=== PATIENT | male | born 1960 | race African-American/Black ===

== ENCOUNTER 2023-06-14 15:56 | Outpatient (CLI) | payer OTHER, SELFPAY ==
--- NOTE | ~2023-06-14 | MR_ITS ---
EXAMINATION: MR foot LT wo con DATE: 06/14/2023 17:11 INDICATION: Left foot pain and swelling TECHNIQUE: Magnetic resonance imaging (MRI) of the left mid and hindfoot was performed without intrav enous contrast. Sequences included sagittal T1-weighted FSE, sagittal fluid sensitive FSE STIR, coron al PD-weighted FS FSE, coronal T1-weighted FSE, axial PD-weighted FS FSE, and axial PD-weighted FSE. COMPARISON: None FINDINGS: Medial ankle ligaments: There is thickening of the superficial deltoid ligament and loss of the normally more clearly defined striated appearance to the deep deltoid ligament without surrounding soft tissue edema consistent wi th scarring related to chronic sprain. The spring ligament complex is normal. Lateral ankle ligaments: The anterior and posterior inferior tibiofibular ligaments are normal. The posterior talofibular liga ment is normal. There is heterotopic ossification at the calcaneal insertion of the mildly thickened calcaneofibular ligament likely sequela of chronic sprain. The anterior talofibular ligament appears attenuated with mild increased intrasubstance signal at its fibular insertion without significant baylee rounding edema also consistent with sequela of chronic sprain. Tendons: Minimal distal Achilles tendinosis with small enthesophytes at its calcaneal insertion. The peroneus longus and brevis tendons are normal aside from increased signal within the os perineum and the immed iately adjacent lateral margin of the cuboid. The tibialis anterior and extensor hallucis longus and extensor digitorum longus tendons are normal. The tibialis posterior, flexor digitorum longus and fle xor hallucis longus tendons are normal. Plantar fascia: Small enthesophyte at the calcaneal origin of the otherwise normal plantar aponeurosis. No marrow or surrounding soft tissue edema to suggest acute plantar fasciitis. Fluid: There is heterogeneous increased fluid signal in the anterior and posterior recess of the ankle joint consistent with prominent synovitis and likely associated small effusion. Physiologic amount fluid i n the remaining joint spaces. No other abnormal fluid collections. Bones/other: There is scattered marrow edema in the distal tibia, calcaneus and involving the navicular cuboid, al l of the cuneiforms and at the base of the second-fifth metatarsals. The edema appears to be centered along the margins of the articular surfaces at the sites of ligamentous and tendinous attachment. Th ere appears to be a developing erosion at the lateral margin of the anterior talar dome juxtaposed to the medial malleolus. Additional tiny juxta articular erosion at the proximal plantar/lateral margin of the cuboid best appreciated on the sagittal imaging. There is additional marrow edema at the head of the first metatarsal and at the first metatarsal sesamoids which is seen only on the axial imagin g. There is irregular cortical contour to the medial head of the first metatarsal which could be due to either osteophytes, chronic erosions or combination thereof. No fracture. No geographic loss of T1 marrow fat signal to suggest osteomyelitis. IMPRESSION: 1. Likely small joint effusion and prominent synovitis at the tibiotalar joint consistent with an inf lammatory arthritis. Also suggestive of inflammatory arthritis is prominent marrow edema with juxta a rticular predominance involving multiple bones in the mid and hindfoot. 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 A diagnostic arthrocentesis of the ankle joint is pl anned. 2. Scarring consistent with chronic medial and lateral ankle sprains. Reviewed, dictated and finalized at location A. Electronically signed by Christophe Fernandes M.D. on
== END 2023-06-14 15:57 | disposition home or self-care (01) ==
LOC: ANHIMG 15:59
PROVIDERS: PCP Nurse Practitioner Family; Visit Provider Orthopaedic Surgery
DX: M79.672 Pain in left foot (principal); M12.572 Traumatic arthropathy, left ankle and foot; M25.472 Effusion, left ankle
CPT/HCPCS: 73718

== ENCOUNTER 2023-06-15 15:17 | Outpatient (CLI) | payer OTHER, SELFPAY ==
--- NOTE | ~2023-06-15 | US_ITS ---
EXAMINATION: US_ABSCYSTIMG_US DATE: 06/15/2023 16:30 INDICATION: Swelling and pain at the left foot TECHNIQUE: The procedure including the risks and benefits was discussed with the patient. Risks discu ssed included bleeding and infection. The patient understood the risks and agreed to proceed. The sk in overlying the ankle joint was prepped and draped in usual sterile fashion. Anesthetic was adminis tered with 1% lidocaine subcutaneously. A 21 gauge needle was advanced under continuous ultrasound ob servation into the anterior recess of the tibiotalar joint. 1 mL of fluid was aspirated and sent to l ab for studies as ordered by the referring physician.. The needle was removed and the entry site was cleaned and dressed. Post procedure ultrasound demonstrated no hemorrhage. FINDINGS: Ultrasound images demonstrate and moderate amount of hypoechoic likely synovitis within the anterior recess of the tibiotalar joint space. Subsequent images demonstrate the needle advanced int o the lateral side of the anterior recess which yielded 1 mL of relatively clear serosanguineous flui d. IMPRESSION: 1. Successful Ultrasound-guided left ankle arthrocentesis. Reviewed, dictated and finalized at location A. [employer]
[2023-06-15 18:08] LABS: Appearance Synovial Fluid Bloody (Clear); Color Synovial Fluid Red (Colorless); Source Synovial Fluid Synovial fluid
[2023-06-15 18:09] LABS: Lymphocytes Synovial Fluid 5 %; Monocytes Synovial Fluid 9 %; Neutrophils Synovial Fluid 86 % (0-25)
== END 2023-06-15 15:18 | disposition home or self-care (01) ==
PROVIDERS: PCP Nurse Practitioner Family; Visit Provider Orthopaedic Surgery
DX: M12.572 Traumatic arthropathy, left ankle and foot (principal); M79.672 Pain in left foot
CPT/HCPCS: 10160; 76942; 87070; 87075; 87205; 89051; 89060

== ENCOUNTER 2023-07-13 13:32 | Outpatient (CLI) | payer OTHER, SELFPAY ==
--- NOTE | ~2023-07-13 | MR_ITS ---
EXAMINATION: MR knee LT wo con DATE: 07/13/2023 14:21 INDICATION: Left knee trauma with instability and inability to straighten the knee post injury 2 jose hs prior TECHNIQUE: Magnetic resonance imaging (MRI) of the left knee was performed without intravenous contra st. Sequences included coronal PD-weighted FSE, coronal PD-weighted FS FSE, sagittal T2-weighted FSE , sagittal PD-weighted FS FSE and axial PD weighted fat saturated FSE. COMPARISON: None. FINDINGS: Evaluation is mildly limited by some motion artifact or blurring on multiple sequences. Medial compartment: There is a tear at the posterior horn and posterior body of the medial meniscus, likely complex with horizontal configuration extending to the inferior articular surface at the meniscal body and with mo re vertical orientation along both the superior and intra-articular surfaces at the posterior horn. M ild partial-thickness cartilage loss along the anteromedial aspect medial tibial plateau and anterior weightbearing medial femoral condyle, the latter with superimposed deep chondral fissuring. There is a deeper chondral ulceration with chondral surface regularity at the central weightbearing medial fe moral condyle. No degenerative subchondral changes. Lateral compartment: There is an avulsion of the posterior root of the lateral meniscus. There is an additional longitudin al tear plane extending to the inferior articular surface of the inner third of the posterior body of the lateral meniscus. Deep chondral fissuring with underlying small central subchondral osteophyte a t the posterior margin of the lateral tibial plateau. Mild partial-thickness cartilage loss with smoo th chondral surface along the posterior weightbearing lateral femoral condyle. Patellofemoral compartment: Partial-thickness chondral ulceration involving up to 50% the cartilage thickness at the and mid infe rior aspect lateral talar facet. There is a superimposed small region of deeper chondral fissuring wi th mild underlying subarticular edema-like signal change. Shallow chondral ulceration at the inferome dial aspect of the medial patellar facet. Trochlear cartilage appears relatively preserved. Ligaments and tendons: Anterior and posterior cruciate ligaments are normal. There is mild thickening of the proximal medial collateral ligament without surrounding edema consistent with mild scarring related to chronic sprai n. The fibular collateral ligament complex is normal. There is mild tendinopathy without discrete tea r at the femoral insertion of the popliteus tendon. Mild distal quadriceps tendinopathy. There is als o mild patellar tendinopathy. 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 The visualized medial and lateral hamstring tendons as well as the iliotibial band are normal. Fluid: Large left knee joint effusion with diffuse mild to moderate synovitis. No loose osteochondral bodies identified. Osseous/other: Bone alignment is normal. No fracture. There is marrow edema along the posterolateral nonarticular munoz rface of the lateral femoral condyle near the insertion of the popliteal tendon. There appears to be a developing erosion along the posterior margin of the insertion. No fracture or pathologic marrow re placing process. IMPRESSION: 1. Medial and lateral meniscal tears, both likely complex including avulsion of the posterior root of the lateral meniscus. 2. 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 3. Nonspecific erosion at the posterolateral aspect lateral femoral condyle with prominent surroundin g marrow edema located posterior to the insertion of th
== END 2023-07-13 13:33 | disposition home or self-care (01) ==
PROVIDERS: PCP Nurse Practitioner Family; Visit Provider Orthopaedic Surgery
DX: S83.242A Other tear of medial meniscus, current injury, left knee, initial encounter (principal); S83.282A Other tear of lateral meniscus, current injury, left knee, initial encounter; X58.XXXA Exposure to other specified factors, initial encounter; M17.12 Unilateral primary osteoarthritis, left knee; M25.462 Effusion, left knee
CPT/HCPCS: 73721

== ENCOUNTER 2024-01-09 14:43 | Outpatient (CLI) | payer OTHER, SELFPAY ==
[2024-01-09 15:06] LABS: Basophils Absolute Auto 0.1 K/mm3 (0.0-0.1); Basophils Percent Auto 0.6 % (0.2-1.2); Eosinophils Absolute Auto 0.2 K/mm3 (0-0.3); Eosinophils Percent Auto 2.2 % (0-4.4); Hematocrit 42.3 % (42.0-52.0); Hemoglobin 13.4 g/dL (14.0-18.0); Immature Granulocyte Absolute 0.02 K/mm3 (0.00-0.031); Immature Granulocyte Percent A 0.2 % (0-0.5); Lymphocytes Absolute Auto 1.78 K/mm3 (0.9-3.2); Lymphocytes Percent Auto 21.8 % (18.3-44.2); Mean Corpuscular HGB Conc 31.7 g/dl (32-36); Mean Corpuscular Hemoglobin 26.4 pg (26-34); Mean Corpuscular Volume 83.3 fl (80-100); Mean Platelet Volume 10.8 fl (7.4-10.4); Monocytes Absolute Auto 0.9 K/mm3 (0.1-0.6); Monocytes Percent Auto 10.9 % (2.6-8.5); Neutrophils Absolute Auto 5.3 K/mm3 (1.3-6.7); Neutrophils Percent Auto 64.3 % (45.5-73.1); Platelet Count Result 244 k/mm3 (150-375); Red Blood Count 5.08 M/mm3 (4.6-6.20); Red Cell Distribution Width 18.8 % (11.5-14.5); White Blood Count 8.2 K/mm3 (4.5-10.0)
[2024-01-09 16:50] LABS: Iron 68 ug/dL (49-181)
[2024-01-09 16:55] LABS: Alanine Aminotransferase 44 U/L (6-50); Albumin Level 4.8 g/dL (3.5-5.1); Alkaline Phosphatase 97 U/L (38-126); Anion Gap 11 mmol/L (4-12); Aspartate Amino Transferase 49 U/L (17-59); Bilirubin,Total 0.5 mg/dL (0.2-1.3); Blood Urea Nitrogen 17 mg/dL (9-20); Calcium 10.5 mg/dL (8.4-10.2); Carbon Dioxide 28 mmol/L (22-30); Chloride 101 mmol/L (98-107); Estimated Glomerular Filt Rate > 60; Glucose 98 mg/dL (65-110); Lactate Dehydrogenase 172 U/L (120-246); Potassium 4.3 mmol/L (3.4-5.0); Sodium 140 mmol/L (137-145)
[2024-01-09 16:59] LABS: Percent Iron Saturation 16 % (20-50)
[2024-01-09 18:01] LABS: Folic Acid 10.1 ng/mL (2.76->20)
[2024-01-11 17:23] LABS: Hematocrit 43.9 % (38.5-50.0); Hemoglobin 13.5 g/dL (13.2-17.1); MCH 26.3 pg (27.0-33.0); MCV 85.6 fL (80.0-100.0); RDW 17.8 % (11.0-15.0); Red Blood Cell Count 5.13 Million/uL (4.20-5.80)
[2024-01-13 09:24] LABS: Methylmalonic Acid 171 nmol/L (69-390)
[2024-01-15 10:39] LABS: Soluble Transferrin Receptor 2.21 mg/L (0.76-1.76)
== END 2024-01-09 14:44 | disposition home or self-care (01) ==
PROVIDERS: Nurse Practitioner Family; PCP Nurse Practitioner Family; Visit Provider Internal Medicine Hematology & Oncology
DX: D50.9 Iron deficiency anemia, unspecified (principal)
CPT/HCPCS: 36415; 80053; 82607; 82728; 82746; 83021; 83540; 83550; 83615; 83921; 84238; 85025

== ENCOUNTER 2024-04-25 13:08 | Outpatient (CLI) | payer OTHER, SELFPAY ==
[2024-04-25 13:20] LABS: Basophils Absolute Auto 0.1 K/mm3 (0.0-0.1); Basophils Percent Auto 0.6 % (0.2-1.2); Eosinophils Absolute Auto 0.3 K/mm3 (0-0.3); Eosinophils Percent Auto 3.3 % (0-4.4); Hematocrit 43.8 % (42.0-52.0); Hemoglobin 14.7 g/dL (14.0-18.0); Immature Granulocyte Absolute 0.01 K/mm3 (0.00-0.031); Immature Granulocyte Percent A 0.1 % (0-0.5); Lymphocytes Absolute Auto 2.12 K/mm3 (0.9-3.2); Lymphocytes Percent Auto 26.7 % (18.3-44.2); Mean Corpuscular HGB Conc 33.6 g/dl (32-36); Mean Corpuscular Volume 92.4 fl (80-100); Mean Platelet Volume 9.9 fl (7.4-10.4); Monocytes Absolute Auto 1.3 K/mm3 (0.1-0.6); Monocytes Percent Auto 16.2 % (2.6-8.5); Neutrophils Absolute Auto 4.2 K/mm3 (1.3-6.7); Neutrophils Percent Auto 53.1 % (45.5-73.1); Platelet Count Result 199 k/mm3 (150-375); Red Blood Count 4.74 M/mm3 (4.6-6.20); Red Cell Distribution Width 14.1 % (11.5-14.5)
[2024-04-25 13:52] LABS: Iron 70 ug/dL (49-181)
[2024-04-25 13:56] LABS: Anion Gap 11 mmol/L (4-12); Blood Urea Nitrogen 14 mg/dL (9-20); Calcium 10.1 mg/dL (8.4-10.2); Carbon Dioxide 28 mmol/L (22-30); Chloride 101 mmol/L (98-107); Estimated Glomerular Filt Rate > 60; Glucose 102 mg/dL (65-110); Potassium 4.3 mmol/L (3.4-5.0); Sodium 140 mmol/L (137-145)
[2024-04-25 14:38] LABS: Percent Iron Saturation 18 % (20-50)
[2024-04-25 16:33] LABS: Folic Acid 7.6 ng/mL (2.76->20)
== END 2024-04-25 13:09 | disposition home or self-care (01) ==
LOC: ANHLAB 13:11
PROVIDERS: PCP Nurse Practitioner Family; Visit Provider Internal Medicine Hematology & Oncology
DX: D51.9 Vitamin B12 deficiency anemia, unspecified (principal); D50.9 Iron deficiency anemia, unspecified
CPT/HCPCS: 36415; 80048; 82607; 82728; 82746; 83540; 83550; 85025

== ENCOUNTER 2024-06-09 12:59 | Outpatient (CLI) | payer OTHER, SELFPAY ==
[2024-06-09 13:24] LABS: Hematocrit 42.2 % (42.0-52.0); Mean Corpuscular HGB Conc 33.2 g/dl (32-36); Mean Corpuscular Hemoglobin 31.1 pg (26-34); Mean Corpuscular Volume 93.8 fl (80-100); Platelet Count Result 266 k/mm3 (150-375); Red Cell Distribution Width 12.9 % (11.5-14.5); White Blood Count 8.5 K/mm3 (4.5-10.0)
[2024-06-09 14:34] LABS: Albumin Level 4.4 g/dL (3.5-5.1); Anion Gap 5 mmol/L (4-12); Blood Urea Nitrogen 13 mg/dL (9-20); Calcium 9.6 mg/dL (8.4-10.2); Carbon Dioxide 30 mmol/L (22-30); Chloride 103 mmol/L (98-107); Estimated Glomerular Filt Rate 57; Glucose 125 mg/dL (65-110); Magnesium 1.6 mg/dL (1.6-2.3); Sodium 138 mmol/L (137-145)
[2024-06-09 14:47] LABS: Creatinine Urine 226.9 mg/dL
[2024-06-09 14:51] LABS: MALB Creatinine Ratio 7.3 mg/g (0-30); Microalbumin Urine Random 16.5 mg/L (0-16.7)
[2024-06-09 15:33] LABS: Vitamin D 25 Hydroxy 48.8 ng/mL
== END 2024-06-09 13:00 | disposition home or self-care (01) ==
LOC: ANHLAB 13:00
PROVIDERS: PCP Nurse Practitioner Family
DX: I12.9 Hypertensive chronic kidney disease with stage 1 through stage 4 chronic kidney disease, or unspecified chronic kidney disease (principal); N18.4 Chronic kidney disease, stage 4 (severe); D50.8 Other iron deficiency anemias; E21.1 Secondary hyperparathyroidism, not elsewhere classified; M10.0 Idiopathic gout; R80.1 Persistent proteinuria, unspecified; G47.33 Obstructive sleep apnea (adult) (pediatric)
CPT/HCPCS: 36415; 80069; 82043; 82306; 83735; 84550; 85027

== ENCOUNTER 2024-07-08 15:37 | Outpatient (CLI) | payer OTHER, SELFPAY ==
--- OUTSIDE RECORDS SUMMARY | 2024-07-08 15:54 | XMS_ITS | Data Portability ---
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 10/24/2023 16:03:09 10/24/19 24 10/24/2023 CBC/C OMPLE TE BLD COUNT W/DIF F monocytes, absolute count 0.76 x10'3 /uL 0.29-0 .99 Not Available [facility] (Lab) [address] [place], [address], 10/24/2023 16:03:09 10/24/19 24 10/24/2023 CBC/C OMPLE TE BLD COUNT W/DIF F eosinophils, absolute count 0.27 x10'3 /uL 0.02-0 .53 Not Available [facility] (Lab) [address] [place], [address], 10/24/2023 16:03:09 10/24/19 24 10/24/2023 CBC/C OMPLE TE BLD COUNT W/DIF F basophils, absolute count 0.05 x10'3 /uL 0.01-0 .08 Not Available [facility] (Lab) [address] [place], [address], 10/24/2023 16:03:09 10/24/19 24 10/24/2023 CBC/C OMPLE TE BLD COUNT W/DIF F immature granulocytes ,absolute 0.04 x10'3 /uL 0.00-0 .05 Not Available [facility] (Lab) [address] [place], [address], 10/24/2023 16:03:09 10/24/19 24 10/24/2023 CBC/C OMPLE TE BLD COUNT W/DIF F nucleated red blood cells 0.0 % -0 Not Available [facility] (Lab) [address] [place], [address], 10/24/2023 16:03:09 10/24/19 24 10/24/2023 CBC/C OMPLE TE BLD COUNT W/DIF F NRBC# 0.00 x10'3 /uL Not Available [facility] (Lab) [address] [place], [address], 10/24/2023 16:03:09 10/24/19 24 10/24/2023 COMPR EHENS LILLIAM METAB OLIC PANEL sodium 134 mmol/ L 137-14 5 low Not Available [facility] (Lab) [address] [place], [address], 10/24/2023 16:33:46 10/24/19 24 10/24/2023 COMPR EHENS LILLIAM METAB OLIC PANEL potassium 3.8 mmol/ L 3.5-5. 1 Not Available [facility] (Lab) [address] [place], [address], 10/24/2023 16:33:46 10/24/19 24 10/24/2023 COMPR EHENS LILLIAM METAB OLIC PANEL chloride 101 mmol/ L 98-107 Not Available [facility] (Lab) [address] [place], [address], 10/24/2023 16:33:46 10/24/19 24 10/24/2023 COMPR EHENS LILLIAM METAB OLIC PANEL carbon dioxide 25 mmol/ L 22-30 Not Available [facility] (Lab) [address] [place], [address], 10/24/2023 16:33:46 10/24/19 24 10/24/2023 COMPR EHENS LILLIAM METAB OLIC PANEL anion gap 11.8 mmol/ L 14-22 low Not Available [facility] (Lab) [address] [place], [address], 10/24/2023 16:33:46 10/24/19 24 10/24/2023 COMPR EHENS LILLIAM METAB OLIC PANEL glucose 127 mg/dL 70-99 high Not Available [facility] (Lab) [address] [place], [address], 10/24/2023 16:33:46 10/24/19 24 10/24/2023 COMPR EHENS LILLIAM METAB OLIC PANEL BUN 14 mg/dL 8-19 Not Available [facility] (Lab) [address] [place], [address], 10/24/2023 16:33:46 10/24/19 24 10/24/2023 COMPR EHENS LILLIAM METAB OLIC PANEL creatinine 1.22 mg/dL 0.66-1 .25 Not Available [facility] (Lab) [address] [place], [address], 10/24/2023 16:33:46 10/24/19 24 10/24/2023 COMPR EHENS LILLIAM METAB OLIC PANEL GFR >60 Refer ence Range : Commodore ge GFR Healt hy Adult : >60 mL/mi n/1.7 3 m2 Chron ic Kidne y Disea se: 15-60 mL/mi n/1.7 3 m2 Kidne y Failu re: <15/m L/min /1.73 m2 www.n iddk. nih.g ov The MDRD study equat ion has not been valid ated in child marquise <18 years of age; pregn ant women ; the elder ly >85 years of age; or in some racia l or ethni c subgr oups, such as Hispa nics. Outsi de the valid ated jess eters , estim ated GFR is less accur ate, requi ring clini yoli judgm ent on a case- by-ca se basis . Clini yoli inter preta tion for other races and ages must be made by the clini onur. The MDRD study equat ion has not been valid ated for the evalu ation of serum creat inine relat ed to nutri danny l statu s or medic ation usage . For perso ns <18 years of age, a pedia tric GFR calcu lathilda is avail able on the [facility] websi te: https ://colby dan.o fco/jade peters s/kdo qi/gf r_cal culat or Not Available [facility] (Lab) [address] [place], [address], 10/24/2023 16:33:46 10/24/19 24 10/24/2023 COMPR EHENS LILLIAM METAB OLIC PANEL alkaline phosphatase 143 U/L 38-126 high Not Available [facility] (Lab) [address] [place], [address], 10/24/2023 16:33:46 10/24/19 24 10/24/2023 COMPR EHENS LILLIAM METAB OLIC PANEL alanine aminotransfe rase 34 U/L 0-50 Not Available [facility] (Lab) [address] [place], [address], 10/24/2023 16:33:46 10/24/19 24 10/24/2023 COMPR EHENS LILLIAM METAB OLIC PANEL aspartate aminotransfe rase 42 U/L 15-46 Not Available [facility] (Lab) [address] [place], [address], 10/24/2023 16:33:46 10/24/19 24 10/24/2023 COMPR EHENS LILLIAM METAB OLIC PANEL bilirubin, total 0.50 mg/dL 0.20-1 .30 Not Available [facility] (Lab) [address] [place], [address], 10/24/2023 16:33:46 10/24/19 24 10/24/2023 COMPR EHENS LILLIAM METAB OLIC PANEL calcium 9.9 mg/dL 8.4-10 .2 Not Available [facility] (Lab) [address] [place], [address], 10/24/2023 16:33:46 10/24/19 24 10/24/2023 COMPR EHENS LILLIAM METAB OLIC PANEL total protein 7.1 g/dL 6.3-8. 2 Not Available [facility] (Lab) [address] [place], [address], 10/24/2023 16:33:46 10/24/19 24 10/24/2023 COMPR EHENS LILLIAM METAB OLIC PANEL albumin 4.1 g/dL 3.4-5. 0 Not Available [facility] (Lab) [address] [place], [address], 10/24/2023 16:33:46 10/24/19 24 10/24/2023 COMPR EHENS LILLIAM METAB OLIC PANEL globulin 3.0 g/dL 2.6-4. 2 Not Available [facility] (Lab) [address] [place], [address], 10/24/2023 16:33:46 10/24/19 24 10/24/2023 COMPR EHENS LILLIAM METAB OLIC PANEL A/G ratio 1.4 ratio 1.0-2. 0 Not Available [facility] (Lab) [address] [place], [address], 10/24/2023 16:33:46 10/24/19 24 10/24/2023 URIC ACID SERUM uric acid 6.6 mg/dL 3.5-8. 5 Not Available [facility] (Lab) [address] [place], [address], 10/24/2023 16:33:51 10/24/19 24 10/24/2023 LIPID PANEL cholesterol 125 mg/dL 140-19 9 low NIH NEVIN NSUS RECOM MENDA TION FOR ERNA STERO L: ADULT CHILD LOW RISK: <200 <170 BORDE RLINE : <200- 239 ----- HIGH RISK: >240 >200 Not Available [facility] (Lab) [address] [place], [address], 10/24/2023 16:33:57 10/24/19 24 10/24/2023 LIPID PANEL triglyceride s 179 mg/dL 0-150 high NIH NEVIN NSUS REPOR T RECOM MENDA TION FOR TRIGL YCERI MAHSA: ADULT CHILD LOW RISK: <150 ----- BODER LINE: 150-1 99 ----- HIGH RISK: >200 ----- Not Available [facility] (Lab) [address] [place], [address], 10/24/2023 16:33:57 10/24/19 24 10/24/2023 LIPID PANEL HDL cholesterol 51 mg/dL 40- Not Available [facility] (Lab) [address] [place], [address], 10/24/2023 16:33:57 10/24/19 24 10/24/2023 LIPID PANEL LDL cholesterol, calculated 38 mg/dL 0-130 NIH NEVIN NSUS REPOR T RECOM MENDA TIONS FOR LDL: ADULT CHILD LOW RISK <130 <110 (OPTI MAL LDL) <100 ----- BORDE RLINE : 130-1 59 ----- HIGH RISK: >160 >130 A TRIGL YCERI DE RESUL T >400 INVAL IDATE S THE CALCU LATIO N FOR LDL FRACT IONAT ION - THE LDL RESUL T WILL NOT BE REPOR BRODY. Not Available [facility] (Lab) [address] [place], [address], 10/24/2023 16:33:57 10/24/19 24 10/24/2023 HEMOG LOBIN A1C HA1C 6.3 % 4.0-6. 0 high Diabe sal Scree maricruz Crite darren: <5.7% Consi stent with absen ce of diabe sal 5.7-6 .4% Consi stent with incre ased risk for diabe sal (pred iabet es) >OR=6 .5% Consi stent with diabe sal REFER ENCE: Diabe sal Care 2016, 39(Sharma ppl.1 ):s13 -s22 Not Available [facility] (Lab) [address] [place], [address], 10/24/2023 20:46:33 11/27/19 24 11/27/2023 CBC/C OMPLE TE BLD COUNT W/DIF F white blood cells 7.4 x10'3 /uL 4.2-10 .8 Not Available [facility] (Lab) [address] [place], [address], 11/27/2023 18:22:17 11/27/19 24 11/27/2023 CBC/C OMPLE TE BLD COUNT W/DIF F red blood cells 4.51 x10'6 /uL 4.10-5 .80 Not Available [facility] (Lab) [address] [place], [address], 11/27/2023 18:22:17 11/27/19 24 11/27/2023 CBC/C OMPLE TE BLD COUNT W/DIF F hemoglobin 11.4 g/dL 13.2-1 7.0 low Not Available [facility] (Lab) [address] [place], [address], 11/27/2023 18:22:17 11/27/19 24 11/27/2023 CBC/C OMPLE TE BLD COUNT W/DIF F hematocrit 35.6 % 39.3-5 0.0 low Not Available [facility] (Lab) [address] [place], [address], 11/27/2023 18:22:17 11/27/19 24 11/27/2023 CBC/C OMPLE TE BLD COUNT W/DIF F mean red cell volume 78.9 fL 80.0-9 7.0 low Not Available [facility] (Lab) [address] [place], [address], 11/27/2023 18:22:17 11/27/19 24 11/27/2023 CBC/C OMPLE TE BLD COUNT W/DIF F mean red cell hemoglobin 25.3 pg 27.0-3 3.0 low Not Available [facility] (Lab) [address] [place], [address], 11/27/2023 18:22:17 11/27/19 24 11/27/2023 CBC/C OMPLE TE BLD COUNT W/DIF F mean RBC HGB concentratio n 32.0 g/dL 31.0-3 6.0 Not Available [facility] (Lab) [address] [place], [address], 11/27/2023 18:22:17 11/27/19 24 11/27/2023 CBC/C OMPLE TE BLD COUNT W/DIF F red cell distribution width 18.9 % 11.8-1 5.5 high Not Available [facility] (Lab) [address] [place], [address], 11/27/2023 18:22:17 11/27/19 24 11/27/2023 CBC/C OMPLE TE BLD COUNT W/DIF F platelets 302 x10'3 /uL 150-40 0 Not Available [facility] (Lab) [address] [place], [address], 11/27/2023 18:22:17 11/27/19 24 11/27/2023 CBC/C OMPLE TE BLD COUNT W/DIF F mean platelet volume 11.1 fL 9.0-12 .4 Not Available [facility] (Lab) [address] [place], [address], 11/27/2023 18:22:17 11/27/19 24 11/27/2023 CBC/C OMPLE TE BLD COUNT W/DIF F neutrophils 59.5 % 39.0-7 2.0 Not Available [facility] (Lab) [address] [place], [address], 11/27/2023 18:22:17 11/27/19 24 11/27/2023 CBC/C OMPLE TE BLD COUNT W/DIF F lymphocytes 22.6 % 16.0-4 7.0 Not Available [facility] (Lab) [address] [place], [address], 11/27/2023 18:22:17 11/27/19 24 11/27/2023 CBC/C OMPLE TE BLD COUNT W/DIF F monocytes 13.6 % 5.0-12 .0 high Not Available [facility] (Lab) [address] [place], [address], 11/27/2023 18:22:17 11/27/19 24 11/27/2023 CBC/C OMPLE TE BLD COUNT W/DIF F eosinophils 3.2 % 1.0-7. 0 Not Available [facility] (Lab) [address] [place], [address], 11/27/2023 18:22:17 11/27/19 24 11/27/2023 CBC/C OMPLE TE BLD COUNT W/DIF F basophils 0.7 % 0.0-2. 0 Not Available [facility] (Lab) [address] [place], [address], 11/27/2023 18:22:17 11/27/19 24 11/27/2023 CBC/C OMPLE TE BLD COUNT W/DIF F immature granulocytes 0.4 % 0.00-0 .50 Not Available [facility] (Lab) [address] [place], [address], 11/27/2023 18:22:17 11/27/19 24 11/27/2023 CBC/C OMPLE TE BLD COUNT W/DIF F neutrophils, absolute count 4.40 x10'3 /uL 1.5-8. 0 Not Available [facility] (Lab) [address] [place], [address], 11/27/2023 18:22:17 11/27/19 24 11/27/2023 CBC/C OMPLE TE BLD COUNT W/DIF F lymphocytes, absolute count 1.67 x10'3 /uL 1.07-3 .43 Not Available [facility] (Lab) [address] [place], [address], 11/27/2023 18:22:17 11/27/19 24 11/27/2023 CBC/C OMPLE TE BLD COUNT W/DIF F monocytes, absolute count 1.01 x10'3 /uL 0.29-0 .99 high Not Available [facility] (Lab) [address] [place], [address], 11/27/2023 18:22:17 11/27/19 24 11/27/2023 CBC/C OMPLE TE BLD COUNT W/DIF F eosinophils, absolute count 0.24 x10'3 /uL 0.02-0 .53 Not Available [facility] (Lab) [address] [place], [address], 11/27/2023 18:22:17 11/27/19 24 11/27/2023 CBC/C OMPLE TE BLD COUNT W/DIF F basophils, absolute count 0.05 x10'3 /uL 0.01-0 .08 Not Available [facility] (Lab) [address] [place], [address], 11/27/2023 18:22:17 11/27/19 24 11/27/2023 CBC/C OMPLE TE BLD COUNT W/DIF F immature granulocytes ,absolute 0.03 x10'3 /uL 0.00-0 .05 Not Available [facility] (Lab) [address] [place], [address], 11/27/2023 18:22:17 11/27/19 24 11/27/2023 CBC/C OMPLE TE BLD COUNT W/DIF F nucleated red blood cells 0.0 % -0 Not Available [facility] (Lab) [address] [place], [address], 11/27/2023 18:22:17 11/27/19 24 11/27/2023 CBC/C OMPLE TE BLD COUNT W/DIF F NRBC# 0.00 x10'3 /uL Not Available [facility] (Lab) [address] [place], [address], 11/27/2023 18:22:17 11/27/19 24 11/27/2023 COMPR EHENS LILLIAM METAB OLIC PANEL sodium 139 mmol/ L 137-14 5 Not Available [facility] (Lab) [address] [place], [address], 11/27/2023 18:23:00 11/27/19 24 11/27/2023 COMPR EHENS LILLIAM METAB OLIC PANEL potassium 4.0 mmol/ L 3.5-5. 1 Not Available [facility] (Lab) [address] [place], [address], 11/27/2023 18:23:00 11/27/19 24 11/27/2023 COMPR EHENS LILLIAM METAB OLIC PANEL chloride 108 mmol/ L 98-107 high Not Available [facility] (Lab) [address] [place], [address], 11/27/2023 18:23:00 11/27/19 24 11/27/2023 COMPR EHENS LILLIAM METAB OLIC PANEL carbon dioxide 28 mmol/ L 22-30 Not Available [facility] (Lab) [address] [place], [address], 11/27/2023 18:23:00 11/27/19 24 11/27/2023 COMPR EHENS LILLIAM METAB OLIC PANEL anion gap 7.0 mmol/ L 14-22 low Not Available [facility] (Lab) [address] [place], [address], 11/27/2023 18:23:00 11/27/19 24 11/27/2023 COMPR EHENS LILLIAM METAB OLIC PANEL glucose 101 mg/dL 70-99 high Not Available [facility] (Lab) [address] [place], [address], 11/27/2023 18:23:00 11/27/19 24 11/27/2023 COMPR EHENS LILLIAM METAB OLIC PANEL BUN 15 mg/dL 8-19 Not Available [facility] (Lab) [address] [place], [address], 11/27/2023 18:23:00 11/27/19 24 11/27/2023 COMPR EHENS LILLIAM METAB OLIC PANEL creatinine 1.22 mg/dL 0.66-1 .25 Not Available [facility] (Lab) [address] [place], [address], 11/27/2023 18:23:00 11/27/19 24 11/27/2023 COMPR EHENS LILLIAM METAB OLIC PANEL GFR >60 Refer ence Range : Commodore ge GFR Healt hy Adult : >60 mL/mi n/1.7 3 m2 Chron ic Kidne y Disea se: 15-60 mL/mi n/1.7 3 m2 Kidne y Failu re: <15/m L/min /1.73 m2 www.n iddk. nih.g ov The MDRD study equat ion has not been valid ated in child marquise <18 years of age; pregn ant women ; the elder ly >85 years of age; or in some racia l or ethni c subgr oups, such as Hispa nics. Outsi de the valid ated jess eters , estim ated GFR is less accur ate, requi ring clini yoli judgm ent on a case- by-ca se basis . Clini yoli inter preta tion for other races and ages must be made by the clini onur. The MDRD study equat ion has not been valid ated for the evalu ation of serum creat inine relat ed to nutri danny l statu s or medic ation usage . For perso ns <18 years of age, a pedia tric GFR calcu lator is avail able on the [facility] websi te: https ://colby burns.rikki dextery.o rg/pr ofess ional s/kdo qi/gf r_cal culat or Not Available [facility] (Lab) [address] [place], [address], 11/27/2023 18:23:00 11/27/19 24 11/27/2023 COMPR EHENS LILLIAM METAB OLIC PANEL alkaline phosphatase 124 U/L 38-126 Not Available [facility] (Lab) [address] [place], [address], 11/27/2023 18:23:00 11/27/19 24 11/27/2023 COMPR EHENS LILLIAM METAB OLIC PANEL alanine aminotransfe rase 36 U/L 0-50 Not Available [facility] (Lab) [address] [place], [address], 11/27/2023 18:23:00 11/27/19 24 11/27/2023 COMPR EHENS LILLIAM METAB OLIC PANEL aspartate aminotransfe rase 50 U/L 15-46 high Not Available [facility] (Lab) [address] [place], [address], 11/27/2023 18:23:00 11/27/19 24 11/27/2023 COMPR EHENS LILLIAM METAB OLIC PANEL bilirubin, total 0.70 mg/dL 0.20-1 .30 Not Available [facility] (Lab) [address] [place], [address], 11/27/2023 18:23:00 11/27/19 24 11/27/2023 COMPR EHENS LILLIAM METAB OLIC PANEL calcium 10.1 mg/dL 8.4-10 .2 Not Available [facility] (Lab) [address] [place], [address], 11/27/2023 18:23:00 11/27/19 24 11/27/2023 COMPR EHENS LILLIAM METAB OLIC PANEL total protein 7.1 g/dL 6.3-8. 2 Not Available [facility] (Lab) [address] [place], [address], 11/27/2023 18:23:00 11/27/19 24 11/27/2023 COMPR EHENS LILLIAM METAB OLIC PANEL albumin 4.2 g/dL 3.4-5. 0 Not Available [facility] (Lab) [address] [place], [address], 11/27/2023 18:23:00 11/27/19 24 11/27/2023 COMPR EHENS LILLIAM METAB OLIC PANEL globulin 2.9 g/dL 2.6-4. 2 Not Available [facility] (Lab) [address] [place], [address], 11/27/2023 18:23:00 11/27/19 24 11/27/2023 COMPR EHENS LILLIAM METAB OLIC PANEL A/G ratio 1.4 ratio 1.0-2. 0 Not Available [facility] (Lab) [address] [place], [address], 11/27/2023 18:23:00 11/27/19 24 11/27/2023 PHOSP HORUS phosphorus 3.7 mg/dL 2.5-4. 5 Not Available [facility] (Lab) [address] [place], [address], 11/27/2023 18:23:03 11/27/19 24 11/27/2023 LIPID PANEL cholesterol 114 mg/dL 140-19 9 low NIH NEVIN NSUS RECOM MENDA TION FOR ERNA STERO L: ADULT CHILD LOW RISK: <200 <170 BORDE RLINE : <200- 239 ----- HIGH RISK: >240 >200 Not Available [facility] (Lab) [address] [place], [address], 11/27/2023 18:23:05 11/27/19 24 11/27/2023 LIPID PANEL triglyceride s 123 mg/dL 0-150 NIH NEVIN NSUS REPOR T RECOM MENDA TION FOR TRIGL YCERI MAHSA: ADULT CHILD LOW RISK: <150 ----- BODER LINE: 150-1 99 ----- HIGH RISK: >200 ----- Not Available [facility] (Lab) [address] [place], [address], 11/27/2023 18:23:05 11/27/19 24 11/27/2023 LIPID PANEL HDL cholesterol 45 mg/dL 40- Not Available [facility] (Lab) [address] [place], [address], 11/27/2023 18:23:05 11/27/19 24 11/27/2023 LIPID PANEL LDL cholesterol, calculated 44 mg/dL 0-130 NIH NEVIN NSUS REPOR T RECOM MENDA TIONS FOR LDL: ADULT CHILD LOW RISK <130 <110 (OPTI MAL LDL) <100 ----- BORDE RLINE : 130-1 59 ----- HIGH RISK: >160 >130 A TRIGL YCERI DE RESUL T >400 INVAL IDATE S THE CALCU LATIO N FOR LDL FRACT IONAT ION - THE LDL RESUL T WILL NOT BE REPOR BRODY. Not Available [facility] (Lab) [address] [place], [address], 11/27/2023 18:23:05 11/27/19 24 11/27/2023 GGT/G -GLUT AMYL TRANS FERAS E gamma-glutam yl transferase 61 U/L 12-58 high Not Available [facility] (Lab) [address] [place], [address], 11/27/2023 18:23:09 11/27/19 24 11/27/2023 HEPAT ITIS ACUTE PANEL hepatitis A IgM antibody NON-RE ACTIVE non-re active For sampl es repor brody as Borde rline React lilliam for HAV IgM, it is recom jm d a new speci men be obtai bolivar in 2 weeks and retes brody. Not Available [facility] (Lab) [address] [place], [address], 11/27/2023 19:17:48 11/27/19 24 11/27/2023 HEPAT ITIS ACUTE PANEL hepatitis A virus signal/cutof 0.02 0.00-0 .79 Not Available [facility] (Lab) [address] [place], [address], 11/27/2023 19:17:48 11/27/19 24 11/27/2023 HEPAT ITIS ACUTE PANEL hepatitis B core IgM antibody NON-RE ACTIVE non-re active Not Available [facility] (Lab) [address] [place], [address], 11/27/2023 19:17:48 11/27/19 24 11/27/2023 HEPAT ITIS ACUTE PANEL HBV core IgM signal/cutof f 0.06 0.00-1 .10 Not Available [facility] (Lab) [address] [place], [address], 11/27/2023 19:17:48 11/27/19 24 11/27/2023 HEPAT ITIS ACUTE PANEL hepatitis B surface antigen NON-RE ACTIVE non-re active All speci mens react lilliam for Hepat itis B Surfa ce Antig en will refle x to refer [facility] lab confi rmato ry testi ng. Not Available [facility] (Lab) [address] [place], [address], 11/27/2023 19:17:48 11/27/19 24 11/27/2023 HEPAT ITIS ACUTE PANEL HBV surf.antigen signal/cutof f 0.12 0.00-0 .99 Not Available [facility] (Lab) [address] [place], [address], 11/27/2023 19:17:48 11/27/19 24 11/27/2023 HEPAT ITIS ACUTE PANEL hepatitis C antibody NON-RE ACTIVE non-re active All speci mens react lilliam for Hepat itis C Virus antib naima will refle x to PCR confi rmato ry testi ng. Pleas e allow 48-72 hours for resul ts. Not Available [facility] (Lab) [address] [place], [address], 11/27/2023 19:17:48 11/27/19 24 11/27/2023 HEPAT ITIS ACUTE PANEL hepatitis C virus signal/cutof 0.01 0.00-0 .99 Not Available [facility] (Lab) [address] [place], [address], 11/27/2023 19:17:48 11/27/19 24 11/27/2023 TSH W/REF ROMAN FT4 TSH with reflex free T4 2.520 uIU/m L 0.465- 4.680 Not Available [facility] (Lab) [address] [place], [address], 11/27/2023 18:50:59 11/27/19 24 11/27/2023 PSA SCREE N PSA medicare screen 0.82 NG/mL 0.00-4 .00 Not Available [facility] (Lab) [address] [place], [address], 11/27/2023 18:51:02 11/27/19 24 11/27/2023 HEMOG LOBIN A1C HA1C 5.9 % 4.0-6. 0 Diabe sal Scree maricruz Crite darren: <5.7% Consi stent with absen ce of diabe sal 5.7-6 .4% Consi stent with incre ased risk for diabe sal (pred iabet es) >OR=6 .5% Consi stent with diabe sal REFER ENCE: Diabe sal Care 2016, 39(Sharma ppl.1 ):s13 -s22 Not Available [facility] (Lab) [address] [place], [address], 11/27/2023 21:02:04 05/21/20 23 05/19/2023 XR, knee, 3 view No observ ation record ed. [email or web address] Not Available 05/11 16:27:57 05/21/20 23 05/19/2023 XR, ankle , 3 or more view No observ ation record ed. [email or web address] Not Available 05/11 16:27:57 05/22/20 23 XR, knee No observ ation record ed. [email or web address] [facility] [address], [place], [address], 05/22/2023 10:51:39 06/14/19 24 XR, foot No observ ation record ed. [facility] [address], [place], [address], 06/14/2023 13:55:20 06/14/19 24 06/14/2023 MRI, foot, w/o contr ast No observ ation record ed. [address], [place], [address], 06/15/2023 14:13:35 06/15/19 24 06/15/2023 injec tion/ aspir ation joint /burs a (PROC ) No observ ation record ed. [address], [place], [address], 06/18/2023 10:06:14 06/20/19 24 XR, knee No observ ation record ed. [facility] [place] [address] [facility] [address], [place], [address], 06/20/2023 12:56:33 07/13/19 24 07/13/2023 MRI, knee, w/o contr ast No observ ation record ed. [email or web address] [address], [place], [address], 09/12/2023 15:51:05 07/13/19 24 07/13/2023 MRI, knee, w/o contr ast No observ ation record ed. [email or web address] [facility] [address], [place], [address], 07/23/2023 12:17:22 Result Notes None recorded. Problems Name Problem SNOMED Code Status Onset Date Resolution Date Notes Provider Name and Address Organization Details Recorded Time Serum iron below reference range 201975655 Active 2021 Not Available [facility] 4 06:42:32 Essential hypertensi on 29716122 Active 2022 Not Available [facility] 4 06:42:33 Obesity 657142356 Active 2022 Not Available [facility] 4 06:42:33 Proteinuri a 33512251 Active 2022 Not Available [facility] 4 06:42:33 Acute kidney injury 59678529 Active 2022 Not Available [facility] 4 06:42:32 Sleep apnea 01926567 Active 2022 Not Available [facility] 4 06:42:33 Iron deficiency anemia 23922022 Active 2022 Not Available [facility] 4 06:42:33 Prediabete s 503881038 Active 2022 Not Available [facility] 4 06:42:33 Liver enzymes level above reference range 715639821 Active 2022 Not Available [facility] 4 06:42:33 Gout 59222735 Active 2022 Not Available [facility] 4 06:42:33 Arthralgia of the ankle and/or foot 309348975 Active 2022 Not Available [facility] 4 06:42:32 Steatosis of liver 895853088 Active 2022 Not Available [facility] 4 06:42:32 Pain of left knee joint 7549344827954 07 Active 2022 Not Available [facility] 4 06:42:33 Pain of right knee joint 7108423594506 00 Active 2022 Not Available [facility] 4 06:42:33 Bilateral Francesco-Noni latter disease 3842863779052 9100 Active 2022 Not Available [facility] 4 06:42:32 Contusion of right knee 9030802810430 9104 Active 2022 Not Available [facility] 4 06:42:32 Contusion of left knee 4075227398525 9109 Active 2022 Not Available [facility] 4 06:42:32 Vitamin D deficiency 49967490 Active 2022 Not Available [facility] 4 06:42:33 Mechanical complicati on of implant 840625391 Active 2022 Not Available [facility] 4 06:42:33 Anterior knee pain 890555219 Active 2022 Not Available [facility] 4 06:42:32 Joint pain 61638104 Active 2022 Not Available [facility] 4 06:42:33 Pain in left foot 0262647215726 07 Active 2023 Not Available [facility] 4 06:42:33 Obstructiv e sleep apnea syndrome 74710610 Active 2023 Oscar johnson MD [address], [facility] [address], [place], [address] , [facility] [employer] [facility] 4 18:52:01 Hyperlipid emia 28154767 Active 2023 Oscar johnson MD [address], [address], [place], [address] , [facility] [employer] [facility] 4 18:54:45 Anemia 388089457 Active 2023 Oscar johnson MD [address], [address], [place], [address] , [facility] [employer] [facility] 4 18:55:20 Hyperglyce ector 92537068 Active 2023 Oscar johnson MD [address], [address], [place], [address] , [place] [employer] 4 18:56:34 Chronic kidney disease 756467093 Active 2023 Oscar johnson MD [address], [address], [place], [address] , [place] [employer] 4 18:58:01 [employer] is 216683563 Active 2023 Shirley Hansen MA null, [employer] 4 11:53:59 Notes:Medical History: Obesi ty with very severe OSAHS, AHI = 103, 01/19/21, on CPAP c/o IVRC Hypertension with LVH, EF 77% Mild MR Mixed hyperlipidemia Prediabetes with proteinuria Transaminitis Iron deficiency anemia PLMD Procedure History: Colonoscopy with polypectomy Problem Notes None recorded. Procedures Surgical History Date Name Laterality Status Provider Name and Address Organization Details Recorded Time colonoscopy completed Norma Lakhani MA [facility] 10/30/2023 15:15:32 Imaging Results Imaging Date Name Status LastModified by Organiz ation Details LastModified Time 05/19/2023 XR, knee, 3 view completed Information not available 05/21/2023 16:27:57 05/19/2023 XR, ankle, 3 or more view completed Information not available 05/21/2023 16:27:57 05/22/2023 XR, knee completed [email or web address] [facility] [address], [place], [address], 05/22/2023 10:51:39 06/14/2023 XR, foot completed [facility] [address], [place], [address], 06/14/2023 13:55:20 06/14/2023 MRI, foot, w/o contrast completed [place] [address], [place], [address], 06/15/2023 14:13:35 06/15/2023 injection/asp iration joint/bursa (PROC) completed [address], [place], [address], 06/18/2023 10:06:14 06/20/2023 XR, knee completed [facility] [place] [address] [facility] [address], [place], [address], 06/20/2023 12:56:33 07/13/2023 MRI, knee, w/o contrast completed [email or web address] [address], [place], [address], 09/12/2023 15:51:05 07/13/2023 MRI, knee, w/o contrast completed [address], [place], [address], 07/23/2023 12:17:22 Procedure Notes None recorded. Medical Equipment None Reported. Allergies No known drug allergies Medications Name Sig Start Date Stop Date Status Note LastModified by Organization Details LastModified Time losartan 50 mg tablet TAKE 1 TABLET BY MOUTH EVERY DAY active Not Available Not Available No t Available cyclobenzap rine 10 mg tablet TAKE 1/2 TO 1 TABLET BY MOUTH TWICE DAILY 05/22 completed Not Available Not Available Not Available prednisone 10 mg tablet TAKE 1 TABLET BY MOUTH EVERY DAY 07/18 completed Not Available Not Available Not Available atorvastati n 20 mg tablet Take 1 tablet every day by oral route for 30 days. active Not Available Not Available No t Available torsemide 20 mg tablet TAKE 1 TABLET BY MOUTH DAILY NEEDED active Not Available Not Available No t Available ibuprofen 800 mg tablet TAKE 1 TABLET BY MOUTH EVERY 6 TO 8 HOURS NEEDED 06/14 completed Not Available Not Available Not Available benzonatate 200 mg capsule Take 1 capsule 3 times a day by oral route as needed. active Not Available Not Available No t Available hydrocodone 5 mg-acetamin ophen 325 mg tablet TAKE 1 TABLET BY MOUTH EVERY 6 HOURS NEEDED 07/18 completed Not Available Not Available Not Available spironolact one 100 mg tablet Take 1 tablet every day by oral route. 2023 active Not Available Not Available Not Avai labnicole cyanocobala min (vit B-12) 1,000 mcg tablet TAKE 1 TABLET BY MOUTH DAILY active Not Available Not Available No t Available chlorthalid one 25 mg tablet Take 1 tablet every day by oral route for 90 days. active Not Available Not Available No t Available tramadol 50 mg tablet TAKE 1 TABLET BY MOUTH EVERY 6 TO 8 HOURS NEEDED 06/07 completed Not Available Not Available Not Available spironolact one 25 mg tablet 05/22 completed Not Available Not Available Not Available prednisone 10 mg tablets in a dose pack Take 1 tab by mouth, 3 times a day for 3 daysTake 1 tab by mouth 2 times a day for 2 daysTake 1 tab by mouth once a day for 1 day 06/07 completed Not Available Not Available Not Available nifedipine ER 60 mg tablet,exte nded release 24 hr 05/22 completed Not Available Not Available Not Available Kenalog 10 mg/mL suspension for injection in office 06/14 completed [facility]: 0003- 0494- 20 Not Available Not Available Not Available amlodipine 10 mg tablet TAKE 1 TABLET BY MOUTH EVERY DAY 06/28 completed Not Available Not Available Not Available benzonatate 100 mg capsule Take 1 capsule 3 times a day by oral route as needed for 6 days. 02/15 completed Not Available Not Available Not Available hydrochloro thiazide 12.5 mg capsule TAKE 1 CAPSULE BY MOUTH EVERY DAY 06/28 completed Not Available Not Available Not Available allopurinol 300 mg tablet Take 1 tablet every day by oral route for 30 days. active Not Available Not Available No t Available hydrochloro thiazide 25 mg tablet 06/28 completed Not Available Not Available Not Available ergocalcife rol (vitamin D2) 1,250 mcg (50,000 unit) capsule TAKE 1 CAPSULE BY MOUTH 1 TIME EVERY WEEK active Not Available Not Available No t Available methylpredn isolone 4 mg tablets in a dose pack FOLLOW PACKAGE DIRECTION S 06/14 completed Not Available Not Available Not Available colchicine 0.6 mg tablet Take 1 tablet twice a day by oral route for 90 days. active Not Available Not Available No t Available losartan 100 mg tablet Take 1 tablet every day by oral route for 90 days. active Not Available Not Available No t Available metformin ER 500 mg tablet,exte nded release 24 hr Take 1 tablet twice a day by oral route for 90 days. active Not Available Not Available No t Available spironolact one 50 mg tablet 10/29 completed Not Available Not Available Not Available FeroSul 325 mg (65 mg iron) tablet TAKE 1 TABLET BY MOUTH DAILY WITH A MUTLIVITA MIN active Not Available Not Available No t Available ropivacaine (PF) 5 mg/mL (0.5 %) injection solution in office 07/18 completed Not Available Not Available Not Available Vitals Date Recorded Body height Provider Name an d Address Organization Details Last Updated DateTime 06/14/2023 180.34 cm Lorene Ramos Rocael [facility] 06/14/2023 10:10:04 Date Recorded Body height Provider Name an d Address Organization Details Last Updated DateTime 06/20/2023 180.34 cm Lorene Ramos Rocael [facility] 06/20/2023 10:23:23 Date Recorded Body height Provider Name an d Address Organization Details Last Updated DateTime 07/18/2023 180.34 cm Joy Morton CNA [facility] 07/18/2023 08:53:51 Date Recorded Body height Body mass index (BMI) Body weight Body temperature Heart rate Oxygen saturation Oxygen saturation in Arterial blood by Pulse oximetry Systolic blood pressure Diastolic blood pressure Provider Name and Address Organization Details Last Updated DateTime 4 180.34 cm 40.9 kg/m2 303737. 56 g 98.3 [degF] 88 /min 98 % 98 % 134 mm[Hg] 84 mm[Hg] Norma Lakhani MA [facility] 4 15:13:46 Date Recorded Body height Body mass index (BMI) Body weight Body temperature Heart rate Respiratory rate Oxygen saturation Oxygen saturation in Arterial blood by Pulse oximetry Systolic blood pressure Diastolic blood pressure Provider Name and Address Organization Details Last Updated DateTime 4 180.34 cm 42.5 kg/m2 448400. 67 g 98 [degF] 86 /min 18 /min 99 % 99 % 136 mm[Hg] 72 mm[Hg] Sebastián Mendenhall LPN [place] [facility] [place] [employer] [facility] 4 15:52:28 Social History Question Answer Notes LastModified by Organization Details LastModified Time Tobacco Smoking Status Never Smoker Not Available [facility] 08/09/2022 23:29:04 Do You Have An Advance Directive? No MIGRATION.593 [id number] Information not available 08/09/2022 What Is Your Level Of Alcohol Consumption? Occasional MIGRATION.727 [id number] Information not available 08/09/2022 What Is Your Level Of Caffeine Consumption? Moderate MIGRATION.658 [id number] Information not available 08/09/2022 In The 14 Days Before Symptom Onset, Have You Had Close Contact With A Laboratory-conf irmed COVID-19 While That Case Was Ill? No MIGRATION.215 [id number] Information not available 08/09/2022 In The 14 Days Before Symptom Onset, Have You Had Close Contact With A Person Who Is Under Investigation For COVID-19 While That Person Was Ill? No MIGRATION.836 [id number] Information not available 08/09/2022 What Type Of Diet Are You Following? REGULAR MIGRATION.740 [id number] Information not available 08/09/2022 What Is The Highest Grade Or Level Of School You Have Completed Or The Highest Degree You Have Received? [id number] MIGRATION.025 [id number] Information not available 08/09/2022 What Is Your Occupation? Street [employer] MIGRATION.289 [id number] Information not available 08/09/2022 Have There Been Any Changes To Your Family Or Social Situation? No MIGRATION.819 [id number] Information not available 08/09/2022 What Is The Fluoride Status Of Your Home? Fluoridated MIGRATION.144 [id number] Information not available 08/09/2022 Are There Any Guns Present In Your Home? No MIGRATION.187 [id number] Information not available 08/09/2022 Do You Use Insect Repellent Routinely? No MIGRATION.458 [id number] Information not available 08/09/2022 Where Do You Live? [place]House MIGRATION.678 [id number] Information not available 08/09/2022 Do You Have A Medical Power Of Band Sawing Machine Operator? No MIGRATION.499 [id number] Information not available 08/09/2022 What Was The Date Of Your Most Recent Tobacco Screening? 10/30/2023 [email or web address] Information not available 10/30/2023 Have You Ever Been Counseled For Unhealthy Alcohol Use? No MIGRATION.516 [id number] Information not available 08/09/2022 Do You Have Any Pets? No MIGRATION.814 [id number] Information not available 08/09/2022 What Is Your Relationship Status? Single MIGRATION.590 [id number] Information not available 08/09/2022 Do You Use Your Seat Belt Or Car Seat Routinely? Yes MIGRATION.560 [id number] Information not available 08/09/2022 Do You Have Smoke And Carbon Monoxide Detectors In Your Home? Yes MIGRATION.878 [id number] Information not available 08/09/2022 Are You Passively Exposed To Smoke? No MIGRATION.316 [id number] Information not available 08/09/2022 Are There Any Smokers In Your House? No MIGRATION.674 [id number] Information not available 08/09/2022 What Types Of Sporting Activities Do You Participate In? None MIGRATION.125 [id number] Information not available 08/09/2022 Do You Feel Stressed (tense, Restless, Nervous, Or Anxious, Or Unable To Sleep At Night)? [id number] MIGRATION.343 [id number] Information not available 08/09/2022 Do You Use Any Illicit Or Recreational Drugs? No MIGRATION.973 [id number] Information not available 08/09/2022 Do You Use Sunscreen Routinely? No MIGRATION.375 [id number] Information not available 08/09/2022 Has Tobacco Cessation Counseling Been Provided? No Not Needednever Smoked MIGRATION.488 [id number] Information not available 08/09/2022 Have You Recently Traveled Abroad? No MIGRATION.371 [id number] Information not available 08/09/2022 Do You Have Any Dietary Restrictions? No MIGRATION.019 [id number] Information not available 08/09/2022 Do You Or Have You Ever Used Any Other Forms Of Tobacco Or Nicotine? No MIGRATION.803 0956809 Information not available 08/09/2022 Sex: Male Functional Status Question Answer Note LastModified by Organizat ion Details LastModified Time What is your exercise level? Moderate cuts grass [id number] Information not available 08/09/2022 Mental Status None recorded. Family History Relationship Description Onset Age of this Age Resolved Age Notes LastModified by Organization Details LastModified Time Mother Malignant neoplastic disease MIGRATION.190 [id number] Not available 08/09/2022 23:29:15 Sister COVID-19 MIGRATION.089 [id number] Not available 08/09/2022 23:29:15 Medical History Condition Response BLINDNESS N NERVE DISEASE N RHEUMATIC FEVER N BLADDER PROBLEMS N KIDNEY STONES N MRSA N OTHER # 1 N POLIO N LUNG DISEASE/DISORDER N HISTORY OF DRUG ABUSE N RADIATION / CHEMOTHERAPY N COPD N Other # 2 N BLOOD DISEASES N EAR OR HEARING PROBLEMS N MUMPS N SHINGLES N BOWEL PROBLEMS N DEPRESSION (INCLUDING POST ) N STROKE/TIA N ULCERS N BENIGN PROSTATIC HYPERPLASIA N MEASLES N HYPOTENSION N MYOCARDIAL INFARCTION N OBESITY N GERD/NAUSEA N ANEURYSM N URINARY/BLADDER/KIDNEY PROBLEMS N CORONARY ARTERY DISEASE (CAD) N ADDICTION CONCERNS N ENDOMETRIOSIS N Impotence N USE OF BLOOD THINNERS N SKIN PROBLEMS N GASTROINTESTINAL DISORDER N PERIPHERAL VASCULAR DISEASE N MUSCLE,JOINT OR BONE PROBLEMS N GASTROINTESTINAL BLEEDING N BLOOD CLOTS N ASTHMA N CATARACTS N ERECTILE DYSFUNCTION N VARICOSITIES N GI PROBLEMS N Low Testosterone N INFERTILITY N AIDS/HIV N CHEMOTHERAPY / RADIATION N LIVER DISEASE N MALE HYPOGONADISM N HYPERTENSION Y Deficiency N TOURETTE'S N ANXIETY DISORDER N BLOOD TRANSFUSION N ANEMIA/BLOOD DISORDER N CHRONIC EAR INFECTIONS N BRONCHITIS N TUBERCULOSIS N GLAUCOMA N FOOT PROBLEM N DIVERTICULITIS N CHICKENPOX N SLEEP APNEA N INFECTIOUS DISEASE N HEART ARRHYTHMIA N PROSTATE N INSOMNIA N HIGH CHOLESTEROL / HYPERLIPIDEMIA Y HYPERTHYROIDISM N EYE PROBLEMS N EDEMA N CHRONIC PAIN SYNDROME N HYPOTHYROIDISM N CAROTID BLOCKAGE N CONSTIPATION N BACK / NECK PROBLEMS N ATHEROSCLEROSIS N BREAST PROBLEMS N DIALYSIS N ECZEMA N OSTEOPOROSIS N ARTHRITIS N APPENDICITIS N DIABETES, TYPE N BAD TEETH N ENT N HEARTBURN / REFLUX Y AUTISM SPECTRUM DISORDER (ASD) N HEPATITIS / LIVER DISEASE N GOUT Y SLEEP DISORDER N ALZHEIMER'S DISEASE N Brain Problems N HERPES N DEMENTIA N HEADACHES/MIGRAINES N SEIZURES/EPILEPSY N VASCULAR DISEASE N PACEMAKER N Blood Disorder N DIZZINESS N HEART DISEASE/HEART PROBLEMS N KIDNEY DISEASE Y MULTIPLE SCLEROSIS N CARDIAC ARRHYTHMIA N CANCER: SPECIFY N ATRIAL FIBRILLATION N Gall Stones N PULMONARY EMBOLISM N AUTOIMMUNE DISEASE N Immunizations Vaccine Type Date Status Note Provider Nam e and Address Organization Details Recorded Time SARS-COV-2 (COVID-19) vaccine, UNSPECIFIED 1 completed [facility] 06[facility]28[facility]23 06:42:33 SARS-COV-2 (COVID-19) vaccine, UNSPECIFIED 1 completed [facility] Available [facility] 06/28/2023 06:42:33 Influenza, split virus, quadrivalent, PF 2 completed Not Available [facility] 06/28/2023 06:42:33 Influenza, split virus, quadrivalent, PF 3 completed BRICE Sandoval [address], [address], [place], [address], [place] [facility] 04/30/2023 16:34:20 Past Encounters Encounter ID Performer Location Encounter Start Date Encounter Closed Date Diagnosis/Indication Diagnosis SNOMED-CT Code Diagnosis ICD10 Code Diagnosis Note [id number] [facility] [address] [place] [address] [address]e., [facility] [address] [place] [address] 01/11/2021 00:00:00 01/11/2021 17:13:23 [id number] [facility] [address] [place] [address] [address]e., [facility] [address] [place] [address] 02/15/2021 00:00:00 02/15/2021 20:18:11 [id number] [facility] [address] [place] [address] [address]e., [facility] [address] [place] [address] 03/15/2021 00:00:00 03/15/2021 19:59:43 [id number] [facility] [address] [place] [address] Har[place]e., [facility] [address] [place] [address] 06/28/2021 00:00:00 06/28/2021 17:28:10 [id number] [facility] [address] [place] [address] [place]e., [facility] [address] [place] [address] 10/14/2021 00:00:00 10/14/2021 17:03:15 [id number] [facility] [address] [place] [address] [place]e., [facility] [address] [place] [address] 04/21/2022 00:00:00 04/21/2022 17:11:39 [id number] BRICE Sandoval [facility] [address] [place] [address] [place]e., [facility] [address] [place] [address] 10/24/2022 15:55:35 10/24/2022 16:31:49 Essential hypertension 41912715 I10 on amlodipine , HCTZ, losartan Obesity 038094048 E66.9 recommend healthy, well balanced mealsfocus on lean meats, fresh vegetables , fresh fruits, whole grainsredu ce fast/proce ssed foods or eating out to no more than 1-2 times per weekaim to get 30 min of exercise most days of the week- walking is a great choicealso recommend resistance training 2-3 times per week Proteinuria 01214294 R80 .9 now following nephrology - Dr Coe History of acute kidney injury 7422941871 95499 Z87.448 07/13 to [facility] Sleep apnea 07333259 G47 .30 now on CPAP- he is not wearing it, he tells me he doesn't like itWe had previously referred him [facility], he tells me he still has referral but does not want to go just yet Offered him a pulmonolog y referral to troublesho ot CPAP-he declines today We discussed risks of untreated sleep apnea including heart problems, lung problems, and , strongly encouraged him to wear the CPAP Iron defic iency anemia 46596394 D50.9 Dr. Coe took him off the ironis s/p cscope but GI is recommendi ng EGD- he declines this History of polyp of colon 495222500 Z86.010 repeat colon 03/2026 Prediabetes 761310792 R7 3.03 diet/exerc ise encouraged Cholesterol screening 27 1102646 Z13.220 Screening for malignant neoplasm of prostate 755593697 Z12.5 [id number] DARRYL Sandoval-[facility] [place] [address] [place] [address] 04/30/2023 15:34:01 04/30/2023 16:04:22 Essential hypertension 15715983 I10 on amlodipine , HCTZ, losartan Obesity 290165249 E66.9 recommend healthy, well balanced mealsfocus on lean meats, fresh vegetables , fresh fruits, whole grainsredu ce fast/proce ssed foods or eating out to no more than 1-2 times per weekaim to get 30 min of exercise most days of the week- walking is a great choicealso recommend resistance training 2-3 times per week Proteinuria 64768629 R80 .9 now following nephrology - Dr Coe History of acute kidney injury 8365194149 49217 Z87.448 2/ to [facility] while [facility] appt as above Sleep apnea 58359694 G47 .30 now on CPAP- he is not wearing it, he tells me he doesn't like itWe had previously referred him [facility] device, he tells me he still has referral but does not want to go just yet Offered him a pulmonolog y referral to troublesho ot CPAP-he declines today We discussed risks of untreated sleep apnea including heart problems, lung problems, and , strongly encouraged him to wear the CPAP Iron defic iency anemia 79508733 D50.9 Dr. Coe took him off the ironis s/p cscope but GI is recommendi ng EGD- he declines this History of polyp of colon 002773899 Z86.010 repeat colon 03/2026 Prediabetes 572743114 R7 3.03 diet/exerc ise encouraged nephrology started him on metformin Adult heal th examination 683822727 Z00.01 Steatosis of liver 41084 1007 K76.0 working on diet/exerc ise/weight loss Gout 98135506 M10.9 Colchicine is contraindi cated with his current meds Will try to avoid NSAIDs due to his kidneys Will try a Medrol Dosepak and see if that helps Gout diet discussed Cholesterol screening 27 5701888 Z13.220 Administra tion of influenza vaccine 93906730 Z23 Depression screening 171 008863 Z13.31 [id number] KEYSHA Funez [facility] [address] [place] [address] 05/22/2023 09:41:15 05/22/2023 10:51:21 Pain of left knee joint [id number] 06650 M25.562 Pain of ri ght knee joint [id number] 27229 M25.561 Bilateral Francesco-Schlatter disease [id number] M92.523 Contusion of left knee [id number] S80.02XA [id number] Christophe Blankenship MD [facility] [address] 06/07/2023 09:56:30 06/13/2023 09:33:45 Contusion of left knee [id number] S80.02XD Pain of le ft knee joint [id number] 74288 M25.562 Joint pain [id number] M25. 560 [id number] Christophe Blankenship MD [facility] [address] 06/14/2023 09:57:07 06/14/2023 14:05:35 Contusion of left knee [id number] S80.02XD Impression : 1. Patient has gout in the left knee and may have had gout in left ankle and left mid foot. The ankle is nontender today. His left knee is still painful at 120? ? ? of flexion still has moderate effusion but his knee is 80-90% better than it was a week ago with the cortisone shot and the Medrol Dosepak. Cultures are negative. monosodium urate crystals were noted on examinatio n of the left knee synovial aspirate. White cell count 3 500 70% neutrophil s consistent with inflammato ry effusion consistent with gout. Cultures were negative. 2. patient still has moderate tenderness and focal swelling approximat annelise over the dorsal lateral cuboid the left foot. X-rays left foot are unremarkab le. Symptoms in the left foot started the same time is left knee and he feels he chelle his foot and ankle when the garbage truck went into a pothole. Differenti al diagnosis for his current picture would be occult fracture, localized gout in the left foot, or septic arthritis/ osteomyeli tis. His C reactive protein is 20 times normal and his sedimentat ion rate is 100 which is suspicious for infection. He has mild elevation in his white count as well. I feel we need to rule out infection in the foot and I would recommend obtaining an MRI scan of the left foot 1st and if this shows occult fracture then we know the diagnosis. If it does not and it shows effusion in the particular midfoot joint and I would like to have that effusion in the midfoot joint aspirated under image guidance and fluid sent for crystals and culture. There is enough fluid, cell count with differenti al would be requested as well. For today I have placed him into a Darco shoe he will continue using a cane try to keep his weight on the heel. The Darco she was more comfortabl e form that is 10 issue. Will see him back in 1 week to assess his progress. I am going to keep him on prednisone 10 mg daily for anti-infla mmatory treatment of his gout. He is not a good candidate for nonsteroid al anti-infla mmatory medication s because of his chronic kidney disease. I would also recommend he be evaluated by Rheumatolo payam because was unusually high inflammato ry markers. Autoimmune disease is not entirely ruled out. I am going to recommend repeating a sedimentat ion rate and a C-reactive protein and obtain a BMP to assess his creatinine currently. 40 minutes were spent total care this patient more than half the time spent in face-to-fa ce care. Pain in left foot [id number] 09410 M79.723 [id number] Christophe Blankenship MD [facility] [place] [address] [facility] [facility] [address] [place] [address] 06/20/2023 09:50:56 06/20/2023 13:04:00 Contusion of left knee [id number] S80.02XD Pain in left foot [id number] 2494 84573 M79.935 [id number] Christophe Blankenship MD [facility] [place] [address] [facility] [place] [address] 07/18/2023 08:48:27 07/23/2023 10:45:15 Pain of left knee joint [id number] 54292 M25.903 [id number] Oscar johnson MD [facility] [place] [address] [facility] [place] [address] 10/30/2023 14:53:41 10/30/2023 16:02:38 Screening - NAD [id number] Z13.9 C-scope: Dr Willis 04/06/2021 , next in 5 years Get yearly flu shot, get Tdap if not doneCan do RSV vaccineGet shingrix vaccineCan do COVID 19 boosters RTC in 3 months, do labs, ER if worse Essential hypertension 15480846 I10 On chlorthali done 25mg dailyOn losartan 100mg dailyOn aldactone 100mg dailyOn torsemide 20mg dailyGet labs Obstructiv e sleep apnea syndrome 41701164 G47.33 Steatosis of liver 1007 K76.0 Get US liverHepat itis pane, and GGT Gout 57048024 M10.9 On allopurino l 300mg daily Hyperlipidemia 42636500 E78.5 On atorvastat in 20mg daily, increase to 40mg dailyGet labs Screening for malignant neoplasm of prostate 415648453 Z12.5 Anemia 054665588 D64.9 Microcytic Can get on ironGet a referral to Dr Riley Hyperglycemia 95167554 R 73.9 Get labsNeeds to see eye MD and podiatry Chronic ki dney disease 135246926 N18.9 Dr Coe 08/28/2023 Screening for cardiovascular system disease 427911533 Z13.6 [id number] Oscar johnson MD [facility] [address] [facility], [facility] [address] [place] [address] 01/29/2024 15:18:00 01/29/2024 16:26:53 Screening - NAD [id number] Z13.9 C-scope: Dr Willis 04/06/2021 , next in 5 years Get yearly flu shot, get Tdap if not doneCan do RSV vaccineGet shingrix vaccineCan do COVID 19 boosters RTC in 3 months, do labs, ER if worse Essential hypertension 43672861 I10 On chlorthali done 25mg daily, given by Dr Mejia losartan 100mg dailyOn aldactone 100mg dailyOn torsemide 20mg dailyGet labs Obstructiv e sleep apnea syndrome 67115527 G47.[address] Naranjo Steatosis of liver 1007 K76.0 Get US liverHepat itis Panel: NegativeGG T 61 Gout 78759468 M10.9 On allopurino l 300mg daily Hyperlipidemia 18375347 E78.5 On atorvastat in 20mg dailyGet labs Anemia 017839940 D64.9 Microcytic Can get on ironGet a referral to Dr Osvaldo Hyperglycemia 37330050 R 73.9 On metformin ER 500mg bid Get labsNeeds to see eye MD and podiatry Chronic ki dney disease 701556100 N18.9 Dr Coe 08/28/2023 Screening for cardiovascular system disease 969957445 Z13.6 Does need to see cardiology , referred 01/29/2024 Health Concerns Section Related Observation LastModified by Organization Detai ls LastModified Time None Recorded Concern Status LastModified by Organization Details LastModified Time None Recorded Advance Directives Directive N: Payers Encounter Date Sequence Insurance Name Policy Number Policy Brown Covered Member ID Brown Member ID Guarantor Name 06/14/2023 [facility] Armani A Anish 06/20/2023 [facility] Arm[employer] Rocael Anish 07/18/2023 [facility] Armani Oconnell 10/30/2023 1 [facility] [employer] [facility] (EPO) Armani Oconnell [id number] Armani Oconnell 01/29/2024 1 [facility] [employer] [facility] (EPO) Armani Oconnell [id number] Armani Oconnell Notes Date Note Type Note Provider Name and Address Organization Details Recorded Time 06/14/2023 text/html patient returns follow-up of his left ankle left knee. Please see higher no discussed in history there his symptoms started than evening following riding on the edge of a garbage truck standing when the truck went over a pothole he struck his knee on the edge of a car truck and also felt pain in his left ankle. The last visit we with few fluid from the left knee and it looked inflammatory. It was mildly cloudy. Patient did have a history of gout in the big toe previously. Monosodium urate crystals were seen in the left knee aspirate consistent gout. The cell count showed 3486 white blood cells of which 70% were polys. This represents an inflammatory effusion but the white count would be lower than 1 would expect with septic arthritis. Cultures were no growth today aerobic and anaerobic in the Gram stain just showed a few white cells. His uric acid was on the high side of normal at 7.8. CBC showed elevated white count of 12.3 and elevated platelets at 150099. C-reactive protein was 20 x normal at 10.41 normal being 0.5 or less. Sedimentation rate was markedly elevated at 100. Rheumatoid factor was less than 8.6. NEEL and anti strep 2 lysine were within normal limits. The I had requested an anti CCP but that does not seem to have been drawn. I had called this patient day after last visit after reviewing some of his lab work and after noting that he did have an elevated creatinine previously. 1.37. His creatinine was 1.37. He had been given 800 mg of ibuprofen t.i.d. from the ER and had been taking that and I left a message on his phone that he should be taking that and he realized that he should be taking any nonsteroidal anti-inflammatory medication because of his kidneys. He knows that he does have chronic kidney disease and in fact sees Dr. 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 He will not take any more ibuprofen. We did not obtain a BMP to see where that is at and we will obtain 1 at this time. That last creatinine was from 10/24/2022. I have also discussed with him that with his dropping hemoglobin which was 12.5 in October and is now 11.0. He had a workup in October for iron levels which showed iron deficiency. I have explained him that this is worrisome for unexplained ongoing chronic blood loss such as chronic bleeding ulcer or colon cancer and possibly there is an overlying element of anemia of chronic disease his mild renal insufficiency. I have recommended that he see Dr. Ramsey his primary care physician about this further drop in hemoglobin to discuss further workup such as being evaluated by a it infrastructure engineer this was explained to him. I also recommended that he discussed with Dr. Ramsey treatment of his gout. He may need to take allopurinol to get his uric acid down below 6 did decrease instances of gout attacks in the future. Dr. Coe his historic clothing and costume maker may also be someone that might have expertise in this area. At last visit we gave a cortisone shot in his left knee and placed him on a Medrol Dosepak. He states that his pain is between 80 and 90% better. However he still has pain infrapatellar left knee and over the dorsal lateral midfoot with weight-bearing. His foot and ankle feel little bit stiff as does his knee. He made it clear that his employer advised him that there is no light duty available that he will need to return to work at full duty are be off work. Christophe Blankenship MD [address] [place] [address], [place] [address], [place], [address], [place] [facility] 06/14/2023 14:02:55 06/20/2023 text/html Patient returns. 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 We saw him 6 days ago. MRI scan of his left hindfoot was performed and I spoke to the radiologist about this after it was completed on 06/14/2023. It demonstrated heterogeneous fluid signal in the anterior posterior recess of the joint consistent with prominent synovitis with associated small effusion. Physiologic amount of fluid in the remaining joint spaces and no other abnormal fluid collections. There were areas of scattered marrow edema distal tibia calcaneus navicular cuboid all the Jamie a forms in the base of the 2nd through 5th meta tarsals. There appeared to be erosion developing lateral margin of the anterior talar dome an additional tiny juxta-articular erosions the plaques a mole plantar/lateral margin of the cuboid after. Marrow edema seen at the 1st metatarsal head 1st metatarsal sesamoids is as and irregular cortical contour the medial and the 1st metatarsal thought to be possibly related to chronic erosions or osteophytes. No fracture noted. No suggestion of osteomyelitis. Due to the fact that his C-reactive protein was 20 times normal at greater than 10 and his sedimentation rate was 100, I directed the radiologist to aspirate the ankle and this was done successfully and fluid for cell count with differential and crystals and culture was sent. [facility] lab could not perform the cell count but the differential showed 86% neutrophils. There were monos sodium urate crystal seen in the fluid rare. Cultures are no growth as of today on a aerobic and anaerobic cultures. patient has been taking prednisone 10 mg daily and feels he is making significant progress. He feels that he is doing much better. His lateral mid foot and ankle are doing much better. His been wearing the postop shoe we gave him and his been much more comfortable with this. His knee is doing better as well but he still feels a pain at the proximal patellar tendon and inferior pole the patella. When he bends his knee with weight-bearing feels stiffness sensation the inferior pole the patella and then this very tender to the touch. The Anti CCP antibody was normal at 9 from 06/08 1023. At last visit we ordered sedimentation rate and C-reactive protein the and both were markedly improved. His the site sedimentation rate was down to 21 normal 0 20 and his C-reactive protein was 3.14 normal 0-0.5. we did obtain a BMP on 06/18/2023 which showed creatinine 1.7 BUN 27 GFR 50. This represents an increasing creatinine and BUN compared with 10/24/2022 of which time the results were 1.37 and 60. He is going to follow-up with his historic clothing and costume maker about this hopefully since stopping the ibuprofen this will return to its previous baseline. Christophe Blankenship MD [address] [place] [address], [facility] [address], [place], [address], [facility] [employer] 06/20/2023 13:03:20 07/18/2023 text/html Patient returns. His MRI scan was completed on 07/13/2023. 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 I reviewed the MRI findings with the patient and agree with the report. There is degenerative likely complex tearing of the posterior horn posterior body of the medial meniscus. There was some moderate severity chondromalacia the medial compartment. Patient has no joint space narrowing radiographically the medial compartment. The lateral compartment shows posterior root tear of lateral meniscus as well as undersurface longitudinal tearing posterior horn posterior body of the lateral meniscus and significant chondromalacia in the lateral compartment. In the patellofemoral compartment there is 50% cartilage loss in areas and sub chondral edema is present lateral facet of the patella trochlear cartilage is relatively preserved. Francesco Lopez is sequela noted large ossicle adjacent to the tibial tubercle. There is marrow edema along the posterolateral cheek of the lateral femoral condyle near the insertion of the popliteal tendon with associated erosion developing which is suspicious for erosive changes associated with gout. There is no evidence of bony edema or microtrabecular fracture of the inferior pole of patella where he has exquisite tenderness. In summary, there is no on equivocal evidence of trauma from striking the front of the left knee on the garbage truck on the MRI scan. This does not rule out the possibility that meniscus tear may have been exacerbated by his injury and does not rule out that the degenerative subchondral bone edema of the patella associated with cartilage loss which is degenerative might be exacerbated by striking his knee cap on the garbage truck but there is nothing that suggests unequivocally that there is been a trauma. His degenerative tearing of both menisci he has osteoarthritis tricompartmental left knee and he has evidence of chronic gout with erosive change from the gout presumably posterolateral cheek of the lateral femoral condyle. I reviewed the images and the report with the patient. Patient's last cortisone shot was June 07, 2023. We gave him a prescription for prednisone 10 mg daily for 21 days starting on June 14, 2022 so this finished about 13 days ago. Patient notes that his left knee has become more stiff and painful since about 4 5 days ago and feels like his gout has returned. He feels it is more swollen. It is hard for him to get up from a chair now. Christophe Blankenship MD [address], [address], [place], [address], [facility] 07/22/2023 20:13:22 10/30/2023 text/html OV 10/30/2023:He re to establish care Present Hx:HTNOSAPrediabetesAne miaSteatosis of liverGout Here to discuss above and get labs Oscar Joseph MD [address], [address], [place], [address], [facility] [employer] [facility] 10/31/2023 17:58:59 01/29/2024 text/html OV 10/30/2023:He re to establish care Present Hx:HTNOSAPrediabetesAne miaSteatosis of liverGout Here to discuss above and get labs OV 01/29/2024: Here for his routine apt, he feels well now, he has seen Dr Coe and also Dr Riley, he did do the labs Oscar Joseph MD [address], [address], [place], [address], [facility] 01/29/2024 16:29:28
--- OUTSIDE RECORDS SUMMARY | 2024-07-08 15:54 | XMS_ITS | CONTINUITY OF CARE DOCUMENT ---
Author Name nichelle steward Address Unknown Organization [facility] Address [address] [place] [address] [address] [place] [address] Phone [phone] Care Team Providers Care Cooling System Operator Name Role Phone Duarte FAGAN, Brandon Unavailable [phone] GAYLA MERRILL Unavailable [phone] INSURANCE PROVIDERS Payer name Policy type / Coverage type [place] red libertarian ID [facility] [employer] insurance [id number]
--- OUTSIDE RECORDS SUMMARY | 2024-07-08 15:54 | XMS_ITS | Clinical Summary ---
Author Organization [facility] Address [address] [place] [address]. 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 Gender Identity Not on file Sexual Orientation Not on file Plan of Treatment Health Maintenance Due Date Last Done Comments Colorectal Cancer Screening Colonoscopy (10 Years) 1962 Annual Physical 1965 Hepatitis C 1980 DTaP, Tdap and Td Vaccines ( 1 - Tdap) 1981 Zoster Vaccines (1 of 2) 2012 COVID-19 Vaccine ( - 2023-2 5 season) 2024 Influenza Adult (#1) 2024 RSV Immunization or 60+ Years (1 - 1-dose 75+ series) 2037 Meningococcal B Vaccine Aged Out No l onger eligible based on patient's age to complete this topic Meningococcal Vaccine Aged Out No january tru eligible based on patient's age to complete this topic Pneumococcal Vaccine: Pediat rics (0 to 5 Years) and At-Risk Patients (6 to 64 Years) Aged Out No longer eligible b ased on patient's age to complete this topic RSV Immunizations Under 20 Months Aged Out No longer eligible based on patient's age to complete this topic Insurance [employer] Care Teams Driver Manager Relationship Specialty Start Date End Date Oscar Joseph MD [address] [address] PCP - General INTERNAL MEDICINE 11/26/23
--- OUTSIDE RECORDS SUMMARY | 2024-07-08 15:54 | XMS_ITS | Clinical Summary ---
Author Organization [facility] Facility Address [address] [place] [id number] Care Team Providers Care Feed Crusher Name Role Phone Masterselwyn Nitza DARRYL-Ruth Primary Care Provider [phone] Allergies No known active allergies Medications * This document contains information received from the source organization and may not represent a complete record from that organization. ferrous sulfate 325 (65 Fe) MG tablet Take 1 tablet (325 mg total) by mouth every afternoon 90 tablet 1 2 Active losartan (COZAAR) 100 MG tablet TAKE 1 TABLET(100 MG) BY MOUTH 1 TIME EACH DAY 90 tablet 1 3 Active NIFEdipine XL (PROCARDIA XL) 60 MG 24 hr tablet TAKE 1 TABLET(60 MG) BY MOUTH EVERY NIGHT. DO NOT CRUSH, CHEW, OR SPLIT 90 tablet 1 3 Active ergocalciferol 1.25 MG (07923 UT) capsule Take 1 capsule (50,000 Units total) by mouth 1 (one) time per week 12 capsule 1 4 Active chlorthalidone 25 MG tablet Take 1 tablet (25 mg total) by mouth 1 (one) time each day in the morning 90 tablet 1 4 Active metFORMIN XR (GLUCOPHAGE-XR) 500 MG 24 hr tablet Take 1 tablet (500 mg total) by mouth in the morning and 1 tablet (500 mg total) in the evening. 180 tablet 1 4 Active spironolactone (ALDACTONE) 100 MG tablet Take 1 tablet (100 mg total) by mouth 1 (one) time each day in the morning 90 tablet 1 4 Active atorvastatin (LIPITOR) 20 MG tablet Take 1 tablet (20 mg total) by mouth every night 90 tablet 1 4 Active colchicine 0.6 MG tablet Take 1 tablet (0.6 mg total) by mouth 1 (one) time each day in the morning 90 tablet 1 5 Active allopurinol (ZYLOPRIM) 300 MG tablet Take 1 tablet (300 mg total) by mouth 1 (one) time each day 90 tablet 1 5 Active allopurinol (ZYLOPRIM) 300 MG tablet Take 0.5 tablets (150 mg total) by mouth 1 (one) time each day 45 tablet 1 4 06/25/19 25 Discontinu ed(Reorder (does not appear on AVS)) colchicine 0.6 MG tablet Take 1 tablet (0.6 mg total) by mouth 1 (one) time each day in the morning 90 tablet 1 4 06/17/19 25 Discontinu ed(Reorder (does not appear on AVS)) Encounters Date Type Department Care Team Description 06/25/[address] [phone] Lynn Rodriguez CMA 06/25/2024 Office Communication [address] [phone] Zeeshan Coe DO 06/17/2024 3:15 PM MAP MOUNTER Office Visit [facility] [address] [phone] Zeeshan Coe DO Stage 1 chronic kidney disease (Primary Dx); Persistent proteinuria; Idiopathic gout, unspecified shoulder; Obstructive sleep apnea syndrome; Hypertensive chronic kidney disease; Secondary hyperparathyroidism (HCC); Other iron deficiency anemia 06/17/[address] [facility] [address] [phone] Lynn Rodriguez CMA 06/12/2024 Documentation Only [address] [phone] Zeeshan Coe DO 06/12/2024 Documentation Only [facility], [address] [phone] Zeeshan Coe, 06/12/2024 Documentation Only [facility], [address] [phone] Zeeshan Coe DO 05/27/2024 Refill [facility], [facility] [address] [facility] [address] [place] [phone] Lynn Rodriguez CMA from Last 3 Months Social History Tobacco Use Types Packs/Day Years Used Date Smoking Tobacco: Never Smokeless Tobacco: Never Alcohol Use Standard Drinks/Week Comments Yes 0 (1 standard drink = 0.6 oz pur e alcohol) Sex and Gender Information Value Date Recorded Sex Assigned at Not on file Legal Sex Male 10:32 AM EDT Gender Identity Not on file Sexual Orientation Not on file Last Filed Vital Signs Vital Sign Reading Time Taken Comments Blood Pressure 160/90 06/17/2024 3:13 PM MAP M[employer]TER Pulse 68 06/17/2024 3:13 PM [employer]TER Temperature 36.7 ??C (98 ??F) 06/17/2024 3:13 PM MAP M[employer]TER Respiratory Rate 18 06/17/2024 3:13 PM MAP M[employer]TER Oxygen Saturation 97% 06/17/2024 3:13 PM MAP M[employer]TER Inhaled Oxygen Concentration - - Weight 145 kg (320 lb) 06/17/2024 3:13 PM MAP M[employer]TER Height 180.3 cm (5' 11 ) 09/06/2021 1:40 PM CDT Body Mass Index 44.63 09/06/2021 1:40 PM CDT Plan of Treatment Upcoming Encounters Date Type Department Care Team (Late st Contact Info) Description 12/16/2024 3:15 PM CDT Office Visit [facility], [facility] [address] [facility] [address] [place] [phone] Zeeshan Coe, DO 5 [facility] [address] [place] [address] Health Maintenance Due Date Last Done Comments Pneumococcal Vaccine: Pediat rics (0 to 5 Years) and At-Risk Patients (6 to 64 Years) (1 of 2 - PCV) 1968 Colorectal Cancer Screening: Annual FOBT 2011 Colorectal Cancer Screening: Colonoscopy 2011 Colorectal Cancer Screening: Sigmoidoscopy 2011 Hepatitis B Vaccine (1 of 3 - Risk 3-dose series) 2022 Influenza Vaccine (#1) 2024 3, 04/21/2022, 04/24/2018, Additional history exists Insurance [place] [address] Care Teams Feed Crusher Relationship Specialty Start Date End Date Nitza Rinaldi FNP-C [address] [place] [address] PCP - General Nurse Practitioner 04/05/21
--- OUTSIDE RECORDS SUMMARY | 2024-07-08 15:54 | XMS_ITS | Data Portability ---
Author Organization Debora FAUST Address [address] [place] [address] Assessment No assessment recorded. Plan of Treatment Reminders Order Date Submit Date Provider Last Modified By Organization Details Last Modified Time Details Appointments None recorded. Lab CBC w/ auto diff 2016 017 [facility], [address] [facility], [address], [place], [address], 7 08:26:20 C reactive protein, QN, serum or plasma 2016 017 [facility], [address] [facility] [facility], [address], [place], [address], 7 08:26:21 lipid panel, serum 2016 017 [facility], [address] [facility] [facility], [address], [place], [address], 7 08:26:20 HIV (1+2) Ab, rapid, unspecifie d specimen 2016 017 [email or web address] In-Office Order, Internal Use Only DO Not Attach Compendium DO Not Attach Compendium, Do Not Delete/merge, [id number] 7 16:12:03 BMP, serum or plasma 2016 017 [facility], [address] [email or web address], [address], [place], [address], 7 06:06:09 HbA1c (hemoglobi n A1c), blood 2017 018 WILFREDO RODRIGUEZ, [address], [address], [place], [address], 8 10:36:21 hemoglobin , qualitativ e, stool by immunologi c method 2017 018 [facility], [address], [address], [place], [address], 8 09:52:00 BMP, serum or plasma 2017 018 WILFREDO SEQUEIRA, [address], [address], [place], [address], 8 10:36:19 lipid panel, serum 2017 018 [facility], [facility], [address], [place], [address], 8 10:36:19 microalbum in/creatin ine, mass ratio, urine 2017 018 WILFREDO SEQUEIRA, [address], [address], [place], [address], 8 10:36:20 Referral colonoscop y referral 2016 017 [email or web address] Not available 9 15:01:50 Procedures None recorded. Surgeries None recorded. Imaging None recorded. Medication Orders meloxicam 7.5 mg tablet 2016 017 [email or web address] [facility]174, [address], [place], [id number], 7 13:47:33 amlodipine 10 mg tablet 2016 017 [email or web address]388, [address], [place], [id number], 7 15:48:36 hydrochlor othiazide 12.5 mg capsule [address] [facility]22116, [address], [place], [id number], 7 12:46:44 sertraline 50 mg tablet [address] [facility] #51864, [address], [place], [id number], 7 13:47:29 meloxicam 7.5 mg tablet [address] [facility] #35199, [address], [place], [id number], 7 13:47:33 amlodipine 10 mg tablet [address] [facility] #73231, [address], [place], [id number], 7 12:46:39 hydrochlor othiazide 25 mg tablet [address] [facility] #57818, [address], [place], [id number], 7 12:40:08 sertraline 50 mg tablet [address] [facility] #54029, [address], [place], [id number], 7 13:47:29 amlodipine 10 mg tablet 2016 017 [facility] #21228, [address], [place], [id number], 7 01:28:24 hydrochlor othiazide 25 mg tablet 2016 017 [email or web address] [facility] #81305, [address], [place], [id number], 7 12:40:08 hydrochlor othiazide 50 mg tablet 2016 017 [email or web address] [facility] #47905, [address], [place], [id number], 8 09:58:11 amlodipine 10 mg tablet 2016 017 INTERFACE [facility]01539, [address], [place], [id number], 7 12:47:13 amlodipine 10 mg tablet 2017 018 INTERFACE [facility] #55400, [address], [place], [id number], 8 09:56:35 Patient TargetsNo targets recorded. Patient Instructions Encounter Date Encounter Id Patient Instructions Last Modified By Organization Details Last Modified Time 08/22/2016 [id number] C-reactive protein (CRP) test: about this test Not available 08/22/2016 15:48:38 learning about high blood pressure Not available 08/22/2016 16:11:58 09/22/2016 [id number] I was present an d available in the Family Medicine clinic to discuss this patient's care during the appointment. I agree with the resident's assessment and plan as documented. EDWARD Not available 10/02/2016 21:47:37 10/26/2016 [id number] I was present in the clinic to discuss this patient at the time of the visit. I agree with the documented assessment and plan. Rosi Monk MD [email or web address] Not available 11/13/2016 14:50:45 01/30/2017 [id number] I certify that I was present and available in the family medicine clinic for discussion of this patient. I have reviewed the residents note and agree with the stated assessment and treatment plan. SIVAN [email or web address] Not available 01/30/2017 16:11:16 04/24/2018 [id number] I was present an d available in the Family Medicine clinic to discuss this patient's care during the appointment. I agree with the resident's assessment and plan as documented. EDWARD Not available 04/26/2018 18:04:22 Reason for Referral Colonoscopy Referral for Scr eening for malignant neoplasm of colon Referring Physician: David Fernandes [employer] Maintenance Technician, Encounter Date: 08/22/2016 Results Created Date Observation Date Name Description Value Unit Range Abnormal Flag Note LastModifiedBy Organization Detail LastModifiedTime 08/23/19 17 08/22/2016 HIV (1+2) Ab, rapid , unspe cifie d speci men Rapid HIV negati ve Not Available In-Office Order Internal Use Only DO Not Attach Compendium DO Not Attach Compendium, Do Not Delete/merge, [id number] 08/22/2016 15:47:47 08/23/19 17 08/23/2016 CBC w/ auto diff WBC 9.7 x10e3 /uL 3.4-10 .8 Not Available [facility] ([facility]) [address] [place], [address], 08/23/2016 08:26:20 08/23/19 17 08/23/2016 CBC w/ auto diff RBC 4.97 x10e6 /uL 4.14-5 .80 Not Available [facility] ([facility]) [address] [place], [address], 08/23/2016 08:26:20 08/23/19 17 08/23/2016 CBC w/ auto diff hemoglobin 11.3 g/dL 12.6-1 7.7 below low normal Not Available [facility] ([facility]) [address] [place], [address], 08/23/2016 08:26:20 08/23/19 17 08/23/2016 CBC w/ auto diff hematocrit 35.2 % 37.5-5 1.0 below low normal Not Available [facility] ([facility]) [address] [facility], [place], [address], 08/23/2016 08:26:20 08/23/19 17 08/23/2016 CBC w/ auto diff MCV 71 fL 79-97 below low normal Not Available [facility] ([facility]) [address] [facility], [place], [address], 08/23/2016 08:26:20 08/23/19 17 08/23/2016 CBC w/ auto diff MCH 22.7 pg 26.6-3 3.0 below low normal Not Available [facility] ([facility]) [address] [facility], [place], [address], 08/23/2016 08:26:20 08/23/19 17 08/23/2016 CBC w/ auto diff MCHC 32.1 g/dL 31.5-3 5.7 Not Available [facility] ([facility]) [address] [facility], [place], [address], 08/23/2016 08:26:20 08/23/19 17 08/23/2016 CBC w/ auto diff RDW 16.8 % 12.3-1 5.4 above high normal Not Available [facility] ([facility]) [address] [facility], [place], [address], 08/23/2016 08:26:20 08/23/19 17 08/23/2016 CBC w/ auto diff platelets 409 x10e3 /uL 150-37 9 above high normal Not Available [facility] ([facility]) [address] [facility], [place], [address], 08/23/2016 08:26:20 08/23/19 17 08/23/2016 CBC w/ auto diff neutrophils 73 % Not Available [facility] ([facility]) [address] [facility], [place], [address], 08/23/2016 08:26:20 08/23/19 17 08/23/2016 CBC w/ auto diff lymphs 17 % Not Available [facility] ([facility]) [address] [place], [address], 08/23/2016 08:26:20 08/23/19 17 08/23/2016 CBC w/ auto diff monocytes 9 % Not Available [facility] ([facility]) [address] [place], [address], 08/23/2016 08:26:20 08/23/19 17 08/23/2016 CBC w/ auto diff eos 1 % Not Available [facility] ([facility]) [address] [place], [address], 08/23/2016 08:26:20 08/23/19 17 08/23/2016 CBC w/ auto diff basos 0 % Not Available [facility] ([facility]) [address] [place], [address], 08/23/2016 08:26:20 08/23/19 17 08/23/2016 CBC w/ auto diff immature cells DOCUMENT REVIEWER Not Available [facility] ([facility]) [address] [place], [address], 08/23/2016 08:26:20 08/23/19 17 08/23/2016 CBC w/ auto diff neutrophils (absolute) 7.0 x10e3 /uL 1.4-7. 0 Not Available [facility] ([facility]) [address] [place], [address], 08/23/2016 08:26:20 08/23/19 17 08/23/2016 CBC w/ auto diff lymphs (absolute) 1.7 x10e3 /uL 0.7-3. 1 Not Available [facility] ([facility]) [address] [place], [address], 08/23/2016 08:26:20 08/23/19 17 08/23/2016 CBC w/ auto diff monocytes(ab solute) 0.9 x10e3 /uL 0.1-0. 9 Not Available [facility] ([facility]) [address] [facility], [place], [address], 08/23/2016 08:26:20 08/23/19 17 08/23/2016 CBC w/ auto diff eos (absolute) 0.1 x10e3 /uL 0.0-0. 4 Not Available [facility] ([facility]) [address] [facility], [place], [address], 08/23/2016 08:26:20 08/23/19 17 08/23/2016 CBC w/ auto diff baso (absolute) 0.0 x10e3 /uL 0.0-0. 2 Not Available [facility] ([facility]) [address] [facility], [place], [address], 08/23/2016 08:26:20 08/23/19 17 08/23/2016 CBC w/ auto diff immature granulocytes 0 % Not Available [facility] ([facility]) [address] [facility], [place], [address], 08/23/2016 08:26:20 08/23/19 17 08/23/2016 CBC w/ auto diff immature grans (abs) 0.0 x10e3 /uL 0.0-0. 1 Not Available [facility] ([facility]) [address] [facility], [place], [address], 08/23/2016 08:26:20 08/23/19 17 08/23/2016 CBC w/ auto diff NRBC DOCUMENT REVIEWER Not Available [facility] ([facility]) [address] [facility], [place], [address], 08/23/2016 08:26:20 08/23/1908/23/2016 CBC w/ auto diff hematology comments: DOCUMENT REVIEWER Not Available [facility] ([facility]) [address] [facility], [place], [address], 08/23/2016 08:26:20 08/23/19 17 08/23/2016 lipid panel , serum cholesterol, total 181 mg/dL 100-19 9 Not Available [facility] ([facility]) [address] [place], [address], 08/23/2016 08:26:20 08/23/19 17 08/23/2016 lipid panel , serum triglyceride s 90 mg/dL 0-149 Not Available [facility] ([facility]) [address] [place], [address], 08/23/2016 08:26:20 08/23/19 17 08/23/2016 lipid panel , serum HDL cholesterol 34 mg/dL >39 below low normal Not Available [facility] ([facility]) [address] [place], [address], 08/23/2016 08:26:20 08/23/19 17 08/23/2016 lipid panel , serum VLDL cholesterol yoli 18 mg/dL 5-40 Not Available [facility] ([facility]) [address] [place], [address], 08/23/2016 08:26:20 08/23/19 17 08/23/2016 lipid panel , serum LDL cholesterol calc 129 mg/dL 0-99 above high normal Not Available [facility] ([facility]) [address] [place], [address], 08/23/2016 08:26:20 08/23/19 17 08/23/2016 lipid panel , serum comment: DOCUMENT REVIEWER Not Available [facility] ([facility]) [address] [place], [address], 08/23/2016 08:26:20 08/23/19 17 08/23/2016 C react juju prote in, QN, serum or plasm a C-reactive protein, quant 59.9 mg/L 0.0-4. 9 above high normal Not Available [facility] ([facility]) [address] [place], [address], 08/23/2016 08:26:21 08/23/19 17 08/23/2016 cardi ovasc ular asses sment panel , serum interpretati on NOTE SUPPL EMENT REPOR T IS AVAIL ABLE. Not Available [facility] ([facility]) [address] [facility] [place], [address], 08/23/2016 08:26:22 08/23/19 17 08/23/2016 cardi ovasc ular asses sment panel , serum pdf image . Not Available [facility] ([facility]) [address] [facility] [place], [address], 08/23/2016 08:26:22 09/23/19 17 09/23/2016 BMP, serum or plasm a glucose, serum 95 mg/dL 65-99 Not Available [facility] ([facility]) [address] [facility] [place], [address], 09/23/2016 06:06:09 09/23/19 17 09/23/2016 BMP, serum or plasm a BUN 6 mg/dL 6-24 Not Available [facility] ([facility]) [address] [facility] [place], [address], 09/23/2016 06:06:09 09/23/19 17 09/23/2016 BMP, serum or plasm a creatinine, serum 1.02 mg/dL 0.76-1 .27 Not Available [facility] ([facility]) [address] [facility] [place], [address], 09/23/2016 06:06:09 09/23/1909/23/2016 BMP, serum or plasm a eGFR if nonafricn AM 83 mL/mi n/1.7 3 >59 Not Available [facility] ([facility]) [address] [facility] [place], [address], 09/23/2016 06:06:09 09/23/19 17 09/23/2016 BMP, serum or plasm a eGFR if africn AM 96 mL/mi n/1.7 3 >59 Not Available [facility] ([facility]) [address] [place], [address], 09/23/2016 06:06:09 09/23/19 17 09/23/2016 BMP, serum or plasm a BUN/creatini ne ratio 6 9-20 below low normal Not Available [facility] ([facility]) [address] [facility] [place], [address], 09/23/2016 06:06:09 09/23/19 17 09/23/2016 BMP, serum or plasm a sodium, serum 143 mmol/ L 134-14 4 Not Available [facility] ([facility]) [address] [place], [address], 09/23/2016 06:06:09 09/23/19 17 09/23/2016 BMP, serum or plasm a potassium, serum 4.1 mmol/ L 3.5-5. 2 Not Available [facility] ([facility]) [address] [place], [address], 09/23/2016 06:06:09 09/23/19 17 09/23/2016 BMP, serum or plasm a chloride, serum 101 mmol/ L 96-106 Not Available [facility] ([facility]) [address] [place], [address], 09/23/2016 06:06:09 09/23/19 17 09/23/2016 BMP, serum or plasm a carbon dioxide, total 22 mmol/ L 18-29 Not Available [facility] ([facility]) [address] [place], [address], 09/23/2016 06:06:09 09/23/1909/23/2016 BMP, serum or plasm a calcium, serum 9.6 mg/dL 8.7-10 .2 Not Available [facility] ([facility]) [address] [place], [address], 09/23/2016 06:06:09 04/24/20 18 04/25/2018 BMP, serum or plasm a glucose 125 mg/dL 65-99 above high normal Not Available [facility] ([facility]) [address] [facility] [place], [address], 04/25/2018 10:36:19 04/24/20 18 04/25/2018 BMP, serum or plasm a BUN 9 mg/dL 6-24 Not Available [facility] ([facility]) [address] [facility] [place], [address], 04/25/2018 10:36:19 04/24/20 18 04/25/2018 BMP, serum or plasm a creatinine 1.28 mg/dL 0.76-1 .27 above high normal Not Available [facility] ([facility]) [address] [facility] [place], [address], 04/25/2018 10:36:19 04/24/20 18 04/25/2018 BMP, serum or plasm a eGFR if nonafricn AM 62 mL/mi n/1.7 3 >59 Not Available [facility] ([facility]) [address] [facility] [place], [address], 04/25/2018 10:36:19 04/24/20 18 04/25/2018 BMP, serum or plasm a eGFR if africn AM 72 mL/mi n/1.7 3 >59 Not Available [facility] ([facility]) [address] [facility] [place], [address], 04/25/2018 10:36:19 04/24/20 18 04/25/2018 BMP, serum or plasm a BUN/creatini ne ratio 7 9-20 below low normal Not Available [facility] ([facility]) [address] [facility] [place], [address], 04/25/2018 10:36:19 04/24/20 18 04/25/2018 BMP, serum or plasm a sodium 142 mmol/ L 134-14 4 Not Available [facility] ([facility]) [address] [facility] [place], [address], 04/25/2018 10:36:19 04/24/20 18 04/25/2018 BMP, serum or plasm a potassium 4.2 mmol/ L 3.5-5. 2 Not Available [facility] ([facility]) [address] [place], [address], 04/25/2018 10:36:19 04/24/20 18 04/25/2018 BMP, serum or plasm a chloride 101 mmol/ L 96-106 Not Available [facility] ([facility]) [address] [place], [address], 04/25/2018 10:36:19 04/24/20 18 04/25/2018 BMP, serum or plasm a carbon dioxide, total 25 mmol/ L 20-29 Not Available [facility] ([facility]) [address] [place], [address], 04/25/2018 10:36:19 04/24/20 18 04/25/2018 BMP, serum or plasm a calcium 9.8 mg/dL 8.7-10 .2 Not Available [facility] ([facility]) [address] [place], [address], 04/25/2018 10:36:19 04/24/20 18 04/25/2018 lipid panel , serum cholesterol, total 158 mg/dL 100-19 9 Not Available [facility] ([facility]) [address] [facility] [place], [address], 04/25/2018 10:36:19 04/24/20 18 04/25/2018 lipid panel , serum triglyceride s 76 mg/dL 0-149 Not Available [facility] ([facility]) [address] [facility] [place], [address], 04/25/2018 10:36:19 04/24/20 18 04/25/2018 lipid panel , serum HDL cholesterol 38 mg/dL >39 below low normal Not Available [facility] ([facility]) [address] [facility] [place], [address], 04/25/2018 10:36:19 04/24/20 18 04/25/2018 lipid panel , serum VLDL cholesterol oyli 15 mg/dL 5-40 Not Available [facility] ([facility]) [address] [facility] [place], [address], 04/25/2018 10:36:19 04/24/20 18 04/25/2018 lipid panel , serum LDL cholesterol calc 105 mg/dL 0-99 above high normal Not Available [facility] ([facility]) [address] [facility], [place], [address], 04/25/2018 10:36:19 04/24/20 18 04/25/2018 lipid panel , serum comment: DOCUMENT REVIEWER Not Available [facility] ([facility]) [address] [facility], [place], [address], 04/25/2018 10:36:19 04/24/20 18 04/25/2018 micro album in/cr eatin ine, mass ratio , urine creatinine, urine 145.0 mg/dL not estab. Not Available [facility] ([facility]) [address] [facility], [place], [address], 04/25/2018 10:36:20 04/24/20 18 04/25/2018 micro album in/cr eatin ine, mass ratio , urine albumin, urine 29.6 ug/mL not estab. Not Available [facility] ([facility]) [address] [facility], [place], [address], 04/25/2018 10:36:20 04/24/20 18 04/25/2018 micro album in/cr eatin ine, mass ratio , urine alb/creat ratio 20.4 mg/g_ creat 0.0-30 .0 Marlen l: 0.0 - 30.0 Album inuri a: 31.0 - 300.0 Clini yoli album inuri a: >300. 0 Not Available [facility] ([facility]) [address] [facility], [place], [address], 04/25/2018 10:36:20 04/24/20 18 04/24/2018 HbA1c (hemo globi n A1c), blood hemoglobin A1C 5.9 % 4.8-5. 6 above high normal Predi abete s: 5.7 - 6.4 Diabe sal: >6.4 Glyce leah contr ol for adult s with diabe sal: <7.0 Not Available [facility] ([facility]) [address] [facility], [place], [address], 04/25/2018 10:36:21 04/24/20 18 04/25/2018 cardi ovasc ular asses sment panel , serum interpretati on Note Suppl cruz umanzor is avail able. Not Available [facility] ([facility]) [address] [facility], [place], [address], 04/25/2018 10:36:21 04/24/20 18 04/25/2018 cardi ovasc ular asses sment panel , serum pdf image . Not Available [facility] ([facility]) [address] [facility], [place], [address], 04/25/2018 10:36:21 12/22/19 21 12/21/2020 CT, head + brain , w/o contr ast No observ ation record ed. [facility] [address] [place], [address], 12/28/2020 09:38:42 12/22/19 21 12/21/2020 CT, chest , w/o contr ast No observ ation record ed. [facility] [address] [place], [address], 12/23/2020 21:19:51 Result Notes None recorded. Problems Name Problem SNOMED Code Status Onset Date Resolution Date Notes Provider Name and Address Organization Details Recorded Time Depressive disorder 53610007 Completed 201604/24/2018 Manjula Giles MD Attn: Vaughn g,[address] [facility], [place], [address], [facility] 8 09:56:35 Essential hypertension 62914596 Active 2016 David DomDO Attn: Vaughn ayon,[address] [facility], [place], [address], [facility] 7 12:31:41 Problem Notes None recorded. Procedures Surgical History None recorded. Imaging Results Imaging Date Name Status LastModified by Organiz ation Details LastModified Time 12/21/2020 CT, head + brain, w/o contrast completed [facility] [address] [place], [address], 12/28/2020 09:38:42 12/21/2020 CT, chest, w/o contrast completed [facility] [address] [place], [address], 12/23/2020 21:19:51 Procedure Notes None recorded. Medical Equipment None Reported. Allergies No known drug allergies Medications Name Sig Start Date Stop Date Status Note LastModified by Organization Details LastModified Time azithromycin 250 mg tablet 09/22 completed Not Available Not Available Not Available benzonatate 200 mg capsule TAKE 1 CAPSULE BY MOUTH THREE TIMES DAILY NEEDED active Not Available Not Available No t Available hydrochlorot hiazide 50 mg tablet Take 1 tablet every day by oral route. 04/24 completed Not Available Not Available Not Available meloxicam 7.5 mg tablet Take 1 tablet every day by oral route. 01/30 completed Not Available Not Available Not Available Lipitor 40 mg tablet Take 1 tablet every day by oral route. 2017 active Not Available Not Available Not Avai lable amlodipine 10 mg tablet TAKE 1 TABLET BY MOUTH EVERY DAY active Not Available Not Available No t Available benzonatate 100 mg capsule active Not Available Not Available Not Available hydrochlorot hiazide 12.5 mg capsule TAKE 1 CAPSULE BY MOUTH EVERY DAY active Not Available Not Available No t Available hydrochlorot hiazide 25 mg tablet TAKE 1 TABLET BY MOUTH EVERY DAY 01/30 completed Not Available Not Available Not Available sertraline 50 mg tablet Take 1 tablet every day by oral route. 01/30 completed Not Available Not Available Not Available Adult Low Dose Aspirin 81 mg tablet,delay ed release Take 1 tablet every day by oral route. 2017 active Not Available Not Available Not Avai lable FeroSul 325 mg (65 mg iron) tablet TAKE 1 TABLET BY MOUTH ONCE DAILY active Not Available Not Available No t Available Vitals Date Recorded Body weight Provider Name an d Address Organization Details Last Updated DateTime 04/24/2018 825137.07 g Phylicia Sweeney MA [facility] 04/11 09:16:34 Date Recorded Body mass index (BMI) Body height Provider Name and Address Organization Details Last Updated DateTime 04/24/2018 62.5 kg/m2 154.94 cm Phylicia wSeeney MA [facility] 04/24/2018 09:16:48 Date Recorded Heart rate Provider Name an d Address Organization Details Last Updated DateTime 04/24/2018 72 /min Phylicia Sweeney MA [facility] 04/24 09:18:26 Date Recorded Oxygen saturation Oxygen saturation in Arterial blood by Pulse oximetry Provider Name and Address Organization Details Last Updated DateTime 04/24/2018 98 % 98 % Phylicia Sweeney MA [facility] 04/24/2018 09:18:28 Date Recorded Body temperature Provider Name a nd Address Organization Details Last Updated DateTime 04/24/2018 98.4 [degF] Phylicia Sweeney MA [facility] 04/24/2018 09:18:32 Date Recorded Body height Provider Name an d Address Organization Details Last Updated DateTime 08/22/2016 180.34 cm Mally Ricks CMA [facility] 7 14:39:57 Date Recorded Body weight Body mass index (BMI) Provider Name and Address Organization Details Last Updated DateTime 08/22/2016 615648.25 g 43 kg/m2 Mally Ricks CMA [facility] 0 08/22/2016 14:40:00 Date Recorded Heart rate Provider Name an d Address Organization Details Last Updated DateTime 08/22/2016 95 /min Mally Ricks [facility] [facility] 14:40:31 Date Recorded Body temperature Provider Name a nd Address Organization Details Last Updated DateTime 08/22/2016 98.7 [degF] [facility] 08/23/19 14:40:34 Date Recorded Oxygen saturation Oxygen saturation in Arterial blood by Pulse oximetry Provider Name and Address Organization Details Last Updated DateTime 08/22/2016 98 % 98 % Mally Ricks [facility] 08/22/2016 14:40:36 Date Recorded Body height Provider Name an d Address Organization Details Last Updated DateTime 09/22/2016 180.34 cm Caitlyn Ryan [facility] 017 12:10:08 Date Recorded Body weight Body mass index (BMI) Provider Name and Address Organization Details Last Updated DateTime 09/22/2016 774036.52 g 41.7 kg/m2 Caitlyn Ryan [facility] 09/22/2016 12:11:22 Date Recorded Body temperature Provider Name a nd Address Organization Details Last Updated DateTime 09/22/2016 98.5 [degF] Caitlyn Connor [facility] 2016 12:11:46 Date Recorded Heart rate Provider Name an d Address Organization Details Last Updated DateTime 09/22/2016 92 /min Caitlyn Connor [facility] 017 12:11:52 Date Recorded Oxygen saturation Oxygen saturation in Arterial blood by Pulse oximetry Provider Name and Address Organization Details Last Updated DateTime 09/22/2016 98 % 98 % Caitlyn Connor [facility] - [facility] 09/22/2016 12:11:54 Date Recorded Body height Provider Name an d Address Organization Details Last Updated DateTime 10/26/2016 180.34 cm KENNY Tucker - [facility] 017 12:22:06 Date Recorded Body weight Body mass index (BMI) Provider Name and Address Organization Details Last Updated DateTime 10/26/2016 447565.12 g 41.7 kg/m2 KENNY Tucker - [facility] 10/26/2016 12:22:53 Date Recorded Body temperature Provider Name a nd Address Organization Details Last Updated DateTime 10/26/2016 98.1 [degF] KENNY Tucker - [facility] 2016 12:23:30 Date Recorded Heart rate Provider Name an d Address Organization Details Last Updated DateTime 10/26/2016 79 /min KENNY Tucker - [facility] 017 12:23:31 Date Recorded Oxygen saturation Oxygen saturation in Arterial blood by Pulse oximetry Provider Name and Address Organization Details Last Updated DateTime 10/26/2016 98 % 98 % Quyen Ryan MA [facility] 10/26/2016 12:23:33 Date Recorded Body height Provider Name an d Address Organization Details Last Updated DateTime 01/30/2017 180.34 cm Robe Rivers [facility] 01/31/20 17 12:10:34 Date Recorded Body mass index (BMI) Body weight Provider Name and Address Organization Details Last Updated DateTime 01/30/2017 43.4 kg/m2 585866.03 g Robe Rivers [facility] 01/30/2017 12:12:30 Date Recorded Body temperature Provider Name a nd Address Organization Details Last Updated DateTime 01/30/2017 98.1 [degF] Robe Rivers [facility] 017 12:13:44 Date Recorded Heart rate Provider Name an d Address Organization Details Last Updated DateTime 01/30/2017 94 /min Robe Rivers [facility] 01/31/20 17 12:13:51 Date Recorded Oxygen saturation Oxygen saturation in Arterial blood by Pulse oximetry Provider Name and Address Organization Details Last Updated DateTime 01/30/2017 98 % 98 % Robe Rivers [facility] 01/30/2017 12:13:59 Date Recorded Systolic blood pressure Diastolic blood pressure Provider Name and Address Organization Details Last Updated DateTime 04/24/2018 150 mm[Hg] 100 mm[Hg] Phylicia Sweeney MA [facility] 04/24/2018 09:20:04 Date Recorded Systolic blood pressure Diastolic blood pressure Provider Name and Address Organization Details Last Updated DateTime 08/22/2016 188 mm[Hg] 120 mm[Hg] Mally Ricks [facility] 08/22/2016 14:41:45 Date Recorded Systolic blood pressure Diastolic blood pressure Provider Name and Address Organization Details Last Updated DateTime 08/22/2016 182 mm[Hg] 108 mm[Hg] [facility], DO Attn: Accounting[address] [place], [address], [facility] 08/22/2016 17:30:39 Date Recorded Systolic blood pressure Diastolic blood pressure Provider Name and Address Organization Details Last Updated DateTime 09/22/2016 170 mm[Hg] 108 mm[Hg] Caitlyn Ryan CMA [facility] 09/22/2016 12:13:30 Date Recorded Systolic blood pressure Diastolic blood pressure Provider Name and Address Organization Details Last Updated DateTime 09/22/2016 162 mm[Hg] 102 mm[Hg] [facility] Attn: Accounting[address] [place], [address], [facility] 09/22/2016 12:27:18 Date Recorded Systolic blood pressure Diastolic blood pressure Provider Name and Address Organization Details Last Updated DateTime 10/26/2016 134 mm[Hg] 96 mm[Hg] Quyen Ryan MA [facility] 10/26/2016 12:24:52 Date Recorded Systolic blood pressure Diastolic blood pressure Provider Name and Address Organization Details Last Updated DateTime 10/26/2016 134 mm[Hg] 86 mm[Hg] [facility] Attn: Accounting[address] [place], [address], [facility] 10/26/2016 12:49:48 Date Recorded Systolic blood pressure Diastolic blood pressure Provider Name and Address Organization Details Last Updated DateTime 01/30/2017 152 mm[Hg] 98 mm[Hg] Robe Rivers [facility] 01/30/2017 12:15:59 Social History Question Answer Notes LastModified by Organizat ion Details LastModified Time Tobacco Smoking Status Never Smoker Mally Ricks CMA null, [facility] 08/22/2016 14:39:52 What Was The Date Of Your Most Recent Tobacco Screening? 01/30/2017 Information n ot available 01/02/2019 Sex: Unknown Functional Status None recorded. Mental Status None recorded. Family History Relationship Description Onset Age of this Age Resolved Age Notes LastModified by Organization Details LastModified Time Mother Neoplasm of ovary [email or web address] Not available 2016 15:14:12 Brother Malignant tumor of thyroid gland [email or web address] Not available 2016 15:14:25 Sister Malignant tumor of breast [email or web address] Not available 2016 15:14:33 Medical History Condition Response Coronary Artery Disease N Other N High Blood Pressure N Atrial Fibrillation N Kidney or Bladder Problems N Thyroid Problems N GI Problems N Depression N COPD N Blood Clots N Skin Problems N Anemia N Heart Attack (CT) N Anxiety Disorder N Diabetes N Muscle, Joint, or Bone Problems N Seizures/Epilepsy N Acid Reflux (GERD) N Cancer N Stroke N Asthma N Allergies N High Cholesterol N Hepatitis N Liver Disease N Headaches N Heart Failure N Osteoporosis N Immunizations Vaccine Type Date Status Note Provider Nam e and Address Organization Details Recorded Time Tdap 09/25/2016 completed Not Available [facility] 06/28/2019 02:33:29 Influenza, split virus, quadrivalent, PF 01/30/2017 completed Not Available [facility] 0 02:35:18 Influenza, split virus, quadrivalent, PF 04/24/2018 completed Not Available [facility] 0 02:40:23 Past Encounters Encounter ID Performer Location Encounter Start Date Encounter Closed Date Diagnosis/Indication Diagnosis SNOMED-CT Code Diagnosis ICD10 Code Diagnosis Note [id number] Vinh Acevedo DO [facility] e [facility] ([address] [place] [address] 08/22/2016 14:01:55 08/23/2016 09:46:22 Essential hypertension 29282384 I10 HTN diagnosed in the ER but not started on any medication .182/108 in office today.Will start on Amlodipine 10 and HCTZ 12.5 today. Will plan to FU in 30 days. Pain in left knee 449939 2264 01033 M25.562 Pain and erythema in L Knee, x 2 weeks, will get CBC CRP and start on Meloxicam, Will get Xray if not improving. Depressive disorder 5718 9007 F32.9 PHQ-9 score of 13/27Will start on Sertaline, pt notes that he has trouble falling asleep. HIV screening 365685875 Z11.4 Will check for HIV Screening for malignant neoplasm of colon 545799041 Z12.11 Needs colonoscop y. [id number] MD Palmira Martinez e [facility] ([address]) [address] [place] [address] 09/22/2016 12:08:18 09/27/2016 10:41:07 Depressive disorder 28380386 F32.9 PHQ-2 score of 0Continue sertraline for now if symptoms remain so well controlled consider future D/C Essential hypertension 45416553 I10 BP slightly improved today but still elevated, 162/102 WIll increase HCTZ and ensured that pt has refills on Amlodipine plan to see back in 1 mo Pain in left knee 836205 9755 89041 M25.562 Improved discussed continued meloxicam as needed but to d/c scheduled for now. Active or passive immunization 001357489 Z23 [id number] Rosi Monk MD [place] [facility] ([address]) [address] [place] [address] 10/26/2016 11:59:21 10/27/2016 16:40:59 Essential hypertension 74237631 I10 BP greatly improved today but still elevated, 134/86 continue HCTZ and Amlodipine plan to see back in 3 mo [id number] Patrick Leon DO [place] [facility] ([address]) [address] [place] [address] 01/30/2017 12:07:27 01/30/2017 14:44:11 Essential hypertension 38159538 I10 BP elevated will increase HCTZ here and at home.Pt prefers not to add an additional med, Will increase HCTZ to 50, continue amlodipine 10 Adult heal th examination 771515009 Z00.00 Needs Flu shot today [id number] Inge Dugan MD [facility] [address] [facility] [address] [place] [address] 04/24/2018 09:02:48 04/25/2018 09:53:42 Obesity 146363318 E66.9 - Extensivel y counselled on a healthy diet and moderate intensity excercise 3-5x weekly for about ~45 minutes Essential hypertension 56397917 I10 - BP 150/100. Repeat 150/100. No red flag sx- Previously on Amlodipine 10mg and HCTZ 50mg daily- Will restart Amlodipine 10mg daily, will not start HCTZ at this time due to concern for dropping BP too low- Pt advised to check his BP at [facility] 2-3x weekly, write them down and call them in 2-3 weeks Screening for malignant neoplasm of colon 200620409 Z12.11 - No h/o colon cancer, FH of colon cancer or blood in stool noted- As pt is self pay, will order FOBT test. Will send for colonoscop y if abnormal Paresthesi a of upper limb 08995700 R20.2 - Tingling of back of L hand can be due to overuse and pt is lift boxes all day- Negative Tinel and Phalen test, less likely carpal tunnel- Will also check A1c to r/o diabetic neuropathy as cause of tingling Poor oral hygiene 701930 009 R46.89 - PE remarkable for 2 pits noted on posterior of roof of mouth (1 one each side).- No h/o smoking, poor dentition- Denies any tenderness or pain in mouth- Resources provided today for dentistry for further evaluation . Active or passive immunization [id number] Z23 Health Concerns Section Related Observation LastModified by Organization Detai ls LastModified Time None Recorded Concern Status LastModified by Organization Details LastModified Time None Recorded Advance Directives Directive None Recorded Payers Encounter Date Sequence Insurance Name Policy Number Policy Brown Covered Member ID Brown Member ID Guarantor Name 08/22/2016 1 [facility] PRIOR TO 12/09/2020 (MEDICAID REPLACEMENT - HMO) Armani Oconnell [id number] Armani Oconnell 09/22/2016 1 [facility] PRIOR TO 12/09/2020 (MEDICAID REPLACEMENT - HMO) Armani Oconnell [id number] Armani Oconnell 10/26/2016 1 [facility] PRIOR TO 12/09/2020 (MEDICAID REPLACEMENT - HMO) Armani Oconnell [id number] Armani Oconnell 01/30/2017 1 [facility] PRIOR TO 12/09/2020 (MEDICAID REPLACEMENT - HMO) Armani Oconnell [id number] Armani Oconnell Notes Date Note Type Note Provider Name and Address Organization Details Recorded Time 7 text/html 56 yo M here to establish after ER visit for BronchititsBronchititis has resolved with Z-pac L knee pain x 2 weeks, no trauma, goes to foot, Ibuprofen helped HTN- Found to have pressures of 151/99 in ERDenies JOEL, Vision changes, CP, SOB, Dizziness, or loss of function Has not seen a provider in 25 yrs. Vinh Acevedo DO Attn: Accounting,[address] [facility], [place], [address], [facility] 08/23/2016 09:17:26 7 text/html 56 yo M here for BP Fu ran out of amlodipine 3 days ago.Pt denies any SE of medications, CP, SOB, vision changes, JOEL, Pain in knee is significantly improved with meloxicam Pt now reports no depression symptoms on sertraline 50. Inge Dugan MD Attn: Accounting[address] [facility], [place], [address], [facility] 10/02/2016 21:47:41 7 text/html 56 yo M here for BP FU134/86 today Mr. Oconnell is a 56yo M presenting today for a BP FU. His blood pressure today is 134/86. He states that he feels great. He denies headache, vision changes, N/V, CP, SOB, paresthesias, lower extremity edema, lightheadedness, or any other symptoms of concern. Rosi Monk MD Attn: Accounting[address] [facility], [place], [address], [facility] 11/13/2016 14:50:49 7 text/html 56 yo M here for FU on HTNReports home numbers running in upper 140s over 80s. Complaint with meds.Denies any CP, SOB, Vision changes, numbness, weakness or headaches. Due for a flu shot Patrick Leon DO Attn: Accounting[address] [facility], [place], [address], [facility] 01/30/2017 16:14:17 8 text/html 58 y/o M presents for BP f/u. Pt reports he has been out of his Amlodipine 10mg and HCTZ 50mg for about 1 week.Pt is self-pay and prefers medication to be cost-effective. 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 C/o L hand dorsal tingling after lifting boxes for a long time. Also c/o occasional bilateral feet numbness after standing for a long period of time.No h/o CT or stroke.No FH of CT, stroke or colon cancer.Denies any blood in stool or uninteded weight loss. No c/o headache, CP, SOB, NVCD, numbness or tingling. Inge Dugan MD Attn: Accounting,[address] [place], [address], [place] [facility] 04/26/2018 18:04:27
--- OUTSIDE RECORDS SUMMARY | 2024-07-08 15:54 | XMS_ITS | Clinical Summary ---
Author Organization [facility] Pablo Cowan Address [address] [place] [address] Care Team Providers Care Executive Pastry Chef Name Role Phone Oscar Joseph MD Primary Care Provider Allergies No known active allergies Medications allopurinoL (ZYLOPRIM) 300 mg tablet Take 150 mg by mouth daily. 08/28/2023 Active atorvastatin (LIPITOR) 20 mg tablet Take 20 mg by mouth daily at bedtime. 08/28/2023 Active chlorthalidone (HYGROTON) 25 mg tablet Take 25 mg by mouth. 04/24/2023 Active ergocalciferol (VITAMIN D2) 50,000 unit capsule Take 50,000 Units by mouth. 08/28/2023 Active ferrous sulfate 325 mg (65 mg iron) tablet Take 325 mg by mouth. 01/17/2022 Active losartan (COZAAR) 100 mg tablet Take 100 mg by mouth daily. 09/15/2022 Active metFORMIN (GLUCOPHAGE XR) 500 mg Extended Release 24 hour tablet Take 500 mg by mouth. 04/09/2023 Active NIFEdipine (PROCARDIA XL) 60 mg Extended Release 24 hour tablet TAKE 1 TABLET(60 MG) BY MOUTH EVERY NIGHT. DO NOT CRUSH, CHEW, OR SPLIT 10/16/2022 Active spironolactone (ALDACTONE) 100 mg tablet Take 100 mg by mouth. 08/28/2023 Active colchicine (COLCRYS) 0.6 mg tablet Take 0.6 mg by mouth. 12/04/2023 Active cyanocobalamin 1,000 mcg TabletIndication s:Anemia due to vitamin B12 deficiency, unspecified B12 deficiency type Take 1 Tablet (1,000 mcg) by mouth daily. 30 Tablet 3 01/17/2024 Active Active Problems No known active problems Encounters Date Type Department Care Team Description 04/30/2024 3:45 PM SENIOR CYTOGENETICS LABORATORY DIRECTOR Office Visit [facility] Oncology and Hematology - [place] [address] [place] [address] Juan Riley MD Anemia, chronic disease (Primary Dx) 04/29/2024 Orders Only [facility] Oncology and Hematology - [place] [address] [place] [address] Juan Riley MD 04/28/2024 Orders Only [facility] Oncology and Hematology - [place] [address] [place] [address] Juan Riley MD 04/09/2024 External Device Data STL ABSTRACTION Provider, Abstract from Last 3 Months Family History Medical History Relation Name Comments No Known Problems Brother 1 No Known Problems Brother 2 Ovarian Cancer Mother Diabetes Sister 1 Breast Cancer Sister 2 Relation Name Status Comments Brother 1 Brother 2 Mother Sister 1 Alive Sister 2 Social History Tobacco Use Types Packs/Day Years Used Date Smoking Tobacco: Never Smokeless Tobacco: Never Tobacco Cessation:Counseling Given: Not Answered Alcohol Use Standard Drinks/Week Comments Yes 0 (1 standard drink = 0.6 oz pur e alcohol) Socially Sex and Gender Information Value Date Recorded Sex Assigned at Not on file Legal Sex Male 4:17 PM CDT Gender Identity Not on file Sexual Orientation Not on file Last Filed Vital Signs Vital Sign Reading Time Taken Comments Blood Pressure 154/93 04/30/2024 4:10 PM SENIOR CYTOGENETICS LABORATORY DIRECTOR Pulse 65 04/30/2024 4:09 PM SENIOR CYTOGENETICS LABORATORY DIRECTOR Temperature 36.7 ??C (98 ??F) 04/30/2024 4:09 PM SENIOR CYTOGENETICS LABORATORY DIRECTOR Respiratory Rate 16 04/30/2024 4:09 PM SENIOR CYTOGENETICS LABORATORY DIRECTOR Oxygen Saturation 98% 04/30/2024 4:09 PM SENIOR CYTOGENETICS LABORATORY DIRECTOR Inhaled Oxygen Concentration - - Weight 141.1 kg (311 lb 1.6 oz) 04/30/2024 4:09 PM SENIOR CYTOGENETICS LABORATORY DIRECTOR Height 180.3 cm (5' 11 ) 01/09/2024 2:05 PM CDT Body Mass Index 43.39 01/09/2024 2:05 PM CDT Plan of Treatment Upcoming Encounters Date Type Department Care Team (Late st Contact Info) Description 10/28/2024 3:45 PM CDT Office Visit [facility] Oncology and Hematology - [place] [address] [facility] [address] [place] [address] Juan Riley MD [address] [facility] [address] [place] [address] Health Maintenance Due Date Last Done Comments Pre-Diabetes and Diabetes Screening 1962 DTAP/TDAP/TD VACCINES (1 - Tdap) 1981 COLORECTAL SCREENING 2007 Colorectal Cancer Screening 2007 FIT-DNA Q 3 years 2007 FIT/FOBT Q 1 year 2007 Flex Sig/CT Colonography Q 5 years 2007 ZOSTER VACCINE (1 of 2) 2012 RSV VACCINE (60+ or ) (1 - Risk 60-74 years 1-dose series) 2022 INFLUENZA VACCINE (#1) 2024 04/30/2023, 2021 Preventative Visit- Commercial 06/11/2024 04/30/2023 Procedures Procedure Name Priority Date/Time Associated Diagnosis Comments BASIC METABOLIC PANEL Routine 04/25/2024 11:17 AM SENIOR CYTOGENETICS LABORATORY DIRECTOR CBC WITH DIFFERENTIAL Routine 04/25/2024 10:33 AM SENIOR CYTOGENETICS LABORATORY DIRECTOR from Last 3 Months Results * BASIC METABOLIC PANEL (04/25/2024 11:17 AM SENIOR CYTOGENETICS LABORATORY DIRECTOR) Blood us Juan Riley MD CHEMISTRY ORDERABLES Final Resu lt * CBC WITH DIFFERENTIAL (04/25/2024 10:33 AM SENIOR CYTOGENETICS LABORATORY DIRECTOR) Blood Juan Riley MD HEMATOLOGY ORDERABLES Final Res ult from Last [address] [facility] [id number] Care Teams Executive Pastry Chef Relationship Specialty Start Date End Date Oscar Joseph MD PCP - General Internal Medicine 01/09/24
[2024-07-08 16:15] LABS: Basophils Absolute Auto 0.1 K/mm3 (0.0-0.1); Basophils Percent Auto 0.8 % (0.2-1.2); Eosinophils Absolute Auto 0.3 K/mm3 (0-0.3); Eosinophils Percent Auto 3.2 % (0-4.4); Hematocrit 45.3 % (42.0-52.0); Hemoglobin 15.2 g/dL (14.0-18.0); Immature Granulocyte Absolute 0.03 K/mm3 (0.00-0.031); Immature Granulocyte Percent A 0.3 % (0-0.5); Lymphocytes Absolute Auto 1.75 K/mm3 (0.9-3.2); Lymphocytes Percent Auto 19.2 % (18.3-44.2); Mean Corpuscular HGB Conc 33.6 g/dl (32-36); Mean Corpuscular Hemoglobin 30.8 pg (26-34); Mean Corpuscular Volume 91.9 fl (80-100); Mean Platelet Volume 10.5 fl (7.4-10.4); Monocytes Absolute Auto 1.1 K/mm3 (0.1-0.6); Monocytes Percent Auto 11.8 % (2.6-8.5); Neutrophils Absolute Auto 5.9 K/mm3 (1.3-6.7); Neutrophils Percent Auto 64.7 % (45.5-73.1); Platelet Count Result 223 k/mm3 (150-375); Red Blood Count 4.93 M/mm3 (4.6-6.20); Red Cell Distribution Width 12.9 % (11.5-14.5); White Blood Count 9.1 K/mm3 (4.5-10.0)
[2024-07-08 17:10] LABS: Alanine Aminotransferase 55 U/L (6-50); Albumin Level 4.3 g/dL (3.5-5.1); Alkaline Phosphatase 106 U/L (38-126); Anion Gap 9 mmol/L (4-12); Aspartate Amino Transferase 52 U/L (17-59); Bilirubin,Total 0.6 mg/dL (0.2-1.3); Blood Urea Nitrogen 15 mg/dL (9-20); Carbon Dioxide 29 mmol/L (22-30); Chloride 99 mmol/L (98-107); Cholesterol 131 mg/dL (0-200); Estimated Glomerular Filt Rate > 60; Glucose 98 mg/dL (65-110); HDL Direct 46 mg/dL; Sodium 137 mmol/L (137-145); Triglycerides 112 mg/dL (<150)
[2024-07-08 17:21] LABS: LDL Cholesterol Direct 67 mg/dL
[2024-07-08 17:57] LABS: Microalbumin Urine Random 21.3 mg/L (0-16.7)
[2024-07-08 19:15] LABS: Free T4 Free Thyroxine Reflex 1.14 ng/dL (0.78-2.19)
[2024-07-08 19:20] LABS: Creatinine Urine > 346.5 mg/dL
[2024-07-08 20:03] LABS: Hemoglobin A1C 5.8 % (<5.7)
[2024-07-08 21:29] LABS: Total Triiodothyronine (T3) 1.73 NG/ML (0.97-1.69)
== END 2024-07-08 15:38 | disposition home or self-care (01) ==
LOC: ANHLAB 15:39
PROVIDERS: PCP Internal Medicine; Visit Provider Internal Medicine
DX: I10 Essential (primary) hypertension (principal); R73.9 Hyperglycemia, unspecified
CPT/HCPCS: 36415; 80053; 80061; 82043; 83036; 84439; 84443; 84480; 85025

== ENCOUNTER 2024-10-22 15:50 | Outpatient (CLI) | payer OTHER, SELFPAY ==
--- OUTSIDE RECORDS SUMMARY | 2024-10-22 15:53 | XMS_ITS | Data Portability ---
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 10/24/2023 16:33:46 10/24/19 24 10/24/2023 COMPR EHENS LILLIAM METAB OLIC PANEL creatinine 1.22 mg/dL 0.66-1 .25 Not Available [facility] (Lab) [address] [place], [address], 10/24/2023 16:33:46 10/24/19 24 10/24/2023 COMPR EHENS LILLIAM METAB OLIC PANEL GFR >60 Refer ence Range : [place] ge GFR Healt hy Adult : >60 [...] or ethni c subgr oups, such as Hisnc nics. Outsi de the valid ated jess [...] calcu lator is avail able on the [facility] websi te: https :[email or web address] w.kid sy.o rg/pr ofess ional s/kdo qi/gf r_cal culat or Not Available [facility] (Lab) [address] [place], [address], 10/24/2023 16:33:46 10/24/19 24 10/24/2023 COMPR EHENS LILLIAM METAB OLIC PANEL alkaline phosphatase 143 U/L 38-126 high Not Available [facility] (Lab) [address] [place], [address], 10/24/2023 16:33:46 10/24/19 24 10/24/2023 COMPR EHENS LILLIAM METAB OLIC PANEL alanine aminotransfe rase 34 U/L 0-50 Not Available [facility] (Lab) [address] [place], [address], 10/24/2023 16:33:46 10/24/19 24 10/24/2023 COMPR EHENS LILLIAM METAB OLIC PANEL aspartate aminotransfe rase 42 U/L 15-46 Not Available [facility] (Lab) [address] [place], [address], 10/24/2023 16:33:46 10/24/19 24 10/24/2023 COMPR EHENS LILLIAM METAB OLIC PANEL bilirubin, total 0.50 mg/dL 0.20-1 .30 Not Available [facility] (Lab) [address] [place], [address], 10/24/2023 16:33:46 10/24/19 24 10/24/2023 COMPR EHENS LILLIAM METAB OLIC PANEL calcium 9.9 mg/dL 8.4-10 .2 Not Available [facility] (Lab) [address] [place], [address], 10/24/2023 16:33:46 10/24/19 24 10/24/2023 COMPR EHENS LILLIAM METAB OLIC PANEL total protein 7.1 g/dL 6.3-8. 2 Not Available [facility] (Lab) [address] [place], [address], 10/24/2023 16:33:46 10/24/19 24 10/24/2023 COMPR EHENS LILLIAM METAB OLIC PANEL albumin 4.1 g/dL 3.4-5. 0 Not Available [facility] (Lab) [address] [place], [address], 10/24/2023 16:33:46 10/24/19 24 10/24/2023 COMPR EHENS LILLIAM METAB OLIC PANEL globulin 3.0 g/dL 2.6-4. 2 Not Available [facility] (Lab) [address] [place], [address], 10/24/2023 16:33:46 10/24/19 24 10/24/2023 COMPR EHENS LILLIAM METAB OLIC PANEL A/G ratio 1.4 ratio 1.0-2. 0 Not Available [facility] (Lab) [address] [place], [address], 10/24/2023 16:33:46 10/24/19 24 10/24/2023 URIC ACID SERUM uric acid 6.6 mg/dL 3.5-8. 5 Not Available [facility] (Lab) [address] [place], [address], 10/24/2023 16:33:51 10/24/19 24 10/24/2023 LIPID PANEL cholesterol 125 mg/dL 140-19 9 low NIH NEVIN NSUS RECOM MENDA TION FOR ERNA STERO L: ADULT CHILD LOW RISK: <200 <170 BORDE RLINE : <200- 239 ----- HIGH RISK: >240 >200 Not Available [facility] (Lab) [address] [place], [address], 10/24/2023 16:33:57 10/24/19 24 10/24/2023 LIPID PANEL triglyceride s 179 mg/dL 0-150 high NIH NEVIN NSUS REPOR T RECOM MENDA TION FOR TRIGL YCERI MHASA: ADULT CHILD LOW RISK: <150 ----- BODER LINE: 150-1 99 ----- HIGH RISK: >200 ----- Not Available [facility] (Lab) [address] [place], [address], 10/24/2023 16:33:57 10/24/19 24 10/24/2023 LIPID PANEL HDL cholesterol 51 mg/dL 40- Not Available [facility] (Lab) [address] [place], [address], 10/24/2023 16:33:57 10/24/19 24 10/24/2023 LIPID PANEL [...] LDL RESUL T WILL NOT BE REPOR JEFF. Not Available [facility] (Lab) [address] [place], [address], 10/24/2023 16:33:57 10/24/19 24 10/24/2023 HEMOG LOBIN A1C HA1C 6.3 % 4.0-6. 0 high Diabe sal Scree maricruz Crite darren: <5.7% Consi stent with absen ce of diabe sal 5.7-6 .4% Consi stent with incre ased risk for diabe sal (pred iabet es) >OR=6 .5% Consi stent with diabe sal REFER ENCE: Diabe sal Care 2016, 39(Sharma ppl.1 ):s13 -s22 Not Available [facility] (Lab) [address] [place], [address], 10/24/2023 20:46:33 11/27/19 24 11/27/2023 CBC/C OMPLE TE BLD COUNT W/DIF F white blood cells 7.4 x10'3 /uL 4.2-10 .8 Not Available [facility] (Lab) [address] [place], [address], 11/27/2023 18:22:17 11/27/19 24 11/27/2023 CBC/C OMPLE TE BLD COUNT W/DIF F red blood cells 4.51 x10'6 /uL 4.10-5 .80 Not Available [facility] (Lab) [address] [place], [address], 11/27/2023 18:22:17 11/27/19 24 11/27/2023 CBC/C OMPLE TE BLD COUNT W/DIF F hemoglobin 11.4 g/dL 13.2-1 7.0 low Not Available [facility] (Lab) [address] [place], [address], 11/27/2023 18:22:17 11/27/19 24 11/27/2023 CBC/C OMPLE TE BLD COUNT W/DIF F hematocrit 35.6 % 39.3-5 0.0 low Not Available [facility] (Lab) [address] [place], [address], 11/27/2023 18:22:17 11/27/19 24 11/27/2023 CBC/C OMPLE TE BLD COUNT W/DIF F mean red cell volume 78.9 fL 80.0-9 7.0 low Not Available [facility] (Lab) [address] [place], [address], 11/27/2023 18:22:17 11/27/19 24 11/27/2023 CBC/C OMPLE TE BLD COUNT W/DIF F mean red cell hemoglobin 25.3 pg 27.0-3 3.0 low Not Available [facility] (Lab) [address] [place], [address], 11/27/2023 18:22:17 11/27/19 24 11/27/2023 CBC/C OMPLE TE BLD COUNT W/DIF F mean RBC HGB concentratio n 32.0 g/dL 31.0-3 6.0 Not Available [facility] (Lab) [address] [place], [address], 11/27/2023 18:22:17 11/27/19 24 11/27/2023 CBC/C OMPLE TE BLD COUNT W/DIF F red cell distribution width 18.9 % 11.8-1 5.5 high Not Available [facility] (Lab) [address] [place], [address], 11/27/2023 18:22:17 11/27/19 24 11/27/2023 CBC/C OMPLE TE BLD COUNT W/DIF F platelets 302 x10'3 /uL 150-40 0 Not Available [facility] (Lab) [address] [place], [address], 11/27/2023 18:22:17 11/27/19 24 11/27/2023 CBC/C OMPLE TE BLD COUNT W/DIF F mean platelet volume 11.1 fL 9.0-12 .4 Not Available [facility] (Lab) [address] [place], [address], 11/27/2023 18:22:17 11/27/19 24 11/27/2023 CBC/C OMPLE TE BLD COUNT W/DIF F neutrophils 59.5 % 39.0-7 2.0 Not Available [facility] (Lab) [address] [place], [address], 11/27/2023 18:22:17 11/27/19 24 11/27/2023 CBC/C OMPLE TE BLD COUNT W/DIF F lymphocytes 22.6 % 16.0-4 7.0 Not Available [facility] (Lab) [address] [place], [address], 11/27/2023 18:22:17 11/27/19 24 11/27/2023 CBC/C OMPLE TE BLD COUNT W/DIF F monocytes 13.6 % 5.0-12 .0 high Not Available [facility] (Lab) [address] [place], [address], 11/27/2023 18:22:17 11/27/19 24 11/27/2023 CBC/C OMPLE TE BLD COUNT W/DIF F eosinophils 3.2 % 1.0-7. 0 Not Available [facility] (Lab) [address] [place], [address], 11/27/2023 18:22:17 11/27/19 24 11/27/2023 CBC/C OMPLE TE BLD COUNT W/DIF F basophils 0.7 % 0.0-2. 0 Not Available [facility] (Lab) [address] [place], [address], 11/27/2023 18:22:17 11/27/19 24 11/27/2023 CBC/C OMPLE TE BLD COUNT W/DIF F immature granulocytes 0.4 % 0.00-0 .50 Not Available [facility] (Lab) [address] [place], [address], 11/27/2023 18:22:17 11/27/19 24 11/27/2023 CBC/C OMPLE TE BLD COUNT W/DIF F neutrophils, absolute count 4.40 x10'3 /uL 1.5-8. 0 Not Available [facility] (Lab) [address] [place], [address], 11/27/2023 18:22:17 11/27/19 24 11/27/2023 CBC/C OMPLE TE BLD COUNT W/DIF F lymphocytes, absolute count 1.67 x10'3 /uL 1.07-3 .43 Not Available [facility] (Lab) [address] [place], [address], 11/27/2023 18:22:17 11/27/19 24 11/27/2023 CBC/C OMPLE TE BLD COUNT W/DIF F monocytes, absolute count 1.01 x10'3 /uL 0.29-0 .99 high Not Available [facility] (Lab) [address] [place], [address], 11/27/2023 18:22:17 11/27/19 24 11/27/2023 CBC/C OMPLE TE BLD COUNT W/DIF F eosinophils, absolute count 0.24 x10'3 /uL 0.02-0 .53 Not Available [facility] (Lab) [address] [place], [address], 11/27/2023 18:22:17 11/27/19 24 11/27/2023 CBC/C OMPLE TE BLD COUNT W/DIF F basophils, absolute count 0.05 x10'3 /uL 0.01-0 .08 Not Available [facility] (Lab) [address] [place], [address], 11/27/2023 18:22:17 11/27/19 24 11/27/2023 CBC/C OMPLE TE BLD COUNT W/DIF F immature granulocytes ,absolute 0.03 x10'3 /uL 0.00-0 .05 Not Available [facility] (Lab) [address] [place], [address], 11/27/2023 18:22:17 11/27/19 24 11/27/2023 CBC/C OMPLE TE BLD COUNT W/DIF F nucleated red blood cells 0.0 % -0 Not Available [facility] (Lab) [address] [place], [address], 11/27/2023 18:22:17 11/27/19 24 11/27/2023 CBC/C OMPLE TE BLD COUNT W/DIF F NRBC# 0.00 x10'3 /uL Not Available [facility] (Lab) [address] [place], [address], 11/27/2023 18:22:17 11/27/19 24 11/27/2023 COMPR EHENS LILLIAM METAB OLIC PANEL sodium 139 mmol/ L 137-14 5 Not Available [facility] (Lab) [address] [place], [address], 11/27/2023 18:23:00 11/27/19 24 11/27/2023 COMPR EHENS LILLIAM METAB OLIC PANEL potassium 4.0 mmol/ L 3.5-5. 1 Not Available [facility] (Lab) [address] [place], [address], 11/27/2023 18:23:00 11/27/19 24 11/27/2023 COMPR EHENS LILLIAM METAB OLIC PANEL chloride 108 mmol/ L 98-107 high Not Available [facility] (Lab) [address] [place], [address], 11/27/2023 18:23:00 11/27/19 24 11/27/2023 COMPR EHENS LILLIAM METAB OLIC PANEL carbon dioxide 28 mmol/ L 22-30 Not Available [facility] (Lab) [address] [place], [address], 11/27/2023 18:23:00 11/27/19 24 11/27/2023 COMPR EHENS LILLIAM METAB OLIC PANEL anion gap 7.0 mmol/ L 14-22 low Not Available [facility] (Lab) [address] [place], [address], 11/27/2023 18:23:00 11/27/19 24 11/27/2023 COMPR EHENS LILLIAM METAB OLIC PANEL glucose 101 mg/dL 70-99 high Not Available [facility] (Lab) [address] [place], [address], 11/27/2023 18:23:00 11/27/19 24 11/27/2023 COMPR EHENS LILLIAM METAB OLIC PANEL BUN 15 mg/dL 8-19 Not Available [facility] (Lab) [address] [place], [address], 11/27/2023 18:23:00 06/18/11/27/2023 COMPR EHENS LILLIAM METAB OLIC PANEL creatinine 1.22 mg/dL 0.66-1 .25 Not Available [facility] (Lab) [address] [place], [address], 11/27/2023 18:23:00 11/27/19 24 11/27/2023 COMPR EHENS LILLIAM METAB OLIC PANEL GFR >60 Refer ence Range : [place] ge GFR Healt hy Adult : >60 [...] or ethni c subgr oups, such as Hisnc nics. Outsi de the valid ated jess [...] calcu lator is avail able on the [facility] websi te: https ://colby w.kid sy.o rg/pr ofess ional s/kdo qi/gf r_cal culat or Not Available [facility] (Lab) [address] [place], [address], 11/27/2023 18:23:00 11/27/19 24 11/27/2023 COMPR EHENS LILLIAM METAB OLIC PANEL alkaline phosphatase 124 U/L 38-126 Not Available [facility] (Lab) [address] [place], [address], 11/27/2023 18:23:00 11/27/19 24 11/27/2023 COMPR EHENS LILLIAM METAB OLIC PANEL alanine aminotransfe rase 36 U/L 0-50 Not Available [facility] (Lab) [address] [place], [address], 11/27/2023 18:23:00 11/27/19 24 11/27/2023 COMPR EHENS LILLIAM METAB OLIC PANEL aspartate aminotransfe rase 50 U/L 15-46 high Not Available [facility] (Lab) [address] [place], [address], 11/27/2023 18:23:00 11/27/19 24 11/27/2023 COMPR EHENS LILLIAM METAB OLIC PANEL bilirubin, total 0.70 mg/dL 0.20-1 .30 Not Available [facility] (Lab) [address] [place], [address], 11/27/2023 18:23:00 11/27/19 24 11/27/2023 COMPR EHENS LILLIAM METAB OLIC PANEL calcium 10.1 mg/dL 8.4-10 .2 Not Available [facility] (Lab) [address] [place], [address], 11/27/2023 18:23:00 11/27/19 24 11/27/2023 COMPR EHENS LILLIAM METAB OLIC PANEL total protein 7.1 g/dL 6.3-8. 2 Not Available [facility] (Lab) [address] [place], [address], 11/27/2023 18:23:00 11/27/19 24 11/27/2023 COMPR EHENS LILLIAM METAB OLIC PANEL albumin 4.2 g/dL 3.4-5. 0 Not Available [facility] (Lab) [address] [place], [address], 11/27/2023 18:23:00 11/27/19 24 11/27/2023 COMPR EHENS LILLIAM METAB OLIC PANEL globulin 2.9 g/dL 2.6-4. 2 Not Available [facility] (Lab) [address] [place], [address], 11/27/2023 18:23:00 11/27/19 24 11/27/2023 COMPR EHENS LILLIAM METAB OLIC PANEL A/G ratio 1.4 ratio 1.0-2. 0 Not Available [facility] (Lab) [address] [place], [address], 11/27/2023 18:23:00 11/27/19 24 11/27/2023 PHOSP HORUS phosphorus 3.7 mg/dL 2.5-4. 5 Not Available [facility] (Lab) [address] [place], [address], 11/27/2023 18:23:03 11/27/19 24 11/27/2023 LIPID PANEL cholesterol 114 mg/dL 140-19 9 low NIH NEVIN NSUS RECOM MENDA TION FOR ERNA STERO L: ADULT CHILD LOW RISK: <200 <170 BORDE RLINE : <200- 239 ----- HIGH RISK: >240 >200 Not Available [facility] (Lab) [address] [place], [address], 11/27/2023 18:23:05 11/27/19 24 11/27/2023 LIPID PANEL triglyceride s 123 mg/dL 0-150 NIH NEVIN NSUS REPOR T RECOM MENDA TION FOR TRIGL YCERI MAHSA: ADULT CHILD LOW RISK: <150 ----- BODER LINE: 150-1 99 ----- HIGH RISK: >200 ----- Not Available [facility] (Lab) [address] [place], [address], 11/27/2023 18:23:05 11/27/19 24 11/27/2023 LIPID PANEL HDL cholesterol 45 mg/dL 40- Not Available [facility] (Lab) [address] [place], [address], 11/27/2023 18:23:05 11/27/19 24 11/27/2023 LIPID PANEL LDL cholesterol, calculated 44 mg/dL 0-130 NIH NEVIN NSUS REPOR T RECOM MENDA TIONS FOR LDL: ADULT CHILD LOW RISK <130 <110 (OPTI MAL LDL) <100 ----- MARK RLINE : 130-1 59 ----- HIGH RISK: >160 >130 A TRIGL YCERI DE RESUL T >400 INVAL IDATE S THE CALCU LATIO N FOR LDL FRACT IONAT ION - THE LDL RESUL T WILL NOT BE REPOR JEFF. Not Available [facility] (Lab) [address] [place], [address], 11/27/2023 18:23:05 11/27/19 24 11/27/2023 GGT/G -GLUT AMYL TRANS FERAS E gamma-glutam yl transferase 61 U/L 12-58 high Not Available [facility] (Lab) [address] [place], [address], 11/27/2023 18:23:09 11/27/19 24 11/27/2023 HEPAT ITIS ACUTE PANEL hepatitis A IgM antibody NON-RE ACTIVE non-re active For sampl es repor jeff as Carmenjoey tiffanyprice React lilliam for HAV IgM, it is recom jm d a new speci men be obtai bolivar in 2 weeks and retes jeff. Not Available [facility] (Lab) [address] [place], [address], 11/27/2023 19:17:48 11/27/19 24 11/27/2023 HEPAT ITIS ACUTE PANEL hepatitis A virus signal/cutof 0.02 0.00-0 .79 Not Available [facility] (Lab) [address] [place], [address], 11/27/2023 19:17:48 11/27/19 24 11/27/2023 HEPAT ITIS ACUTE PANEL hepatitis B core IgM antibody NON-RE ACTIVE non-re active Not Available [facility] (Lab) [address] [place], [address], 11/27/2023 19:17:48 11/27/19 24 11/27/2023 HEPAT ITIS ACUTE PANEL HBV core IgM signal/cutof f 0.06 0.00-1 .10 Not Available [facility] (Lab) [address] [place], [address], 11/27/2023 19:17:48 11/27/19 24 11/27/2023 HEPAT ITIS ACUTE PANEL hepatitis B surface antigen NON-RE ACTIVE non-re active All speci mens react lilliam for Hepat itis B Surfa ce Antig en will refle x to refer ral lab confi rmato ry testi ng. Not Available [facility] (Lab) [address] [place], [address], 11/27/2023 19:17:48 11/27/19 24 11/27/2023 HEPAT ITIS ACUTE PANEL HBV surf.antigen signal/cutof f 0.12 0.00-0 .99 Not Available [facility] (Lab) [address] [place], [address], 11/27/2023 19:17:48 11/27/19 24 11/27/2023 HEPAT ITIS ACUTE PANEL hepatitis C antibody NON-RE ACTIVE non-re active All speci mens react lilliam for Hepat itis C Virus antib naima will refle x to PCR confi rmato ry testi ng. Pleas e allow 48-72 hours for resul ts. Not Available [facility] (Lab) [address] [place], [address], 11/27/2023 19:17:48 11/27/19 24 11/27/2023 HEPAT ITIS ACUTE PANEL hepatitis C virus signal/cutof 0.01 0.00-0 .99 Not Available [facility] (Lab) [address] [place], [address], 11/27/2023 19:17:48 11/27/19 24 11/27/2023 TSH W/REF ROMAN FT4 TSH with reflex free T4 2.520 uIU/m L 0.465- 4.680 Not Available [facility] (Lab) [address] [place], [address], 11/27/2023 18:50:59 11/27/19 24 11/27/2023 PSA SCREE N PSA medicare screen 0.82 NG/mL 0.00-4 .00 Not Available [facility] (Lab) [address] [place], [address], 11/27/2023 18:51:02 11/27/19 24 11/27/2023 HEMOG LOBIN A1C HA1C 5.9 % 4.0-6. 0 Diabe sal Scree maricruz Crite darren: <5.7% Consi stent with absen ce of diabe sal 5.7-6 .4% Consi stent with incre ased risk for diabe sal (pred iabet es) >OR=6 .5% Consi stent with diabe sal REFER ENCE: Diabe sal Care 2016, 39(Sharma ppl.1 ):s13 -s22 Not Available [facility] (Lab) [address] [place], [address], 11/27/2023 21:02:04 05/21/20 23 05/19/2023 XR, knee, 3 view No observ ation record ed. [email or web address] Not Available 05/11 16:27:57 05/21/20 23 05/19/2023 XR, ankle , 3 or more view No observ ation record ed. [email or web address] Not Available 05/11 16:27:57 05/22/20 XR, knee No observ ation record ed. [email or web address] [facility] [address], [place], [address], 05/22/2023 10:51:39 06/14/19 24 XR, foot No observ ation record ed. [facility] [address], [place], [address], 06/14/2023 13:55:20 06/14/19 24 06/14/2023 MRI, foot, w/o contr ast No observ ation record ed. [address], [place], [address], 06/15/2023 14:13:35 06/15/19 24 06/15/2023 injec tion/ aspir ation joint /burs a (PROC ) No observ ation record ed. [address], [place], [address], 06/18/2023 10:06:14 06/20/19 24 XR, knee No observ ation record ed. [email or web address] [address] [facility] [facility] [address], [place], [address], 06/20/2023 12:56:33 07/13/19 24 07/13/2023 MRI, knee, w/o contr ast No observ ation record ed. [email or web address] [address], [place], [address], 09/12/2023 15:51:05 07/13/19 24 07/13/2023 MRI, knee, w/o contr ast No observ ation record ed. [address], [place], [address], 07/23/2023 12:17:22 09/19/19 25 09/16/2024 imagi ng/di agnos tic resul t No observ ation record ed. [facility] [address], [place], [address], 09/18/2024 16:57:41 09/19/19 25 09/16/2024 imagi ng/di agnos tic resul t No observ ation record ed. [facility] [address], [place], [address], 09/18/2024 16:57:52 Result Notes None recorded. Problems Name Problem SNOMED Code Status Onset Date Resolution Date Notes Provider Name and Address Organization Details Recorded Time Serum iron below reference range 102451847 Active 2021 Not Available [facility] 4 06:42:32 Essential hypertensi on 54827094 Active 2022 Not Available [facility] 4 06:42:33 Obesity 807198472 Active 2022 Not Available [facility] 4 06:42:33 Proteinuri a 74785723 Active 2022 Not Available [facility] 4 06:42:33 Acute kidney injury 96435954 Active 2022 Not Available [facility] 4 06:42:32 Sleep apnea 71230847 Active 2022 Not Available [facility] 4 06:42:33 Iron deficiency anemia 76652878 Active 2022 Not Available [facility] 4 06:42:33 Prediabete s 128420508 Active 2022 Not Available [facility] 4 06:42:33 Liver enzymes level above reference range 543351640 Active 2022 Not Available [facility] 4 06:42:33 Gout 75635504 Active 2022 Not Available [facility] 4 06:42:33 Pain of joint of ankle and/or foot 425465827 Active 2022 Not Available [facility] 4 06:42:32 Steatotic liver disease 091829189 Active 2022 Not Available [facility] 4 06:42:32 Pain of left knee joint 9060561034636 07 Active 2022 Not Available [facility] 4 06:42:33 Pain of right knee joint 6635938940713 00 Active 2022 Not Available [facility] 4 06:42:33 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 2011543587449 9100 Active 2022 Not Available [facility] 4 06:42:32 Contusion of right knee 4737335731719 9104 Active 2022 Not Available [facility] 4 06:42:32 Contusion of left knee [id number] 9109 Active 2022 Not Available [facility] 4 06:42:32 Vitamin D deficiency 26622903 Active 2022 Not Available [facility] 4 06:42:33 Mechanical complicati on of implant 468392095 Active 2022 Not Available [facility] 4 06:42:33 Anterior knee pain 374240372 Active 2022 Not Available [facility] 4 06:42:32 Pain of joint 81366127 Active 2022 Not Available [facility] 4 06:42:33 Pain in left foot 5341872912067 07 Active 2023 Not Available [facility] 4 06:42:33 Obstructiv e sleep apnea syndrome 37826627 Active 2023 Oscar johnson MD [address], [facility] [address], [place], [address] , [facility] [employer] [facility] 4 18:52:01 Hyperlipid emia 41726703 Active 2023 Oscar johnson MD [address], [address], [place], [address] , [facility] [employer] [facility] 4 18:54:45 Anemia 221850646 Active 2023 Oscar johnson MD [address], [address], [place], [address] , [facility] 4 18:55:20 Hyperglyce ector 10292264 Active 2023 Oscar johnson MD [address], [address], [place], [address] , [place] [employer] [facility] [employer] 4 18:56:34 Chronic kidney disease 293780256 Active 2023 Oscar johnson MD [address], [address], [place], [address] , [place] [employer] [facility] [employer] 4 18:58:01 [employer] is 279070021 Active 2023 Shirley Hansen MA null, [employer] [facility] [employer] 4 11:53:59 Notes:Medical History: Obesi ty with [...] Recorded Time colonoscopy completed Norma Lakhani MA MS [employer] [facility] [employer] 10/30/2023 15:15:32 Imaging Results Imaging Date Name Status LastModified by Organiz ation Details LastModified Time 05/19/2023 XR, knee, 3 view completed Information not available 05/21/2023 16:27:57 05/19/2023 XR, ankle, 3 or more view completed Information not available 05/21/2023 16:27:57 05/22/2023 XR, knee completed [email or web address] [facility] [address], [place], [address], 05/22/2023 10:51:39 06/14/2023 XR, foot completed [facility] [address], [place], [address], 06/14/2023 13:55:20 06/14/2023 MRI, foot, w/o contrast completed [place] [address], [place], [address], 06/15/2023 14:13:35 06/15/2023 injection/asp iration joint/bursa (PROC) completed [address], [place], [address], 06/18/2023 10:06:14 06/20/2023 XR, knee completed [facility] Dunlap [address] [facility] [address], [place], [address], 06/20/2023 12:56:33 07/13/2023 MRI, knee, w/o contrast completed [email or web address] [address], [place], [address], 09/12/2023 15:51:05 07/13/2023 MRI, knee, w/o contrast completed [address] [facility], [place], [address], 07/23/2023 12:17:22 09/16/2024 imaging/diagn ostic result active [facility] [address], [place], [address], 09/18/2024 16:57:41 09/16/2024 imaging/diagn ostic result active [facility] [address], [place], [address], 09/18/2024 16:57:52 Procedure Notes None recorded. Medical Equipment None [...] 1 tablet every day by oral route. active Not Available Not Available No t Available cyanocobala min (vit B-12) 1,000 mcg tablet TAKE 1 TABLET BY MOUTH DAILY active Not Available Not Available No t Available chlorthalid one 25 mg tablet TAKE 1 TABLET BY MOUTH EVERY MORNING active Not Available Not Available No t [...] suspension for injection in office 06/14 completed [facility]: 0003- [id number]- 20 Not Available Not Available [...] Details Last Updated DateTime 06/20/2023 180.34 cm RACHAEL Arana [facility] [employer] 06/20/2023 10:23:23 Date Recorded Body height Provider Name an d Address Organization Details Last Updated DateTime 07/18/2023 180.34 cm Joy Morton CNA MS [employer] [facility] [employer] 07/18/2023 08:53:51 Date Recorded Body height Body mass index (BMI) Body weight Body temperature Heart rate Oxygen saturation Oxygen saturation in Arterial blood by Pulse oximetry Systolic blood pressure Diastolic blood pressure Provider Name and Address Organization Details Last Updated DateTime 180.34 cm 40.9 kg/m2 206307. 56 g 98.3 [degF] 88 /min 98 % 98 % 134 mm[Hg] 84 mm[Hg] Norma Lakhani MA [facility] [employer] 15:13:46 Date Recorded Body height Body mass index (BMI) Body weight Body temperature Heart rate Respiratory rate Oxygen saturation Oxygen saturation in Arterial blood by Pulse oximetry Pain severity - 0-10 verbal numeric rating [Score] - Reported Systolic blood pressure Diastolic blood pressure Provider Name and Address Organization Details Last Updated DateTime 4 180.34 cm 42.5 kg/m2 718929. 67 g 98 [degF] 86 /min 18 /min 99 % 99 % 0 136 mm[Hg] 72 mm[Hg] Sebastián Mendenhall LPN MS [employer] [facility] [employer] [facility] 4 15:52:28 Date Recorded Body height Body mass index (BMI) Body weight Body temperature Heart rate Systolic blood pressure Diastolic blood pressure Provider Name and Address Organization Details Last Updated DateTime 5 180.34 cm 44.4 kg/m2 426589. 37 g 97.7 [degF] 90 /min 138 mm[Hg] 82 mm[Hg] RACHAEL García [employer] [facility] [employer] 5 16:54:44 Social History Question Answer Notes LastModified by Organization Details LastModified Time Tobacco Smoking Status Never Smoker Not Available [facility] 08/09/2022 23:29:04 Do You Have An Advance Directive? No MIGRATION.030 [id number] Information not available 08/09/2022 What Is Your Level Of Caffeine Consumption? Moderate MIGRATION.300026 Information not available 08/09/2022 In The 14 Days Before Symptom Onset, Have You Had Close Contact With A Laboratory-conf irmed COVID-19 While That Case Was Ill? No MIGRATION.030 [id number] Information not available 08/09/2022 In The 14 Days Before Symptom Onset, Have You Had Close Contact With A Person Who Is Under Investigation For COVID-19 While That Person Was Ill? No MIGRATION.030 [id number] Information not available 08/09/2022 What Type Of Diet Are You Following? REGULAR MIGRATION.300 [id number] Information not available 08/09/2022 What Is The Highest Grade Or Level Of School You Have Completed Or The Highest Degree You Have Received? [id number] [id number].[id number] Information not available 08/09/2022 Have There Been Any Changes To Your Family Or Social Situation? No MIGRATION.030 [id number] Information not available 08/09/2022 What Is The Fluoride Status Of Your Home? Fluoridated MIGRATION.300 [id number] Information not available 08/09/2022 Are There Any Guns Present In Your Home? No MIGRATION.0301 [id number] Information not available 08/09/2022 Do You Use Insect Repellent Routinely? No MIGRATION.0301 [id number] Information not available 08/09/2022 Where Do You Live? SingleLevelHouse MIGRATION.0301 [id number] Information not available 08/09/2022 Do You Have A Medical Power Of Watermelon Inspector? No MIGRATION.0301 [id number] Information not available 08/09/2022 What Was The Date Of Your Most Recent Tobacco Screening? 07/15/2024 [email or web address] Information not available 07/15/2024 Have You Ever Been Counseled For Unhealthy Alcohol Use? No MIGRATION.0301 [id number] Information not available 08/09/2022 Do You Have Any Pets? No MIGRATION.0301 555646 Information not available 08/09/2022 What Is Your Relationship Status? Single MIGRATION.0301 534683 Information not available 08/09/2022 Do You Use Your Seat Belt Or Car Seat Routinely? Yes MIGRATION.0301 335006 Information not available 08/09/2022 Do You Have Smoke And Carbon Monoxide Detectors In Your Home? Yes MIGRATION.0301 415777 Information not available 08/09/2022 Are You Passively Exposed To Smoke? No MIGRATION.0301 [id number] Information not available 08/09/2022 Are There Any Smokers In Your House? No MIGRATION.0301 888494 Information not available 08/09/2022 What Types Of Sporting Activities Do You Participate In? None MIGRATION.0301 [id number] Information not available 08/09/2022 Do You Use Sunscreen Routinely? No MIGRATION.0301 416053 Information not available 08/09/2022 Has Tobacco Cessation Counseling Been Provided? No Not Needednever Smoked MIGRATION.0301 722694 Information not available 08/09/2022 Have You Recently Traveled Abroad? No MIGRATION.0301 507759 Information not available 08/09/2022 Do You Have Any Dietary Restrictions? No MIGRATION.0301 990883 Information not available 08/09/2022 Sex: Male Functional Status Question Answer Note LastModified by Organizat ion Details LastModified Time Do you use any illicit or recreational drugs? No MIGRATION.577639 7899 Information not available 08/09/2022 Do you or have you ever used any other forms of tobacco or nicotine? No MIGRATION.616364 2601 Information not available 08/09/2022 What is your level of alcohol consumption? 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 Moderate cuts grass MIGRATION.291151 9434 Information not available 08/09/2022 Mental Status Question Answer Note LastModified by Organizat ion Details LastModified Time Do you feel stressed (tense, restless, nervous, or anxious, or unable to sleep at night)? [id number] MIGRATION.[id number] Information not available 08/09/2022 Family History Relationship Description Onset Age of this Age Resolved Age Notes LastModified by Organization Details LastModified Time Mother Malignant neoplastic disease MIGRATION.738 [id number] Not available 08/09/2022 23:29:15 Sister COVID-19 MIGRATION.105 [id number] Not available 08/09/2022 23:29:15 Medical History Condition Response NERVE DISEASE N BLINDNESS N RHEUMATIC FEVER N KIDNEY STONES N BLADDER PROBLEMS N MRSA N OTHER # 1 N [...] (COVID-19) vaccine, UNSPECIFIED 1 completed Not Available [facility] 06/28/2023 06:42:33 SARS-COV-2 (COVID-19) vaccine, UNSPECIFIED 1 completed Not Available [facility] 06/28/2023 06:42:33 Influenza, split virus, quadrivalent, PF 2 completed Not Available [facility] 06/28/2023 06:42:33 Influenza, split virus, quadrivalent, PF 3 completed Nitza Rinaldi [employer]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, [facility] [address], [place], [address], [facility] 04/30/2023 16:34:20 Past Encounters Encounter ID Performer Location Encounter Start Date Encounter Closed Date Diagnosis/Indication Diagnosis SNOMED-CT Code Diagnosis ICD10 Code Diagnosis Note [id number] Oscar johnson MD [facility] Internal Med [facility] [address] [facility] [address] [place] [address] 01/11/2021 00:00:00 01/11/2021 17:13:23 [id number] Oscar johnson MD [facility] Internal Med [facility] [address] [facility] [address] [place] [address] 02/15/2021 00:00:00 02/15/2021 20:18:11 [id number] MD GENA Veloz_[facility] Internal Med [facility] [address] [facility] [address] [place] [address] 03/15/2021 00:00:00 03/15/2021 19:59:43 [id number] Oscar johnson MD [facility] Internal Med [facility] [address] [place] [address] Ave[address] [address] 06/28/2021 00:00:00 06/28/2021 17:28:10 [id number] Oscar johnson MD [facility] Internal Med [facility] [address] [place] [address] Ave[address] [address] 10/14/2021 00:00:00 10/14/2021 17:03:15 [id number] Oscar johnson MD [facility] Internal Med [facility] [address] [place], [place] [address]e., [address] [address] 04/21/2022 00:00:00 04/21/2022 17:11:39 [id number] Oscar johnson MD [facility] Internal Med [facility] [address] [place], [place] [address]e., [address] [address] 10/24/2022 15:55:35 10/24/2022 16:31:49 Essential hypertension 02762285 I10 on amlodipine , HCTZ, losartan Obesity 717528805 E66.9 recommend healthy, well balanced mealsfocus on lean meats, fresh vegetables , fresh fruits, whole grainsredu ce fast/proce ssed foods or eating out to no more than 1-2 times per weekaim to get 30 min of exercise most days of the week- walking is a great choicealso recommend resistance training 2-3 times per week Proteinuria 00250449 R80 .9 now following nephrology - Dr Coe History of acute kidney injury 1159130422 17406 Z87.448 2/ to [facility] while [facility] appt as above Sleep apnea 09886940 G47 .30 now on CPAP- he is not wearing it, he tells me he doesn't like itWe had previously referred him [facility] for [facility] device, he tells me he still has referral but does not want to go just yet Offered him a pulmonolog y referral to [facility] ot CPAP-he declines today We discussed risks of untreated sleep apnea including heart problems, lung problems, and , strongly encouraged him to wear the CPAP Iron defic iency anemia 91286737 D50.9 Dr. Coe took him off the ironis s/p cscope but GI is recommendi ng EGD- he declines this History of polyp of colon 126679714 Z86.010 repeat colon 03/2026 Prediabetes 921913930 R7 3.03 diet/exerc ise encouraged Cholesterol screening 27 0572640 Z13.220 Screening for malignant neoplasm of prostate 575799677 Z12.5 [id number] Oscar johnson MD [facility] [place] [address] [facility], [address] [place] [address] 04/30/2023 15:34:01 04/30/2023 16:04:22 Essential hypertension 81161619 I10 on amlodipine , HCTZ, losartan Obesity 925018536 E66.9 recommend healthy, well balanced mealsfocus on lean meats, fresh vegetables , fresh fruits, whole grainsredu ce fast/proce ssed foods or eating out to no more than 1-2 times per weekaim to get 30 min of exercise most days of the week- walking is a great choicealso recommend resistance training 2-3 times per week Proteinuria 34049012 R80 .9 now following nephrology - Dr Coe History of acute kidney injury 4906367017 59927 Z87.448 2/ [facility] Sleep apnea 11954448 G47 .30 now on CPAP- he is [...] wear the CPAP Iron defic iency anemia 02992276 D50.9 Dr. Coe took him off the ironis s/p cscope but GI is recommendi ng EGD- he declines this History of polyp of colon 689525763 Z86.010 repeat colon 03/2026 Prediabetes 691042924 R7 3.03 diet/exerc ise encouraged nephrology started him on metformin Adult heal th examination 223571141 Z00.01 Steatotic liver disease 523983500 K76.0 working on diet/exerc ise/weight loss Gout 27065644 M10.9 Colchicine is contraindi cated with his current meds Will try to avoid NSAIDs due to his kidneys Will try a Medrol Dosepak and see if that helps Gout diet discussed Cholesterol screening 27 3874984 Z13.220 Administra tion of influenza vaccine 03832980 Z23 Depression screening 171 092763 Z13.31 [id number] KEYSHA Funez [facility]_[address] [address] 05/22/2023 09:41:15 05/22/2023 10:51:21 Pain of left knee joint 9010683405 23113 M25.562 Pain of ri ght knee joint 4452392051 70249 M25.561 Bilateral [place] disease 7763495744 8359121 M92.523 Contusion of left knee 5347207783 6206230 S80.02XA [id number] Christophe Blankenship MD [address] [address] 06/07/2023 09:56:30 06/13/2023 09:33:45 Contusion of left knee 0774410829 8401714 S80.02XD Pain of le ft knee joint 7157778222 95453 M25.562 Pain of joint 94842954 M 25.158 [id number] Christophe Blankenship MD [facility]_[address] [address] 06/14/2023 09:57:07 06/14/2023 14:05:35 Contusion of left knee 1126677503 5602754 S80.02XD Impression : 1. Patient has gout in the left knee and may have had gout in left ankle and left mid foot. The ankle is nontender today. His left knee is still painful at 120 of flexion still has moderate effusion but [...] face-to-fa ce care. Pain in left foot 686316 4331 65099 M79.863 [id number] Christophe Blankenship MD [facility] [place] [address] [place] [address] 06/20/2023 09:50:56 06/20/2023 13:04:00 Contusion of left knee 7301767591 1794509 S80.02XD Pain in left foot 632788 3054 21878 M79.276 [id number] Christophe Blankenship MD [facility] [place] [address] [place] [address] 07/18/2023 08:48:27 07/23/2023 10:45:15 Pain of left knee joint 8828778507 84628 M25.868 [id number] Oscar johnson MD [facility] Internal Med [facility] [address] [facility], [facility] [address] [place] [address] 10/30/2023 14:53:41 10/30/2023 16:02:38 Screening - NAD 877985721 Z13.9 C-scope: Dr Willis 04/06/2021 , next in 5 years Get yearly flu shot, get Tdap if not doneCan do RSV vaccineGet shingrix vaccineCan do COVID 19 boosters RTC in 3 months, do labs, ER if worse Essential hypertension 87071134 I10 On chlorthali done 25mg dailyOn losartan 100mg dailyOn aldactone 100mg dailyOn torsemide 20mg dailyGet labs Obstructiv e sleep apnea syndrome 80158457 G47.33 Steatotic liver disease 095829489 K76.0 Get US liverHepat itis pane, and GGT Gout 22730129 M10.9 On allopurino l 300mg daily Hyperlipidemia 16073733 E78.5 On atorvastat in 20mg daily, increase to 40mg dailyGet labs Screening for malignant neoplasm of prostate 026238315 Z12.5 Anemia 226890977 D64.9 Microcytic Can get on ironGet a referral to Dr Riley Hyperglycemia 18466446 R 73.9 Get labsNeeds to see eye MD and podiatry Chronic ki dney disease 522608586 N18.9 Dr Coe 08/28/2023 Screening for cardiovascular system disease 985391206 Z13.6 [id number] Oscar johnson MD [facility] Internal Med [facility] [address] [facility] [address] [place] [address] 01/29/2024 15:18:00 01/29/2024 16:26:53 Screening - NAD 890127004 Z13.9 C-scope: Dr Willis 04/06/2021 , next in 5 years Get yearly flu shot, get Tdap if not doneCan do RSV vaccineGet shingrix vaccineCan do COVID 19 boosters RTC in 3 months, do labs, ER if worse Essential hypertension 25298140 I10 On chlorthali done 25mg daily, given by Dr Mejia losartan 100mg dailyOn aldactone 100mg dailyOn torsemide 20mg dailyGet labs Obstructiv e sleep apnea syndrome 82823060 G47.[address] Naranjo Steatotic liver disease 495789881 K76.0 Get US liverHepat itis Panel: NegativeGG T 61 Gout 84091234 M10.9 On allopurino l 300mg daily Hyperlipidemia 06601092 E78.5 On atorvastat in 20mg dailyGet labs Anemia 314541888 D64.9 Microcytic Can get on ironGet a referral to Dr Riley Hyperglycemia 23591390 R 73.9 On metformin ER 500mg bid Get labsNeeds to see eye MD and podiatry Chronic ki dney disease 330051004 N18.9 Dr Coe 08/28/2023 Screening for cardiovascular system disease 048140759 Z13.6 Does need to see cardiology , referred 01/29/2024 [id number] Oscar johnson MD [facility] Internal Med [facility] [address] [facility], [address] [address] 07/15/2024 16:04:46 07/15/2024 17:32:05 Screening - NAD 236134937 Z13.9 C-scope: Dr Willis 04/06/2021 , next in 5 years Get yearly flu shot, get Tdap if not doneCan do RSV vaccineUTD on shingrix vaccineCan do COVID 19 boosters RTC in 3 months, do labs, ER if worse Essential hypertension 08533112 I10 On chlorthali done 25mg daily, given by Dr Coe 06/17/2024 , f/u in 6 monthsOn nifedipine 60mg dailyOn losartan 100mg dailyOn aldactone 100mg dailyOn torsemide 20mg dailyGet labs Obstructiv e sleep apnea syndrome 34650414 G47.[address] Naranjo Steatotic liver disease 072496502 K76.0 Get US liverHepat itis Panel: NegativeGG T 61He does consume alcohol, advised to wean off Gout 31159610 M10.9 On allopurino l 300mg daily Hyperlipidemia 76962511 E78.5 On atorvastat in 20mg dailyGet labs Anemia 265311771 D64.9 Microcytic Can get on ironSees Dr Riley in 10/2024 Hyperglycemia 98673362 R 73.9 On metformin ER 500mg bid Get labsNeeds to see eye MD and podiatry Chronic ki dney disease 655890732 N18.9 Dr Coe 08/28/2023 Screening for cardiovascular system disease 047866684 Z13.6 Does need to see cardiology , referred 01/29/2024 Pain of le ft knee joint 3928037717 95871 M25.562 S/p MRI 07/13/[address] Blankenship ortho Health Concerns Section Related Observation LastModified by Organization Detai ls LastModified Time None Recorded Concern Status LastModified by Organization Details LastModified Time None Recorded Advance Directives Directive N: Payers Encounter Date Sequence Insurance Name Policy Number Policy Brown Covered Member ID Brown Member ID Guarantor Name 06/20/2023 [facility] Armani Oconnell 07/18/2023 [facility] Armani Oconnell 10/30/2023 1 [employer] [facility] (EPO) Armani Oconnell [id number] Armani Oconnell 01/29/2024 1 [employer] [facility] (EPO) Armani Oconnell [id number] Armani Oconnell 07/15/2024 [facility] [id number] Armani Oconnell [id number] Armani Oconnell Notes Date Note Type Note Provider Name and Address Organization Details Recorded Time 06/20/2023 text/html Patient returns. his injury was on May 14 while he was at work riding on a [employer] truck his knee struck the edge of [...] differential and crystals and culture was sent. [facility] lab could not perform the cell [...] He is going to follow-up with his case resolution specialist about this hopefully since stopping the ibuprofen this will return to its previous baseline. Christophe Blankenship MD [address] [place] [address] [address], [place], [address], [place] [facility] [employer] [facility] 06/20/2023 13:03:20 07/18/2023 text/html Patient returns. His MRI scan was completed on 07/13/2023. 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 I reviewed the MRI findings [...] the patella trochlear cartilage is relatively preserved. [place] is sequela noted large ossicle adjacent [...] a chair now. Christophe Blankenship MD [address] [facility], [facility] [address], [place], [address], [employer] [facility] [employer] [facility] 07/22/2023 20:13:22 10/30/2023 text/html OV 10/30/2023:He re to establish care Present Hx:HTNOSAPrediabetesAn emiaSteatosis of liverGout Here to discuss above and get labs Oscar Joseph MD [address] [facility] [address], [place], [address], [employer] [facility] 10/31/2023 17:58:59 01/29/2024 text/html OV 10/30/2023:He re to establish care Present Hx:HTNOSAPrediabetesAn emiaSteatosis of liverGout Here to discuss above and get labs OV 01/29/2024: Here for his routine apt, he feels well now, he has seen Dr Coe and also Dr Riley, he did do the labs Oscar Joseph MD [address] [facility], [facility] [address], [place], [address], [employer] [facility] 01/29/2024 16:29:28 07/15/2024 text/html OV 10/30/2023:He re to establish care Present Hx:HTNOSAPrediabetesAn emiaSteatosis of liverGout Here to discuss above and get labs OV 01/29/2024: Here for his routine apt, he feels well now, he has seen Dr Coe and also Dr Riley, he did do the labs OV 07/15/2024: Here for his f/u apt, he did the labs OV 10/30/2023:Here to establish care Present Hx:HTNOSAPrediabetesAn emiaSteatosis of liverGout Here to discuss above and get labs OV 01/29/2024: Here for his routine apt, he feels well now, he has seen Dr Coe and also Dr Riley, he did do the labs OV 07/15/2024: Here for his f/u apt, he is doing very well today, he did do the labs Oscar Joseph MD [address] [place] [address], [facility] [address], [place], [address], [place] [facility] 07/15/2024 17:58:29
--- OUTSIDE RECORDS SUMMARY | 2024-10-22 15:54 | XMS_ITS | Clinical Summary ---
Author Organization [facility] Address [address] [place] [id number] Care Team Providers Care Nib Assembler Name Role Phone Oscar Joseph MD Primary Care Provider Social History Tobacco Use Types Packs/Day Years Used Date Smoking Tobacco: Never Assessed Sex and Gender Information Value Date Recorded Sex Assigned at Not on file Legal Sex Male 11:53 AM [employer]IE[employer] Gender Identity Not on file Sexual Orientation Not on file Plan of Treatment Health Maintenance Due Date Last Done Comments Colorectal Cancer Screening Colonoscopy (10 Years) 1962 Annual Physical 1965 Hepatitis C 1980 DTaP, Tdap and Td Vaccines ( 1 - Tdap) 1981 Pneumococcal Vaccine: 50+ Ye ars (1 of 1 - PCV) 2012 Zoster Vaccines (1 of 2) 2012 COVID-19 Vaccine ( - 2023-2 5 season) 2024 RSV Immunization or 60+ Years (1 [...] age to complete this topic Insurance [facility] [employer] Care Teams Nib Assembler Relationship Specialty Start Date End Date Oscar Joseph MD [address] [place] [id number] PCP - General INTERNAL MEDICINE 11/26/23
--- OUTSIDE RECORDS SUMMARY | 2024-10-22 15:54 | XMS_ITS | Data Portability ---
Author Organization HIEU Kumar SIDebora Laird Address [address] [place] [address] Assessment No assessment recorded. Plan of Treatment Reminders Order Date Submit Date Provider Last Modified By Organization Details Last Modified Time Details Appointments None recorded. Lab HbA1c (hemoglobi n A1c), blood 2017 018 [facility], [facility], [address], [place], [address], 8 10:36:21 hemoglobin , qualitativ e, stool by immunologi c method 2017 018 [facility], [facility], [address], [place], [address], 8 09:52:00 BMP, serum or plasma 2017 018 [facility], [facility], [address], [place], [address], 8 10:36:19 lipid panel, serum 2017 018 [facility], [facility], [address], [place], [address], 8 10:36:19 microalbum in/creatin ine, mass ratio, urine 2017 018 [facility], [address] [place], [place] [address] [address], [address], [place], [address], 8 10:36:20 BMP, serum or plasma 2016 017 [facility], [address] [place] [address], [address], [place], [address], 7 06:06:09 CBC w/ auto diff 2016 017 [facility], [address] [place] [address], [address], [place], [address], 7 08:26:20 C reactive protein, QN, serum or plasma 2016 017 [facility], [address] [place] [address], [address], [place], [address], 7 08:26:21 lipid panel, serum 2016 017 [facility], [address] [place] [address], [address], [place], [address], 7 08:26:20 HIV (1+2) Ab, rapid, unspecifie d specimen 2016 017 [email or web address] In-Office Order, Internal Use Only DO Not Attach Compendium DO Not Attach Compendium, Do Not Delete/merge, [id number] 7 16:12:03 Referral colonoscop y referral 2016 017 [email or web address] Not available 9 15:01:50 Procedures None recorded. Surgeries None recorded. Imaging None recorded. Medication Orders amlodipine 10 mg tablet 2017 018 [facility] #[id number], [address], [place], [id number], 8 09:56:35 hydrochlor othiazide 50 mg tablet 2016 017 [facility] #60546, [address], [place], [id number], 8 09:58:11 amlodipine 10 mg tablet 2016 017 [facility] #54144, [address], [place], [id number], 7 12:47:13 amlodipine 10 mg tablet 2016 017 [facility] #71814, [address], [place], [id number], 7 01:28:24 hydrochlor othiazide 25 mg tablet [address] [facility] #41177, [address], [place], [id number], 7 12:40:08 meloxicam 7.5 mg tablet [address] [facility] #13785, [address], [place], [id number], 7 13:47:33 amlodipine 10 mg tablet [address] [facility] #54379, [address], [place], [id number], 7 12:46:39 hydrochlor othiazide 25 mg tablet [address] [facility] #95113, [address], [place], [id number], 7 12:40:08 sertraline 50 mg tablet [address] [facility] #88481, [address], [place], [id number], 7 13:47:29 meloxicam 7.5 mg tablet 2016 017 [email or web address] #49361, [address], [place], [id number], 7 13:47:33 amlodipine 10 mg tablet 2016 017 INTERFACE [facility] #47110, [address], [place], [id number], 7 15:48:36 hydrochlor othiazide 12.5 mg capsule 2016 017 [email or web address] #77122, [address], [place], [id number], 7 12:46:44 sertraline 50 mg tablet 2016 017 [facility] #72305, [address], [place], [id number], 7 13:47:29 Patient TargetsNo targets recorded. Patient Instructions Encounter Date Encounter Id Patient Instructions Last Modified By Organization Details Last Modified Time 08/22/2016 [id number] C-reactive protein (CRP) test: about this test Not available 08/22/2016 15:48:38 learning about high blood pressure Not available 08/22/2016 16:11:58 09/22/2016 [id number] I was present an d available in the Family Medicine clinic to discuss this patient's care during the appointment. I agree with the resident's assessment and plan as documented. EDWARD Not available 10/02/2016 21:47:37 10/26/2016 [id number] I was present in the clinic to discuss this patient at the time of the visit. I agree with the documented assessment and plan. Rosi Monk MD [email or web address] Not available 11/13/2016 14:50:45 01/30/2017 [id number] I certify that I was present and available in the family medicine clinic for discussion of this patient. I have reviewed the residents note and agree with the stated assessment and treatment plan. SIVAN [email or web address] Not available 01/30/2017 16:11:16 04/24/2018 [id number] I was present an d available in the Family Medicine clinic to discuss this patient's care during the appointment. I agree with the resident's assessment and plan as documented. EDWARD Not available 04/26/2018 18:04:22 Reason for Referral Colonoscopy Referral for Scr eening for malignant neoplasm of colon Referring Physician: David Fernandes [facility] Physic[facility], Encounter Date: 08/22/2016 Results Created Date Observation Date Name Description Value Unit Range Abnormal Flag Note LastModifiedBy Organization Detail LastModifiedTime 08/23/19 17 08/22/2016 HIV (1+2) Ab, rapid , unspe cifie d speci men Rapid HIV negati ve Not Available In-Office Order Internal Use Only DO Not Attach Compendium DO Not Attach Compendium, Do Not Delete/merge, [id number] 08/22/2016 15:47:47 08/23/19 17 08/23/2016 CBC w/ auto diff WBC 9.7 x10e3 /uL 3.4-10 .8 Not Available [facility] ([facility]) [address] [place], [address], 08/23/2016 08:26:20 08/23/19 17 08/23/2016 CBC w/ auto diff RBC 4.97 x10e6 /uL 4.14-5 .80 Not Available [facility] ([facility]) [address] [place], [address], 08/23/2016 08:26:20 08/23/19 17 08/23/2016 CBC w/ auto diff hemoglobin 11.3 g/dL 12.6-1 7.7 below low normal Not Available [facility] ([facility]) [address] [place], [address], 08/23/2016 08:26:20 08/23/19 17 08/23/2016 CBC w/ auto diff hematocrit 35.2 % 37.5-5 1.0 below low normal Not Available [facility] ([facility]) [address] [facility], [place], [address], 08/23/2016 08:26:20 08/23/19 17 08/23/2016 CBC w/ auto diff MCV 71 fL 79-97 below low normal Not Available [facility] ([facility]) [address] [facility], [place], [address], 08/23/2016 08:26:20 08/23/19 17 08/23/2016 CBC w/ auto diff MCH 22.7 pg 26.6-3 3.0 below low normal Not Available [facility] ([facility]) [address] [facility], [place], [address], 08/23/2016 08:26:20 08/23/19 17 08/23/2016 CBC w/ auto diff MCHC 32.1 g/dL 31.5-3 5.7 Not Available [facility] ([facility]) [address] [facility], [place], [address], 08/23/2016 08:26:20 08/23/19 17 08/23/2016 CBC w/ auto diff RDW 16.8 % 12.3-1 5.4 above high normal Not Available [facility] ([facility]) [address] [facility], [place], [address], 08/23/2016 08:26:20 08/23/19 17 08/23/2016 CBC w/ auto diff platelets 409 x10e3 /uL 150-37 9 above high normal Not Available [facility] ([facility]) [address] [facility], [place], [address], 08/23/2016 08:26:20 08/23/19 17 08/23/2016 CBC w/ auto diff neutrophils 73 % Not Available [facility] ([facility]) [address] [facility], [place], [address], 08/23/2016 08:26:20 08/23/19 17 08/23/2016 CBC w/ auto diff lymphs 17 % Not Available [facility] ([facility]) [address] [place], [address], 08/23/2016 08:26:20 08/23/19 17 08/23/2016 CBC w/ auto diff monocytes 9 % Not Available [facility] ([facility]) [address] [place], [address], 08/23/2016 08:26:20 08/23/19 17 08/23/2016 CBC w/ auto diff eos 1 % Not Available [facility] ([facility]) [address] [place], [address], 08/23/2016 08:26:20 08/23/19 17 08/23/2016 CBC w/ auto diff basos 0 % Not Available [facility] ([facility]) [address] [place], [address], 08/23/2016 08:26:20 08/23/19 17 08/23/2016 CBC w/ auto diff immature cells TRANSITION MGR Not Available [facility] ([facility]) [address] [place], [address], 08/23/2016 08:26:20 08/23/19 17 08/23/2016 CBC w/ auto diff neutrophils (absolute) 7.0 x10e3 /uL 1.4-7. 0 Not Available [facility] ([facility]) [address] [place], [address], 08/23/2016 08:26:20 08/23/19 17 08/23/2016 CBC w/ auto diff lymphs (absolute) 1.7 x10e3 /uL 0.7-3. 1 Not Available [facility] ([facility]) [address] [place], [address], 08/23/2016 08:26:20 08/23/19 17 08/23/2016 CBC w/ auto diff monocytes(ab solute) 0.9 x10e3 /uL 0.1-0. 9 Not Available [facility] ([facility]) [address] [facility], [place], [address], 08/23/2016 08:26:20 08/23/19 17 08/23/2016 CBC w/ auto diff eos (absolute) 0.1 x10e3 /uL 0.0-0. 4 Not Available [facility] ([facility]) [address] [facility], [place], [address], 08/23/2016 08:26:20 08/23/19 17 08/23/2016 CBC w/ auto diff baso (absolute) 0.0 x10e3 /uL 0.0-0. 2 Not Available [facility] ([facility]) [address] [facility], [place], [address], 08/23/2016 08:26:20 08/23/19 17 08/23/2016 CBC w/ auto diff immature granulocytes 0 % Not Available [facility] ([facility]) [address] [facility], [place], [address], 08/23/2016 08:26:20 08/23/19 17 08/23/2016 CBC w/ auto diff immature grans (abs) 0.0 x10e3 /uL 0.0-0. 1 Not Available [facility] ([facility]) [address] [facility], [place], [address], 08/23/2016 08:26:20 08/23/19 17 08/23/2016 CBC w/ auto diff NRBC TRANSITION MGR Not Available [facility] ([facility]) [address] [facility], [place], [address], 08/23/2016 08:26:20 08/23/1908/23/2016 CBC w/ auto diff hematology comments: TRANSITION MGR Not Available [facility] ([facility]) [address] [facility], [place], [address], 08/23/2016 08:26:20 08/23/19 17 08/23/2016 lipid panel , serum cholesterol, total 181 mg/dL 100-19 9 Not Available [facility] ([facility]) [address] [place], [address], 08/23/2016 08:26:20 08/23/19 17 08/23/2016 lipid panel , serum triglyceride s 90 mg/dL 0-149 Not Available [facility] ([facility]) [address] [place], [address], 08/23/2016 08:26:20 08/23/19 17 08/23/2016 lipid panel , serum HDL cholesterol 34 mg/dL >39 below low normal Not Available [facility] ([facility]) [address] [place], [address], 08/23/2016 08:26:20 08/23/19 17 08/23/2016 lipid panel , serum VLDL cholesterol yoli 18 mg/dL 5-40 Not Available [facility] ([facility]) [address] [place], [address], 08/23/2016 08:26:20 08/23/19 17 08/23/2016 lipid panel , serum LDL cholesterol calc 129 mg/dL 0-99 above high normal Not Available [facility] ([facility]) [address] [place], [address], 08/23/2016 08:26:20 08/23/19 17 08/23/2016 lipid panel , serum comment: TRANSITION MGR Not Available [facility] ([facility]) [address] [place], [address], 08/23/2016 08:26:20 08/23/19 17 08/23/2016 C react juju prote in, QN, serum or plasm a C-reactive protein, quant 59.9 mg/L 0.0-4. 9 above high normal Not Available [facility] ([facility]) [address] [place], [address], 08/23/2016 08:26:21 08/23/19 17 08/23/2016 cardi ovasc ular asses sment panel , serum interpretati on NOTE SUPPL EMENT REPOR T IS AVAIL ABLE. Not Available [facility] ([facility]) [address] [facility] [place], [address], 08/23/2016 08:26:22 08/23/19 17 08/23/2016 cardi ovasc ular asses sment panel , serum pdf image . Not Available [facility] ([facility]) [address] [facility] [place], [address], 08/23/2016 08:26:22 09/23/19 17 09/23/2016 BMP, serum or plasm a glucose, serum 95 mg/dL 65-99 Not Available [facility] ([facility]) [address] [facility] [place], [address], 09/23/2016 06:06:09 09/23/19 17 09/23/2016 BMP, serum or plasm a BUN 6 mg/dL 6-24 Not Available [facility] ([facility]) [address] [facility] [place], [address], 09/23/2016 06:06:09 09/23/19 17 09/23/2016 BMP, serum or plasm a creatinine, serum 1.02 mg/dL 0.76-1 .27 Not Available [facility] ([facility]) [address] [facility] [place], [address], 09/23/2016 06:06:09 09/23/1909/23/2016 BMP, serum or plasm a eGFR if nonafricn AM 83 mL/mi n/1.7 3 >59 Not Available [facility] ([facility]) [address] [facility] [place], [address], 09/23/2016 06:06:09 09/23/19 17 09/23/2016 BMP, serum or plasm a eGFR if africn AM 96 mL/mi n/1.7 3 >59 Not Available [facility] ([facility]) [address] [place], [address], 09/23/2016 06:06:09 09/23/19 17 09/23/2016 BMP, serum or plasm a BUN/creatini ne ratio 6 9-20 below low normal Not Available [facility] ([facility]) [address] [facility] [place], [address], 09/23/2016 06:06:09 09/23/19 17 09/23/2016 BMP, serum or plasm a sodium, serum 143 mmol/ L 134-14 4 Not Available [facility] ([facility]) [address] [place], [address], 09/23/2016 06:06:09 09/23/19 17 09/23/2016 BMP, serum or plasm a potassium, serum 4.1 mmol/ L 3.5-5. 2 Not Available [facility] ([facility]) [address] [place], [address], 09/23/2016 06:06:09 09/23/19 17 09/23/2016 BMP, serum or plasm a chloride, serum 101 mmol/ L 96-106 Not Available [facility] ([facility]) [address] [place], [address], 09/23/2016 06:06:09 09/23/19 17 09/23/2016 BMP, serum or plasm a carbon dioxide, total 22 mmol/ L 18-29 Not Available [facility] ([facility]) [address] [place], [address], 09/23/2016 06:06:09 09/23/1909/23/2016 BMP, serum or plasm a calcium, serum 9.6 mg/dL 8.7-10 .2 Not Available [facility] ([facility]) [address] [place], [address], 09/23/2016 06:06:09 04/24/20 18 04/25/2018 BMP, serum or plasm a glucose 125 mg/dL 65-99 above high normal Not Available [facility] ([facility]) [address] [facility] [place], [address], 04/25/2018 10:36:19 04/24/20 18 04/25/2018 BMP, serum or plasm a BUN 9 mg/dL 6-24 Not Available [facility] ([facility]) [address] [facility] [place], [address], 04/25/2018 10:36:19 04/24/20 18 04/25/2018 BMP, serum or plasm a creatinine 1.28 mg/dL 0.76-1 .27 above high normal Not Available [facility] ([facility]) [address] [facility] [place], [address], 04/25/2018 10:36:19 04/24/20 18 04/25/2018 BMP, serum or plasm a eGFR if nonafricn AM 62 mL/mi n/1.7 3 >59 Not Available [facility] ([facility]) [address] [facility] [place], [address], 04/25/2018 10:36:19 04/24/20 18 04/25/2018 BMP, serum or plasm a eGFR if africn AM 72 mL/mi n/1.7 3 >59 Not Available [facility] ([facility]) [address] [facility] [place], [address], 04/25/2018 10:36:19 04/24/20 18 04/25/2018 BMP, serum or plasm a BUN/creatini ne ratio 7 9-20 below low normal Not Available [facility] ([facility]) [address] [facility] [place], [address], 04/25/2018 10:36:19 04/24/20 18 04/25/2018 BMP, serum or plasm a sodium 142 mmol/ L 134-14 4 Not Available [facility] ([facility]) [address] [facility] [place], [address], 04/25/2018 10:36:19 04/24/20 18 04/25/2018 BMP, serum or plasm a potassium 4.2 mmol/ L 3.5-5. 2 Not Available [facility] ([facility]) [address] [place], [address], 04/25/2018 10:36:19 04/24/20 18 04/25/2018 BMP, serum or plasm a chloride 101 mmol/ L 96-106 Not Available [facility] ([facility]) [address] [place], [address], 04/25/2018 10:36:19 04/24/20 18 04/25/2018 BMP, serum or plasm a carbon dioxide, total 25 mmol/ L 20-29 Not Available [facility] ([facility]) [address] [place], [address], 04/25/2018 10:36:19 04/24/20 18 04/25/2018 BMP, serum or plasm a calcium 9.8 mg/dL 8.7-10 .2 Not Available [facility] ([facility]) [address] [place], [address], 04/25/2018 10:36:19 04/24/20 18 04/25/2018 lipid panel , serum cholesterol, total 158 mg/dL 100-19 9 Not Available [facility] ([facility]) [address] [facility] [place], [address], 04/25/2018 10:36:19 04/24/20 18 04/25/2018 lipid panel , serum triglyceride s 76 mg/dL 0-149 Not Available [facility] ([facility]) [address] [facility] [place], [address], 04/25/2018 10:36:19 04/24/20 18 04/25/2018 lipid panel , serum HDL cholesterol 38 mg/dL >39 below low normal Not Available [facility] ([facility]) [address] [facility] [place], [address], 04/25/2018 10:36:19 04/24/20 18 04/25/2018 lipid panel , serum VLDL cholesterol yoli 15 mg/dL 5-40 Not Available [facility] ([facility]) [address] [facility] [place], [address], 04/25/2018 10:36:19 04/24/20 18 04/25/2018 lipid panel , serum LDL cholesterol calc 105 mg/dL 0-99 above high normal Not Available [facility] ([facility]) [address] [facility], [place], [address], 04/25/2018 10:36:19 04/24/20 18 04/25/2018 lipid panel , serum comment: TRANSITION MGR Not Available [facility] ([facility]) [address] [facility], [place], [address], 04/25/2018 10:36:19 04/24/20 18 04/25/2018 micro album in/cr eatin ine, mass ratio , urine creatinine, urine 145.0 mg/dL not estab. Not Available [facility] ([facility]) [address] [facility], [place], [address], 04/25/2018 10:36:20 04/24/20 18 04/25/2018 micro album in/cr eatin ine, mass ratio , urine albumin, urine 29.6 ug/mL not estab. Not Available [facility] ([facility]) [address] [facility], [place], [address], 04/25/2018 10:36:20 04/24/20 18 04/25/2018 micro album in/cr eatin ine, mass ratio , urine alb/creat ratio 20.4 mg/g_ creat 0.0-30 .0 Marlen l: 0.0 - 30.0 Album inuri a: 31.0 - 300.0 Clini yoli album inuri a: >300. 0 Not Available [facility] ([facility]) [address] [facility], [place], [address], 04/25/2018 10:36:20 04/24/20 18 04/24/2018 HbA1c (hemo globi n A1c), blood hemoglobin A1C 5.9 % 4.8-5. 6 above high normal Predi abete s: 5.7 - 6.4 Diabe sal: >6.4 Glyce leah contr ol for adult s with diabe sal: <7.0 Not Available [facility] ([facility]) [address] [facility], [place], [address], 04/25/2018 10:36:21 04/24/20 18 04/25/2018 cardi ovasc ular asses sment panel , serum interpretati on Note Suppl cruz umanzor is avail able. Not Available [facility] ([facility]) [address] [facility], [place], [address], 04/25/2018 10:36:21 04/24/20 18 04/25/2018 cardi ovasc ular asses sment panel , serum pdf image . Not Available [facility] ([facility]) [address] [facility], [place], [address], 04/25/2018 10:36:21 12/22/19 21 12/21/2020 CT, head + brain , w/o contr ast No observ ation record ed. [facility] [address] [place], [address], 12/28/2020 09:38:42 12/22/19 21 12/21/2020 CT, chest , w/o contr ast No observ ation record ed. [facility] [address] [place], [address], 12/23/2020 21:19:51 Result Notes None recorded. Problems Name Problem SNOMED Code Status Onset Date Resolution Date Notes Provider Name and Address Organization Details Recorded Time Depressive disorder 38723497 Completed 201604/24/2018 Manjula Giles MD Attn: Vaughn g,[address] [facility], [place], [address], [facility] 8 09:56:35 Essential hypertension 55123812 Active 2016 David DomDO Attn: Vaughn ayon,[address] [facility], [place], [address], [facility] 7 12:31:41 Problem Notes None recorded. Procedures Surgical History None recorded. Imaging Results Imaging Date Name Status LastModified by Organiz ation Details LastModified Time 12/21/2020 CT, head + brain, w/o contrast completed [facility] [address] [place], [address], 12/28/2020 09:38:42 12/21/2020 CT, chest, w/o contrast completed [facility] [address] [place], [address], 12/23/2020 21:19:51 Procedure Notes None recorded. Medical [...] t Available Vitals Date Recorded Body weight Body mass index (BMI) Body height Heart rate Oxygen saturation Oxygen saturation in Arterial blood by Pulse oximetry Body temperature Systolic blood pressure Diastolic blood pressure Provider Name and Address Organization Details Last Updated DateTime 8 224716. 07 g 62.5 kg/m2 154.94 cm 72 /min 98 % 98 % 98.4 [degF] 150 mm[Hg] 100 mm[Hg] Phylicia Sweeney MA [facility] 8 09:20:04 Date Recorded Body height Body weight Body mass index (BMI) Heart rate Body temperature Oxygen saturation Oxygen saturation in Arterial blood by Pulse oximetry Systolic blood pressure Diastolic blood pressure Provider Name and Address Organization Details Last Updated DateTime 7 180.34 cm 832528. 25 g 43 kg/m2 95 /min 98.7 [degF] 98 % 98 % 188 mm[Hg] 120 mm[Hg] Mally Ricks CMA [facility] 7 14:41:45 Date Recorded Systolic blood pressure Diastolic blood pressure Provider Name and Address Organization Details Last Updated DateTime 08/22/2016 182 mm[Hg] 108 mm[Hg] [facility], Attn: Accounting,[address] [place], [address], [facility] 08/22/2016 17:30:39 Date Recorded Body height Body weight Body mass index (BMI) Body temperature Heart rate Oxygen saturation Oxygen saturation in Arterial blood by Pulse oximetry Systolic blood pressure Diastolic blood pressure Provider Name and Address Organization Details Last Updated DateTime 7 180.34 cm 867205. 52 g 41.7 kg/m2 98.5 [degF] 92 /min 98 % 98 % 170 mm[Hg] 108 mm[Hg] Caitlyn Ryan CMA [facility] 7 12:13:30 Date Recorded Systolic blood pressure Diastolic blood pressure Provider Name and Address Organization Details Last Updated DateTime 09/22/2016 162 mm[Hg] 102 mm[Hg] [facility] Attn: Accounting,[address] [place], [address], [facility] 09/22/2016 12:27:18 Date Recorded Body height Body weight Body mass index (BMI) Body temperature Heart rate Oxygen saturation Oxygen saturation in Arterial blood by Pulse oximetry Systolic blood pressure Diastolic blood pressure Provider Name and Address Organization Details Last Updated DateTime 7 180.34 cm 636785. 12 g 41.7 kg/m2 98.1 [degF] 79 /min 98 % 98 % 134 mm[Hg] 96 mm[Hg] Quyen Ryan MA [facility] 7 12:24:52 Date Recorded Systolic blood pressure Diastolic blood pressure Provider Name and Address Organization Details Last Updated DateTime 10/26/2016 134 mm[Hg] 86 mm[Hg] [facility] Attn: Accounting,[address] [place], [address], [facility] 10/26/2016 12:49:48 Date Recorded Body height Body mass index (BMI) Body weight Body temperature Heart rate Oxygen saturation Oxygen saturation in Arterial blood by Pulse oximetry Systolic blood pressure Diastolic blood pressure Provider Name and Address Organization Details Last Updated DateTime 7 180.34 cm 43.4 kg/m2 719095. 03 g 98.1 [degF] 94 /min 98 % 98 % 152 mm[Hg] 98 mm[Hg] Robe Rivers CMA [facility] 7 12:15:59 Social History Question Answer Notes LastModified by Organizat ion Details LastModified Time Tobacco Smoking Status Never Smoker Mally Ricks CMA null, [place] - [place] 08/22/2016 14:39:52 What Was The Date Of [...] Response Coronary Artery Disease N Other N Atrial Fibrillation N High Blood Pressure N Kidney or Bladder Problems N Thyroid Problems N GI Problems N Depression N COPD N Blood Clots N Skin Problems N Anemia N Heart Attack ([place]) N Anxiety Disorder N Diabetes N Muscle, Joint, or Bone Problems N Seizures/Epilepsy N Acid Reflux (GERD) N Cancer N Stroke N Asthma N Allergies N High Cholesterol N Hepatitis N Liver Disease N Headaches N Heart Failure N Osteoporosis N Immunizations Vaccine Type Date Status Note Provider Nam e and Address Organization Details Recorded Time Tdap 09/25/2016 completed Not Available [facility] 06/28/2019 02:33:29 Influenza, split virus, quadrivalent, PF 01/30/2017 completed Not Available [facility] 0 02:35:18 Influenza, split virus, quadrivalent, PF 04/24/2018 completed Not Available [facility] 0 02:40:23 Past Encounters Encounter ID Performer Location Encounter Start Date Encounter Closed Date Diagnosis/Indication Diagnosis SNOMED-CT Code Diagnosis ICD10 Code Diagnosis Note [id number] MD Palmira Martinez e [facility] ([address]) [address] [place] [address] 08/22/2016 14:01:55 08/23/2016 09:46:22 Essential hypertension 05103422 I10 HTN diagnosed in the ER but not started on any medication .182/108 in office today.Will start on Amlodipine 10 and HCTZ 12.5 today. Will plan to FU in 30 days. Pain in left knee 051170 0577 80886 M25.562 Pain and erythema in L Knee, x 2 weeks, will get CBC CRP and start on Meloxicam, Will get Xray if not improving. Depressive disorder 3548 9007 F32.9 PHQ-9 score of 13/27Will start on Sertaline, pt notes that he has trouble falling asleep. HIV screening 177322871 Z11.4 Will check for HIV Screening for malignant neoplasm of colon 874513331 Z12.11 Needs colonoscop y. [id number] MD Palmira Martinez e [facility] ([address]) [address] [place] [address] 09/22/2016 12:08:18 09/27/2016 10:41:07 Depressive disorder 43614333 F32.9 PHQ-2 score of 0Continue sertraline for now if symptoms remain so well controlled consider future D/C Essential hypertension 94217003 I10 BP slightly improved today but still elevated, 162/102 WIll increase HCTZ and ensured that pt has refills on Amlodipine plan to see back in 1 mo Pain in left knee 904247 8715 22894 M25.562 Improved discussed continued meloxicam as needed but to d/c scheduled for now. Active or passive immunization 938087327 Z23 [id number] Inge Dugan MD [facility] FP ([address]) [address] [place] [address] 10/26/2016 11:59:21 10/27/2016 16:40:59 Essential hypertension 61100493 I10 BP greatly improved today but still elevated, 134/86 continue HCTZ and Amlodipine plan to see back in 3 mo [id number] MD Angelita Martineziris [facility] ([address]) [address] [place] [address] 01/30/2017 12:07:27 01/30/2017 14:44:11 Essential hypertension 23882746 I10 BP elevated will increase HCTZ here and at home.Pt prefers not to add an additional med, Will increase HCTZ to 50, continue amlodipine 10 Adult heal th examination 950892187 Z00.00 Needs Flu shot today [id number] Inge Dugan MD [facility] [address] [facility] [address] [place] [address] 04/24/2018 09:02:48 04/25/2018 09:53:42 Obesity 708813674 E66.9 - Extensivel y counselled on a healthy diet and moderate intensity excercise 3-5x weekly for about ~45 minutes Essential hypertension 97132171 I10 - BP 150/100. Repeat 150/100. No red flag sx- Previously on Amlodipine 10mg and HCTZ 50mg daily- Will restart Amlodipine 10mg daily, will not start HCTZ at this time due to concern for dropping BP too low- Pt advised to check his BP at [facility] 2-3x weekly, write them down and call them in 2-3 weeks Screening for malignant neoplasm of colon 538282318 Z12.11 - No h/o colon cancer, FH of colon cancer or blood in stool noted- As pt is self pay, will order FOBT test. Will send for colonoscop y if abnormal Paresthesi a of upper limb 67531511 R20.2 - Tingling of back of L hand can be due to overuse and pt is lift boxes all day- Negative Tinel and Phalen test, less likely carpal tunnel- Will also check A1c to r/o diabetic neuropathy as cause of tingling Poor oral hygiene 934474 009 R46.89 - PE remarkable for 2 pits noted on posterior of roof of mouth (1 one each side).- No h/o smoking, poor dentition- Denies any tenderness or pain in mouth- Resources provided today for dentistry for further evaluation . Active or passive immunization 378810446 Z23 Health Concerns Section Related Observation LastModified by Organization Detai ls LastModified Time None Recorded Concern Status LastModified by Organization Details LastModified Time None Recorded Advance Directives Directive None Recorded Payers Encounter Date Sequence Insurance Name Policy Number Policy Brown Covered Member ID Brown Member ID Guarantor Name 08/22/2016 1 [facility] PRIOR TO 12/09/2020 (MEDICAID REPLACEMENT - HMO) Armani Oconnell [id number] Armani Oconnell 09/22/2016 1 [facility] PRIOR TO 12/09/2020 (MEDICAID REPLACEMENT - HMO) Armani Oconnell [id number] Armani Oconnell 10/26/2016 1 [facility] PRIOR TO 12/09/2020 (MEDICAID REPLACEMENT - HMO) Armani Oconnell [id number] Armani Oconnell 01/30/2017 1 [facility] PRIOR TO 12/09/2020 (MEDICAID REPLACEMENT - HMO) Armani Oconnell [id number] Armani Oconnell Notes Date Note Type Note [...] yrs. Vinh Acevedo DO Attn: Accounting,[address] [facility], [place], [address], [facility] 08/23/2016 09:17:26 7 text/html 56 yo M here for BP Fu ran out of amlodipine 3 days ago.Pt denies any SE of medications, CP, SOB, vision changes, JOEL, Pain in knee is significantly improved with meloxicam Pt now reports no depression symptoms on sertraline 50. Inge Dugan MD Attn: Accounting,[address] [facility], [place], [address], [facility] 10/02/2016 21:47:41 7 text/html 56 yo M here for BP FU134/86 today Mr. Oconnell is a 56yo M presenting today for a BP FU. His blood pressure today is 134/86. He states that he feels great. He denies headache, vision changes, N/V, CP, SOB, paresthesias, lower extremity edema, lightheadedness, or any other symptoms of concern. Rosi Monk MD Attn: Accounting,[address] [facility], [place], [address], [facility] 11/13/2016 14:50:49 7 text/html 56 yo M here for FU on HTNReports home numbers running in upper 140s over 80s. Complaint with meds.Denies any CP, SOB, Vision changes, numbness, weakness or headaches. Due for a flu shot Patrick Leon DO Attn: Accounting,[address] [facility], [place], [address], [facility] 01/30/2017 16:14:17 8 text/html 58 y/o M presents for BP f/u. Pt reports he has been out of his Amlodipine 10mg and HCTZ 50mg for about 1 week.Pt is self-pay and prefers medication to be cost-effective. 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 C/o L hand dorsal tingling after lifting boxes for a long time. Also c/o occasional bilateral feet numbness after standing for a long period of time.No h/o MO or stroke.No FH of MO, stroke or colon cancer.Denies any blood in stool or uninteded weight loss. No c/o headache, CP, SOB, NVCD, numbness or tingling. Inge Dugan MD Attn: Accounting,[address] [facility], [place], [address], [place] [facility] 04/26/2018 18:04:27
--- OUTSIDE RECORDS SUMMARY | 2024-10-22 15:54 | XMS_ITS | Clinical Summary ---
Author Organization [facility] Pablo Cowan Address [address] [place] [address] Care Team Providers Care Sack Lifter Name Role Phone Oscar Joseph MD Primary [...] Active Active Problems No known active problems Family History Medical History Relation Name Comments [...] Comments Blood Pressure 154/93 04/30/2024 4:10 PM BORING MACHINE SET UP OPERATOR Pulse 65 04/30/2024 4:09 PM BORING MACHINE SET UP OPERATOR Temperature 36.7 C (98 F) 04/30/2024 4:09 PM BORING MACHINE SET UP OPERATOR Respiratory Rate 16 04/30/2024 4:09 PM BORING MACHINE SET UP OPERATOR Oxygen Saturation 98% 04/30/2024 4:09 PM BORING MACHINE SET UP OPERATOR Inhaled Oxygen Concentration - - Weight 141.1 kg (311 lb 1.6 oz) 04/30/2024 4:09 PM BORING MACHINE SET UP OPERATOR Height 180.3 cm (5' 11) 01/09/2024 2:05 PM CDT Body Mass Index 43.39 01/09/2024 2:05 PM CDT Plan of Treatment Upcoming Encounters Date Type Department Care Team (Late st Contact Info) Description 10/28/2024 3:45 PM CDT Office Visit [facility] Oncology and Hematology - [place] [address] [facility] [address] [place] [address] Juan Riley MD [address] [facility] [address] [place] [address] Health Maintenance Due Date Last [...] 04/30/2023, 2021 Preventative Visit- Commercial 06/11/2024 04/30/2023 Insurance [employer] [facility] [employer] [id number] Care Teams Sack Lifter Relationship Specialty Start Date End Date Oscar Joseph MD PCP - General Internal Medicine 01/09/24
--- OUTSIDE RECORDS SUMMARY | 2024-10-22 15:54 | XMS_ITS | Clinical Summary ---
Author Organization [facility] Facility Address [address] [place] [address] Care Team Providers Care Furniture Stainer Name Role Phone Masterselwyn Nitza NARVAEZ Primary Care Provider [phone] Allergies No known active allergies Medications * [...] OR SPLIT 90 tablet 1 3 Active chlorthalidone 25 MG tablet Take 1 [...] each day 90 tablet 1 5 Active ergocalciferol 1.25 MG (50275 UT) capsule TAKE 1 CAPSULE BY MOUTH 1 TIME EVERY WEEK 12 capsule 1 5 Active Encounters Date Type Department Care Team Description 08/26/2024 Documentation Only [place] [phone] Zeeshan Coe DO 08/08/2024 Office Communication [place] [phone] Zeeshan Coe DO from Last 3 Months Social History Tobacco [...] Comments Blood Pressure 160/90 06/17/2024 3:13 PM RECOVERY ASSISTANT Pulse 68 06/17/2024 3:13 PM RECOVERY ASSISTANT Temperature 36.7 C (98 F) 06/17/2024 3:13 PM RECOVERY ASSISTANT Respiratory Rate 18 06/17/2024 3:13 PM RECOVERY ASSISTANT Oxygen Saturation 97% 06/17/2024 3:13 PM RECOVERY ASSISTANT Inhaled Oxygen Concentration - - Weight 145 kg (320 lb) 06/17/2024 3:13 PM RECOVERY ASSISTANT Height 180.3 cm (5' 11) 09/06/2021 1:40 PM CDT Body Mass Index 44.63 09/06/2021 1:40 PM CDT Plan of Treatment Upcoming Encounters Date Type Department Care Team (Late st Contact Info) Description 12/16/2024 3:15 PM CDT Office Visit [facility] [address] [facility] [address] [place] [address] Zeeshan Coe DO [address] [place] [address] [place] BROWN [address] Health Maintenance Due Date Last Done Comments Pneumococcal Vaccine: 50+ Ye ars (1 of 2 - PCV) 1981 Colorectal Cancer Screening: Annual FOBT 2011 Colorectal Cancer Screening: Colonoscopy 2011 Colorectal Cancer Screening: Sigmoidoscopy 2011 Hepatitis B Vaccine (1 of 3 - Risk 3-dose series) 2022 Diabetes: Hemoglobin A1C 08/08/2024 Diabetes: Ophthalmology Exam 08/08/2024 Diabetes: Pedal Pulse Checked 08/08/2024 Diabetes: Sensory Foot Exam 08/08/2024 Diabetes: Visual Foot Exam 08/08/2024 Influenza Vaccine (Season Ended) 2025 04/30/2023, 04/21/2022, 04/24/2018, Additional history exists Insurance [facility] Care Teams Furniture Stainer Relationship Specialty Start Date End Date Nitza Rinaldi FNP-C [address] [place] [address] PCP - General Nurse Practitioner 04/05/21
--- OUTSIDE RECORDS SUMMARY | 2024-10-22 15:54 | XMS_ITS | CONTINUITY OF CARE DOCUMENT ---
Author Name nichelle diptikinza Address Unknown Organization [facility] Address [address] [address] [place] [address] Phone [phone] Care Team Providers Care Ore Dryer Name Role Phone Chan Enamorado MD Unavailable FATEMEH DIEHL MD Unavailable FATEMEH DIEHL MD Unavailable PROBLEMS Condition Status Date Provider Notes Hyperlipidemia active Chan Enamorado MD Hypertension active Chan Enamorado MD Diabetes, Type 2 active Chan Enamorado MD CKD active Chan Enamorado MD AMANDA - on CPAP active Chan Enamorado MD Steatosis of liver active Chan Enamorado MD Gout active Chan Enamorado MD ENCOUNTERS Date Type Provider Location Encounter Diag nosis - In-person encounter Office Visit Chan Enamorado MD [place] [facility] HyperlipidemiaHyperte nsionDiabetes, Type 2CKDOSA - on CPAPSteatosis of liverGout VITAL SIGNS Date Observation Value Provider Body Mass Index (Ratio) 44.77 kg/m2 Maged Enamorado MD blood pressure, diastolic 111 mm[Hg] Maribell Wood blood pressure, systolic 192 mm[Hg] Irma Wood oxygen saturation, oximetry 97 % Lindsay Wood pulse rate 71 /min Lindsay Wood respiratory rate E&M 12 /min Lindsay Wood weight E&M 321 [lb_av] Lindsay Wood height E&M 71 [in_i] Lindsay Wood blood pressure, cuff size regular An chester Wood ALLERGIES No Known Drug Allergies HISTORY OF MEDICATION USE Medication Status Instructions Dates Provider Indications Com ments FeroSul 325 mg (65 mg iron) tablet active TAKE 1 TABLET BY MOUTH DAILY WITH A MUTLIVITAMIN Lindsay Wood cyanocobalamin (vitamin B-12) 1,000 mcg tablet active TAKE 1 TABLET BY MOUTH DAILY Lindsay Wood allopurinol 300 mg tablet active 1 tab daily Lindsay Wood atorvastatin 20 mg tablet active TAKE 1 TABLET BY MOUTH EVERY DAY Lindsay Wood chlorthalidone 25 mg tablet active TAKE 1 TABLET BY MOUTH EVERY DAY Lindsay Wood colchicine 0.6 mg tablet active 1 tablet by mouth twice a day Lindsay Wood ergocalciferol (vitamin D2) 1,250 mcg (50,000 unit) capsule active Take 1 capsule by mouth once a week Lindsay Wood metformin (Glucophage XR) 500 mg tablet extended release 24 hr active Take 1 tablet by mouth once daily Lindsay Wood spironolactone 100 mg tablet active TAKE 1 TABLET BY MOUTH EVERY DAY Lindsay Wood SOCIAL HISTORY Date Observation Value Provider smoking status Never smoker Chan Enamorado MD INSURANCE PROVIDERS Payer name Policy type / Coverage type [place] red green party [facility] Other [id number] ADVANCE DIRECTIVES Name Date DISCUSSED - NO DECISION MADE TREATMENT PLAN Date Name Performer Cardiology:The patie nt is using CPAP on a regular basis. The patient has been benefiting from therapy and should continue use. Chan Enamorado MD Cardiology:per primary Chan manley MD Cardiology: H is updated medication list for this problem includes: Atorvastatin 20 Mg Tablet (Atorvastatin) ..... Take 1 tablet by mouth every day Chan Enamorado MD Cardiology:Need to r equest most recent labs to see creatinine, renal fxn n eed echo to assess LV wall dimensions and LV sytolic function H is updated medication list for this problem includes: Chlorthalidone 25 Mg Tablet (Chlorthalidone) ..... Take 1 tablet by mouth every day Spironolactone 100 Mg Tablet (Spironolactone) ..... Take 1 tablet by mouth every day BP today: 192/111 B P retake today: 160/ - Chan Enamorado MD Date Name EKG Complete Echo
[2024-10-22 16:01] LABS: Hematocrit 44.1 % (42.0-52.0); Hemoglobin 14.9 g/dL (14.0-18.0); Mean Corpuscular HGB Conc 33.8 g/dl (32-36); Mean Corpuscular Volume 94.6 fl (80-100); Mean Platelet Volume 9.9 fl (7.4-10.4); Platelet Count Result 211 k/mm3 (150-375); Red Blood Count 4.66 M/mm3 (4.6-6.20); Red Cell Distribution Width 13.7 % (11.5-14.5); White Blood Count 9.4 K/mm3 (4.5-10.0)
[2024-10-22 16:54] LABS: Anion Gap 10 mmol/L (4-12); Blood Urea Nitrogen 21 mg/dL (9-20); Calcium 10.1 mg/dL (8.4-10.2); Carbon Dioxide 28 mmol/L (22-30); Chloride 102 mmol/L (98-107); Estimated Glomerular Filt Rate 50; Glucose 97 mg/dL (65-110); Potassium 4.1 mmol/L (3.4-5.0); Sodium 140 mmol/L (137-145)
[2024-10-22 17:04] LABS: Iron 168 ug/dL (49-181)
[2024-10-22 17:19] LABS: Percent Iron Saturation 43 % (20-50)
[2024-10-22 17:48] LABS: Vitamin B12 > 1000.0 pg/mL (239-931)
[2024-10-22 19:28] LABS: Folic Acid 9.5 ng/mL (2.76->20)
== END 2024-10-22 15:51 | disposition home or self-care (01) ==
LOC: ANHLAB 15:51
PROVIDERS: PCP Internal Medicine; Visit Provider Internal Medicine Hematology & Oncology
DX: D64.9 Anemia, unspecified (principal)
CPT/HCPCS: 36415; 80048; 82607; 82728; 82746; 83540; 83550; 85027

== ENCOUNTER 2024-11-13 15:38 | Outpatient (CLI) | payer OTHER, SELFPAY ==
[2024-11-13 15:55] LABS: Basophils Percent Auto 0.4 % (0.2-1.2); Eosinophils Absolute Auto 0.3 K/mm3 (0-0.3); Eosinophils Percent Auto 3.4 % (0-4.4); Hematocrit 42.6 % (42.0-52.0); Hemoglobin 14.6 g/dL (14.0-18.0); Immature Granulocyte Absolute 0.04 K/mm3 (0.00-0.031); Immature Granulocyte Percent A 0.4 % (0-0.5); Lymphocytes Absolute Auto 1.79 K/mm3 (0.9-3.2); Lymphocytes Percent Auto 18.5 % (18.3-44.2); Mean Corpuscular HGB Conc 34.3 g/dl (32-36); Mean Corpuscular Hemoglobin 32.1 pg (26-34); Mean Corpuscular Volume 93.6 fl (80-100); Mean Platelet Volume 9.9 fl (7.4-10.4); Monocytes Absolute Auto 1.1 K/mm3 (0.1-0.6); Monocytes Percent Auto 11.3 % (2.6-8.5); Neutrophils Absolute Auto 6.4 K/mm3 (1.3-6.7); Platelet Count Result 207 k/mm3 (150-375); Red Blood Count 4.55 M/mm3 (4.6-6.20); Red Cell Distribution Width 13.1 % (11.5-14.5); White Blood Count 9.7 K/mm3 (4.5-10.0)
--- OUTSIDE RECORDS SUMMARY | 2024-11-13 15:59 | XMS_ITS | Clinical Summary ---
Author Organization [facility] Pablo Cowan Address [address] [place] [address] Care Team Providers Care Building Drafter Name Role Phone Oscar Joseph MD Primary [...] Encounters Date Type Department Care Team Description 10/28/2024 3:45 PM CDT Office Visit [facility] Oncology and Hematology - [place] [address] [place] [address] Juan Riley MD Anemia, chronic disease (Primary Dx) 10/24/2024 Orders Only [facility] Oncology and Hematology [facility] [address] [place] [address] Juan Riley MD from Last 3 Months Family History Medical [...] Sign Reading Time Taken Comments Blood Pressure 137/84 10/28/2024 3:44 PM CDT Pulse 92 10/28/2024 3:44 PM CDT Temperature 36.6 C (97.8 F) 10/28/2024 3:44 PM CDT Respiratory Rate 15 10/28/2024 3:44 PM CDT Oxygen Saturation 96% 10/28/2024 3:44 PM CDT Inhaled Oxygen Concentration - - Weight 141.7 kg (312 lb 6.4 oz) 10/28/2024 3:44 PM CDT Height 180.3 cm (5' 11) 01/09/2024 2:05 PM CDT Body Mass Index 43.57 01/09/2024 2:05 PM CDT Plan of Treatment Upcoming Encounters Date Type Department Care Team (Late st Contact Info) Description 10/29/2025 3:45 PM CDT Office Visit [facility] Oncology and Hematology - [place] [address] [place] [address] Juan Riley MD [address] [facility] [address] [place] [address] Health Maintenance Due Date Last Done Comments DIABETES ANNUAL FOOT EXAM 1980 DIABETES ANNUAL RETINAL EXAM 1980 DIABETES MICROALBUMIN ANNUAL SCREEN 1980 LDL CHOLESTEROL ANNUAL 1980 DTAP/TDAP/TD VACCINES (1 - Tdap) 1981 COLORECTAL SCREENING 2007 Colorectal Cancer Screening 2007 FIT-DNA Q 3 years 2007 FIT/FOBT Q 1 year 2007 Flex Sig/CT Colonography Q 5 years 2007 ZOSTER VACCINE (1 of 2) 2012 RSV VACCINE (60+ or ) (1 - Risk 60-74 years 1-dose series) 2022 INFLUENZA VACCINE (#1) 2024 04/30/2023, 2021 DIABETES HBA1C Q 6 MONTHS 05/28/2024 11/27/2023 Procedures Procedure Name Priority Date/Time Associated Diagnosis Comments BASIC METABOLIC PANEL Routine 10/22/2024 2:50 PM CDT CBC WITH DIFFERENTIAL Routine 10/22/2024 2:48 PM CDT from Last 3 Months Results * BASIC METABOLIC PANEL (10/22/2024 2:50 PM CDT) Blood Juan Riley MD CHEMISTRY ORDERABLES Final Resu lt * CBC WITH DIFFERENTIAL (10/22/2024 2:48 PM CDT) Blood Juan Riley MD HEMATOLOGY ORDERABLES Final Res ult from Last 3 Months Insurance [id number] [id number] Care Teams Building Drafter Relationship Specialty Start Date End Date Oscar Joseph MD PCP - General Internal Medicine 01/09/24
--- OUTSIDE RECORDS SUMMARY | 2024-11-13 15:59 | XMS_ITS | Clinical Summary ---
Author Organization [facility] Facility Address [address] [place] [address] Care Team Providers Care Spa Experience Coordinator Name Role Phone Masterselwyn Nitza NARVAEZ Primary Care Provider Allergies No known active allergies Medications * [...] tablet 1 5 Active ergocalciferol 1.25 MG (88383 UT) capsule TAKE 1 CAPSULE BY MOUTH 1 TIME EVERY WEEK 12 capsule 1 5 Active Encounters Date Type Department Care Team Description 08/26/2024 Documentation Only [facility], [address] [address] Zeeshan Coe DO from Last 3 Months [...] Comments Blood Pressure 160/90 06/17/2024 3:13 PM HUMAN SERVICES CASE MANAGER Pulse 68 06/17/2024 3:13 PM HUMAN SERVICES CASE MANAGER Temperature 36.7 C (98 F) 06/17/2024 3:13 PM HUMAN SERVICES CASE MANAGER Respiratory Rate 18 06/17/2024 3:13 PM HUMAN SERVICES CASE MANAGER Oxygen Saturation 97% 06/17/2024 3:13 PM HUMAN SERVICES CASE MANAGER Inhaled Oxygen Concentration - - Weight 145 kg (320 lb) 06/17/2024 3:13 PM HUMAN SERVICES CASE MANAGER Height 180.3 cm (5' 11) 09/06/2021 1:40 PM CDT Body Mass Index 44.63 09/06/2021 1:40 PM CDT Plan of Treatment Upcoming Encounters Date Type Department Care Team (Late st Contact Info) Description 12/16/2024 3:15 PM CDT Office Visit [facility] [address] [facility] [address] [place] [address] Zeeshan Coe DO [address] [place] [address] [address] [place] [address] Health Maintenance Due Date Last [...] 04/30/2023, 04/21/2022, 04/24/2018, Additional history exists Insurance [facility] Care Teams Spa Experience Coordinator Relationship Specialty Start Date End Date Nitza Rinaldi FNP-C [address] [place] [address] PCP - General Nurse Practitioner 04/05/21
--- OUTSIDE RECORDS SUMMARY | 2024-11-13 15:59 | XMS_ITS | CONTINUITY OF CARE DOCUMENT ---
Author Name nichelle diptikinza Address Unknown Organization [facility] Address [address] [address] [place] [address] Phone [phone] Care Team Providers Care Data Integrity Consultant Name Role Phone Chan Enamorado MD Unavailable [phone] FATEMEH DIEHL MD Unavailable FATEMEH DIEHL MD [...] In-person encounter Office Visit Chan Enamorado MD [place] [facility] HyperlipidemiaHyperte nsionDiabetes, Type 2CKDOSA - on [...] Payer name Policy type / Coverage type [place] red libertarian ID [facility] Other [id number] ADVANCE DIRECTIVES Name Date DISCUSSED - NO [...]
--- OUTSIDE RECORDS SUMMARY | 2024-11-13 15:59 | XMS_ITS | Data Portability ---
Author Organization HIEU Kumar SIDebora Laird Address [address] [place] [address] Assessment No assessment recorded. Plan of Treatment Reminders Order Date Submit Date Provider Last Modified By Organization Details Last Modified Time Details Appointments None recorded. Lab HbA1c (hemoglobi n A1c), blood 2017 018 [facility], [facility] [address] [facility], [address], [place], [address], 8 10:36:21 hemoglobin , qualitativ e, stool by immunologi c method 2017 018 [facility], [facility] [address] [facility], [address], [place], [address], 8 09:52:00 BMP, serum or plasma 2017 018 [facility], [address] [place] [address], [address], [place], [address], 8 10:36:19 lipid panel, serum 2017 018 [facility], [facility] [address] [facility], [address], [place], [address], 8 10:36:19 microalbum in/creatin ine, mass ratio, urine 2017 018 [facility], [address] [place], [place] [address], [address], [place], [address], 8 10:36:20 BMP, serum or plasma 2016 017 [facility], [address] [place] [address], [address], [place], [address], 7 06:06:09 CBC w/ auto diff 2016 017 [facility], [address] [place] [address], [address], [place], [address], 7 08:26:20 C reactive protein, QN, serum or plasma 2016 017 [facility], [address] [place] [address], [address], [place], [address], 7 08:26:21 lipid panel, serum 2016 017 [facility], [address] [place] [address], [address], [place], [address], 7 08:26:20 HIV (1+2) Ab, rapid, unspecifie d specimen 2016 017 [email or web address] In-Office Order, Internal Use Only DO Not Attach Compendium DO Not Attach Compendium, Do Not Delete/merge, [id number] 7 16:12:03 Referral colonoscop y referral 2016 017 [email or web address] Not available 9 15:01:50 Procedures None recorded. Surgeries None recorded. Imaging None recorded. Medication Orders amlodipine 10 mg tablet 2017 018 [facility] [address], [place], [id number], 8 09:56:35 hydrochlor othiazide 50 mg tablet 2016 017 [facility]408, [address], [place], [id number], 8 09:58:11 amlodipine 10 mg tablet 2016 017 [facility] #60408, [address], [place], [id number], 7 12:47:13 amlodipine 10 mg tablet 2016 017 [facility] #34537, [address], [place], [id number], 7 01:28:24 hydrochlor othiazide 25 mg tablet [address] [facility] #56732, [address], [place], [id number], 7 12:40:08 meloxicam 7.5 mg tablet [address] [facility] #55128, [address], [place], [id number], 7 13:47:33 amlodipine 10 mg tablet [address] [facility] #91349, [address], [place], [id number], 7 12:46:39 hydrochlor othiazide 25 mg tablet [address] [facility] #47103, [address], [place], [id number], 7 12:40:08 sertraline 50 mg tablet [address] [facility] #37413, [address], [place], [id number], 7 13:47:29 meloxicam 7.5 mg tablet 2016 017 [email or web address] #07294, [address], [place], [id number], 7 13:47:33 amlodipine 10 mg tablet 2016 017 [facility]FACE [facility] #34614, [address], [place], [id number], 7 15:48:36 hydrochlor othiazide 12.5 mg capsule 2016 017 [email or web address] #67879, [address], [place], [id number], 7 12:46:44 sertraline 50 mg tablet 2016 017 [email or web address] #00453, [address], [place], [id number], 7 13:47:29 Patient TargetsNo targets recorded. Patient Instructions Encounter Date Encounter Id Patient Instructions Last Modified By Organization Details Last Modified Time 08/22/2016 [id number] C-reactive protein (CRP) test: about this test Not available 08/22/2016 15:48:38 learning about high blood pressure Not available 08/22/2016 16:11:58 09/22/2016 [id number] I was present an d available in the Family Medicine clinic to discuss this patient's care during the appointment. I agree with the resident's assessment and plan as documented. EDWARD Not available 10/02/2016 21:47:37 10/26/2016 [id number] I was present in the clinic to discuss this patient at the time of the visit. I agree with the documented assessment and plan. Rosi Monk MD [email or web address] Not available 11/13/2016 14:50:45 01/30/2017 [id number] I certify that I was present and available in the family medicine clinic for discussion of this patient. I have reviewed the residents note and agree with the stated assessment and treatment plan. SIVAN [email or web address] Not available 01/30/2017 16:11:16 04/24/2018 [id number] I was present an d available in the Family Medicine clinic to discuss this patient's care during the appointment. I agree with the resident's assessment and plan as documented. EDWARD Not available 04/26/2018 18:04:22 Reason for Referral Colonoscopy Referral for Scr eening for malignant neoplasm of colon Referring Physician: David Fernandes Lunchroom Supervisor, Encounter Date: 08/22/2016 Results Created Date Observation Date Name Description Value Unit Range Abnormal Flag Note LastModifiedBy Organization Detail LastModifiedTime 08/23/19 17 08/22/2016 HIV (1+2) Ab, rapid , unspe cifie d speci men Rapid HIV negati ve Not Available In-Office Order Internal Use Only DO Not Attach Compendium DO Not Attach Compendium, Do Not Delete/merge, [id number] 08/22/2016 15:47:47 08/23/19 17 08/23/2016 CBC w/ auto diff WBC 9.7 x10e3 /uL 3.4-10 .8 Not Available [facility] ([facility]) [address] [place], [address], 08/23/2016 08:26:20 08/23/19 17 08/23/2016 CBC w/ auto diff RBC 4.97 x10e6 /uL 4.14-5 .80 Not Available [facility] ([facility]) [address] [place], [address], 08/23/2016 08:26:20 08/23/19 17 08/23/2016 CBC w/ auto diff hemoglobin 11.3 g/dL 12.6-1 7.7 below low normal Not Available [facility] ([facility]) [address] [place], [address], 08/23/2016 08:26:20 08/23/19 17 08/23/2016 CBC w/ auto diff hematocrit 35.2 % 37.5-5 1.0 below low normal Not Available [facility] ([facility]) [address] [facility], [place], [address], 08/23/2016 08:26:20 08/23/19 17 08/23/2016 CBC w/ auto diff MCV 71 fL 79-97 below low normal Not Available [facility] ([facility]) [address] [facility], [place], [address], 08/23/2016 08:26:20 08/23/19 17 08/23/2016 CBC w/ auto diff MCH 22.7 pg 26.6-3 3.0 below low normal Not Available [facility] ([facility]) [address] [facility], [place], [address], 08/23/2016 08:26:20 08/23/19 17 08/23/2016 CBC w/ auto diff MCHC 32.1 g/dL 31.5-3 5.7 Not Available [facility] ([facility]) [address] [facility], [place], [address], 08/23/2016 08:26:20 08/23/19 17 08/23/2016 CBC w/ auto diff RDW 16.8 % 12.3-1 5.4 above high normal Not Available [facility] ([facility]) [address] [facility], [place], [address], 08/23/2016 08:26:20 08/23/19 17 08/23/2016 CBC w/ auto diff platelets 409 x10e3 /uL 150-37 9 above high normal Not Available [facility] ([facility]) [address] [facility], [place], [address], 08/23/2016 08:26:20 08/23/19 17 08/23/2016 CBC w/ auto diff neutrophils 73 % Not Available [facility] ([facility]) [address] [facility], [place], [address], 08/23/2016 08:26:20 08/23/19 17 08/23/2016 CBC w/ auto diff lymphs 17 % Not Available [facility] ([facility]) [address] [place], [address], 08/23/2016 08:26:20 08/23/19 17 08/23/2016 CBC w/ auto diff monocytes 9 % Not Available [facility] ([facility]) [address] [place], [address], 08/23/2016 08:26:20 08/23/19 17 08/23/2016 CBC w/ auto diff eos 1 % Not Available [facility] ([facility]) [address] [place], [address], 08/23/2016 08:26:20 08/23/19 17 08/23/2016 CBC w/ auto diff basos 0 % Not Available [facility] ([facility]) [address] [place], [address], 08/23/2016 08:26:20 08/23/19 17 08/23/2016 CBC w/ auto diff immature cells DELIVERY DRIVER ASSISTANT Not Available [facility] ([facility]) [address] [place], [address], 08/23/2016 08:26:20 08/23/19 17 08/23/2016 CBC w/ auto diff neutrophils (absolute) 7.0 x10e3 /uL 1.4-7. 0 Not Available [facility] ([facility]) [address] [place], [address], 08/23/2016 08:26:20 08/23/19 17 08/23/2016 CBC w/ auto diff lymphs (absolute) 1.7 x10e3 /uL 0.7-3. 1 Not Available [facility] ([facility]) [address] [place], [address], 08/23/2016 08:26:20 08/23/19 17 08/23/2016 CBC w/ auto diff monocytes(ab solute) 0.9 x10e3 /uL 0.1-0. 9 Not Available [facility] ([facility]) [address] [facility], [place], [address], 08/23/2016 08:26:20 08/23/19 17 08/23/2016 CBC w/ auto diff eos (absolute) 0.1 x10e3 /uL 0.0-0. 4 Not Available [facility] ([facility]) [address] [facility], [place], [address], 08/23/2016 08:26:20 08/23/19 17 08/23/2016 CBC w/ auto diff baso (absolute) 0.0 x10e3 /uL 0.0-0. 2 Not Available [facility] ([facility]) [address] [facility], [place], [address], 08/23/2016 08:26:20 08/23/19 17 08/23/2016 CBC w/ auto diff immature granulocytes 0 % Not Available [facility] ([facility]) [address] [facility], [place], [address], 08/23/2016 08:26:20 08/23/19 17 08/23/2016 CBC w/ auto diff immature grans (abs) 0.0 x10e3 /uL 0.0-0. 1 Not Available [facility] ([facility]) [address] [facility], [place], [address], 08/23/2016 08:26:20 08/23/19 17 08/23/2016 CBC w/ auto diff NRBC DELIVERY DRIVER ASSISTANT Not Available [facility] ([facility]) [address] [facility], [place], [address], 08/23/2016 08:26:20 08/23/1908/23/2016 CBC w/ auto diff hematology comments: DELIVERY DRIVER ASSISTANT Not Available [facility] ([facility]) [address] [facility], [place], [address], 08/23/2016 08:26:20 08/23/19 17 08/23/2016 lipid panel , serum cholesterol, total 181 mg/dL 100-19 9 Not Available [facility] ([facility]) [address] [place], [address], 08/23/2016 08:26:20 08/23/19 17 08/23/2016 lipid panel , serum triglyceride s 90 mg/dL 0-149 Not Available [facility] ([facility]) [address] [place], [address], 08/23/2016 08:26:20 08/23/19 17 08/23/2016 lipid panel , serum HDL cholesterol 34 mg/dL >39 below low normal Not Available [facility] ([facility]) [address] [place], [address], 08/23/2016 08:26:20 08/23/19 17 08/23/2016 lipid panel , serum VLDL cholesterol yoli 18 mg/dL 5-40 Not Available [facility] ([facility]) [address] [place], [address], 08/23/2016 08:26:20 08/23/19 17 08/23/2016 lipid panel , serum LDL cholesterol calc 129 mg/dL 0-99 above high normal Not Available [facility] ([facility]) [address] [place], [address], 08/23/2016 08:26:20 08/23/19 17 08/23/2016 lipid panel , serum comment: DELIVERY DRIVER ASSISTANT Not Available [facility] ([facility]) [address] [place], [address], 08/23/2016 08:26:20 08/23/19 17 08/23/2016 C react juju prote in, QN, serum or plasm a C-reactive protein, quant 59.9 mg/L 0.0-4. 9 above high normal Not Available [facility] ([facility]) [address] [place], [address], 08/23/2016 08:26:21 08/23/19 17 08/23/2016 cardi ovasc ular asses sment panel , serum interpretati on NOTE SUPPL EMENT REPOR T IS AVAIL ABLE. Not Available [facility] ([facility]) [address] [facility] [place], [address], 08/23/2016 08:26:22 08/23/19 17 08/23/2016 cardi ovasc ular asses sment panel , serum pdf image . Not Available [facility] ([facility]) [address] [facility] [place], [address], 08/23/2016 08:26:22 09/23/19 17 09/23/2016 BMP, serum or plasm a glucose, serum 95 mg/dL 65-99 Not Available [facility] ([facility]) [address] [facility] [place], [address], 09/23/2016 06:06:09 09/23/19 17 09/23/2016 BMP, serum or plasm a BUN 6 mg/dL 6-24 Not Available [facility] ([facility]) [address] [facility] [place], [address], 09/23/2016 06:06:09 09/23/19 17 09/23/2016 BMP, serum or plasm a creatinine, serum 1.02 mg/dL 0.76-1 .27 Not Available [facility] ([facility]) [address] [facility] [place], [address], 09/23/2016 06:06:09 09/23/1909/23/2016 BMP, serum or plasm a eGFR if nonafricn AM 83 mL/mi n/1.7 3 >59 Not Available [facility] ([facility]) [address] [facility] [place], [address], 09/23/2016 06:06:09 09/23/19 17 09/23/2016 BMP, serum or plasm a eGFR if africn AM 96 mL/mi n/1.7 3 >59 Not Available [facility] ([facility]) [address] [place], [address], 09/23/2016 06:06:09 09/23/19 17 09/23/2016 BMP, serum or plasm a BUN/creatini ne ratio 6 9-20 below low normal Not Available [facility] ([facility]) [address] [facility] [place], [address], 09/23/2016 06:06:09 09/23/19 17 09/23/2016 BMP, serum or plasm a sodium, serum 143 mmol/ L 134-14 4 Not Available [facility] ([facility]) [address] [place], [address], 09/23/2016 06:06:09 09/23/19 17 09/23/2016 BMP, serum or plasm a potassium, serum 4.1 mmol/ L 3.5-5. 2 Not Available [facility] ([facility]) [address] [place], [address], 09/23/2016 06:06:09 09/23/19 17 09/23/2016 BMP, serum or plasm a chloride, serum 101 mmol/ L 96-106 Not Available [facility] ([facility]) [address] [place], [address], 09/23/2016 06:06:09 09/23/19 17 09/23/2016 BMP, serum or plasm a carbon dioxide, total 22 mmol/ L 18-29 Not Available [facility] ([facility]) [address] [place], [address], 09/23/2016 06:06:09 09/23/1909/23/2016 BMP, serum or plasm a calcium, serum 9.6 mg/dL 8.7-10 .2 Not Available [facility] ([facility]) [address] [place], [address], 09/23/2016 06:06:09 04/24/20 18 04/25/2018 BMP, serum or plasm a glucose 125 mg/dL 65-99 above high normal Not Available [facility] ([facility]) [address] [facility] [place], [address], 04/25/2018 10:36:19 04/24/20 18 04/25/2018 BMP, serum or plasm a BUN 9 mg/dL 6-24 Not Available [facility] ([facility]) [address] [facility] [place], [address], 04/25/2018 10:36:19 04/24/20 18 04/25/2018 BMP, serum or plasm a creatinine 1.28 mg/dL 0.76-1 .27 above high normal Not Available [facility] ([facility]) [address] [facility] [place], [address], 04/25/2018 10:36:19 04/24/20 18 04/25/2018 BMP, serum or plasm a eGFR if nonafricn AM 62 mL/mi n/1.7 3 >59 Not Available [facility] ([facility]) [address] [facility] [place], [address], 04/25/2018 10:36:19 04/24/20 18 04/25/2018 BMP, serum or plasm a eGFR if africn AM 72 mL/mi n/1.7 3 >59 Not Available [facility] ([facility]) [address] [facility] [place], [address], 04/25/2018 10:36:19 04/24/20 18 04/25/2018 BMP, serum or plasm a BUN/creatini ne ratio 7 9-20 below low normal Not Available [facility] ([facility]) [address] [facility] [place], [address], 04/25/2018 10:36:19 04/24/20 18 04/25/2018 BMP, serum or plasm a sodium 142 mmol/ L 134-14 4 Not Available [facility] ([facility]) [address] [facility] [place], [address], 04/25/2018 10:36:19 04/24/20 18 04/25/2018 BMP, serum or plasm a potassium 4.2 mmol/ L 3.5-5. 2 Not Available [facility] ([facility]) [address] [place], [address], 04/25/2018 10:36:19 04/24/20 18 04/25/2018 BMP, serum or plasm a chloride 101 mmol/ L 96-106 Not Available [facility] ([facility]) [address] [place], [address], 04/25/2018 10:36:19 04/24/20 18 04/25/2018 BMP, serum or plasm a carbon dioxide, total 25 mmol/ L 20-29 Not Available [facility] ([facility]) [address] [place], [address], 04/25/2018 10:36:19 04/24/20 18 04/25/2018 BMP, serum or plasm a calcium 9.8 mg/dL 8.7-10 .2 Not Available [facility] ([facility]) [address] [place], [address], 04/25/2018 10:36:19 04/24/20 18 04/25/2018 lipid panel , serum cholesterol, total 158 mg/dL 100-19 9 Not Available [facility] ([facility]) [address] [facility] [place], [address], 04/25/2018 10:36:19 04/24/20 18 04/25/2018 lipid panel , serum triglyceride s 76 mg/dL 0-149 Not Available [facility] ([facility]) [address] [facility] [place], [address], 04/25/2018 10:36:19 04/24/20 18 04/25/2018 lipid panel , serum HDL cholesterol 38 mg/dL >39 below low normal Not Available [facility] ([facility]) [address] [facility] [place], [address], 04/25/2018 10:36:19 04/24/20 18 04/25/2018 lipid panel , serum VLDL cholesterol yoli 15 mg/dL 5-40 Not Available [facility] ([facility]) [address] [facility] [place], [address], 04/25/2018 10:36:19 04/24/20 18 04/25/2018 lipid panel , serum LDL cholesterol calc 105 mg/dL 0-99 above high normal Not Available [facility] ([facility]) [address] [facility], [place], [address], 04/25/2018 10:36:19 04/24/20 18 04/25/2018 lipid panel , serum comment: DELIVERY DRIVER ASSISTANT Not Available [facility] ([facility]) [address] [facility], [place], [address], 04/25/2018 10:36:19 04/24/20 18 04/25/2018 micro album in/cr eatin ine, mass ratio , urine creatinine, urine 145.0 mg/dL not estab. Not Available [facility] ([facility]) [address] [facility], [place], [address], 04/25/2018 10:36:20 04/24/20 18 04/25/2018 micro album in/cr eatin ine, mass ratio , urine albumin, urine 29.6 ug/mL not estab. Not Available [facility] ([facility]) [address] [facility], [place], [address], 04/25/2018 10:36:20 04/24/20 18 04/25/2018 micro album in/cr eatin ine, mass ratio , urine alb/creat ratio 20.4 mg/g_ creat 0.0-30 .0 Marlen l: 0.0 - 30.0 Album inuri a: 31.0 - 300.0 Clini yoli album inuri a: >300. 0 Not Available [facility] ([facility]) [address] [facility], [place], [address], 04/25/2018 10:36:20 04/24/20 18 04/24/2018 HbA1c (hemo globi n A1c), blood hemoglobin A1C 5.9 % 4.8-5. 6 above high normal Predi abete s: 5.7 - 6.4 Diabe sal: >6.4 Glyce leah contr ol for adult s with diabe sal: <7.0 Not Available [facility] ([facility]) [address] [facility], [place], [address], 04/25/2018 10:36:21 04/24/20 18 04/25/2018 cardi ovasc ular asses sment panel , serum interpretati on Note Suppl cruz umanzor is avail able. Not Available [facility] ([facility]) [address] [facility], [place], [address], 04/25/2018 10:36:21 04/24/20 18 04/25/2018 cardi ovasc ular asses sment panel , serum pdf image . Not Available [facility] ([facility]) [address] [facility], [place], [address], 04/25/2018 10:36:21 12/22/19 21 12/21/2020 CT, head + brain , w/o contr ast No observ ation record ed. [facility] [address] [place], [address], 12/28/2020 09:38:42 12/22/19 21 12/21/2020 CT, chest , w/o contr ast No observ ation record ed. [facility] [address] [place], [address], 12/23/2020 21:19:51 Result Notes None recorded. Problems Name Problem SNOMED Code Status Onset Date Resolution Date Notes Provider Name and Address Organization Details Recorded Time Depressive disorder 81636495 Completed 201604/24/2018 Manjula Giles MD Attn: Vaughn g,[address] [facility], [place], [address], [facility] 8 09:56:35 Essential hypertension 11442308 Active 2016 David Fernandes DO Attn: Vaughn ayon,[address] [facility], [place], [address], [facility] 7 12:31:41 Problem Notes None recorded. Medical Equipment None Reported. [...] Available No t Available Vitals Date Recorded Systolic blood pressure Diastolic blood pressure Provider Name and Address Organization Details Last Updated DateTime 08/22/2016 182 mm[Hg] 108 mm[Hg] David Fernandes DO Attn: Accounting,[address] [facility], [place], [address], [place] [facility] [place] 08/22/2016 17:30:39 Date Recorded Body height Body weight Body mass index (BMI) Heart rate Body temperature Oxygen saturation Oxygen saturation in Arterial blood by Pulse oximetry Systolic blood pressure Diastolic blood pressure Provider Name and Address Organization Details Last Updated DateTime 7 180.34 cm 453366. 25 g 43 kg/m2 95 /min 98.7 [degF] 98 % 98 % 188 mm[Hg] 120 mm[Hg] [facility]av [facility] 7 14:41:45 Date Recorded Systolic blood pressure Diastolic blood pressure Provider Name and Address Organization Details Last Updated DateTime 09/22/2016 162 mm[Hg] 102 mm[Hg] [facility] [place] Attn: Accounting,[address] [place], [address], [facility] 09/22/2016 12:27:18 Date Recorded Body height Body weight Body mass index (BMI) Body temperature Heart rate Oxygen saturation Oxygen saturation in Arterial blood by Pulse oximetry Systolic blood pressure Diastolic blood pressure Provider Name and Address Organization Details Last Updated DateTime 7 180.34 cm 686731. 52 g 41.7 kg/m2 98.5 [degF] 92 /min 98 % 98 % 170 mm[Hg] 108 mm[Hg] Caitlyn Ryan [facility] 7 12:13:30 Date Recorded Systolic blood pressure Diastolic blood pressure Provider Name and Address Organization Details Last Updated DateTime 10/26/2016 134 mm[Hg] 86 mm[Hg] [facility] Attn: Accounting,[address] [place], [address], [facility] 10/26/2016 12:49:48 Date Recorded Body height Body weight Body mass index (BMI) Body temperature Heart rate Oxygen saturation Oxygen saturation in Arterial blood by Pulse oximetry Systolic blood pressure Diastolic blood pressure Provider Name and Address Organization Details Last Updated DateTime 7 180.34 cm 067593. 12 g 41.7 kg/m2 98.1 [degF] 79 /min 98 % 98 % 134 mm[Hg] 96 mm[Hg] Quyen Ryan [place] [facility] 7 12:24:52 Date Recorded Body height Body mass index (BMI) Body weight Body temperature Heart rate Oxygen saturation Oxygen saturation in Arterial blood by Pulse oximetry Systolic blood pressure Diastolic blood pressure Provider Name and Address Organization Details Last Updated DateTime 7 180.34 cm 43.4 kg/m2 078048. 03 g 98.1 [degF] 94 /min 98 % 98 % 152 mm[Hg] 98 mm[Hg] Robe Silvestre COLLECTION TELLER [facility] 7 12:15:59 Date Recorded Body weight Body mass index (BMI) Body height Heart rate Oxygen saturation Oxygen saturation in Arterial blood by Pulse oximetry Body temperature Systolic blood pressure Diastolic blood pressure Provider Name and Address Organization Details Last Updated DateTime 8 056238. 07 g 62.5 kg/m2 154.94 cm 72 /min 98 % 98 % 98.4 [degF] 150 mm[Hg] 100 mm[Hg] Phylicia Sweeney MA [facility] 8 09:20:04 Social History Question Answer Notes LastModified by Organizat ion Details LastModified Time Tobacco Smoking Status Never Smoker Mally LINDSAY Ricks null, [facility] 08/22/2016 14:39:52 What Was The Date Of [...] Skin Problems N Anemia N Heart Attack (AR) N Anxiety Disorder N Diabetes N Muscle, [...] virus, quadrivalent, PF 01/30/2017 completed Not Available [facility] 0 02:35:18 Influenza, split virus, quadrivalent, PF 04/24/2018 completed Not Available [facility] 0 02:40:23 Past Encounters Encounter ID Performer Location Encounter Start Date Encounter Closed Date Diagnosis/Indication Diagnosis SNOMED-CT Code Diagnosis ICD10 Code Diagnosis Note [id number] MD [facility] ([address] [place] [address] 08/22/2016 14:01:55 08/23/2016 09:46:22 Essential hypertension 81569997 I10 HTN diagnosed in the ER but not started on any medication .182/108 in office today.Will start on Amlodipine 10 and HCTZ 12.5 today. Will plan to FU in 30 days. Pain in left knee [id number] M25.562 Pain and erythema in L Knee, x 2 weeks, will get CBC CRP and start on Meloxicam, Will get Xray if not improving. Depressive disorder 3548 9007 F32.9 PHQ-9 score of 13/27Will start on Sertaline, pt notes that he has trouble falling asleep. HIV screening 113495893 Z11.4 Will check for HIV Screening for malignant neoplasm of colon [id number] Z12.11 Needs colonoscop y. [id number] MD [facility] ([address]) [address] [place] [address] 09/22/2016 12:08:18 09/27/2016 10:41:07 Depressive disorder 00034699 F32.9 PHQ-2 score of 0Continue sertraline for now if symptoms remain so well controlled consider future D/C Essential hypertension 20171571 I10 BP slightly improved today but still elevated, 162/102 WIll increase HCTZ and ensured that pt has refills on Amlodipine plan to see back in 1 mo Pain in left knee [id number] 02363 M25.562 Improved discussed continued meloxicam as needed but to d/c scheduled for now. Active or passive immunization [id number] Z23 [id number] MD [facility] ([address]) [address] [place] [address] 10/26/2016 11:59:21 10/27/2016 16:40:59 Essential hypertension 35798863 I10 BP greatly improved today but still elevated, 134/86 continue HCTZ and Amlodipine plan to see back in 3 mo [id number] Inge Dugan MD [facility] ([address]) [address] [place] [address] 01/30/2017 12:07:27 01/30/2017 14:44:11 Essential hypertension 99906164 I10 BP elevated will increase HCTZ here and at home.Pt prefers not to add an additional med, Will increase HCTZ to 50, continue amlodipine 10 Adult heal th examination 244315235 Z00.00 Needs Flu shot today [id number] Inge Dugan MD [facility] [address] [facility] [address] [place] [address] 04/24/2018 09:02:48 04/25/2018 09:53:42 Obesity 545143512 E66.9 - Extensivel y counselled on a healthy diet and moderate intensity excercise 3-5x weekly for about ~45 minutes Essential hypertension 30831969 I10 - BP 150/100. Repeat 150/100. No red flag sx- Previously on Amlodipine 10mg and HCTZ 50mg daily- Will restart Amlodipine 10mg daily, will not start HCTZ at this time due to concern for dropping BP too low- Pt advised to check his BP at [facility] 2-3x weekly, write them down and call them in 2-3 weeks Screening for malignant neoplasm of colon [id number] Z12.11 - No h/o colon cancer, FH of colon cancer or blood in stool noted- As pt is self pay, will order FOBT test. 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 Active or passive immunization [id number] Z23 Health Concerns Section Related Observation LastModified by Organization Detai ls LastModified Time None Recorded Concern Status LastModified by Organization Details LastModified Time None Recorded Advance Directives Directive None Recorded Payers Encounter Date Sequence Insurance Name Policy Number Policy Brown Covered Member ID Brown Member ID Guarantor Name 08/22/2016 1 [facility] PRIOR TO 12/09/2020 (MEDICAID REPLACEMENT - HMO) Armani Oconnell [id number] Armani Oconnell 09/22/2016 1 [facility] PRIOR TO 12/09/2020 (MEDICAID REPLACEMENT - HMO) Armani Oconenll [id number] Armani Oconnell 10/26/2016 1 [facility] PRIOR TO 12/09/2020 (MEDICAID REPLACEMENT - HMO) Armani Oconnell [id number] Armani Oconnell 01/30/2017 1 [facility] PRIOR TO 12/09/2020 (MEDICAID REPLACEMENT - HMO) Armani Oconnell [id number] Armani Oconnell Notes Date Note Type Note [...] yrs. Vinh Acevedo DO Attn: Accounting,[address] [facility], [place], [address], [facility] 08/23/2016 09:17:26 7 text/html 56 yo M here for BP Fu ran out of amlodipine 3 days ago.Pt denies any SE of medications, CP, SOB, vision changes, OJEL, Pain in knee is significantly improved with meloxicam Pt now reports no depression symptoms on sertraline 50. Inge Dugan MD Attn: Accounting,[address] [facility], [place], [address], [facility] 10/02/2016 21:47:41 7 text/html 56 yo M here for BP FU134/86 today Mr. Oconnell is a 56yo M presenting today for a BP FU. His blood pressure today is 134/86. He states that he feels great. He denies headache, vision changes, N/V, CP, SOB, paresthesias, lower extremity edema, lightheadedness, or any other symptoms of concern. Rosi Monk MD Attn: Accounting,[address] [facility], [place], [address], [facility] 11/13/2016 14:50:49 7 text/html 56 yo M here for FU on HTNReports home numbers running in upper 140s over 80s. Complaint with meds.Denies any CP, SOB, Vision changes, numbness, weakness or headaches. Due for a flu shot Patrick Leon DO Attn: Accounting,[address] [facility], [place], [address], [facility] 01/30/2017 16:14:17 8 text/html 58 y/o M presents for BP f/u. Pt reports he has been out of his Amlodipine 10mg and HCTZ 50mg for about 1 week.Pt is self-pay and prefers medication to be cost-effective. 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 C/o L hand dorsal tingling after lifting boxes for a long time. Also c/o occasional bilateral feet numbness after standing for a long period of time.No h/o AR or stroke.No FH of AR, stroke or colon cancer.Denies any blood in stool or uninteded weight loss. No c/o headache, CP, SOB, NVCD, numbness or tingling. Inge Dugan MD Attn: Mey,[address] [facility], [place], [address], [facility] 04/26/2018 18:04:27
--- OUTSIDE RECORDS SUMMARY | 2024-11-13 15:59 | XMS_ITS | Data Portability ---
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 aminotransfe rase 34 U/L 0-50 Not Available [facility] (Lab) [address] [place], [address], 10/24/2023 16:33:46 10/24/19 24 10/24/2023 COMPR EHENS LILLIAM METAB OLIC PANEL aspartate aminotransfe rase 42 U/L 15-46 Not Available [facility] (Lab) [address] [facility] [place], [address], 10/24/2023 16:33:46 10/24/19 24 10/24/2023 COMPR EHENS LILLIAM METAB OLIC PANEL bilirubin, total 0.50 mg/dL 0.20-1 .30 Not Available [facility] (Lab) [address] [place], [address], 10/24/2023 16:33:46 10/24/19 24 10/24/2023 COMPR EHENS LILLIAM METAB OLIC PANEL calcium 9.9 mg/dL 8.4-10 .2 Not Available [facility] (Lab) [address] [place], [address], 10/24/2023 16:33:46 10/24/19 24 10/24/2023 COMPR EHENS LILLIAM METAB OLIC PANEL total protein 7.1 g/dL 6.3-8. 2 Not Available [facility] (Lab) [address] [place], [address], 10/24/2023 16:33:46 10/24/19 24 10/24/2023 COMPR EHENS LILLIAM METAB OLIC PANEL albumin 4.1 g/dL 3.4-5. 0 Not Available [facility] (Lab) [address] [place], [address], 10/24/2023 16:33:46 10/24/19 24 10/24/2023 COMPR EHENS LILLIAM METAB OLIC PANEL globulin 3.0 g/dL 2.6-4. 2 Not Available [facility] (Lab) [address] [place], [address], 10/24/2023 16:33:46 10/24/19 24 10/24/2023 COMPR EHENS LILLIAM METAB OLIC PANEL A/G ratio 1.4 ratio 1.0-2. 0 Not Available [facility] (Lab) [address] [place], [address], 10/24/2023 16:33:46 10/24/19 24 10/24/2023 URIC ACID SERUM uric acid 6.6 mg/dL 3.5-8. 5 Not Available [facility] (Lab) [address] [place], [address], 10/24/2023 16:33:51 10/24/19 24 10/24/2023 LIPID PANEL cholesterol 125 mg/dL 140-19 9 low NIH NEVIN NSUS RECOM MENDA TION FOR ERNA STERO L: ADULT CHILD LOW RISK: <200 <170 BORDE RLINE : <200- 239 ----- HIGH RISK: >240 >200 Not Available [facility] (Lab) [address] [place], [address], 10/24/2023 16:33:57 10/24/19 24 10/24/2023 LIPID PANEL triglyceride s 179 mg/dL 0-150 high NIH NEVIN NSUS REPOR T RECOM MENDA TION FOR TRIGL YCERI MAHSA: ADULT CHILD LOW RISK: <150 ----- BODER LINE: 150-1 99 ----- HIGH RISK: >200 ----- Not Available [facility] (Lab) [address] [place], [address], 10/24/2023 16:33:57 10/24/19 24 10/24/2023 LIPID PANEL HDL cholesterol 51 mg/dL 40- Not Available [facility] (Lab) [address] [place], [address], 10/24/2023 16:33:57 10/24/19 24 10/24/2023 LIPID PANEL [...] WILL NOT BE REPOR BRODY. Not Available [facility] (Lab) [address] [place], [address], 10/24/2023 16:33:57 10/24/19 24 10/24/2023 HEMOG LOBIN A1C HA1C 6.3 % 4.0-6. 0 high Diabe sal Scree maricruz Crite darren: <5.7% Consi stent with absen ce of diabe sal 5.7-6 .4% Consi stent with incre ased risk for diabe sal (pred iabet es) >OR=6 .5% Consi stent with diabe sal REFER ENCE: Diabe sal Care 2016, 39(Sharma ppl.1 ):s13 -s22 Not Available [facility] (Lab) [address] [place], [address], 10/24/2023 20:46:33 11/27/19 24 11/27/2023 CBC/C OMPLE TE BLD COUNT W/DIF F white blood cells 7.4 x10'3 /uL 4.2-10 .8 Not Available [facility] (Lab) [address] [place], [address], 11/27/2023 18:22:17 11/27/19 24 11/27/2023 CBC/C OMPLE TE BLD COUNT W/DIF F red blood cells 4.51 x10'6 /uL 4.10-5 .80 Not Available [facility] (Lab) [address] [place], [address], 11/27/2023 18:22:17 11/27/19 24 11/27/2023 CBC/C OMPLE TE BLD COUNT W/DIF F hemoglobin 11.4 g/dL 13.2-1 7.0 low Not Available [facility] (Lab) [address] [place], [address], 11/27/2023 18:22:17 11/27/19 24 11/27/2023 CBC/C OMPLE TE BLD COUNT W/DIF F hematocrit 35.6 % 39.3-5 0.0 low Not Available [facility] (Lab) [address] [place], [address], 11/27/2023 18:22:17 11/27/19 24 11/27/2023 CBC/C OMPLE TE BLD COUNT W/DIF F mean red cell volume 78.9 fL 80.0-9 7.0 low Not Available [facility] (Lab) [address] [place], [address], 11/27/2023 18:22:17 11/27/19 24 11/27/2023 CBC/C OMPLE TE BLD COUNT W/DIF F mean red cell hemoglobin 25.3 pg 27.0-3 3.0 low Not Available [facility] (Lab) [address] [place], [address], 11/27/2023 18:22:17 11/27/19 24 11/27/2023 CBC/C OMPLE TE BLD COUNT W/DIF F mean RBC HGB concentratio n 32.0 g/dL 31.0-3 6.0 Not Available [facility] (Lab) [address] [place], [address], 11/27/2023 18:22:17 11/27/19 24 11/27/2023 CBC/C OMPLE TE BLD COUNT W/DIF F red cell distribution width 18.9 % 11.8-1 5.5 high Not Available [facility] (Lab) [address] [place], [address], 11/27/2023 18:22:17 11/27/19 24 11/27/2023 CBC/C OMPLE TE BLD COUNT W/DIF F platelets 302 x10'3 /uL 150-40 0 Not Available [facility] (Lab) [address] [place], [address], 11/27/2023 18:22:17 11/27/19 24 11/27/2023 CBC/C OMPLE TE BLD COUNT W/DIF F mean platelet volume 11.1 fL 9.0-12 .4 Not Available [facility] (Lab) [address] [place], [address], 11/27/2023 18:22:17 11/27/19 24 11/27/2023 CBC/C OMPLE TE BLD COUNT W/DIF F neutrophils 59.5 % 39.0-7 2.0 Not Available [facility] (Lab) [address] [place], [address], 11/27/2023 18:22:17 11/27/19 24 11/27/2023 CBC/C OMPLE TE BLD COUNT W/DIF F lymphocytes 22.6 % 16.0-4 7.0 Not Available [facility] (Lab) [address] [place], [address], 11/27/2023 18:22:17 11/27/19 24 11/27/2023 CBC/C OMPLE TE BLD COUNT W/DIF F monocytes 13.6 % 5.0-12 .0 high Not Available [facility] (Lab) [address] [place], [address], 11/27/2023 18:22:17 11/27/19 24 11/27/2023 CBC/C OMPLE TE BLD COUNT W/DIF F eosinophils 3.2 % 1.0-7. 0 Not Available [facility] (Lab) [address] [place], [address], 11/27/2023 18:22:17 11/27/19 24 11/27/2023 CBC/C OMPLE TE BLD COUNT W/DIF F basophils 0.7 % 0.0-2. 0 Not Available [facility] (Lab) [address] [place], [address], 11/27/2023 18:22:17 11/27/19 24 11/27/2023 CBC/C OMPLE TE BLD COUNT W/DIF F immature granulocytes 0.4 % 0.00-0 .50 Not Available [facility] (Lab) [address] [place], [address], 11/27/2023 18:22:17 11/27/19 24 11/27/2023 CBC/C OMPLE TE BLD COUNT W/DIF F neutrophils, absolute count 4.40 x10'3 /uL 1.5-8. 0 Not Available [facility] (Lab) [address] [place], [address], 11/27/2023 18:22:17 11/27/19 24 11/27/2023 CBC/C OMPLE TE BLD COUNT W/DIF F lymphocytes, absolute count 1.67 x10'3 /uL 1.07-3 .43 Not Available [facility] (Lab) [address] [place], [address], 11/27/2023 18:22:17 11/27/19 24 11/27/2023 CBC/C OMPLE TE BLD COUNT W/DIF F monocytes, absolute count 1.01 x10'3 /uL 0.29-0 .99 high Not Available [facility] (Lab) [address] [place], [address], 11/27/2023 18:22:17 11/27/19 24 11/27/2023 CBC/C OMPLE TE BLD COUNT W/DIF F eosinophils, absolute count 0.24 x10'3 /uL 0.02-0 .53 Not Available [facility] (Lab) [address] [place], [address], 11/27/2023 18:22:17 11/27/19 24 11/27/2023 CBC/C OMPLE TE BLD COUNT W/DIF F basophils, absolute count 0.05 x10'3 /uL 0.01-0 .08 Not Available [facility] (Lab) [address] [place], [address], 11/27/2023 18:22:17 11/27/19 24 11/27/2023 CBC/C OMPLE TE BLD COUNT W/DIF F immature granulocytes ,absolute 0.03 x10'3 /uL 0.00-0 .05 Not Available [facility] (Lab) [address] [place], [address], 11/27/2023 18:22:17 11/27/19 24 11/27/2023 CBC/C OMPLE TE BLD COUNT W/DIF F nucleated red blood cells 0.0 % -0 Not Available [facility] (Lab) [address] [place], [address], 11/27/2023 18:22:17 11/27/19 24 11/27/2023 CBC/C OMPLE TE BLD COUNT W/DIF F NRBC# 0.00 x10'3 /uL Not Available [facility] (Lab) [address] [place], [address], 11/27/2023 18:22:17 11/27/19 24 11/27/2023 COMPR EHENS LILLIAM METAB OLIC PANEL sodium 139 mmol/ L 137-14 5 Not Available [facility] (Lab) [address] [place], [address], 11/27/2023 18:23:00 11/27/19 24 11/27/2023 COMPR EHENS LILLIAM METAB OLIC PANEL potassium 4.0 mmol/ L 3.5-5. 1 Not Available [facility] (Lab) [address] [place], [address], 11/27/2023 18:23:00 11/27/19 24 11/27/2023 COMPR EHENS LILLIAM METAB OLIC PANEL chloride 108 mmol/ L 98-107 high Not Available [facility] (Lab) [address] [facility] [place], [address], 11/27/2023 18:23:00 11/27/19 24 11/27/2023 COMPR EHENS LILLIAM METAB OLIC PANEL carbon dioxide 28 mmol/ L 22-30 Not Available [facility] (Lab) [address] [place], [address], 11/27/2023 18:23:00 11/27/19 24 11/27/2023 COMPR EHENS LILLIAM METAB OLIC PANEL anion gap 7.0 mmol/ L 14-22 low Not Available [facility] (Lab) [address] [place], [address], 11/27/2023 18:23:00 11/27/19 24 11/27/2023 COMPR EHENS LILLIAM METAB OLIC PANEL glucose 101 mg/dL 70-99 high Not Available [facility] (Lab) [address] [facility] [place], [address], 11/27/2023 18:23:00 11/27/19 24 11/27/2023 COMPR EHENS LILLIAM METAB OLIC PANEL BUN 15 mg/dL 8-19 Not Available [facility] (Lab) [address] [place], [address], 11/27/2023 18:23:00 11/27/19 24 11/27/2023 COMPR EHENS LILLIAM METAB OLIC PANEL creatinine 1.22 mg/dL 0.66-1 .25 Not Available [facility] (Lab) [address] [place], [address], 11/27/2023 18:23:00 11/27/19 24 11/27/2023 COMPR EHENS LILLIAM METAB OLIC PANEL GFR >60 Refer ence Range : Hemet ge GFR Healt hy Adult : >60 [...] calcu lator is avail able on the [facility] websi te: https ://colby w.rikki dan.o rg/pr tieness ional s/kdo qi/gf r_cal culat or Not Available [facility] (Lab) [address] [place], [address], 11/27/2023 18:23:00 11/27/19 24 11/27/2023 COMPR EHENS LILLIAM METAB OLIC PANEL alkaline phosphatase 124 U/L 38-126 Not Available [facility] (Lab) [address] [place], [address], 11/27/2023 18:23:00 11/27/19 24 11/27/2023 COMPR EHENS LILLIAM METAB OLIC PANEL alanine aminotransfe rase 36 U/L 0-50 Not Available [facility] (Lab) [address] [place], [address], 11/27/2023 18:23:00 11/27/19 24 11/27/2023 COMPR EHENS LILLIAM METAB OLIC PANEL aspartate aminotransfe rase 50 U/L 15-46 high Not Available [facility] (Lab) [address] [place], [address], 11/27/2023 18:23:00 11/27/19 24 11/27/2023 COMPR EHENS LILLIAM METAB OLIC PANEL bilirubin, total 0.70 mg/dL 0.20-1 .30 Not Available [facility] (Lab) [address] [place], [address], 11/27/2023 18:23:00 11/27/19 24 11/27/2023 COMPR EHENS LILLIAM METAB OLIC PANEL calcium 10.1 mg/dL 8.4-10 .2 Not Available [facility] (Lab) [address] [place], [address], 11/27/2023 18:23:00 11/27/19 24 11/27/2023 COMPR EHENS LILLIAM METAB OLIC PANEL total protein 7.1 g/dL 6.3-8. 2 Not Available [facility] (Lab) [address] [place], [address], 11/27/2023 18:23:00 11/27/19 24 11/27/2023 COMPR EHENS LILLIAM METAB OLIC PANEL albumin 4.2 g/dL 3.4-5. 0 Not Available [facility] (Lab) [address] [place], [address], 11/27/2023 18:23:00 11/27/19 24 11/27/2023 COMPR EHENS LILLIAM METAB OLIC PANEL globulin 2.9 g/dL 2.6-4. 2 Not Available [facility] (Lab) [address] [place], [address], 11/27/2023 18:23:00 11/27/19 24 11/27/2023 COMPR EHENS LILLIAM METAB OLIC PANEL A/G ratio 1.4 ratio 1.0-2. 0 Not Available [facility] (Lab) [address] [place], [address], 11/27/2023 18:23:00 11/27/19 24 11/27/2023 PHOSP HORUS phosphorus 3.7 mg/dL 2.5-4. 5 Not Available [facility] (Lab) [address] [place], [address], 11/27/2023 18:23:03 11/27/19 24 11/27/2023 LIPID PANEL cholesterol 114 mg/dL 140-19 9 low NIH NEVIN NSUS RECOM MENDA TION FOR ERNA STERO L: ADULT CHILD LOW RISK: <200 <170 BORDE RLINE : <200- 239 ----- HIGH RISK: >240 >200 Not Available [facility] (Lab) [address] [place], [address], 11/27/2023 18:23:05 11/27/19 24 11/27/2023 LIPID PANEL triglyceride s 123 mg/dL 0-150 NIH NEVIN NSUS REPOR T RECOM MENDA TION FOR TRIGL YCERI MAHSA: ADULT CHILD LOW RISK: <150 ----- BODER LINE: 150-1 99 ----- HIGH RISK: >200 ----- Not Available [facility] (Lab) [address] [place], [address], 11/27/2023 18:23:05 11/27/19 24 11/27/2023 LIPID PANEL HDL cholesterol 45 mg/dL 40- Not Available [facility] (Lab) [address] [place], [address], 11/27/2023 18:23:05 11/27/19 24 11/27/2023 LIPID PANEL LDL cholesterol, calculated 44 mg/dL 0-130 NIH NEVIN NSUS REPOR T RECOM MENDA TIONS FOR LDL: ADULT CHILD LOW RISK <130 <110 (OPTI MAL LDL) <100 ----- RIKA RLINE : 130-1 59 ----- HIGH RISK: >160 >130 A TRIGL YCERI DE RESUL T >400 INVAL IDATE S THE CALCU LATIO N FOR LDL FRACT IONAT ION - THE LDL RESUL T WILL NOT BE REPOR BRODY. Not Available [facility] (Lab) [address] [place], [address], 11/27/2023 18:23:05 11/27/19 24 11/27/2023 GGT/G -GLUT AMYL TRANS FERAS E gamma-glutam yl transferase 61 U/L 12-58 high Not Available [facility] (Lab) [address] [place], [address], 11/27/2023 18:23:09 11/27/19 24 11/27/2023 HEPAT ITIS ACUTE PANEL hepatitis A IgM antibody NON-RE ACTIVE non-re active For sampl es repor brody as Rika tiffanyprice React lilliam for HAV IgM, it is recom jm d a new speci men be obtai bolivar in 2 weeks and retes brody. Not Available [facility] (Lab) [address] [place], [address], 11/27/2023 19:17:48 11/27/19 24 11/27/2023 HEPAT ITIS ACUTE PANEL hepatitis A virus signal/cutof 0.02 0.00-0 .79 Not Available [facility] (Lab) [address] [place], [address], 11/27/2023 19:17:48 11/27/19 24 11/27/2023 HEPAT ITIS ACUTE PANEL hepatitis B core IgM antibody NON-RE ACTIVE non-re active Not Available [facility] (Lab) [address] [place], [address], 11/27/2023 19:17:48 11/27/19 24 11/27/2023 HEPAT ITIS ACUTE PANEL HBV core IgM signal/cutof f 0.06 0.00-1 .10 Not Available [facility] (Lab) [address] [place], [address], 11/27/2023 19:17:48 11/27/19 24 11/27/2023 HEPAT ITIS ACUTE PANEL hepatitis B surface antigen NON-RE ACTIVE non-re active All speci mens react lilliam for Hepat itis B Surfa ce Antig en will refle x to refer ral lab confi rmato ry testi ng. Not Available [facility] (Lab) [address] [place], [address], 11/27/2023 19:17:48 11/27/19 24 11/27/2023 HEPAT ITIS ACUTE PANEL HBV surf.antigen signal/cutof f 0.12 0.00-0 .99 Not Available [facility] (Lab) [address] [place], [address], 11/27/2023 19:17:48 11/27/19 24 11/27/2023 HEPAT ITIS ACUTE PANEL hepatitis C antibody NON-RE ACTIVE non-re active All speci mens react lilliam for Hepat itis C Virus antib naima will refle x to PCR confi rmato ry testi ng. Pleas e allow 48-72 hours for resul ts. Not Available [facility] (Lab) [address] [place], [address], 11/27/2023 19:17:48 11/27/19 24 11/27/2023 HEPAT ITIS ACUTE PANEL hepatitis C virus signal/cutof 0.01 0.00-0 .99 Not Available [facility] (Lab) [address] [place], [address], 11/27/2023 19:17:48 11/27/19 24 11/27/2023 TSH W/REF ROMAN FT4 TSH with reflex free T4 2.520 uIU/m L 0.465- 4.680 Not Available [facility] (Lab) [address] [place], [address], 11/27/2023 18:50:59 11/27/19 24 11/27/2023 PSA SCREE N PSA medicare screen 0.82 NG/mL 0.00-4 .00 Not Available [facility] (Lab) [address] [place], [address], 11/27/2023 18:51:02 11/27/19 24 11/27/2023 HEMOG LOBIN A1C HA1C 5.9 % 4.0-6. 0 Diabe sal Scree maricruz Crite darren: <5.7% Consi stent with absen ce of diabe sal 5.7-6 .4% Consi stent with incre ased risk for diabe sal (pred iabet es) >OR=6 .5% Consi stent with diabe sal REFER ENCE: Diabe sal Care 2016, 39(Sharma ppl.1 ):s13 -s22 Not Available [facility] (Lab) [address] [place], [address], 11/27/2023 21:02:04 05/21/20 23 05/19/2023 XR, knee, 3 view No observ ation record ed. [email or web address] Not Available 05/11 16:27:57 05/21/20 23 05/19/2023 XR, ankle , 3 or more view No observ ation record ed. [email or web address] Not Available 05/11 16:27:57 05/22/20 23 XR, knee No observ ation record ed. [email or web address] [facility] [address] [facility], [place], [address], 05/22/2023 10:51:39 06/14/19 24 XR, foot No observ ation record ed. [facility] [address], [place], [address], 06/14/2023 13:55:20 06/14/19 24 06/14/2023 MRI, foot, w/o contr ast No observ ation record ed. [address], [place], [address], 06/15/2023 14:13:35 06/15/19 24 06/15/2023 injec tion/ aspir ation joint /burs a (PROC ) No observ ation record ed. [address], [place], [address], 06/18/2023 10:06:14 06/20/19 24 XR, knee No observ ation record ed. [email or web address] [address] [facility] [address], [place], [address], 06/20/2023 12:56:33 07/13/19 24 07/13/2023 MRI, knee, w/o contr ast No observ ation record ed. [email or web address] [address], [place], [address], 09/12/2023 15:51:05 07/13/19 24 07/13/2023 MRI, knee, w/o contr ast No observ ation record ed. [address], [place], [address], 07/23/2023 12:17:22 09/19/19 25 09/16/2024 imagi ng/di agnos tic resul t No observ ation record ed. [facility] [address], [place], [address], 09/18/2024 16:57:41 09/19/19 25 09/16/2024 imagi ng/di agnos tic resul t No observ ation record ed. [facility] [address], [place], [address], 09/18/2024 16:57:52 Result Notes None recorded. Problems Name Problem SNOMED Code Status Onset Date Resolution Date Notes Provider Name and Address Organization Details Recorded Time Serum iron below reference range 446789387 Active 2021 Not Available [facility] 4 06:42:32 Essential hypertensi on 04176470 Active 2022 Not Available [facility] 4 06:42:33 Obesity 906843917 Active 2022 Not Available [facility] 4 06:42:33 Proteinuri a 95723510 Active 2022 Not Available [facility] 4 06:42:33 Acute kidney injury 83369165 Active 2022 Not Available [facility] 4 06:42:32 Sleep apnea 31328985 Active 2022 Not Available [facility] 4 06:42:33 Iron deficiency anemia 22724069 Active 2022 Not Available [facility] 4 06:42:33 Prediabete s 367313336 Active 2022 Not Available [facility] 4 06:42:33 Liver enzymes level above reference range 401250765 Active 2022 Not Available [facility] 4 06:42:33 Gout 26221779 Active 2022 Not Available [facility] 4 06:42:33 Pain of joint of ankle and/or foot 982783532 Active 2022 Not Available [facility] 4 06:42:32 Steatotic liver disease 099344020 Active 2022 Not Available [facility] 4 06:42:32 Pain of left knee joint 7511091811995 07 Active 2022 Not Available [facility] 4 06:42:33 Pain of right knee joint 6591275222704 00 Active 2022 Not Available [facility] 4 06:42:33 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 Active 2022 Not Available [facility] 4 06:42:32 Contusion of right knee 5414838514752 9104 Active 2022 Not Available [facility] 4 06:42:32 Contusion of left knee 2178437235426 9109 Active 2022 Not Available [facility] 4 06:42:32 Vitamin D deficiency 57217252 Active 2022 Not Available [facility] 4 06:42:33 Mechanical complicati on of implant 690568129 Active 2022 Not Available [facility] 4 06:42:33 Anterior knee pain 949910354 Active 2022 Not Available [facility] 4 06:42:32 Pain of joint 65637988 Active 2022 Not Available [facility] 4 06:42:33 Pain in left foot 1907891509101 07 Active 2023 Not Available [facility] 4 06:42:33 Obstructiv e sleep apnea syndrome 66274309 Active 2023 Oscar johnson MD [address], [facility] [address], [place], [address] , [facility] [employer] [facility] 4 18:52:01 Hyperlipid emia 64824163 Active 2023 Oscar johnson MD [address], [address], [place], [address] , [facility] [employer] [facility] 4 18:54:45 Anemia 146132079 Active 2023 Oscar johnson MD [address], [address], [place], [address] , [facility] [employer] [facility] 4 18:55:20 Hyperglyce ector 72042766 Active 2023 Oscar johnson MD [address], [address], [place], [address] , [facility] [employer] [facility] [employer] [facility] 4 18:56:34 Chronic kidney disease 970407168 Active 2023 Oscar johnson MD [address], [address], [place], [address] , [facility] [employer] [facility] 4 18:58:01 [employer] is [id number] Active 2023 Shirley Hansen MA null, [facility] [employer] [facility] 4 11:53:59 Notes:Medical History: Obesi ty with [...] Recorded Time colonoscopy completed Norma Lakhani MA [facility] [employer] 10/30/2023 15:15:32 Imaging Results None recorded. Procedure Notes None recorded. Medical Equipment None [...] suspension for injection in office 06/[address] [facility]: 0003- [id number]- 20 Not Available Not Available [...] DateTime 06/20/2023 180.34 cm Lorene Ramos Rocael [facility] [email or web address] [facility] 06/20/2023 10:23:23 Date Recorded Body height Body mass index (BMI) Body weight Body temperature Heart rate Systolic blood pressure Diastolic blood pressure Provider Name and Address Organization Details Last Updated DateTime 5 180.34 cm 44.4 kg/m2 560354. 37 g 97.7 [degF] 90 /min 138 mm[Hg] 82 mm[Hg] Shelley Rojas [facility] [employer] [facility] [employer] 5 16:54:44 Date Recorded Body height Provider Name an d Address Organization Details Last Updated DateTime 07/18/2023 180.34 cm Joy Morton [employer] [facility] [employer] 07/18/2023 08:53:51 Date Recorded Body height Body mass index (BMI) Body weight Body temperature Heart rate Oxygen saturation Oxygen saturation in Arterial blood by Pulse oximetry Systolic blood pressure Diastolic blood pressure Provider Name and Address Organization Details Last Updated DateTime 4 180.34 cm 40.9 kg/m2 463012. 56 g 98.3 [degF] 88 /min 98 % 98 % 134 mm[Hg] 84 mm[Hg] Norma Lakhani MA [facility] [employer] [facility] 4 15:13:46 Date Recorded Body height Body mass index (BMI) Body weight Body temperature Heart rate Respiratory rate Oxygen saturation Oxygen saturation in Arterial blood by Pulse oximetry Systolic blood pressure Diastolic blood pressure Provider Name and Address Organization Details Last Updated DateTime 4 180.34 cm 42.5 kg/m2 565333. 67 g 98 [degF] 86 /min 18 /min 99 % 99 % 136 mm[Hg] 72 mm[Hg] Sebastián Mendenhall LPN [place] [facility] 4 15:52:28 Social History Question Answer Notes LastModified by Organization Details LastModified Time Tobacco Smoking Status Never Smoker Not Available [facility] 08/09/2022 23:29:04 Do You Have An Advance Directive? No MIGRATION.0301 [id number] Information not available 08/09/2022 What Is Your Level Of Caffeine Consumption? Moderate MIGRATION.030 [id number] Information not available 08/09/2022 In The 14 Days Before Symptom Onset, Have You Had Close Contact With A Laboratory-conf irmed COVID-19 While That Case Was Ill? No MIGRATION.030 [id number] Information not available 08/09/2022 In The 14 Days Before Symptom Onset, Have You Had Close Contact With A Person Who Is Under Investigation For COVID-19 While That Person Was Ill? No MIGRATION.0301 [id number] Information not available 08/09/2022 What Type Of Diet Are You Following? REGULAR MIGRATION.030 332801 Information not available 08/09/2022 What Is The Highest Grade Or Level Of School You Have Completed Or The Highest Degree You Have Received? [id number] MIGRATION.030 884795 Information not available 08/09/2022 Have There Been Any Changes To Your Family Or Social Situation? No MIGRATION.030 563353 Information not available 08/09/2022 What Is The Fluoride Status Of Your Home? Fluoridated MIGRATION.030 512801 Information not available 08/09/2022 Are There Any Guns Present In Your Home? No MIGRATION.0301 334333 Information not available 08/09/2022 Do You Use Insect Repellent Routinely? No MIGRATION.0301 975581 Information not available 08/09/2022 Where Do You Live? SingleLevelHouse MIGRATION.030 338990 Information not available 08/09/2022 Do You Have A Medical Power Of Utility Teller? No MIGRATION.0301 333584 Information not available 08/09/2022 What Was The Date Of Your Most Recent Tobacco Screening? 07/15/2024 [email or web address] Information not available 07/15/2024 Have You Ever Been Counseled For Unhealthy Alcohol Use? No MIGRATION.0301 090490 Information not available 08/09/2022 Do You Have Any Pets? No MIGRATION.0301 704403 Information not available 08/09/2022 What Is Your Relationship Status? Single MIGRATION.0301 712316 Information not available 08/09/2022 Do You Use Your Seat Belt Or Car Seat Routinely? Yes MIGRATION.0301 096871 Information not available 08/09/2022 Do You Have Smoke And Carbon Monoxide Detectors In Your Home? Yes MIGRATION.0301 260397 Information not available 08/09/2022 Are You Passively Exposed To Smoke? No MIGRATION.0301 496297 Information not available 08/09/2022 Are There Any Smokers In Your House? No MIGRATION.0301 930354 Information not available 08/09/2022 What Types Of Sporting Activities Do You Participate In? None MIGRATION.0301 869586 Information not available 08/09/2022 Do You Use Sunscreen Routinely? No MIGRATION.0301 622494 Information not available 08/09/2022 Has Tobacco Cessation Counseling Been Provided? No Not Needednever Smoked MIGRATION.0301 045800 Information not available 08/09/2022 Have You Recently Traveled Abroad? No MIGRATION.0301 816648 Information not available 08/09/2022 Do You Have Any Dietary Restrictions? No MIGRATION.0301 711661 Information not available 08/09/2022 Sex: Male Functional Status Question Answer Note LastModified by [employer] Details LastModified Time Do you use any illicit or recreational drugs? No MIGRATION.061653 1044 Information not available 08/09/2022 Do you or have you ever used any other forms of tobacco or nicotine? No MIGRATION.353519 3409 Information not available 08/09/2022 What is your level of alcohol consumption? 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 Moderate cuts grass MIGRATION.094483 3266 Information not available 08/09/2022 Mental Status Question Answer Note LastModified by Organizat ion Details LastModified Time Do you feel stressed (tense, restless, nervous, or anxious, or unable to sleep at night)? [id number] MIGRATION.[id number] 6 Information not available 08/09/2022 Family History Relationship Description Onset Age of this Age Resolved Age Notes LastModified by Organization Details LastModified Time Mother Malignant neoplastic disease MIGRATION.420 [id number] Not available 08/09/2022 23:29:15 Sister COVID-19 MIGRATION.166 [id number] Not available 08/09/2022 23:29:15 Medical History Condition [...] (COVID-19) vaccine, UNSPECIFIED 1 completed Not Available Pending sale to [facility] 06/28/2023 06:42:33 SARS-COV-2 (COVID-19) vaccine, UNSPECIFIED 1 completed Not Available [facility] 06/28/2023 06:42:33 Influenza, split virus, quadrivalent, PF 2 completed Not Available [facility] 06/28/2023 06:42:33 Influenza, split virus, quadrivalent, PF 3 completed Nitza Rinaldi [employer] [address] [facility], [place], [address], [facility] [employer] [facility] 04/30/2023 16:34:20 Past Encounters Encounter ID Performer Location Encounter Start Date Encounter Closed Date Diagnosis/Indication Diagnosis SNOMED-CT Code Diagnosis ICD10 Code Diagnosis Note [id number] MD GENA Veloz_[facility] Internal Med [facility] [address] [facility] 15 [place] [address] 01/11/2021 00:00:00 01/11/2021 17:13:23 [id number] Oscar johnson MD [facility] Internal Med [facility] [address] [facility] [address] [place] [address] 02/15/2021 00:00:00 02/15/2021 20:18:11 [id number] Oscar johnson MD [facility] Internal Med [facility] [address] [facility] 15 [place] [address] 03/15/2021 00:00:00 03/15/2021 19:59:43 [id number] MD GENA Veloz_G Internal Med [facility] [address] [facility] 15 [place] [address] 06/28/2021 00:00:00 06/28/2021 17:28:10 [id number] MD GENA Veloz_G Internal Med [facility] [address] [place] [address] 10/14/2021 00:00:00 10/14/2021 17:03:15 [id number] Oscar johnson MD [facility] Internal Med [facility] [address] [address] 04/21/2022 00:00:00 04/21/2022 17:11:39 [id number] Oscar johnson MD [facility] Internal Med [facility] [address] [facility] 15 [place] [address] 10/24/2022 15:55:35 10/24/2022 16:31:49 Essential hypertension 20578818 I10 on amlodipine , HCTZ, losartan Obesity 685810544 E66.9 recommend healthy, well balanced mealsfocus on lean meats, fresh vegetables , fresh fruits, whole grainsredu ce fast/proce ssed foods or eating out to no more than 1-2 times per weekaim to get 30 min of exercise most days of the week- walking is a great choicealso recommend resistance training 2-3 times per week Proteinuria 53322798 R80 .9 now following nephrology - Dr Coe History of acute kidney injury 6242009024 06961 Z87.448 07/13 to [facility] while [facility] gy appt as above Sleep apnea 08242714 G47 .30 now on CPAP- he is not wearing it, he tells me he doesn't like itWe had previously referred him over to [facility] for evaluation for inspire device, he tells me he still has referral but does not want to go just yet Offered him a pulmonolog y referral to troublesho ot CPAP-he declines today We discussed risks of untreated sleep apnea including heart problems, lung problems, and , strongly encouraged him to wear the CPAP Iron defic iency anemia 69610333 D50.9 Dr. Coe took him off the ironis s/p cscope but GI is recommendi ng EGD- he declines this History of polyp of colon 606480488 Z86.010 repeat colon 03/2026 Prediabetes 649612761 R7 3.03 diet/exerc ise encouraged Cholesterol screening 27 0327461 Z13.220 Screening for malignant neoplasm of prostate 834043889 Z12.5 [id number] Oscar johnson MD [facility] Internal Med [facility] [address] [facility], [facility] 15 [place] [address] 04/30/2023 15:34:01 04/30/2023 16:04:22 Essential hypertension 00347944 I10 on amlodipine , HCTZ, losartan Obesity 327730754 E66.9 recommend healthy, well balanced mealsfocus on lean meats, fresh vegetables , fresh fruits, whole grainsredu ce fast/proce ssed foods or eating out to no more than 1-2 times per weekaim to get 30 min of exercise most days of the week- walking is a great choicealso recommend resistance training 2-3 times per week Proteinuria 87217353 R80 .9 now following nephrology - Dr Coe History of acute kidney injury 4497025437 01404 Z87.448 2/ to [facility] gy appt as above Sleep apnea 78028346 G47 .30 now on CPAP- he is [...] wear the CPAP Iron defic iency anemia 35055476 D50.9 Dr. Coe took him off the ironis s/p cscope but GI is recommendi ng EGD- he declines this History of polyp of colon 282835235 Z86.010 repeat colon 03/2026 Prediabetes 888347867 R7 3.03 diet/exerc ise encouraged nephrology started him on metformin Adult heal th examination 691669226 Z00.01 Steatotic liver disease 475225363 K76.0 working on diet/exerc ise/weight loss Gout 97834726 M10.9 Colchicine is contraindi cated with his current meds Will try to avoid NSAIDs due to his kidneys Will try a Medrol Dosepak and see if that helps Gout diet discussed Cholesterol screening 27 6393285 Z13.220 Administra tion of influenza vaccine 88243376 Z23 Depression screening 171 507087 Z13.31 [id number] KEYSHA Funez [address] [address] 05/22/2023 09:41:15 05/22/2023 10:51:21 Pain of left knee joint 0116191361 66808 M25.562 Pain of ri ght knee joint 9487243083 08385 M25.561 Bilateral Francesco-Schlatter disease 9621084390 9340681 M92.523 Contusion of left knee 2047744163 4090667 S80.02XA [id number] Christophe Blankenship MD [address] [address] 06/07/2023 09:56:30 06/13/2023 09:33:45 Contusion of left knee 5077654431 5239324 S80.02XD Pain of le ft knee joint 4575919628 47457 M25.562 Pain of joint 84765579 M 25.263 [id number] Christophe Blankenship MD [address] [address] 06/14/2023 09:57:07 06/14/2023 14:05:35 Contusion of left knee 5666379398 3240980 S80.02XD Impression : 1. Patient has gout [...] face-to-fa ce care. Pain in left foot 220003 6290 19107 M79.207 [id number] Christophe Blankenship MD [facility] [place] [address] [place] [address] 06/20/2023 09:50:56 06/20/2023 13:04:00 Contusion of left knee 1895573989 8674492 S80.02XD Pain in left foot 981279 1082 80239 M79.031 [id number] Christophe Blankenship MD [facility] [place] [address] [place] [address] 07/18/2023 08:48:27 07/23/2023 10:45:15 Pain of left knee joint 6579816593 57829 M25.273 [id number] Oscar johnson MD [facility] Internal Med [facility] [address] [facility] [address] [address] 10/30/2023 14:53:41 10/30/2023 16:02:38 Screening - NAD 366638765 Z13.9 C-scope: Dr Willis 04/06/2021 , next in 5 years Get yearly flu shot, get Tdap if not doneCan do RSV vaccineGet shingrix vaccineCan do COVID 19 boosters RTC in 3 months, do labs, ER if worse Essential hypertension 98769691 I10 On chlorthali done 25mg dailyOn losartan 100mg dailyOn aldactone 100mg dailyOn torsemide 20mg dailyGet labs Obstructiv e sleep apnea syndrome 74181918 G47.33 Steatotic liver disease 513950772 K76.0 Get US liverHepat itis pane, and GGT Gout 82963690 M10.9 On allopurino l 300mg daily Hyperlipidemia 99337411 E78.5 On atorvastat in 20mg daily, increase to 40mg dailyGet labs Screening for malignant neoplasm of prostate 386058354 Z12.5 Anemia 978122475 D64.9 Microcytic Can get on ironGet a referral to Dr Riley Hyperglycemia 94064208 R 73.9 Get labsNeeds to see eye MD and podiatry Chronic ki dney disease 617795849 N18.9 Dr Coe 08/28/2023 Screening for cardiovascular system disease 718767934 Z13.6 [id number] Oscar johnson MD [facility] Internal Med [facility] [address] [facility] [address] 01/29/2024 15:18:00 01/29/2024 16:26:53 Screening - NAD 661025458 Z13.9 C-scope: Dr Willis 04/06/2021 , next in 5 years Get yearly flu shot, get Tdap if not doneCan do RSV vaccineGet shingrix vaccineCan do COVID 19 boosters RTC in 3 months, do labs, ER if worse Essential hypertension 20270602 I10 On chlorthali done 25mg daily, given by Dr Mejia losartan 100mg dailyOn aldactone 100mg dailyOn torsemide 20mg dailyGet labs Obstructiv e sleep apnea syndrome 04581277 G47.[address] Naranjo Steatotic liver disease 641079278 K76.0 Get US liverHepat itis Panel: NegativeGG T 61 Gout 79014296 M10.9 On allopurino l 300mg daily Hyperlipidemia 49546287 E78.5 On atorvastat in 20mg dailyGet labs Anemia 782695333 D64.9 Microcytic Can get on ironGet a referral to Dr Riley Hyperglycemia 83410647 R 73.9 On metformin ER 500mg bid Get labsNeeds to see eye MD and podiatry Chronic ki dney disease 167463759 N18.9 Dr Coe 08/28/2023 Screening for cardiovascular system disease 041367387 Z13.6 Does need to see cardiology , referred 01/29/2024 [id number] Oscar johnson MD [facility] [address] [facility] [place] [address] 07/15/2024 16:04:46 07/15/2024 17:32:05 Screening - NAD 367712922 Z13.9 C-scope: Dr Willis 04/06/2021 , next in 5 years Get yearly flu shot, get Tdap if not doneCan do RSV vaccineUTD on shingrix vaccineCan do COVID 19 boosters RTC in 3 months, do labs, ER if worse Essential hypertension 50272799 I10 On chlorthali done 25mg daily, given by Dr Coe 06/17/2024 , f/u in 6 monthsOn nifedipine 60mg dailyOn losartan 100mg dailyOn aldactone 100mg dailyOn torsemide 20mg dailyGet labs Obstructiv e sleep apnea syndrome 67450281 G47.[address] Naranjo Steatotic liver disease 400402526 K76.0 Get US liverHepat itis Panel: NegativeGG T 61He does consume alcohol, advised to wean off Gout 99187774 M10.9 On allopurino l 300mg daily Hyperlipidemia 27460852 E78.5 On atorvastat in 20mg dailyGet labs Anemia 300637235 D64.9 Microcytic Can get on ironSees Dr Riley in 10/2024 Hyperglycemia 12277676 R 73.9 On metformin ER 500mg bid Get labsNeeds to see eye MD and podiatry Chronic ki dney disease 133388093 N18.9 Dr Coe 08/28/2023 Screening for cardiovascular system disease 150199534 Z13.6 Does need to see cardiology , referred 01/29/2024 Pain of le ft knee joint 9516186931 66514 M25.562 S/p MRI 07/13/[address] Blankenship ortho Health Concerns Section Related Observation LastModified by Organization Detai ls LastModified Time None Recorded Concern Status LastModified by Organization Details LastModified Time None Recorded Advance Directives Directive N: Payers Encounter Date Sequence Insurance Name Policy Number Policy Brown Covered Member ID Brown Member ID Guarantor Name 06/20/2023 [facility] Armani Oconnell 07/18/2023 [facility] Armani Oconnell 10/30/2023 1 [facility] (EPO) Armani Oconnell [id number] Armani Oconnell 01/29/2024 1 [facility] (EPO) Armani Oconnell [id number] Armani Oconnell 07/15/2024 1 [facility] [id number] Armani Oconnell [id number] Armani Oconnell Notes Date Note Type Note [...] differential and crystals and culture was sent. 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 Christophe Blankenship MD [address] [place] [address] [place], [facility] [address], [place], [address], [place] - [facility] [employer] 06/20/2023 13:03:20 07/18/2023 text/html Patient returns. His MRI scan was completed on 07/13/2023. 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 I reviewed the MRI findings with the [...] from a chair now. Christophe Blankenship MD [address] [place] [address], [facility] [address], [place], [address], [facility] [employer] [facility] 07/22/2023 20:13:22 10/30/2023 text/html OV 10/30/2023:He re to establish care Present Hx:HTNOSAPrediabetesAn emiaSteatosis of liverGout Here to discuss above and get labs Oscar Joseph MD [address], [address], [place], [address], [facility] [employer] [facility] [employer] [facility] 10/31/2023 17:58:59 01/29/2024 text/html OV 10/30/2023:He re to establish care Present Hx:HTNOSAPrediabetesAn emiaSteatosis of liverGout Here to discuss above and get labs OV 01/29/2024: Here for his routine apt, he feels well now, he has seen Dr Coe and also Dr Riley, he did do the labs Oscar Joseph MD [address], [address], [place], [address], [facility] [employer] [facility] 01/29/2024 16:29:28 07/15/2024 text/html OV 10/30/2023:He re [...] the labs Oscar Joseph MD [address], [address], [place], [address], [facility] [employer] [facility] 07/15/2024 17:58:29
[2024-11-13 18:41] LABS: Creatinine Urine 197.2 mg/dL; MALB Creatinine Ratio 4.7 mg/g (0-30); Microalbumin Urine Random 9.2 mg/L (0-16.7)
[2024-11-13 18:42] LABS: Alanine Aminotransferase 75 U/L (6-50); Albumin Level 4.4 g/dL (3.5-5.1); Alkaline Phosphatase 94 U/L (38-126); Anion Gap 9 mmol/L (4-12); Aspartate Amino Transferase 107 U/L (17-59); Bilirubin,Total 0.4 mg/dL (0.2-1.3); Blood Urea Nitrogen 18 mg/dL (9-20); Calcium 10.2 mg/dL (8.4-10.2); Carbon Dioxide 27 mmol/L (22-30); Chloride 102 mmol/L (98-107); Cholesterol 129 mg/dL (0-200); Estimated Glomerular Filt Rate 51; Glucose 98 mg/dL (65-110); HDL Direct 49 mg/dL; LDL Cholesterol Direct 58 mg/dL; Potassium 3.9 mmol/L (3.4-5.0); Sodium 138 mmol/L (137-145); Total Protein 7.5 g/dL (6.3-8.2); Triglycerides 90 mg/dL (<150)
[2024-11-13 22:01] LABS: Hemoglobin A1C 5.5 % (<5.7)
== END 2024-11-13 15:39 | disposition home or self-care (01) ==
LOC: ANHLAB 15:39
PROVIDERS: PCP Internal Medicine; Visit Provider Internal Medicine
DX: R73.9 Hyperglycemia, unspecified (principal); I10 Essential (primary) hypertension
CPT/HCPCS: 36415; 80053; 80061; 82043; 83036; 84443; 85025

== ENCOUNTER 2024-12-09 13:43 | Outpatient (CLI) | payer OTHER, SELFPAY ==
--- OUTSIDE RECORDS SUMMARY | 2024-12-09 13:49 | XMS_ITS | Clinical Summary ---
Author Organization [facility] Pablo Cowan Address [address] [place] [place] [address] Care Team Providers Care Strip Tank Tender Name Role Phone Oscar Joseph MD Primary [...] Encounters Date Type Department Care Team Description 11/26/2024 External Device Data STL ABSTRACTION Provider, Abstract 10/28/2024 3:45 PM CDT Office Visit [facility] Oncology and Hematology [facility] [address] [place] [address] Juan Riley MD Anemia, chronic disease (Primary Dx) 10/24/2024 Orders Only [facility] Oncology and Hematology [facility] [address] [place] [address] Juan Riley MD from Last [...] Description 10/29/2025 3:45 PM CDT Office Visit [facility] Oncology and Hematology [facility] [address] [facility] [address] [place] [address] Juan Riley MD [address] [facility] [address] [place] [address] Health Maintenance Due Date Last [...] Res ult from Last 3 Months Insurance [email or web address] Care Teams Strip Tank Tender Relationship Specialty Start Date End Date Oscar Joseph MD PCP - General Internal Medicine 01/09/24
--- OUTSIDE RECORDS SUMMARY | 2024-12-09 13:49 | XMS_ITS | Data Portability ---
Author Organization Debora [facility]UST Address [address] [place] [address] Assessment No assessment recorded. Plan of Treatment Reminders Order Date Submit Date Provider Last Modified By Organization Details Last Modified Time Details Appointments None recorded. Lab HbA1c (hemoglobi n A1c), blood 2017 018 WILFREDO HUA, [address] [place], [place] [address]raymond Gus, [facility] [address], [place], [address], 8 10:36:21 hemoglobin , qualitativ e, stool by immunologi c method 2017 018 WILFREDO HUA, [address] [place] [address], [address], [place], [address], 8 09:52:00 BMP, serum or plasma 2017 018 WILFREDO HUA, [address] [place], [place] [address]raymond Gus, [facility] [address], [place], [address], 8 10:36:19 lipid panel, serum 2017 018 WILFREDO SEQUEIRA, [address] [place], [place] [address]raymond Weber, [address], [place], [address], 8 10:36:19 microalbum in/creatin ine, mass ratio, urine 2017 018 WILFREDO HUA, [address] [place], [place] [address]raymond Weber, [address], [place], [address], 8 10:36:20 BMP, serum or plasma 2016 017 [facility], [address] [facility] Gus, [address], [place], [address], 7 06:06:09 CBC w/ auto diff 2016 017 [facility], [address] [place] [address] Gus, [address], [place], [address], 7 08:26:20 C reactive protein, QN, serum or plasma 2016 017 [facility], [address] [facility] Gus, [address], [place], [address], 7 08:26:21 lipid panel, serum 2016 017 [facility], [address] [place] [address], [address], [place], [address], 7 08:26:20 HIV (1+2) Ab, rapid, unspecifie d specimen 2016 017 [email or web address] In-Office Order, Internal Use Only DO Not Attach Compendium DO Not Attach Compendium, Do Not Delete/merge, [id number] 7 16:12:03 Referral colonoscop y referral 2016 017 [email or web address] Not available 9 15:01:50 Procedures None recorded. Surgeries None recorded. Imaging None recorded. Medication Orders amlodipine [address] [facility] #17334, [address], [place], [id number], 8 09:56:35 hydrochlor othiazide 50 mg tablet 2016 017 [email or web address] [facility] #29000, [address], [place], [id number], 8 09:58:11 amlodipine 10 mg tablet 2016 017 [facility] #42878, [address], [place], [id number], 7 12:47:13 amlodipine 10 mg tablet 2016 017 [facility] #55618, [address], [place], [id number], 7 01:28:24 hydrochlor othiazide 25 mg tablet [address] [facility] #07608, [address], [place], [id number], 7 12:40:08 meloxicam 7.5 mg tablet [address] [facility] #57488, [address], [place], [id number], 7 13:47:33 amlodipine 10 mg tablet [address] [facility] #07471, [address], [place], [id number], 7 12:46:39 hydrochlor othiazide 25 mg tablet [address] [facility] #75082, [address], [place], [id number], 7 12:40:08 sertraline 50 mg tablet [address] [facility] #98066, [address], [place], [id number], 7 13:47:29 meloxicam 7.5 mg tablet 2016 017 [email or web address] [facility], [address], [place], [id number], 7 13:47:33 amlodipine 10 mg tablet 2016 017 [facility] #74064, [address], [place], [id number], 7 15:48:36 hydrochlor othiazide 12.5 mg capsule 2016 017 [email or web address] [facility] #62681, [address], [place], [id number], 7 12:46:44 sertraline 50 mg tablet 2016 017 [email or web address] #10973, [address], [place], [id number], 7 13:47:29 Patient TargetsNo targets recorded. Patient Instructions Encounter Date Encounter Id Patient Instructions Last Modified By Organization Details Last Modified Time 08/22/2016 [id number] C-reactive protein (CRP) test: about this test Not available 08/22/2016 15:48:38 learning about high blood pressure Not available 08/22/2016 16:11:58 09/22/2016 [id number] I was present an d available in the Family Medicine clinic to discuss this patient's care during the appointment. I agree with the resident's assessment and plan as documented. EDWARD Not available 10/02/2016 21:47:37 10/26/2016 [id number] I was present in the clinic to discuss this patient at the time of the visit. I agree with the documented assessment and plan. Rosi Monk MD [email or web address] Not available 11/13/2016 14:50:45 01/30/2017 [id number] I certify that I was present and available in the family medicine clinic for discussion of this patient. I have reviewed the residents note and agree with the stated assessment and treatment plan. SVIAN [email or web address] Not available 01/30/2017 16:11:16 04/24/2018 [id number] I was present an d available in the Family Medicine clinic to discuss this patient's care during the appointment. I agree with the resident's assessment and plan as documented. EDWARD Not available 04/26/2018 18:04:22 Reason for Referral Colonoscopy Referral for Scr eening for malignant neoplasm of colon Referring Physician: David Fernandes Bill Of Materials Clerk, Encounter Date: 08/22/2016 Results Created Date Observation Date Name Description Value Unit Range Abnormal Flag Note LastModifiedBy Organization Detail LastModifiedTime 08/23/19 17 08/22/2016 HIV (1+2) Ab, rapid , unspe cifie d speci men Rapid HIV negati ve Not Available In-Office Order Internal Use Only DO Not Attach Compendium DO Not Attach Compendium, Do Not Delete/merge, [id number] 08/22/2016 15:47:47 08/23/19 17 08/23/2016 CBC w/ auto diff WBC 9.7 x10e3 /uL 3.4-10 .8 Not Available [facility] ([facility]) [address] [place], [address], 08/23/2016 08:26:20 08/23/19 17 08/23/2016 CBC w/ auto diff RBC 4.97 x10e6 /uL 4.14-5 .80 Not Available [facility] ([facility]) [address], [place], [address], 08/23/2016 08:26:20 08/23/19 17 08/23/2016 CBC w/ auto diff hemoglobin 11.3 g/dL 12.6-1 7.7 below low normal Not Available [facility] ([facility]) [address] [place], [address], 08/23/2016 08:26:20 08/23/19 17 08/23/2016 CBC w/ auto diff hematocrit 35.2 % 37.5-5 1.0 below low normal Not Available [facility] ([facility]) [address], [place], [address], 08/23/2016 08:26:20 08/23/19 17 08/23/2016 CBC w/ auto diff MCV 71 fL 79-97 below low normal Not Available [facility] ([facility]) [address], [place], [address], 08/23/2016 08:26:20 08/23/19 17 08/23/2016 CBC w/ auto diff MCH 22.7 pg 26.6-3 3.0 below low normal Not Available [facility] ([facility]) [address], [place], [address], 08/23/2016 08:26:20 08/23/19 17 08/23/2016 CBC w/ auto diff MCHC 32.1 g/dL 31.5-3 5.7 Not Available [facility] ([facility]) [address], [place], [address], 08/23/2016 08:26:20 08/23/19 17 08/23/2016 CBC w/ auto diff RDW 16.8 % 12.3-1 5.4 above high normal Not Available [facility] ([facility]) [address], [place], [address], 08/23/2016 08:26:20 08/23/19 17 08/23/2016 CBC w/ auto diff platelets 409 x10e3 /uL 150-37 9 above high normal Not Available [facility] ([facility]) [address], [place], [address], 08/23/2016 08:26:20 08/23/19 17 08/23/2016 CBC w/ auto diff neutrophils 73 % Not Available [facility] ([facility]) [address], [place], [address], 08/23/2016 08:26:20 08/23/19 17 08/23/2016 CBC w/ auto diff lymphs 17 % Not Available [facility] ([facility]) [address] [place], [address], 08/23/2016 08:26:20 08/23/19 17 08/23/2016 CBC w/ auto diff monocytes 9 % Not Available [facility] ([facility]) [address] [place], [address], 08/23/2016 08:26:20 08/23/19 17 08/23/2016 CBC w/ auto diff eos 1 % Not Available [facility] ([facility]) [address] [place], [address], 08/23/2016 08:26:20 08/23/19 17 08/23/2016 CBC w/ auto diff basos 0 % Not Available [facility] ([facility]) [address] [place], [address], 08/23/2016 08:26:20 08/23/19 17 08/23/2016 CBC w/ auto diff immature cells RN PLASTICS Not Available [facility] ([facility]) [address] [place], [address], 08/23/2016 08:26:20 08/23/19 17 08/23/2016 CBC w/ auto diff neutrophils (absolute) 7.0 x10e3 /uL 1.4-7. 0 Not Available [facility] ([facility]) [address] [place], [address], 08/23/2016 08:26:20 08/23/19 17 08/23/2016 CBC w/ auto diff lymphs (absolute) 1.7 x10e3 /uL 0.7-3. 1 Not Available [facility] ([facility]) [address] [place], [address], 08/23/2016 08:26:20 08/23/19 17 08/23/2016 CBC w/ auto diff monocytes(ab solute) 0.9 x10e3 /uL 0.1-0. 9 Not Available [facility] ([facility]) [address], [place], [address], 08/23/2016 08:26:20 08/23/19 17 08/23/2016 CBC w/ auto diff eos (absolute) 0.1 x10e3 /uL 0.0-0. 4 Not Available [facility] ([facility]) [address], [place], [address], 08/23/2016 08:26:20 08/23/19 17 08/23/2016 CBC w/ auto diff baso (absolute) 0.0 x10e3 /uL 0.0-0. 2 Not Available [facility] ([facility]) [address], [place], [address], 08/23/2016 08:26:20 08/23/19 17 08/23/2016 CBC w/ auto diff immature granulocytes 0 % Not Available [facility] ([facility]) [address], [place], [address], 08/23/2016 08:26:20 08/23/19 17 08/23/2016 CBC w/ auto diff immature grans (abs) 0.0 x10e3 /uL 0.0-0. 1 Not Available [facility] ([facility]) [address], [place], [address], 08/23/2016 08:26:20 08/23/1908/23/2016 CBC w/ auto diff NRBC RN PLASTICS Not Available [facility] ([facility]) [address], [place], [address], 08/23/2016 08:26:20 08/23/1908/23/2016 CBC w/ auto diff hematology comments: RN PLASTICS Not Available [facility] ([facility]) [address], [place], [address], 08/23/2016 08:26:20 08/23/1908/23/2016 lipid panel , serum cholesterol, total 181 mg/dL 100-19 9 Not Available [facility] ([facility]) [address] [place], [address], 08/23/2016 08:26:20 08/23/19 17 08/23/2016 lipid panel , serum triglyceride s 90 mg/dL 0-149 Not Available [facility] ([facility]) [address] [place], [address], 08/23/2016 08:26:20 08/23/19 17 08/23/2016 lipid panel , serum HDL cholesterol 34 mg/dL >39 below low normal Not Available [facility] ([facility]) [address] [place], [address], 08/23/2016 08:26:20 08/23/19 17 08/23/2016 lipid panel , serum VLDL cholesterol yoli 18 mg/dL 5-40 Not Available [facility] ([facility]) [address] [place], [address], 08/23/2016 08:26:20 08/23/19 17 08/23/2016 lipid panel , serum LDL cholesterol calc 129 mg/dL 0-99 above high normal Not Available [facility] ([facility]) [address] [place], [address], 08/23/2016 08:26:20 08/23/19 17 08/23/2016 lipid panel , serum comment: RN PLASTICS Not Available [facility] ([facility]) [address] [place], [address], 08/23/2016 08:26:20 08/23/19 17 08/23/2016 C react juju prote in, QN, serum or plasm a C-reactive protein, quant 59.9 mg/L 0.0-4. 9 above high normal Not Available [facility] ([facility]) [address] [place], [address], 08/23/2016 08:26:21 08/23/19 17 08/23/2016 cardi ovasc ular asses sment panel , serum interpretati on NOTE SUPPL EMVINITA PONCE T IS AVAIL ABLE. Not Available [facility] ([facility]) [address] [place], [address], 08/23/2016 08:26:22 08/23/19 17 08/23/2016 cardi ovasc ular asses sment panel , serum pdf image . Not Available [facility] ([facility]) [address] [place], [address], 08/23/2016 08:26:22 09/23/19 17 09/23/2016 BMP, serum or plasm a glucose, serum 95 mg/dL 65-99 Not Available [facility] ([facility]) [address] [place], [address], 09/23/2016 06:06:09 09/23/19 17 09/23/2016 BMP, serum or plasm a BUN 6 mg/dL 6-24 Not Available [facility] ([facility]) [address] [place], [address], 09/23/2016 06:06:09 09/23/19 17 09/23/2016 BMP, serum or plasm a creatinine, serum 1.02 mg/dL 0.76-1 .27 Not Available [facility] ([facility]) [address] [place], [address], 09/23/2016 06:06:09 09/23/1909/23/2016 BMP, serum or plasm a eGFR if nonafricn AM 83 mL/mi n/1.7 3 >59 Not Available [facility] ([facility]) [address] [place], [address], 09/23/2016 06:06:09 09/23/19 17 09/23/2016 BMP, serum or plasm a eGFR if africn AM 96 mL/mi n/1.7 3 >59 Not Available [facility] ([facility]) [address] [place], [address], 09/23/2016 06:06:09 09/23/19 17 09/23/2016 BMP, serum or plasm a BUN/creatini ne ratio 6 9-20 below low normal Not Available [facility] ([facility]) [address] [place], [address], 09/23/2016 06:06:09 09/23/19 17 09/23/2016 BMP, serum or plasm a sodium, serum 143 mmol/ L 134-14 4 Not Available [facility] ([facility]) [address] [place], [address], 09/23/2016 06:06:09 09/23/19 17 09/23/2016 BMP, serum or plasm a potassium, serum 4.1 mmol/ L 3.5-5. 2 Not Available [facility] ([facility]) [address] [place], [address], 09/23/2016 06:06:09 09/23/19 17 09/23/2016 BMP, serum or plasm a chloride, serum 101 mmol/ L 96-106 Not Available [facility] ([facility]) [address] [place], [address], 09/23/2016 06:06:09 09/23/19 17 09/23/2016 BMP, serum or plasm a carbon dioxide, total 22 mmol/ L 18-29 Not Available [facility] ([facility]) [address] [place], [address], 09/23/2016 06:06:09 09/23/1909/23/2016 BMP, serum or plasm a calcium, serum 9.6 mg/dL 8.7-10 .2 Not Available [facility] ([facility]) [address] [place], [address], 09/23/2016 06:06:09 04/24/20 18 04/25/2018 BMP, serum or plasm a glucose 125 mg/dL 65-99 above high normal Not Available [facility] ([facility]) [address] [place], [address], 04/25/2018 10:36:19 04/24/20 18 04/25/2018 BMP, serum or plasm a BUN 9 mg/dL 6-24 Not Available [facility] ([facility]) [address] [place], [address], 04/25/2018 10:36:19 04/24/20 18 04/25/2018 BMP, serum or plasm a creatinine 1.28 mg/dL 0.76-1 .27 above high normal Not Available [facility] ([facility]) [address] [place], [address], 04/25/2018 10:36:19 04/24/20 18 04/25/2018 BMP, serum or plasm a eGFR if nonafricn AM 62 mL/mi n/1.7 3 >59 Not Available [facility] ([facility]) [address] [place], [address], 04/25/2018 10:36:19 04/24/20 18 04/25/2018 BMP, serum or plasm a eGFR if africn AM 72 mL/mi n/1.7 3 >59 Not Available [facility] ([facility]) [address] [place], [address], 04/25/2018 10:36:19 04/24/20 18 04/25/2018 BMP, serum or plasm a BUN/creatini ne ratio 7 9-20 below low normal Not Available [facility] ([facility]) [address] [place], [address], 04/25/2018 10:36:19 04/24/20 18 04/25/2018 BMP, serum or plasm a sodium 142 mmol/ L 134-14 4 Not Available [facility] ([facility]) [address] [place], [address], 04/25/2018 10:36:19 04/24/20 18 04/25/2018 BMP, serum or plasm a potassium 4.2 mmol/ L 3.5-5. 2 Not Available [facility] ([facility]) [address] [place], [address], 04/25/2018 10:36:19 04/24/20 18 04/25/2018 BMP, serum or plasm a chloride 101 mmol/ L 96-106 Not Available [facility] ([facility]) [address] [place], [address], 04/25/2018 10:36:19 04/24/20 18 04/25/2018 BMP, serum or plasm a carbon dioxide, total 25 mmol/ L 20-29 Not Available [facility] ([facility]) [address] [place], [address], 04/25/2018 10:36:19 04/24/20 18 04/25/2018 BMP, serum or plasm a calcium 9.8 mg/dL 8.7-10 .2 Not Available [facility] ([facility]) [address] [place], [address], 04/25/2018 10:36:19 04/24/20 18 04/25/2018 lipid panel , serum cholesterol, total 158 mg/dL 100-19 9 Not Available [facility] ([facility]) [address] [place], [address], 04/25/2018 10:36:19 04/24/20 18 04/25/2018 lipid panel , serum triglyceride s 76 mg/dL 0-149 Not Available [facility] ([facility]) [address] [place], [address], 04/25/2018 10:36:19 04/24/20 18 04/25/2018 lipid panel , serum HDL cholesterol 38 mg/dL >39 below low normal Not Available [facility] ([facility]) [address] [place], [address], 04/25/2018 10:36:19 04/24/20 18 04/25/2018 lipid panel , serum VLDL cholesterol yoli 15 mg/dL 5-40 Not Available [facility] ([facility]) [address] [place], [address], 04/25/2018 10:36:19 04/24/20 18 04/25/2018 lipid panel , serum LDL cholesterol calc 105 mg/dL 0-99 above high normal Not Available [facility] ([facility]) [address] [place], [address], 04/25/2018 10:36:19 04/24/20 18 04/25/2018 lipid panel , serum comment: RN PLASTICS Not Available [facility] ([facility]) [address] [place], [address], 04/25/2018 10:36:19 04/24/20 18 04/25/2018 micro album in/cr eatin ine, mass ratio , urine creatinine, urine 145.0 mg/dL not estab. Not Available [facility] ([facility]) [address] [place], [address], 04/25/2018 10:36:20 04/24/20 18 04/25/2018 micro album in/cr eatin ine, mass ratio , urine albumin, urine 29.6 ug/mL not estab. Not Available [facility] ([facility]) [address], [place], [address], 04/25/2018 10:36:20 04/24/20 18 04/25/2018 micro album in/cr eatin ine, mass ratio , urine alb/creat ratio 20.4 mg/g_ creat 0.0-30 .0 Marlen l: 0.0 - 30.0 Album inuri a: 31.0 - 300.0 Clini yoli album inuri a: >300. 0 Not Available [facility] ([facility]) [address], [place], [address], 04/25/2018 10:36:20 04/24/20 18 04/24/2018 HbA1c (hemo globi n A1c), blood hemoglobin A1C 5.9 % 4.8-5. 6 above high normal Predi abete s: 5.7 - 6.4 Diabe sal: >6.4 Glyce leah contr ol for adult s with diabe sal: <7.0 Not Available [facility] ([facility]) [address], [place], [address], 04/25/2018 10:36:21 04/24/20 18 04/25/2018 cardi ovasc ular asses sment panel , serum interpretati on Note Suppl cruz umanzor is avail able. Not Available [facility] ([facility]) [address], [place], [address], 04/25/2018 10:36:21 04/24/20 18 04/25/2018 cardi ovasc ular asses sment panel , serum pdf image . Not Available [facility] ([facility]) [address], [place], [address], 04/25/2018 10:36:21 12/22/19 21 12/21/2020 CT, head + brain , w/o contr ast No observ ation record ed. [facility] [address] [place], [address], 12/28/2020 09:38:42 12/22/19 21 12/21/2020 CT, chest , w/o contr ast No observ ation record ed. [facility] [address] [place], [address], 12/23/2020 21:19:51 Result Notes None recorded. Problems Name Problem SNOMED Code Status Onset Date Resolution Date Notes Provider Name and Address Organization Details Recorded Time Depressive disorder 15254531 Completed 201604/24/2018 Manjula Giles MD Attn: Vaughn ayon,[address] [facility], [place], [address], [facility] 8 09:56:35 Essential hypertension 45118543 Active 2016 David Fernandes DO Attn: Vaughn ayon,[address], [place], [address], [facility] 7 12:31:41 Problem Notes None recorded. Medical [...] mm[Hg] David Fernandes DO Attn: Accounting,[address], [place], [address], [place] - [facility] 08/22/2016 17:30:39 Date Recorded Body height Body weight Body mass index (BMI) Heart rate Body temperature Oxygen saturation Oxygen saturation in Arterial blood by Pulse oximetry Systolic blood pressure Diastolic blood pressure Provider Name and Address Organization Details Last Updated DateTime 180.34 cm 610954. 25 g 43 kg/m2 95 /min 98.7 [degF] 98 % 98 % 188 mm[Hg] 120 mm[Hg] Mally Ricks [facility] 7 14:41:45 Date Recorded Systolic blood pressure Diastolic blood pressure Provider Name and Address Organization Details Last Updated DateTime 09/22/2016 162 mm[Hg] 102 mm[Hg] [facility] Attn: Accounting,[address] [place], [address], [facility] 09/22/2016 12:27:18 Date Recorded Body height Body weight Body mass index (BMI) Body temperature Heart rate Oxygen saturation Oxygen saturation in Arterial blood by Pulse oximetry Systolic blood pressure Diastolic blood pressure Provider Name and Address Organization Details Last Updated DateTime 7 180.34 cm 246168. 52 g 41.7 kg/m2 98.5 [degF] 92 /min 98 % 98 % 170 mm[Hg] 108 mm[Hg] Caitlyn Ryan [facility] 7 12:13:30 Date Recorded Systolic blood pressure Diastolic blood pressure Provider Name and Address Organization Details Last Updated DateTime 10/26/2016 134 mm[Hg] 86 mm[Hg] [facility] Attn: Accounting,[address] [place], [address], [facility] 10/26/2016 12:49:48 Date Recorded Body height Body weight Body mass index (BMI) Body temperature Heart rate Oxygen saturation Oxygen saturation in Arterial blood by Pulse oximetry Systolic blood pressure Diastolic blood pressure Provider Name and Address Organization Details Last Updated DateTime 7 180.34 cm 904462. 12 g 41.7 kg/m2 98.1 [degF] 79 /min 98 % 98 % 134 mm[Hg] 96 mm[Hg] Quyen Ryan MA [facility] 7 12:24:52 Date Recorded Body height Body mass index (BMI) Body weight Body temperature Heart rate Oxygen saturation Oxygen saturation in Arterial blood by Pulse oximetry Systolic blood pressure Diastolic blood pressure Provider Name and Address Organization Details Last Updated DateTime 7 180.34 cm 43.4 kg/m2 493175. 03 g 98.1 [degF] 94 /min 98 % 98 % 152 mm[Hg] 98 mm[Hg] Robe Rivers [employer] [place] - [facility] 7 12:15:59 Date Recorded Body weight Body mass index (BMI) Body height Heart rate Oxygen saturation Oxygen saturation in Arterial blood by Pulse oximetry Body temperature Systolic blood pressure Diastolic blood pressure Provider Name and Address Organization Details Last Updated DateTime 8 817359. 07 g 62.5 kg/m2 154.94 cm 72 /min 98 % 98 % 98.4 [degF] 150 mm[Hg] 100 mm[Hg] Phylicia Sweeney MA [facility] 8 09:20:04 Social History Question Answer Notes LastModified by Organizat ion Details LastModified Time Tobacco Smoking Status Never Smoker Mally LINDSAY Ricks null, [facility] 08/22/2016 14:39:52 What Was The Date [...] Skin Problems N Anemia N Heart Attack ([place]) N Anxiety Disorder N Diabetes N Muscle, [...] virus, quadrivalent, PF 01/30/2017 completed Not Available [facility] 0 02:35:18 Influenza, split virus, quadrivalent, PF 04/24/2018 completed Not Available [facility] 0 02:40:23 Past Encounters Encounter ID Performer Location Encounter Start Date Encounter Closed Date Diagnosis/Indication Diagnosis SNOMED-CT Code Diagnosis ICD10 Code Diagnosis Note [id number] MD Palmira Martinez [facility] ([facility]) [address] [place] [address] 08/22/2016 14:01:55 08/23/2016 09:46:22 Essential hypertension 77421002 I10 HTN diagnosed in the ER but not started on any medication .182/108 in office today.Will start on Amlodipine 10 and HCTZ 12.5 today. Will plan to FU in 30 days. Pain in left knee [id number] 72979 M25.562 Pain and erythema in L Knee, x 2 weeks, will get CBC CRP and start on Meloxicam, Will get Xray if not improving. Depressive disorder 3548 9007 F32.9 PHQ-9 score of 13/27Will start on Sertaline, pt notes that he has trouble falling asleep. HIV screening [id number] Z11.4 Will check for HIV Screening for malignant neoplasm of colon [id number] Z12.11 Needs colonoscop y. [id number] MD Palmira Martinez FP ([address]) [address] [place] [address] 09/22/2016 12:08:18 09/27/2016 10:41:07 Depressive disorder [id number] F32.9 PHQ-2 score of 0Continue sertraline for now if symptoms remain so well controlled consider future D/C Essential hypertension 27410235 I10 BP slightly improved today but still elevated, 162/102 WIll increase HCTZ and ensured that pt has refills on Amlodipine plan to see back in 1 mo Pain in left knee [id number] 1313 11483 M25.562 Improved discussed continued meloxicam as needed but to d/c scheduled for now. Active or passive immunization [id number] Z23 [id number] MD Palmira Martinez [facility] ([address]) [address] [place] [address] 10/26/2016 11:59:21 10/27/2016 16:40:59 Essential hypertension [id number] I10 BP greatly improved today but still elevated, 134/86 continue HCTZ and Amlodipine plan to see back in 3 mo [id number] MD Angelita Martineziris e FP ([address]) [address] [place] [address] 01/30/2017 12:07:27 01/30/2017 14:44:11 Essential hypertension 13507457 I10 BP elevated will increase HCTZ here and at home.Pt prefers not to add an additional med, Will increase HCTZ to 50, continue amlodipine 10 Adult heal th examination [id number] Z00.00 Needs Flu shot today [id number] Inge Dugan MD [facility] [address] [facility] [address] [place] [address] 04/24/2018 09:02:48 04/25/2018 09:53:42 Obesity 183794008 E66.9 - Extensivel y counselled on a healthy diet and moderate intensity excercise 3-5x weekly for about ~45 minutes Essential hypertension 01665187 I10 - BP 150/100. Repeat 150/100. No red flag sx- Previously on Amlodipine 10mg and HCTZ 50mg daily- Will restart Amlodipine 10mg daily, will not start HCTZ at this time due to concern for dropping BP too low- Pt advised to check his BP at [facility] 2-3x weekly, write them down and call them in 2-3 weeks Screening for malignant neoplasm of colon [id number] Z12.11 - No h/o colon cancer, FH of colon cancer or blood in stool noted- As pt is self pay, will order FOBT test. Will send for colonoscop y if abnormal Paresthesi a of upper limb [id number] R20.2 - Tingling of back of L hand can be due to overuse and pt is lift boxes all day- Negative Tinel and Phalen test, less likely carpal tunnel- Will also check A1c to r/o diabetic neuropathy as cause of tingling Poor oral hygiene 176346 009 R46.89 - PE remarkable for 2 pits noted on posterior of roof of mouth (1 one each side).- No h/o smoking, poor dentition- Denies any tenderness or pain in mouth- Resources provided today for dentistry for further evaluation . Active or passive immunization [id number] Z23 Health Concerns Section Related Observation LastModified by Organization Detai ls LastModified Time None Recorded Concern Status LastModified by Organization Details LastModified Time None Recorded Advance Directives Directive None Recorded Payers Insurance Date Sequence Insurance Name Policy Number Policy Brown Covered Member ID Brwon Member ID Guarantor Name 08/12/2018 SLIDING FEE SCHEDULE - DISCOUNT Armani Oconnell 12/15/2018 PAYMENT PLAN Armani Oconnell 04/24/2018 1 *SELF PAY* Ti nasrinchandan Oconnell 12/27/2020 1 [facility] - DOS PRIOR TO 2020 (MEDICAID REPLACEMENT - HMO) Armani Oconnell [id number] Armani Oconnell Notes Date Note Type Note [...] yrs. Vinh Acevedo DO Attn: Accounting,[address] [facility], [place], [address], [facility] 08/23/2016 09:17:26 7 text/html 56 yo M here for BP Fu ran out of amlodipine 3 days ago.Pt denies any SE of medications, CP, SOB, vision changes, JOEL, Pain in knee is significantly improved with meloxicam Pt now reports no depression symptoms on sertraline 50. Inge Dugan MD Attn: Accounting,[address] [facility], [place], [address], [facility] 10/02/2016 21:47:41 7 text/html 56 yo M here for BP FU134/86 today Mr. Oconnell is a 56yo M presenting today for a BP FU. His blood pressure today is 134/86. He states that he feels great. He denies headache, vision changes, N/V, CP, SOB, paresthesias, lower extremity edema, lightheadedness, or any other symptoms of concern. Rosi Monk MD Attn: Mey,[address], [place], [address], [facility] 11/13/2016 14:50:49 7 text/html 56 yo M here for FU on HTNReports home numbers running in upper 140s over 80s. Complaint with meds.Denies any CP, SOB, Vision changes, numbness, weakness or headaches. Due for a flu shot Patrick Leon DO Attn: Accounting,[address] [facility], [place], [address], [facility] 01/30/2017 16:14:17 8 text/html 58 y/o M presents for BP f/u. Pt reports he has been out of his Amlodipine 10mg and HCTZ 50mg for about 1 week.Pt is self-pay and prefers medication to be cost-effective. 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 C/o L hand dorsal tingling after lifting boxes for a long time. Also c/o occasional bilateral feet numbness after standing for a long period of time.No h/o AZ or stroke.No FH of AZ, stroke or colon cancer.Denies any blood in stool or uninteded weight loss. No c/o headache, CP, SOB, NVCD, numbness or tingling. Inge Dugan MD Attn: Accounting,[address] , [place], [address], [facility] 04/26/2018 18:04:27
--- OUTSIDE RECORDS SUMMARY | 2024-12-09 13:49 | XMS_ITS | Clinical Summary ---
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
--- OUTSIDE RECORDS SUMMARY | 2024-12-09 13:49 | XMS_ITS | Clinical Summary ---
Author Organization [facility] Facility Address [address] [place] [address] Care Team Providers Care Shell [employer] And M[employer] Supervisor Name Role Phone Masterselwyn Nitza DARRYL-Ruth Primary Care Provider [phone] Allergies No known active allergies Medications * This document contains information received from the source organization and may not represent a complete record from that organization. ferrous sulfate 325 (65 Fe) MG tablet Take 1 tablet (325 mg total) by mouth every afternoon 90 tablet 1 01/18/20 22 Active losartan (COZAAR) 100 MG tablet TAKE 1 TABLET(100 MG) BY MOUTH 1 TIME EACH DAY 90 tablet 1 09/16/19 23 Active NIFEdipine XL (PROCARDIA XL) 60 MG 24 hr tablet TAKE 1 TABLET(60 MG) BY MOUTH EVERY NIGHT. DO NOT CRUSH, CHEW, OR SPLIT 90 tablet 1 10/17/19 23 Active metFORMIN XR (GLUCOPHAGE-XR ) 500 MG 24 hr tablet Take 1 tablet (500 mg total) by mouth in the morning and 1 tablet (500 mg total) in the evening. 180 tablet 1 05/27/20 24 Active spironolactone (ALDACTONE) 100 MG tablet Take 1 tablet (100 mg total) by mouth 1 (one) time each day in the morning 90 tablet 1 05/27/20 24 Active colchicine 0.6 MG tablet Take 1 tablet (0.6 mg total) by mouth 1 (one) time each day in the morning 90 tablet 1 06/17/19 25 Active allopurinol (ZYLOPRIM) 300 MG tablet Take 1 tablet (300 mg total) by mouth 1 (one) time each day 90 tablet 1 06/25/19 25 Active ergocalciferol 1.25 MG (60798 UT) capsule TAKE 1 CAPSULE BY MOUTH 1 TIME EVERY WEEK 12 capsule 1 07/14/19 25 Active chlorthalidone 25 MG tablet TAKE 1 TABLET BY MOUTH EVERY MORNING 90 tablet 1 11/26/19 25 Active atorvastatin (LIPITOR) 20 MG tablet TAKE 1 TABLET(20 MG) BY MOUTH EVERY NIGHT 90 tablet 1 11/26/19 25 Active chlorthalidone 25 MG tablet Take 1 tablet (25 mg total) by mouth 1 (one) time each day in the morning 90 tablet 1 05/27/20 24 025 Discontinued atorvastatin (LIPITOR) 20 MG tablet Take 1 tablet (20 mg total) by mouth every night 90 tablet 1 05/27/20 24 025 Discontinued Encounters Date Type Department Care Team Description 11/25/2024 Refill [facility] [employer] [facility], [facility] [address] [place] [address] [address] [place] [phone] Zeeshan Coe DO 11/19/2024 Documentation Only [facility] [employer] [facility], [address] [phone] Zeeshan Coe DO from Last 3 Months [...] Comments Blood Pressure 160/90 06/17/2024 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 Pulse 68 06/17/2024 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 Temperature 36.7 C (98 F) 06/17/2024 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 Respiratory Rate 18 06/17/2024 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 Oxygen Saturation 97% 06/17/2024 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 Inhaled Oxygen Concentration - - Weight 145 kg (320 lb) 06/17/2024 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 Height 180.3 cm (5' 11) 09/06/2021 1:40 PM CDT Body Mass Index 44.63 09/06/2021 1:40 PM CDT Plan of Treatment Upcoming Encounters Date Type Department Care Team (Late Contact Info) Description 12/16/2024 3:15 PM CDT Office Visit [facility], [facility] [address] [facility] [address] [place] [phone] Zeeshan Coe DO [address] [place] [address] Health Maintenance Due Date Last Done [...] Exam 08/08/2024 Influenza Vaccine (Season Ended) 2025 04/30/20 23, 04/21/2022 Insurance [facility] Care Teams [employer] Supervisor Relationship Specialty Start Date End Date Nitza Rinaldi FNP-C [address] [place] [address] PCP - General Nurse Practitioner 04/05/21
--- OUTSIDE RECORDS SUMMARY | 2024-12-09 13:49 | XMS_ITS | Data Portability ---
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 BLD COUNT W/DIF F red cell distribution width 18.9 % 11.8-1 5.5 high Not Available [facility] (Lab) [address] [place], [address], 11/27/2023 18:22:17 11/27/19 24 11/27/2023 CBC/C OMPLE TE BLD COUNT W/DIF F platelets 302 x10'3 /uL 150-40 0 Not Available [facility] (Lab) [address] [place], [address], 11/27/2023 18:22:17 11/27/19 24 11/27/2023 CBC/C OMPLE TE BLD COUNT W/DIF F mean platelet volume 11.1 fL 9.0-12 .4 Not Available [facility] (Lab) [address] [place], [address], 11/27/2023 18:22:17 11/27/19 24 11/27/2023 CBC/C OMPLE TE BLD COUNT W/DIF F neutrophils 59.5 % 39.0-7 2.0 Not Available [facility] (Lab) [address] [place], [address], 11/27/2023 18:22:17 11/27/19 24 11/27/2023 CBC/C OMPLE TE BLD COUNT W/DIF F lymphocytes 22.6 % 16.0-4 7.0 Not Available [facility] (Lab) [address] [place], [address], 11/27/2023 18:22:17 11/27/19 24 11/27/2023 CBC/C OMPLE TE BLD COUNT W/DIF F monocytes 13.6 % 5.0-12 .0 high Not Available [facility] (Lab) [address] [place], [address], 11/27/2023 18:22:17 11/27/19 24 11/27/2023 CBC/C OMPLE TE BLD COUNT W/DIF F eosinophils 3.2 % 1.0-7. 0 Not Available [facility] (Lab) [address] [place], [address], 11/27/2023 18:22:17 11/27/19 24 11/27/2023 CBC/C OMPLE TE BLD COUNT W/DIF F basophils 0.7 % 0.0-2. 0 Not Available [facility] (Lab) [address] [place], [address], 11/27/2023 18:22:17 11/27/19 24 11/27/2023 CBC/C OMPLE TE BLD COUNT W/DIF F immature granulocytes 0.4 % 0.00-0 .50 Not Available [facility] (Lab) [address] [place], [address], 11/27/2023 18:22:17 11/27/19 24 11/27/2023 CBC/C OMPLE TE BLD COUNT W/DIF F neutrophils, absolute count 4.40 x10'3 /uL 1.5-8. 0 Not Available [facility] (Lab) [address] [place], [address], 11/27/2023 18:22:17 11/27/19 24 11/27/2023 CBC/C OMPLE TE BLD COUNT W/DIF F lymphocytes, absolute count 1.67 x10'3 /uL 1.07-3 .43 Not Available [facility] (Lab) [address] [place], [address], 11/27/2023 18:22:17 11/27/19 24 11/27/2023 CBC/C OMPLE TE BLD COUNT W/DIF F monocytes, absolute count 1.01 x10'3 /uL 0.29-0 .99 high Not Available [facility] (Lab) [address] [place], [address], 11/27/2023 18:22:17 11/27/19 24 11/27/2023 CBC/C OMPLE TE BLD COUNT W/DIF F eosinophils, absolute count 0.24 x10'3 /uL 0.02-0 .53 Not Available [facility] (Lab) [address] [place], [address], 11/27/2023 18:22:17 11/27/19 24 11/27/2023 CBC/C OMPLE TE BLD COUNT W/DIF F basophils, absolute count 0.05 x10'3 /uL 0.01-0 .08 Not Available [facility] (Lab) [address] [place], [address], 11/27/2023 18:22:17 11/27/19 24 11/27/2023 CBC/C OMPLE TE BLD COUNT W/DIF F immature granulocytes ,absolute 0.03 x10'3 /uL 0.00-0 .05 Not Available [facility] (Lab) [address] [place], [address], 11/27/2023 18:22:17 11/27/19 24 11/27/2023 CBC/C OMPLE TE BLD COUNT W/DIF F nucleated red blood cells 0.0 % -0 Not Available [facility] (Lab) [address] [place], [address], 11/27/2023 18:22:17 11/27/19 24 11/27/2023 CBC/C OMPLE TE BLD COUNT W/DIF F NRBC# 0.00 x10'3 /uL Not Available [facility] (Lab) [address] [place], [address], 11/27/2023 18:22:17 11/27/19 24 11/27/2023 COMPR EHENS LILLIAM METAB OLIC PANEL sodium 139 mmol/ L 137-14 5 Not Available [facility] (Lab) [address] [place], [address], 11/27/2023 18:23:00 11/27/19 24 11/27/2023 COMPR EHENS LILLIAM METAB OLIC PANEL potassium 4.0 mmol/ L 3.5-5. 1 Not Available [facility] (Lab) [address] [place], [address], 11/27/2023 18:23:00 11/27/19 24 11/27/2023 COMPR EHENS LILLIAM METAB OLIC PANEL chloride 108 mmol/ L 98-107 high Not Available [facility] (Lab) [address] [place], [address], 11/27/2023 18:23:00 11/27/19 24 11/27/2023 COMPR EHENS LILLIAM METAB OLIC PANEL carbon dioxide 28 mmol/ L 22-30 Not Available [facility] (Lab) [address] [place], [address], 11/27/2023 18:23:00 11/27/19 24 11/27/2023 COMPR EHENS LILLIAM METAB OLIC PANEL anion gap 7.0 mmol/ L 14-22 low Not Available [facility] (Lab) [address] [place], [address], 11/27/2023 18:23:00 11/27/19 24 11/27/2023 COMPR EHENS LILLIAM METAB OLIC PANEL glucose 101 mg/dL 70-99 high Not Available [facility] (Lab) [address] [place], [address], 11/27/2023 18:23:00 11/27/19 24 11/27/2023 COMPR EHENS LILLIAM METAB OLIC PANEL BUN 15 mg/dL 8-19 Not Available [facility] (Lab) [address] [place], [address], 11/27/2023 18:23:00 11/27/19 24 11/27/2023 COMPR EHENS LILLIAM METAB OLIC PANEL creatinine 1.22 mg/dL 0.66-1 .25 Not Available [facility] (Lab) [address] [place], [address], 11/27/2023 18:23:00 11/27/19 24 11/27/2023 COMPR EHENS LILLIAM METAB OLIC PANEL GFR >60 Refer ence Range : Fajardo ge GFR Healt hy Adult : >60 [...] or ethni c subgr oups, such as Hisraúl nics. Outsi de the valid ated jess [...] [facility] websi te: https ://colby burns.rikki dan.o rg/pr ofess ional s/kdo qi/gf r_cal culat or Not Available [facility] (Lab) [address] [place], [address], 11/27/2023 18:23:00 11/27/19 24 11/27/2023 COMPR EHENS LILLIAM METAB OLIC PANEL alkaline phosphatase 124 U/L 38-126 Not Available [facility] (Lab) [address] [place], [address], 11/27/2023 18:23:00 11/27/19 24 11/27/2023 COMPR EHENS LILLIAM METAB OLIC PANEL alanine aminotransfe rase 36 U/L 0-50 Not Available [facility] (Lab) [address] [place], [address], 11/27/2023 18:23:00 11/27/19 24 11/27/2023 COMPR EHENS LILLIAM METAB OLIC PANEL aspartate aminotransfe rase 50 U/L 15-46 high Not Available [facility] (Lab) [address] [place], [address], 11/27/2023 18:23:00 11/27/19 24 11/27/2023 COMPR EHENS LILLIAM METAB OLIC PANEL bilirubin, total 0.70 mg/dL 0.20-1 .30 Not Available [facility] (Lab) [address] [place], [address], 11/27/2023 18:23:00 11/27/19 24 11/27/2023 COMPR EHENS LILLIAM METAB OLIC PANEL calcium 10.1 mg/dL 8.4-10 .2 Not Available [facility] (Lab) [address] [place], [address], 11/27/2023 18:23:00 11/27/19 24 11/27/2023 COMPR EHENS LILLIAM METAB OLIC PANEL total protein 7.1 g/dL 6.3-8. 2 Not Available [facility] (Lab) [address] [place], [address], 11/27/2023 18:23:00 11/27/19 24 11/27/2023 COMPR EHENS LILLIAM METAB OLIC PANEL albumin 4.2 g/dL 3.4-5. 0 Not Available [facility] (Lab) [address] [place], [address], 11/27/2023 18:23:00 11/27/19 24 11/27/2023 COMPR EHENS LILLIAM METAB OLIC PANEL globulin 2.9 g/dL 2.6-4. 2 Not Available [facility] (Lab) [address] [place], [address], 11/27/2023 18:23:00 11/27/19 24 11/27/2023 COMPR EHENS LILLIAM METAB OLIC PANEL A/G ratio 1.4 ratio 1.0-2. 0 Not Available [facility] (Lab) [address] [place], [address], 11/27/2023 18:23:00 11/27/19 24 11/27/2023 PHOSP HORUS phosphorus 3.7 mg/dL 2.5-4. 5 Not Available [facility] (Lab) [address] [place], [address], 11/27/2023 18:23:03 11/27/19 24 11/27/2023 LIPID PANEL cholesterol 114 mg/dL 140-19 9 low NIH NEVIN NSUS RECOM MENDA TION FOR ERNA STERO L: ADULT CHILD LOW RISK: <200 <170 BORDE RLINE : <200- 239 ----- HIGH RISK: >240 >200 Not Available [facility] (Lab) [address] [place], [address], 11/27/2023 18:23:05 11/27/19 24 11/27/2023 LIPID PANEL triglyceride s 123 mg/dL 0-150 NIH NEVIN NSUS REPOR T RECOM MENDA TION FOR TRIGL YCERI MAHSA: ADULT CHILD LOW RISK: <150 ----- BODER LINE: 150-1 99 ----- HIGH RISK: >200 ----- Not Available [facility] (Lab) [address] [place], [address], 11/27/2023 18:23:05 11/27/19 24 11/27/2023 LIPID PANEL HDL cholesterol 45 mg/dL 40- Not Available [facility] (Lab) [address] [place], [address], 11/27/2023 18:23:05 11/27/19 24 11/27/2023 LIPID PANEL LDL cholesterol, calculated 44 mg/dL 0-130 NIH NEVIN NSUS REPOR T RECOM MENDA TIONS FOR LDL: ADULT CHILD LOW RISK <130 <110 (OPTI MAL LDL) <100 ----- RIKA VEGAS : 130-1 59 ----- HIGH RISK: >160 >130 A TRIGL YCERI DE RESUL T >400 INVAL IDATE S THE CALCU LATIO N FOR LDL FRACT IONAT ION - THE LDL RESUL T WILL NOT BE REPOR JEFF. Not Available [facility] (Lab) [address] [place], [address], 11/27/2023 18:23:05 11/27/19 24 11/27/2023 GGT/G -GLUT AMYL TRANS FERAS E gamma-glutam yl transferase 61 U/L 12-58 high Not Available [facility] (Lab) [address] [place], [address], 11/27/2023 18:23:09 11/27/19 24 11/27/2023 HEPAT ITIS ACUTE PANEL hepatitis A IgM antibody NON-RE ACTIVE non-re active For sampl es repor jeff as Rika vegas React lilliam for HAV IgM, it is recom jm d a new speci men be obtai bolivar in 2 weeks and retes jeff. Not Available [facility] (Lab) [address] [place], [address], 11/27/2023 19:17:48 11/27/19 24 11/27/2023 HEPAT ITIS ACUTE PANEL hepatitis A virus signal/cutof 0.02 0.00-0 .79 Not Available [facility] (Lab) [address] [place], [address], 11/27/2023 19:17:48 11/27/19 24 11/27/2023 HEPAT ITIS ACUTE PANEL hepatitis B core IgM antibody NON-RE ACTIVE non-re active Not Available [facility] (Lab) [address] [place], [address], 11/27/2023 19:17:48 11/27/19 24 11/27/2023 HEPAT ITIS ACUTE PANEL HBV core IgM signal/cutof f 0.06 0.00-1 .10 Not Available [facility] (Lab) [address] [place], [address], 11/27/2023 19:17:48 11/27/19 24 11/27/2023 HEPAT ITIS ACUTE PANEL hepatitis B surface antigen NON-RE ACTIVE non-re active All speci mens react lilliam for Hepat itis B Surfa ce Antig en will refle x to refer ral lab confi rmato ry testi ng. Not Available [facility] (Lab) [address] [place], [address], 11/27/2023 19:17:48 11/27/19 24 11/27/2023 HEPAT ITIS ACUTE PANEL HBV surf.antigen signal/cutof f 0.12 0.00-0 .99 Not Available [facility] (Lab) [address] [place], [address], 11/27/2023 19:17:48 11/27/19 24 11/27/2023 HEPAT ITIS ACUTE PANEL hepatitis C antibody NON-RE ACTIVE non-re active All speci mens react lilliam for Hepat itis C Virus antib naima will refle x to PCR confi rmato ry testi ng. Pleas e allow 48-72 hours for resul ts. Not Available [facility] (Lab) [address] [place], [address], 11/27/2023 19:17:48 11/27/19 24 11/27/2023 HEPAT ITIS ACUTE PANEL hepatitis C virus signal/cutof 0.01 0.00-0 .99 Not Available [facility] (Lab) [address] [place], [address], 11/27/2023 19:17:48 11/27/19 24 11/27/2023 TSH W/REF ROMAN FT4 TSH with reflex free T4 2.520 uIU/m L 0.465- 4.680 Not Available [facility] (Lab) [address] [place], [address], 11/27/2023 18:50:59 11/27/19 24 11/27/2023 PSA SCREE N PSA medicare screen 0.82 NG/mL 0.00-4 .00 Not Available [facility] (Lab) [address] [place], [address], 11/27/2023 18:51:02 11/27/19 24 11/27/2023 HEMOG LOBIN A1C HA1C 5.9 % 4.0-6. 0 Diabe sal Scree maricruz Crite darren: <5.7% Consi stent with absen ce of diabe sal 5.7-6 .4% Consi stent with incre ased risk for diabe sal (pred iabet es) >OR=6 .5% Consi stent with diabe sal REFER ENCE: Diabe sal Care 2016, 39(Sharma ppl.1 ):s13 -s22 Not Available [facility] (Lab) [address] [place], [address], 11/27/2023 21:02:04 06/20/19 24 XR, knee No observ ation record ed. [facility] [address], [address], 06/20/2023 12:56:33 07/13/19 24 07/13/2023 MRI, knee, w/o contr ast No observ ation record ed. [email or web address] [address], [address], 09/12/2023 15:51:05 07/13/19 24 07/13/2023 MRI, knee, w/o contr ast No observ ation record ed. [email or web address] [address], [address], 07/23/2023 12:17:22 09/19/19 25 09/16/2024 imagi ng/di agnos tic resul t No observ ation record ed. [facility] [address], [place], [address], 09/18/2024 16:57:41 09/19/19 25 09/16/2024 imagi ng/di agnos tic resul t No observ ation record ed. [facility] [address], [place], [address], 09/18/2024 16:57:52 Result Notes None recorded. Problems Name Problem SNOMED Code Status Onset Date Resolution Date Notes Provider Name and Address Organization Details Recorded Time Serum iron below reference range 395128411 Active 2021 Not Available [facility] 4 06:42:32 Essential hypertensi on 18347467 Active 2022 Not Available [facility] 4 06:42:33 Obesity 771327999 Active 2022 Not Available [facility] 4 06:42:33 Proteinuri a 90055913 Active 2022 Not Available [facility] 4 06:42:33 Acute kidney injury 55636549 Active 2022 Not Available [facility] 4 06:42:32 Sleep apnea 52589680 Active 2022 Not Available [facility] 4 06:42:33 Iron deficiency anemia 16850316 Active 2022 Not Available [facility] 4 06:42:33 Prediabete s 912016444 Active 2022 Not Available [facility] 4 06:42:33 Liver enzymes level above reference range 792842938 Active 2022 Not Available [facility] 4 06:42:33 Gout 70325166 Active 2022 Not Available [facility] 4 06:42:33 Pain of joint of ankle and/or foot 569610659 Active 2022 Not Available [facility] 4 06:42:32 Steatotic liver disease 984308255 Active 2022 Not Available [facility] 4 06:42:32 Pain of left knee joint 6298273018624 07 Active 2022 Not Available [facility] 4 06:42:33 Pain of right knee joint 8927603424209 00 Active 2022 Not Available [facility] 4 06:42:33 Bilateral Francesco-Noni latter disease 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 Active 2022 Not Available [facility] 4 06:42:32 Contusion of right knee 7101698456083 9104 Active 2022 Not Available [facility] 4 06:42:32 Contusion of left knee 6439247734133 9109 Active 2022 Not Available [facility] 4 06:42:32 Vitamin D deficiency 77026299 Active 2022 Not Available [facility] 4 06:42:33 Mechanical complicati on of implant 552448441 Active 2022 Not Available [facility] 4 06:42:33 Anterior knee pain 883904705 Active 2022 Not Available [facility] 4 06:42:32 Pain of joint 50349248 Active 2022 Not Available [facility] 4 06:42:33 Pain in left foot 1607354682620 07 Active 2023 Not Available [facility] 4 06:42:33 Obstructiv e sleep apnea syndrome 66298283 Active 2023 Oscar johnson MD [address], [place], [address] , [facility] 4 18:52:01 Hyperlipid emia 47365470 Active 2023 Oscar johnson MD [address], [place], [address] , [facility] [employer] [facility] 4 18:54:45 Anemia 800187325 Active 2023 Oscar johnson MD [address] [facility] [facility] [address], [place], [address] , [facility] [employer] [facility] 4 18:55:20 Hyperglyce ector 91798137 Active 2023 Oscar johnson MD [address] [facility] [address], [place], [address] , [facility] [employer] [facility] 4 18:56:34 Chronic kidney disease 210993090 Active 2023 Oscar johnson MD [address] [facility] [address], [place], [address] [place] [address] , [facility] [employer] [facility] 4 18:58:01 Microcytos is 166609136 Active 2023 Shirley Hansen MA [facility], [facility] [employer] [facility] 4 11:53:59 Notes:Medical History: Obesi [...] Recorded Time colonoscopy completed Norma Lakhani MA [facility] [employer] [facility] 10/30/2023 15:15:32 Imaging Results None recorded. Procedure [...] suspension for injection in office 06/14 completed [facility]: [id number] 20 Not Available Not Available [...] Not Available Vitals Date Recorded Body height Body mass index (BMI) Body weight Body temperature Heart rate Systolic blood pressure Diastolic blood pressure Provider Name and Address Organization Details Last Updated DateTime 5 180.34 cm 44.4 kg/m2 456287. 37 g 97.7 [degF] 90 /min 138 mm[Hg] 82 mm[Hg] RACHAEL García [facility] [employer] [facility] 5 16:54:44 Date Recorded Body height Provider Name an d Address Organization Details Last Updated DateTime 07/18/2023 180.34 cm Joy Morton CNA [facility] [employer] [facility] 07/18/2023 08:53:51 Date Recorded Body height Body mass index (BMI) Body weight Body temperature Heart rate Oxygen saturation Oxygen saturation in Arterial blood by Pulse oximetry Systolic blood pressure Diastolic blood pressure Provider Name and Address Organization Details Last Updated DateTime 4 180.34 cm 40.9 kg/m2 127738. 56 g 98.3 [degF] 88 /min 98 % 98 % 134 mm[Hg] 84 mm[Hg] Norma Lakhani MA [facility] [employer] [facility] 4 15:13:46 Date Recorded Body height Body mass index (BMI) Body weight Body temperature Heart rate Oxygen saturation Oxygen saturation in Arterial blood by Pulse oximetry Systolic blood pressure Diastolic blood pressure Provider Name and Address Organization Details Last Updated DateTime 5 180.34 cm 43.7 kg/m2 998277. 21 g 96.3 [degF] 82 /min 96 % 96 % 134 mm[Hg] 84 mm[Hg] Norma Lakhani MA [facility] [employer] [facility] 5 16:26:06 Date Recorded Body height Body mass index (BMI) Body weight Body temperature Heart rate Respiratory rate Oxygen saturation Oxygen saturation in Arterial blood by Pulse oximetry Systolic blood pressure Diastolic blood pressure Provider Name and Address Organization Details Last Updated DateTime 4 180.34 cm 42.5 kg/m2 873402. 67 g 98 [degF] 86 /min 18 /min 99 % 99 % 136 mm[Hg] 72 mm[Hg] Sebastián Mendenhall LPN [facility] [employer] [facility] 4 15:52:28 Social History Question Answer Notes LastModified by Organization Details LastModified Time Tobacco Smoking Status Never Smoker Not Available [facility] 08/09/2022 23:29:04 Do You Have An Advance Directive? No [id number] Information not available 08/09/2022 What Is Your Level Of Caffeine Consumption? Moderate [id number] Information not available 08/09/2022 In The 14 Days Before Symptom Onset, Have You Had Close Contact With A Laboratory-conf irmed COVID-19 While That Case Was Ill? No [id number] Information not available 08/09/2022 In The 14 Days Before Symptom Onset, Have You Had Close Contact With A Person Who Is Under Investigation For COVID-19 While That Person Was Ill? No [id number] Information not available 08/09/2022 What Type Of Diet Are You Following? REGULAR [id number] Information not available 08/09/2022 What Is The Highest Grade Or Level Of School You Have Completed Or The Highest Degree You Have Received? [id number] Information not available 08/09/2022 Have There Been Any Changes To Your Family Or Social Situation? No [id number] Information not available 08/09/2022 What Is The Fluoride Status Of Your Home? Fluoridated [id number].[id number] [id number] Information not available 08/09/2022 Are There Any Guns Present In Your Home? No [id number] Information not available 08/09/2022 Do You Use Insect Repellent Routinely? No MIGRATION.0301 [id number] Information not available 08/09/2022 Where Do You Live? 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 11/18/2024 [email or web address] Information not available 11/18/2024 Have You Ever Been Counseled For Unhealthy Alcohol Use? No MIGRATION.0301 [id number] Information not available 08/09/2022 Do You Have Any Pets? No MIGRATION.0301 628309 Information not available 08/09/2022 What Is Your Relationship Status? Single MIGRATION.0301 897187 Information not available 08/09/2022 Do You Use Your Seat Belt Or Car Seat Routinely? Yes MIGRATION.0301 [id number] Information not available 08/09/2022 Do You Have Smoke And Carbon Monoxide Detectors In Your Home? Yes MIGRATION.0301 [id number] Information not available 08/09/2022 Are You Passively Exposed To Smoke? No MIGRATION.0301 950679 Information not available 08/09/2022 Are There Any Smokers In Your House? No MIGRATION.0301 [id number] Information not available 08/09/2022 What Types Of Sporting Activities Do You Participate In? None MIGRATION.0301 889948 Information not available 08/09/2022 Do You Use Sunscreen Routinely? No MIGRATION.0301 770020 Information not available 08/09/2022 Has Tobacco Cessation Counseling Been Provided? No Not Needednever Smoked MIGRATION.0301 833962 Information not available 08/09/2022 Have You Recently Traveled Abroad? No MIGRATION.0301 125997 Information not available 08/09/2022 Do You Have Any Dietary Restrictions? No MIGRATION.0301 634111 Information not available 08/09/2022 Sex: Male Functional Status Question Answer Note LastModified by Organizat ion Details LastModified Time Do you use any illicit or recreational drugs? No MIGRATION.262571 1760 Information not available 08/09/2022 Do you or have you ever used any other forms of tobacco or nicotine? No MIGRATION.391619 0476 Information not available 08/09/2022 What is your level of alcohol consumption? 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 Moderate cuts grass MIGRATION.683896 3892 Information not available 08/09/2022 Mental Status Question Answer Note LastModified by Organizat ion Details LastModified Time Do you feel stressed (tense, restless, nervous, or anxious, or unable to sleep at night)? QB21223-1 MIGRATION.[id number] 6 Information not available 08/09/2022 Family History Relationship Description Onset Age of this Age Resolved Age Notes LastModified by Organization Details LastModified Time Mother Malignant neoplastic disease MIGRATION.471 [id number] Not available 08/09/2022 23:29:15 Sister COVID-19 MIGRATION.897 [id number] Not available 08/09/2022 23:29:15 Medical History Condition [...] virus, quadrivalent, PF 2 completed Not Available [facility]23 06:42:33 Influenza, split virus, quadrivalent, PF 3 completed DARRYL Sandoval-C [address] [facility], [facility] [address], [place], [address], [facility] [employer] [facility] 04/30/2023 16:34:20 Past Encounters Encounter ID Performer Location Encounter Start Date Encounter Closed Date Diagnosis/Indication Diagnosis SNOMED-CT Code Diagnosis ICD10 Code Diagnosis Note [id number] MD GENA Vleoz_[facility] [address] [facility] [address] [place] [address] 01/11/2021 00:00:00 01/11/2021 17:13:23 [id number] MD GENA Veloz_[facility] Internal Med [place] [address] [place] , [facility] [address] [place] [address] 02/15/2021 00:00:00 02/15/2021 20:18:11 [id number] Oscar johnson MD S_[facility] Internal Med [facility] [address] [place] [address] Ave[address] [place] [address] 1 03/15/2021 00:00:00 03/15/2021 19:59:43 [id number] Oscar johnson MD S_[facility] Internal Med [address] [place] [address] 1 06/28/2021 00:00:00 06/28/2021 17:28:10 [id number] Oscar johnson MD S_[facility] Internal Med [address] [place] [address] 1 10/14/2021 00:00:00 10/14/2021 17:03:15 [id number] Oscar johnson MD [facility] Internal Med [facility] [address] [place] [address] [address] [place] [address] 1 04/21/2022 00:00:00 04/21/2022 17:11:39 [id number] Oscar johnson MD [facility] Internal Med [facility] [address] [place] [address] [address] [place] [address] 1 10/24/2022 15:55:35 10/24/2022 16:31:49 Essential hypertension 58483803 I10 on amlodipine , HCTZ, losartan Obesity 304723808 E66.9 recommend healthy, well balanced mealsfocus on lean meats, fresh vegetables , fresh fruits, whole grainsredu ce fast/proce ssed foods or eating out to no more than 1-2 times per weekaim to get 30 min of exercise most days of the week- walking is a great choicealso recommend resistance training 2-3 times per week Proteinuria 37426673 R80 .9 now following nephrology - Dr Coe History of acute kidney injury 1703390561 17251 Z87.448 2/2 to COVID while [facility] gy appt as above Sleep apnea 67971414 G47 .30 now on CPAP- he is not wearing it, he tells me he doesn't like itForrest had previously referred him over to wash [...] wear the CPAP Iron defic iency anemia 26900090 D50.9 Dr. Coe took him off the ironis s/p cscope but GI is recommendi ng EGD- he declines this History of polyp of colon 861314702 Z86.010 repeat colon 03/2026 Prediabetes 797101221 R7 3.03 diet/exerc ise encouraged Cholesterol screening 27 4559104 Z13.220 Screening for malignant neoplasm of prostate 979926306 Z12.5 [id number] Oscar johnson MD [facility] Internal Med [facility] [address] [facility], [address] [place] [address] 04/30/2023 15:34:01 04/30/2023 16:04:22 Essential hypertension 81397667 I10 on amlodipine , HCTZ, losartan Obesity 978465933 E66.9 recommend healthy, well balanced mealsfocus on lean meats, fresh vegetables , fresh fruits, whole grainsredu ce fast/proce ssed foods or eating out to no more than 1-2 times per weekaim to get 30 min of exercise most days of the week- walking is a great choicealso recommend resistance training 2-3 times per week Proteinuria 37447426 R80 .9 now following nephrology - Dr Coe History of acute kidney injury 6483561491 98039 Z87.448 2 to COVID while hospitaliz ed[facility] gy appt as above Sleep apnea 76811974 G47 .30 now on CPAP- he is not wearing it, he tells me he doesn't like Anastasiia had previously referred him over to wash [...] wear the CPAP Iron defic iency anemia 36183808 D50.9 Dr. Coe took him off the ironis s/p cscope but GI is recommendi ng EGD- he declines this History of polyp of colon 854971858 Z86.010 repeat colon 03/2026 Prediabetes 733191067 R7 3.03 diet/exerc ise encouraged nephrology started him on metformin Adult heal th examination 558154666 Z00.01 Steatotic liver disease 805823874 K76.0 working on diet/exerc ise/weight loss Gout 57630947 M10.9 Colchicine is contraindi cated with his current meds Will try to avoid NSAIDs due to his kidneys Will try a Medrol Dosepak and see if that helps Gout diet discussed Cholesterol screening 27 4410414 Z13.220 Administra tion of influenza vaccine 85541664 Z23 Depression screening 171 719403 Z13.31 [id number] RAÚL [place] [address] 05/22/2023 09:41:15 05/22/2023 10:51:21 Pain of left knee joint 1191380471 82824 M25.562 Pain of ri ght knee joint 9262843756 60269 M25.561 Bilateral [place]-Schlatter disease 5593537299 8100810 M92.523 Contusion of left knee 4688853526 6344014 S80.02XA [id number] Christophe Blankenship MD [place] [address] 06/07/2023 09:56:30 06/13/2023 09:33:45 Contusion of left knee 6681671274 8818314 S80.02XD Pain of le ft knee joint 3610353937 44333 M25.562 Pain of joint 22231793 M 25.297 [id number] Christophe Blankenship MD [address] [address] 06/14/2023 09:57:07 06/14/2023 14:05:35 Contusion of left knee 6929460818 3105194 S80.02XD Impression : 1. Patient has gout [...] face-to-fa ce care. Pain in left foot 122280 7427 12791 M79.756 [id number] Christophe Blankenship MD [facility] [place] [address] [place] [address] 06/20/2023 09:50:56 06/20/2023 13:04:00 Contusion of left knee 1870196657 2646703 S80.02XD Pain in left foot 431679 9059 20544 M79.935 [id number] Christophe Blankenship MD [facility] [place] [address] [place] [address] 07/18/2023 08:48:27 07/23/2023 10:45:15 Pain of left knee joint 4991989004 38556 M25.186 [id number] Oscar johnson MD [facility] Internal Med [place] [address] [facility], [address] [place] [address] 10/30/2023 14:53:41 10/30/2023 16:02:38 Screening - NAD 325321153 Z13.9 C-scope: Dr Willis 04/06/2021 , next in 5 years Get yearly flu shot, get Tdap if not doneCan do RSV vaccineGet shingrix vaccineCan do COVID 19 boosters RTC in 3 months, do labs, ER if worse Essential hypertension 16672966 I10 On chlorthali done 25mg dailyOn losartan 100mg dailyOn aldactone 100mg dailyOn torsemide 20mg dailyGet labs Obstructiv e sleep apnea syndrome 53756870 G47.33 Steatotic liver disease 175284875 K76.0 Get US liverHepat itis pane, and GGT Gout 78267203 M10.9 On allopurino l 300mg daily Hyperlipidemia 31157761 E78.5 On atorvastat in 20mg daily, increase to 40mg dailyGet labs Screening for malignant neoplasm of prostate 242459059 Z12.5 Anemia 827871951 D64.9 Microcytic Can get on ironGet a referral to Dr Riley Hyperglycemia 01874789 R 73.9 Get labsNeeds to see eye MD and podiatry Chronic ki dney disease 571845784 N18.9 Dr Coe 08/28/2023 Screening for cardiovascular system disease 668101369 Z13.6 [id number] Oscar johnson MD [facility] Internal Med [facility] [address] [facility] [address] 1 01/29/2024 15:18:00 01/29/2024 16:26:53 Screening - NAD 842279517 Z13.9 C-scope: Dr Willis 04/06/2021 , next in 5 years Get yearly flu shot, get Tdap if not doneCan do RSV vaccineGet shingrix vaccineCan do COVID 19 boosters RTC in 3 months, do labs, ER if worse Essential hypertension 98027296 I10 On chlorthali done 25mg daily, given by Dr Mejia losartan 100mg dailyOn aldactone 100mg dailyOn torsemide 20mg dailyGet labs Obstructiv e sleep apnea syndrome 72734189 G47.[address] Naranjo Steatotic liver disease 896779695 K76.0 Get liverHepat itis Panel: NegativeGG T 61 Gout 65447050 M10.9 On allopurino l 300mg daily Hyperlipidemia 45325788 E78.5 On atorvastat in 20mg dailyGet labs Anemia 268377209 D64.9 Microcytic Can get on ironGet a referral to Dr Riley Hyperglycemia 20761106 R 73.9 On metformin ER 500mg bid Get labsNeeds to see eye MD and podiatry Chronic ki dney disease 575461725 N18.9 Dr Coe 08/28/2023 Screening for cardiovascular system disease 889553682 Z13.6 Does need to see cardiology , referred 01/29/2024 [id number] Oscar johnson MD [facility] Internal Med [facility] [address] [facility] [address] [address] 07/15/2024 16:04:46 07/15/2024 17:32:05 Screening - NAD 998971627 Z13.9 C-scope: Dr Willis 04/06/2021 , next in 5 years Get yearly flu shot, get Tdap if not doneCan do RSV vaccineUTD on shingrix vaccineCan do COVID 19 boosters RTC in 3 months, do labs, ER if worse Essential hypertension 88484157 I10 On chlorthali done 25mg daily, given by Dr Coe 06/17/2024 , f/u in 6 monthsOn nifedipine 60mg dailyOn losartan 100mg dailyOn aldactone 100mg dailyOn torsemide 20mg dailyGet labs Obstructiv e sleep apnea syndrome 35608614 G47.[address] Naranjo Steatotic liver disease 028566944 K76.0 Get US liverHepat itis Panel: NegativeGG T 61He does consume alcohol, advised to wean off Gout 16357851 M10.9 On allopurino l 300mg daily Hyperlipidemia 75171331 E78.5 On atorvastat in 20mg dailyGet labs Anemia 296386675 D64.9 Microcytic Can get on ironSees Dr Riley in 10/2024 Hyperglycemia 16755144 R 73.9 On metformin ER 500mg bid Get labsNeeds to see eye MD and podiatry Chronic ki dney disease 264190749 N18.9 Dr Coe 08/28/2023 Screening for cardiovascular system disease 383423400 Z13.6 Does need to see cardiology , referred 01/29/2024 Pain of le ft knee joint 3560041642 60678 M25.562 S/p MRI 07/13/[address] Blankenship ortho [id number] Oscar johnson MD [facility] Internal Med [facility] [address] [facility] [facility] [address] [place] [address] 11/18/2024 16:14:26 11/18/2024 16:59:56 Screening - NAD 587702747 Z13.9 C-scope: Dr Willis 04/06/2021 , next in 5 years Get yearly flu shot, get Tdap if not doneCan do RSV vaccineUTD on shingrix vaccineCan do COVID 19 boosters RTC in 3 months, do labs, ER if worse Essential hypertension 20143779 I10 On chlorthali done 25mg daily, given by Dr Coe 06/17/2024 , f/u in 6 monthsOn nifedipine 60mg dailyOn losartan 100mg dailyOn aldactone 100mg dailyOn torsemide 20mg dailyGet labs Obstructiv e sleep apnea syndrome 44322576 G47.[address] Naranjo Steatotic liver disease 498187450 K76.0 Get US liverHepat itis Panel: NegativeGG T 61He does consume alcohol, advised to wean off !Get on MVI daily Refer to GI now Gout 02432158 M10.9 On allopurino l 300mg daily Hyperlipidemia 28099835 E78.5 On atorvastat in 20mg dailyGet labs Anemia 441623460 D64.9 Microcytic Can get on ironSees Dr Riley Hyperglycemia 17179785 R 73.9 On metformin ER 500mg bid Get labsNeeds to see eye MD and podiatry Chronic ki dney disease 826317564 N18.9 Dr Coe 08/28/2023 Screening for cardiovascular system disease 049669834 Z13.6 ECHO 09/16/2024 Pain of le ft knee joint 5071872398 97679 M25.562 S/p MRI 07/13/[address] Blankenship ortho Health Concerns Section Related Observation LastModified by Organization Detai ls LastModified Time None Recorded Concern Status LastModified by Organization Details LastModified Time None Recorded Advance Directives Directive N: Payers Insurance Date Sequence Insurance Name Policy Number Policy Brown Covered Member ID Brown Member ID Guarantor Name 07/11/2023 [facility] Armani Oconnell 01/29/2024 1 [facility] Armani Oconnell [id number] Armani Oconnell 11/15/2024 1 [facility] [id number] Armani Oconnell [id number] Armani Oconnell 07/15/2024 1 [employer] [facility] (EPO) Armani Oconnell [id number] Armani Oconnell Notes Date Note Type Note Provider Name and Address Organization Details Recorded Time 07/18/2023 text/html Patient returns. His MRI scan was completed on 07/13/2023. 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 I reviewed the MRI findings with the [...] the patella trochlear cartilage is relatively preserved. [place] Lopez is sequela noted large ossicle adjacent [...] Blankenship MD [address], [address], [place], [address], [facility] [employer] 07/22/2023 20:13:22 10/30/2023 text/html OV 10/30/2023:He re to establish care Present Hx:HTNOSAPrediabetesAn emiaSteatosis of liverGout Here to discuss above and get labs Oscar Joseph MD [address], [address], [place], [address], [employer] [facility] [employer] 10/31/2023 17:58:59 01/29/2024 text/html OV 10/30/2023:He re to establish care Present Hx:HTNOSAPrediabetesAn emiaSteatosis of liverGout Here to discuss above and get labs OV 01/29/2024: Here for his routine apt, he feels well now, he has seen Dr Coe and also Dr Riley, he did do the labs Oscar Joseph MD [address], [address], [place], [address], [employer] [facility] [employer] 01/29/2024 16:29:28 07/15/2024 text/html OV 10/30/2023:He re [...] did do the labs Oscar Joseph MD [address], [address], [place], [address], [employer] [facility] [employer] 07/15/2024 17:58:29 11/18/2024 text/html OV 10/30/2023:He re to establish care Present Hx:HTNOSAPrediabetesAn emiaSteatosis of liverGout Here to discuss above and get labs OV 01/29/2024: Here for his routine apt, he feels well now, he has seen Dr Coe and also Dr Riley, he did do the labs OV 07/15/2024: Here for his f/u apt, he is doing very well today, he did do the labs OV 11/18/2024: Here for his f/u apt., he is doing well, he did do the labs, but has not yet done his US liver, he still readily admits to drinking alcohol Oscar Joseph MD [address] [place] [address], [address], [place], [address], [facility] 11/18/2024 16:59:01
[2024-12-09 14:37] LABS: Hematocrit 42.1 % (42.0-52.0); Hemoglobin 14.5 g/dL (14.0-18.0); Immature Granulocyte Percent A 0.3 % (0-0.5); Lymphocytes Absolute Auto 1.72 K/mm3 (0.9-3.2); Mean Corpuscular HGB Conc 34.4 g/dl (32-36); Mean Corpuscular Hemoglobin 32.4 pg (26-34); Mean Corpuscular Volume 94.2 fl (80-100); Nucleated Red Blood Cells Absolute Auto 0.000 K/mm3 (0.0-0.012); Nucleated Red Blood Cells Perc 0.0 % (0.0-0.2); Platelet Count Result 210 k/mm3 (150-375); Red Blood Count 4.47 M/mm3 (4.6-6.20); White Blood Count 8.8 K/mm3 (4.5-10.0)
[2024-12-09 16:18] LABS: Add Urine Microscopic? YES; Appearance Urine Clear (Clear); Glucose Urine UA Negative (Negative); Leukocyte Esterase Ur Trace LEU/UL (Negative); Nitrate Urine Negative (Negative); Non Pathogenic Casts 0-2; Specific Grav Ur 1.020 (1.001-1.035)
[2024-12-09 16:30] LABS: Alanine Aminotransferase 65 U/L (6-50); Albumin Level 4.3 g/dL (3.5-5.1); Alkaline Phosphatase 100 U/L (38-126); Anion Gap 9 mmol/L (4-12); Aspartate Amino Transferase 125 U/L (17-59); Bilirubin,Total 0.5 mg/dL (0.2-1.3); Blood Urea Nitrogen 15 mg/dL (9-20); Calcium 10.4 mg/dL (8.4-10.2); Carbon Dioxide 28 mmol/L (22-30); Chloride 103 mmol/L (98-107); Estimated Glomerular Filt Rate 57; Glucose 98 mg/dL (65-110); Magnesium 1.9 mg/dL (1.6-2.3); Potassium 4.4 mmol/L (3.4-5.0); Sodium 140 mmol/L (137-145); Total Protein 7.6 g/dL (6.3-8.2); Uric Acid 6.7 mg/dL (3.5-8.5)
[2024-12-09 17:16] LABS: MALB Creatinine Ratio 4.2 mg/g (0-30)
[2024-12-09 18:33] LABS: Total Protein Urine Random < 5 mg/dL; Ur Ttl Prot Creatinine Ratio < 0.02 mg/mg (0-0.20)
== END 2024-12-09 13:44 | disposition home or self-care (01) ==
LOC: ANHLAB 13:45
PROVIDERS: PCP Internal Medicine; Visit Provider Internal Medicine Nephrology
DX: R80.1 Persistent proteinuria, unspecified (principal); M10.0 Idiopathic gout; D50.8 Other iron deficiency anemias; E21.1 Secondary hyperparathyroidism, not elsewhere classified; I12.9 Hypertensive chronic kidney disease with stage 1 through stage 4 chronic kidney disease, or unspecified chronic kidney disease; N18.1 Chronic kidney disease, stage 1
CPT/HCPCS: 36415; 80053; 81001; 82043; 82306; 82570; 82575; 83735; 84156; 84550; 85025

== ENCOUNTER 2024-12-10 15:57 | Outpatient (CLI) | payer OTHER, SELFPAY ==
--- OUTSIDE RECORDS SUMMARY | 2024-12-10 15:59 | XMS_ITS | Data Portability ---
Author Organization [place] - [facility] [employer], Main Office Address [address] [place] [address] Care Team Providers Care [facility] Pathology Professor Name Role Phone OPHELIA DOMINGUEZ Community Administrator [phone] Assessment Encounter Date Assessment Date Assessment LastModified [...] Standing platform. he has not contacted his shirrer. The primary care physician Dr. Rinaldi has [...] seem most logical that he see his shirrer regarding initiation of strategies to treat his gout. If it is felt that his gout management proves to be particularly difficult, some patients are seen by a barrow worker manage her gout. I think his 1st step is to see the shirrer and he should also make an appointment [...] to perform his regular duties on the [employer] however he could perform desk work if such Worker made available for him. I will be happy to see him back as needed. 30 minutes were spent on this patient more than half the time spent in [id number] care. Not available 07/22/2023 20:12:59 10/30/2023 10/30/2023 [...] micro alb 21.3H ALT 55 CBC: [email or web address] Not available 07/15/2024 17:02:09 11/18/2024 11/18/2024 10/24/2023: [...] 11/13/2024: Cr 1.40, GFR 50 AST/ALT 107/75 [email or web address] Not available 11/18/2024 16:43:53 Plan of Treatment Reminders Order Date Submit Date Provider Last Modified By Organization Details Last Modified Time Details Appointments Any 15 2024 03:45P Sandra toney MD Not available Not available Not available Lab glycohemo globin, total, blood [address] (Lab), [address] [place], [address], 11/18/2024 16:59:39 microalbu min, urine 2024 025 [facility] (Lab), [address] [place], [address], 12/10/2024 07:02:17 CMP, serum or plasma 2024 025 [facility] (Lab), [address] [place], [address], 12/09/2024 17:52:42 lipid panel, serum [email or web address] (Lab), [address] [place], [address], 11/18/2024 16:59:38 CBC w/ auto diff 2024 025 [facility] (Lab), [address] [place], [address], 12/09/2024 16:45:30 TSH, serum or plasma [address] (Lab), [address] [place], [address], 11/18/2024 16:59:39 glycohemo globin, total, blood [address] (Lab), [address] [place], [address], 07/15/2024 17:29:40 microalbu min, urine [address] (Lab), [address] [place], [address], 07/15/2024 17:29:40 CMP, serum or plasma 2024 025 [facility] (Lab), [address] [place], [address], 10/23/2024 08:51:15 lipid panel, serum [address] (Lab), [address] [place], [address], 07/15/2024 17:29:39 CBC w/ auto diff 2024 025 [facility] (Lab), [address] [place], [address], 10/22/2024 20:05:29 TSH, serum or plasma [address] (Lab), [address] [place], [address], 07/15/2024 17:29:40 glycohemo globin, total, blood [address] (Lab), [address] [place], [address], 07/31/2024 08:09:49 microalbu min, urine [address] (Lab), [address] [place], [address], 07/31/2024 08:09:49 CMP, serum or plasma [address] (Lab), [address] [place], [address], 07/31/2024 08:09:48 lipid panel, serum [address] (Lab), [address] [place], [address], 07/31/2024 08:09:48 CBC w/ auto diff [address] (Lab), [address] [place], [address], 07/31/2024 08:09:49 TSH, serum or plasma [address] (Lab), [address] [place], [address], 07/31/2024 08:09:49 gamma-glu tamyl transfera se (ggt), serum 2023 024 [facility] (Lab), [address] [place], [address], 11/27/2023 18:23:09 hepatitis panel (A+B+C), acute, serum 2023 024 [facility] (Lab), [address] [place], [address], 11/27/2023 18:50:28 glycohemo globin, total, blood 2023 024 [facility] (Lab), [address] [place], [address], 11/27/2023 21:02:04 microalbu min, urine [id number] (Lab), [address] [place], [address], 05/06/2024 17:10:16 PSA, total, serum or plasma 2023 024 [facility] (Lab), [address] [place], [address], 11/27/2023 18:51:02 CMP, serum or plasma 2023 024 [facility] (Lab), [address] [place], [address], 11/27/2023 18:23:00 lipid panel, serum 2023 024 [facility] (Lab), [address] [place], [address], 11/27/2023 18:23:05 CBC w/ auto diff 2023 024 [facility] (Lab), [address] [place], [address], 11/27/2023 18:22:17 TSH, serum or plasma 2023 024 [facility] (Lab), [address] [place], [address], 11/27/2023 18:50:59 Referral gastroent erologist referral - Please call patient to schedule an appointme nt. Thank you. 2024 025 KOBY Villegas MD, [address], [address], [place], [address], 11/19/2024 12:45:29 podiatris t referral - Please call patient to schedule an appointme nt. Thank you. 2024 025 [email or web address] Higuera DPM, [address] [facility], [address], [place], [address], 11/19/2024 14:12:09 nephrolog ist referral - Please call patient to schedule an appointme nt. Thank you. 2024 025 [place], [address], [address], [place], [address], 11/19/2024 13:00:29 pulmonolo gist referral - Please call patient to schedule an appointme nt. Thank you. 2024 025 [email or web address] Naranjo MD, [address] [place], [address], 11/19/2024 12:00:52 cardiolog ist referral - Please call patient to schedule an appointme nt. Thank you. 2024 025 KOBY Ham MD, [address] [facility], [address], [place], [address], 11/19/2024 13:00:29 podiatris t referral - Please call patient to schedule an appointme nt. Thank you. 2024 025 [email or web address] Higuera DPM, [address], [address], [place], [address], 08/14/2024 18:19:09 nephrolog ist referral - Please call patient to schedule an appointme nt. Thank you. 2024 025 [place], [address], [address], [place], [address], 08/14/2024 12:17:17 pulmonolo gist referral - Please call patient to schedule an appointme nt. Thank you. 2024 025 [email or web address] José Naranjo MD, [address] [facility] [place], [address], 08/14/2024 18:18:20 cardiolog ist referral - Please call patient to schedule an appointme nt. Thank you. 2024 025 [email or web address] Dayo Ham MD, [address] [facility], [address], [place], [address], 08/14/2024 18:20:24 hematolog ist referral 2023 024 Juan Riley MD, [address], [place], [address], 02/28/2024 14:18:14 podiatris t referral 2023 024 [email or web address] Erik SMITHM, [address] [facility], [address], [place], [address], 10/02/2024 09:04:49 nephrolog ist referral 2023 024 [email or web address] [place], [address], [address], [place], [address], 03/31/2024 14:07:55 pulmonolo gist referral 2023 024 jordyn Naranjo MD, [address] [facility] [place], [address], 10/02/2024 09:04:49 cardiolog ist referral 2023 024 jordyn Ham MD, [address], [address], [place], [address], 10/02/2024 09:04:50 hematolog ist referral 2023 024 [email or web address] Juan Riley MD, [address], [place], [address], 07/28/2024 12:24:20 podiatris t referral 2023 024 [email or web address] Erik Higuera DPM, [address], [address], [place], [address], 07/28/2024 12:24:20 nephrolog ist referral 2023 024 [place], [address], [address], [place], [address], 11/27/2023 09:35:04 pulmonolo gist referral 2023 024 [email or web address] José Naranjo MD, [address], [place], [address], 07/28/2024 12:24:19 cardiolog ist referral 2023 024 [email or web address] Dayo Ham MD, [address], [address], [place], [address], 07/28/2024 12:24:21 Procedures None recorded. Surgeries None recorded. Imaging US, liver - Please call patient to schedule. 2024 025 [facility], [address], [place], [address], 11/19/2024 11:01:17 US, liver [address], [address], [place], [address], 07/16/2024 11:22:04 US, liver 08/19/ 2024 08/20/2 024 [email or web address] [facility] ([facility]), [address] [place], [address], 02/26/2024 08:20:42 US, liver 2023 024 [email or web address] 2 [facility] ([facility]), [address] [place], [address], 11/27/2023 08:13:59 Medication Orders None recorded. Patient TargetsNo targets recorded. Patient Instructions Encounter Date Encounter Id Patient Instructions Last Modified By Organization Details Last Modified Time 10/30/2023 [id number] diabetic eye exam* Not available 05/06/2024 17:10:23 01/29/2024 [id number] diabetic eye exam* [email or web address] Not available 07/28/2024 10:52:57 07/15/2024 [id number] diabetic eye exam* [email or web address] Not available 07/15/2024 17:29:41 11/18/2024 [id number] diabetic eye exam* [email or web address] Not available 11/18/2024 16:59:39 Reason for Referral Inside Sales Manager Referral for O bstructive sleep apnea syndrome Referring Physician: Oscar Joseph Internal Medicine, Encounter Date: 10/30/2023 Referring Physician: Oscar Joseph Internal Medicine, Encounter Date: 10/30/2023 Fender Repairer Referral for Hype rglycemia Referring Physician: Oscar Joseph Internal Medicine, Encounter Date: 10/30/2023 Funeral Arranger Referral for Ch ronic kidney disease Referring Physician: Oscar Joseph Internal Medicine, Encounter Date: 10/30/2023 Loan Operations Manager Referral for Sc reening for cardiovascular system disease Referring Physician: Alecia Fermin Medicine, Encounter Date: 10/30/2023 Inside Sales Manager Referral for O bstructive sleep apnea syndrome Referring Physician: Oscar Joseph Internal Medicine, Encounter Date: 01/29/2024 Referring Physician: Alecia Fermin Medicine, Encounter Date: 01/29/2024 Fender Repairer Referral for Hype rglycemia Referring Physician: Oscar Joseph Internal Medicine, Encounter Date: 01/29/2024 Funeral Arranger Referral for Ch ronic kidney disease Referring Physician: Oscar Joseph Internal Medicine, Encounter Date: 01/29/2024 Loan Operations Manager Referral for Sc reening for cardiovascular system disease Referring Physician: Alecia Fermin, Encounter Date: 01/29/2024 Inside Sales Manager Referral for O bstructive sleep apnea syndrome Please call patient to schedule an appointment. Thank you. Referring Physician: Alecia Fermin, Encounter Date: 07/15/2024 Fender Repairer Referral for Hype rglycemia Please call patient to schedule an appointment. Thank you. Referring Physician: Alecia Fermin, Encounter Date: 07/15/2024 Funeral Arranger Referral for Ch ronic kidney disease Please call patient to schedule an appointment. Thank you. Referring Physician: Alecia Fermin, Encounter Date: 07/15/2024 Loan Operations Manager Referral for Sc reening for cardiovascular system disease Please call patient to schedule an appointment. Thank you. Referring Physician: Alecia Fermin Medicine, Encounter Date: 07/15/2024 Inside Sales Manager Referral for O bstructive sleep apnea syndrome Please call patient to schedule an appointment. Thank you. Referring Physician: Alecia Fermin, Encounter Date: 11/18/2024 Fender Repairer Referral for Hype rglycemia Please call patient to schedule an appointment. Thank you. Referring Physician: Alecia Fermin, Encounter Date: 11/18/2024 Funeral Arranger Referral for Ch ronic kidney disease Please call patient to schedule an appointment. Thank you. Referring Physician: Oscar Joseph, Internal Medicine, Encounter Date: 11/18/2024 Loan Operations Manager Referral for Sc reening for cardiovascular system disease Please call patient to schedule an appointment. Thank you. Referring Physician: Oscar Joseph Internal Medicine, Encounter Date: 11/18/2024 Floater Operator Referral for Steatotic liver disease Please call patient to schedule an appointment. Thank you. Referring Physician: Oscar Joseph Internal Medicine, Encounter Date: 11/18/2024 Results Created Date Observation Date Name Description Value Unit Range Abnormal Flag Note LastModifiedBy Organization Detail LastModifiedTime 06/18/19 24 06/18/2023 SEDIM ENTAT ION RATE erythrocyte sedimentatio n rate 21 mm/HR 0-20 high Not Available [facility] (Lab) [address] [place], [address], 06/18/2023 16:21:21 06/18/19 24 06/18/2023 C REACT LILLIAM PROTE IN,UL TRA SENS C-reactive protein 3.14 mg/dL 0.0-0. 5 high Not Available [facility] (Lab) [address] [place], [address], 06/18/2023 17:10:20 06/18/19 24 06/18/2023 BASIC METAB OLIC PANEL sodium 135 mmol/ L 137-14 5 low Not Available [facility] (Lab) [address] [place], [address], 06/18/2023 17:10:46 06/18/19 24 06/18/2023 BASIC METAB OLIC PANEL potassium 3.5 mmol/ L 3.5-5. 1 Not Available [facility] (Lab) [address] [place], [address], 06/18/2023 17:10:46 06/18/19 24 06/18/2023 BASIC METAB OLIC PANEL chloride 94 mmol/ L 98-107 low Not Available [facility] (Lab) [address] [place], [address], 06/18/2023 17:10:46 06/18/19 24 06/18/2023 BASIC METAB OLIC PANEL carbon dioxide 31 mmol/ L 22-30 high Not Available [facility] (Lab) [address] [place], [address], 06/18/2023 17:10:46 06/18/19 24 06/18/2023 BASIC METAB OLIC PANEL anion gap 13.5 mmol/ L 14-22 low Not Available [facility] (Lab) [address] [place], [address], 06/18/2023 17:10:46 06/18/19 24 06/18/2023 BASIC METAB OLIC PANEL glucose 128 mg/dL 70-99 high Not Available [facility] (Lab) [address] [place], [address], 06/18/2023 17:10:46 06/18/19 24 06/18/2023 BASIC METAB OLIC PANEL BUN 27 mg/dL 8-19 high Not Available [facility] (Lab) [address] [place], [address], 06/18/2023 17:10:46 06/18/19 24 06/18/2023 BASIC METAB OLIC PANEL creatinine 1.70 mg/dL 0.66-1 .25 high Not Available [facility] (Lab) [address] [place], [address], 06/18/2023 17:10:46 06/18/19 24 06/18/2023 BASIC METAB OLIC PANEL GFR 50 Refer ence Range : [place] GFR Healt hy Adult : >60 mL/mi n/1.7 3 m2 Chron ic Kidne y Disea se: 15-60 mL/mi n/1.7 3 m2 Kidguerita y Failu re: <15/m L/min /1.73 m2 [...] calcu lator is avail able on the [facility] websi te: https :[email or web address] [email or web address].rikki dan.o rg/pr ofess ional s/kdo qi/gf r_cal culat or Not Available [facility] (Lab) [address] [place], [address], 06/18/2023 17:10:46 06/18/19 24 06/18/2023 BASIC METAB OLIC PANEL calcium 10.8 mg/dL 8.4-10 .2 high Not Available [facility] (Lab) [address] [place], [address], 06/18/2023 17:10:46 10/24/19 24 10/24/2023 CBC/C OMPLE TE BLD COUNT W/DIF F white blood cells 8.4 x10'3 /uL 4.2-10 .8 Not Available [facility] (Lab) [address] [place], [address], 10/24/2023 16:03:09 10/24/19 24 10/24/2023 CBC/C OMPLE TE BLD COUNT W/DIF F red blood cells 4.52 x10'6 /uL 4.10-5 .80 Not Available [facility] (Lab) [address] [place], [address], 10/24/2023 16:03:09 10/24/19 24 10/24/2023 CBC/C OMPLE TE BLD COUNT W/DIF F hemoglobin 11.1 g/dL 13.2-1 7.0 low Not Available [facility] (Lab) [address] [place], [address], 10/24/2023 16:03:09 10/24/19 24 10/24/2023 CBC/C OMPLE TE BLD COUNT W/DIF F hematocrit 35.3 % 39.3-5 0.0 low Not Available [facility] (Lab) [address] [place], [address], 10/24/2023 16:03:09 10/24/19 24 10/24/2023 CBC/C OMPLE TE BLD COUNT W/DIF F mean red cell volume 78.1 fL 80.0-9 7.0 low Not Available [facility] (Lab) [address] [place], [address], 10/24/2023 16:03:09 10/24/19 24 10/24/2023 CBC/C OMPLE TE BLD COUNT W/DIF F mean red cell hemoglobin 24.6 pg 27.0-3 3.0 low Not Available [facility] (Lab) [address] [place], [address], 10/24/2023 16:03:09 10/24/19 24 10/24/2023 CBC/C OMPLE TE BLD COUNT W/DIF F mean RBC HGB concentratio n 31.4 g/dL 31.0-3 6.0 Not Available [facility] (Lab) [address] [place], [address], 10/24/2023 16:03:09 10/24/19 24 10/24/2023 CBC/C OMPLE TE BLD COUNT W/DIF F red cell distribution width 16.2 % 11.8-1 5.5 high Not Available [facility] (Lab) [address] [place], [address], 10/24/2023 16:03:09 10/24/19 24 10/24/2023 CBC/C OMPLE TE BLD COUNT W/DIF F platelets 332 x10'3 /uL 150-40 0 Not Available [facility] (Lab) [address] [place], [address], 10/24/2023 16:03:09 10/24/19 24 10/24/2023 CBC/C OMPLE TE BLD COUNT W/DIF F mean platelet volume 10.9 fL 9.0-12 .4 Not Available [facility] (Lab) [address] [place], [address], 10/24/2023 16:03:09 10/24/19 24 10/24/2023 CBC/C OMPLE TE BLD COUNT W/DIF F neutrophils 61.6 % 39.0-7 2.0 Not Available [facility] (Lab) [address] [place], [address], 10/24/2023 16:03:09 10/24/19 24 10/24/2023 CBC/C OMPLE TE BLD COUNT W/DIF F lymphocytes 25.0 % 16.0-4 7.0 Not Available [facility] (Lab) [address] [place], [address], 10/24/2023 16:03:09 10/24/19 24 10/24/2023 CBC/C OMPLE TE BLD COUNT W/DIF F monocytes 9.1 % 5.0-12 .0 Not Available [facility] (Lab) [address] [place], [address], 10/24/2023 16:03:09 10/24/19 24 10/24/2023 CBC/C OMPLE TE BLD COUNT W/DIF F eosinophils 3.2 % 1.0-7. 0 Not Available [facility] (Lab) [address] [place], [address], 10/24/2023 16:03:09 10/24/19 24 10/24/2023 CBC/C OMPLE TE BLD COUNT W/DIF F basophils 0.6 % 0.0-2. 0 Not Available [facility] (Lab) [address] [place], [address], 10/24/2023 16:03:09 10/24/19 24 10/24/2023 CBC/C OMPLE TE BLD COUNT W/DIF F immature granulocytes 0.5 % 0.00-0 .50 Not Available [facility] (Lab) [address] [place], [address], 10/24/2023 16:03:09 10/24/19 24 10/24/2023 CBC/C OMPLE TE BLD COUNT W/DIF F neutrophils, absolute count 5.14 x10'3 /uL 1.5-8. 0 Not Available [facility] (Lab) [address] [place], [address], 10/24/2023 16:03:09 10/24/19 24 10/24/2023 CBC/C OMPLE TE BLD COUNT W/DIF F lymphocytes, absolute count 2.09 x10'3 /uL 1.07-3 .43 Not Available [facility] (Lab) [address] [place], [address], 10/24/2023 16:03:09 10/24/19 24 10/24/2023 CBC/C OMPLE TE BLD COUNT W/DIF F monocytes, absolute count 0.76 x10'3 /uL 0.29-0 .99 Not Available [facility] (Lab) [address] [place], [address], 10/24/2023 16:03:09 10/24/19 24 10/24/2023 CBC/C OMPLE TE BLD COUNT W/DIF F eosinophils, absolute count 0.27 x10'3 /uL 0.02-0 .53 Not Available [facility] (Lab) [address] [place], [address], 10/24/2023 16:03:09 10/24/19 24 10/24/2023 CBC/C OMPLE TE BLD COUNT W/DIF F basophils, absolute count 0.05 x10'3 /uL 0.01-0 .08 Not Available [facility] (Lab) [address] [place], [address], 10/24/2023 16:03:09 10/24/19 24 10/24/2023 CBC/C OMPLE TE BLD COUNT W/DIF F immature granulocytes ,absolute 0.04 x10'3 /uL 0.00-0 .05 Not Available [facility] (Lab) [address] [place], [address], 10/24/2023 16:03:09 10/24/19 24 10/24/2023 CBC/C OMPLE TE BLD COUNT W/DIF F nucleated red blood cells 0.0 % -0 Not Available [facility] (Lab) [address] [place], [address], 10/24/2023 16:03:09 10/24/19 24 10/24/2023 CBC/C OMPLE TE BLD COUNT W/DIF F NRBC# 0.00 x10'3 /uL Not Available [facility] (Lab) [address] [place], [address], 10/24/2023 16:03:09 10/24/19 24 10/24/2023 COMPR EHENS LILLIAM METAB OLIC PANEL sodium 134 mmol/ L 137-14 5 low Not Available [facility] (Lab) [address] [place], [address], 10/24/2023 16:33:46 10/24/19 24 10/24/2023 COMPR EHENS LILLIAM METAB OLIC PANEL potassium 3.8 mmol/ L 3.5-5. 1 Not Available [facility] (Lab) [address] [place], [address], 10/24/2023 16:33:46 10/24/19 24 10/24/2023 COMPR EHENS LILLIAM METAB OLIC PANEL chloride 101 mmol/ L 98-107 Not Available [facility] (Lab) [address] [place], [address], 10/24/2023 16:33:46 10/24/19 24 10/24/2023 COMPR EHENS LILLIAM METAB OLIC PANEL carbon dioxide 25 mmol/ L 22-30 Not Available [facility] (Lab) [address] [place], [address], 10/24/2023 16:33:46 10/24/19 24 10/24/2023 COMPR EHENS LILLIAM METAB OLIC PANEL anion gap 11.8 mmol/ L 14-22 low Not Available [facility] (Lab) [address] [place], [address], 10/24/2023 16:33:46 10/24/19 24 10/24/2023 COMPR EHENS LILLIAM METAB OLIC PANEL glucose 127 mg/dL 70-99 high Not Available [facility] (Lab) [address] [place], [address], 10/24/2023 16:33:46 10/24/19 24 10/24/2023 COMPR EHENS LILLIAM METAB OLIC PANEL BUN 14 mg/dL 8-19 Not Available [facility] (Lab) [address] [place], [address], 10/24/2023 16:33:46 10/24/19 24 10/24/2023 COMPR EHENS LILLIAM METAB OLIC PANEL creatinine 1.22 mg/dL 0.66-1 .25 Not Available [facility] (Lab) [address] [place], [address], 10/24/2023 16:33:46 10/24/19 24 10/24/2023 COMPR EHENS LILLIAM METAB OLIC PANEL GFR >60 Refer ence Range : [place] GFR Healt hy Adult : >60 [...] or ethni c subgr oups, such as Hisnd nics. Outsi de the valid ated jess [...] calcu lator is avail able on the [facility] websi te: https ://colby dan.[place] rg/pr tieness ional s/kdo qi/gf r_cal culat or Not Available [facility] (Lab) [address] [place], [address], 10/24/2023 16:33:46 10/24/19 24 10/24/2023 COMPR EHENS LILLIAM METAB OLIC PANEL alkaline phosphatase 143 U/L 38-126 high Not Available [facility] (Lab) [address] [place], [address], 10/24/2023 16:33:46 10/24/19 24 10/24/2023 COMPR EHENS LILLIAM METAB OLIC PANEL alanine aminotransfe rase 34 U/L 0-50 Not Available [facility] (Lab) [address] [place], [address], 10/24/2023 16:33:46 10/24/19 24 10/24/2023 COMPR EHENS LILLIAM METAB OLIC PANEL aspartate aminotransfe rase 42 U/L 15-46 Not Available [facility] (Lab) [address] [place], [address], 10/24/2023 16:33:46 10/24/19 24 10/24/2023 COMPR EHENS LILLIAM METAB OLIC PANEL bilirubin, total 0.50 mg/dL 0.20-1 .30 Not Available [facility] (Lab) [address] [place], [address], 10/24/2023 16:33:46 10/24/19 24 10/24/2023 COMPR EHENS LILLIAM METAB OLIC PANEL calcium 9.9 mg/dL 8.4-10 .2 Not Available [facility] (Lab) [address] [place], [address], 10/24/2023 16:33:46 10/24/19 24 10/24/2023 COMPR EHENS LILLIAM METAB OLIC PANEL total protein 7.1 g/dL 6.3-8. 2 Not Available [facility] (Lab) [address] [place], [address], 10/24/2023 16:33:46 10/24/19 24 10/24/2023 COMPR EHENS LILLIAM METAB OLIC PANEL albumin 4.1 g/dL 3.4-5. 0 Not Available [facility] (Lab) [address] [place], [address], 10/24/2023 16:33:46 10/24/19 24 10/24/2023 COMPR EHENS LILLIAM METAB OLIC PANEL globulin 3.0 g/dL 2.6-4. 2 Not Available [facility] (Lab) [address] [place], [address], 10/24/2023 16:33:46 10/24/19 24 10/24/2023 COMPR EHENS LILLIAM METAB OLIC PANEL A/G ratio 1.4 ratio 1.0-2. 0 Not Available [facility] (Lab) [address] [place], [address], 10/24/2023 16:33:46 10/24/19 24 10/24/2023 URIC ACID SERUM uric acid 6.6 mg/dL 3.5-8. 5 Not Available [facility] (Lab) [address] [place], [address], 10/24/2023 16:33:51 10/24/19 24 10/24/2023 LIPID PANEL cholesterol 125 mg/dL 140-19 9 low NIH NEVIN NSUS RECOM MENDA TION FOR ERNA STERO L: ADULT CHILD LOW RISK: <200 <170 BORDE RLINE : <200- 239 ----- HIGH RISK: >240 >200 Not Available [facility] (Lab) [address] [place], [address], 10/24/2023 16:33:57 10/24/19 24 10/24/2023 LIPID PANEL triglyceride s 179 mg/dL 0-150 high NIH NEVIN NSUS REPOR T RECOM MENDA TION FOR TRIGL YCERI MAHSA: ADULT CHILD LOW RISK: <150 ----- BODER LINE: 150-1 99 ----- HIGH RISK: >200 ----- Not Available [facility] (Lab) [address] [place], [address], 10/24/2023 16:33:57 10/24/19 24 10/24/2023 LIPID PANEL HDL cholesterol 51 mg/dL 40- Not Available [facility] (Lab) [address] [place], [address], 10/24/2023 16:33:57 10/24/19 24 10/24/2023 LIPID PANEL [...] WILL NOT BE REPOR JEFF. Not Available [facility] (Lab) [address] [place], [address], 10/24/2023 16:33:57 10/24/19 24 10/24/2023 HEMOG LOBIN A1C HA1C 6.3 % 4.0-6. 0 high Diabe sal Scree maricruz Crite darren: <5.7% Consi stent with absen ce of diabe sal 5.7-6 .4% Consi stent with incre ased risk for diabe sal (pred iabet es) >OR=6 .5% Consi stent with diabe sal REFER ENCE: Diabe sal Care 2016, 39(Sharma ppl.1 ):s13 -s22 Not Available [facility] (Lab) [address] [place], [address], 10/24/2023 20:46:33 11/27/19 24 11/27/2023 CBC/C OMPLE TE BLD COUNT W/DIF F white blood cells 7.4 x10'3 /uL 4.2-10 .8 Not Available [facility] (Lab) [address] [place], [address], 11/27/2023 18:22:17 11/27/19 24 11/27/2023 CBC/C OMPLE TE BLD COUNT W/DIF F red blood cells 4.51 x10'6 /uL 4.10-5 .80 Not Available [facility] (Lab) [address] [place], [address], 11/27/2023 18:22:17 11/27/19 24 11/27/2023 CBC/C OMPLE TE BLD COUNT W/DIF F hemoglobin 11.4 g/dL 13.2-1 7.0 low Not Available [facility] (Lab) [address] [place], [address], 11/27/2023 18:22:17 11/27/19 24 11/27/2023 CBC/C OMPLE TE BLD COUNT W/DIF F hematocrit 35.6 % 39.3-5 0.0 low Not Available [facility] (Lab) [address] [place], [address], 11/27/2023 18:22:17 11/27/19 24 11/27/2023 CBC/C OMPLE TE BLD COUNT W/DIF F mean red cell volume 78.9 fL 80.0-9 7.0 low Not Available [facility] (Lab) [address] [place], [address], 11/27/2023 18:22:17 11/27/19 24 11/27/2023 CBC/C OMPLE TE BLD COUNT W/DIF F mean red cell hemoglobin 25.3 pg 27.0-3 3.0 low Not Available [facility] (Lab) [address] [place], [address], 11/27/2023 18:22:17 11/27/19 24 11/27/2023 CBC/C OMPLE TE BLD COUNT W/DIF F mean RBC HGB concentratio n 32.0 g/dL 31.0-3 6.0 Not Available [facility] (Lab) [address] [place], [address], 11/27/2023 18:22:17 11/27/19 24 11/27/2023 CBC/C OMPLE TE BLD COUNT W/DIF F red cell distribution width 18.9 % 11.8-1 5.5 high Not Available [facility] (Lab) [address] [place], [address], 11/27/2023 18:22:17 11/27/19 24 11/27/2023 CBC/C OMPLE TE BLD COUNT W/DIF F platelets 302 x10'3 /uL 150-40 0 Not Available [facility] (Lab) [address] [place], [address], 11/27/2023 18:22:17 11/27/19 24 11/27/2023 CBC/C OMPLE TE BLD COUNT W/DIF F mean platelet volume 11.1 fL 9.0-12 .4 Not Available [facility] (Lab) [address] [place], [address], 11/27/2023 18:22:17 11/27/19 24 11/27/2023 CBC/C OMPLE TE BLD COUNT W/DIF F neutrophils 59.5 % 39.0-7 2.0 Not Available [facility] (Lab) [address] [place], [address], 11/27/2023 18:22:17 11/27/19 24 11/27/2023 CBC/C OMPLE TE BLD COUNT W/DIF F lymphocytes 22.6 % 16.0-4 7.0 Not Available [facility] (Lab) [address] [place], [address], 11/27/2023 18:22:17 11/27/19 24 11/27/2023 CBC/C OMPLE TE BLD COUNT W/DIF F monocytes 13.6 % 5.0-12 .0 high Not Available [facility] (Lab) [address] [place], [address], 11/27/2023 18:22:17 11/27/19 24 11/27/2023 CBC/C OMPLE TE BLD COUNT W/DIF F eosinophils 3.2 % 1.0-7. 0 Not Available [facility] (Lab) [address] [place], [address], 11/27/2023 18:22:17 11/27/19 24 11/27/2023 CBC/C OMPLE TE BLD COUNT W/DIF F basophils 0.7 % 0.0-2. 0 Not Available [facility] (Lab) [address] [place], [address], 11/27/2023 18:22:17 11/27/19 24 11/27/2023 CBC/C OMPLE TE BLD COUNT W/DIF F immature granulocytes 0.4 % 0.00-0 .50 Not Available [facility] (Lab) [address] [place], [address], 11/27/2023 18:22:17 11/27/19 24 11/27/2023 CBC/C OMPLE TE BLD COUNT W/DIF F neutrophils, absolute count 4.40 x10'3 /uL 1.5-8. 0 Not Available [facility] (Lab) [address] [place], [address], 11/27/2023 18:22:17 11/27/19 24 11/27/2023 CBC/C OMPLE TE BLD COUNT W/DIF F lymphocytes, absolute count 1.67 x10'3 /uL 1.07-3 .43 Not Available [facility] (Lab) [address] [place], [address], 11/27/2023 18:22:17 11/27/19 24 11/27/2023 CBC/C OMPLE TE BLD COUNT W/DIF F monocytes, absolute count 1.01 x10'3 /uL 0.29-0 .99 high Not Available [facility] (Lab) [address] [place], [address], 11/27/2023 18:22:17 11/27/19 24 11/27/2023 CBC/C OMPLE TE BLD COUNT W/DIF F eosinophils, absolute count 0.24 x10'3 /uL 0.02-0 .53 Not Available [facility] (Lab) [address] [place], [address], 11/27/2023 18:22:17 11/27/19 24 11/27/2023 CBC/C OMPLE TE BLD COUNT W/DIF F basophils, absolute count 0.05 x10'3 /uL 0.01-0 .08 Not Available [facility] (Lab) [address] [place], [address], 11/27/2023 18:22:17 11/27/19 24 11/27/2023 CBC/C OMPLE TE BLD COUNT W/DIF F immature granulocytes ,absolute 0.03 x10'3 /uL 0.00-0 .05 Not Available [facility] (Lab) [address] [place], [address], 11/27/2023 18:22:17 11/27/19 24 11/27/2023 CBC/C OMPLE TE BLD COUNT W/DIF F nucleated red blood cells 0.0 % -0 Not Available [facility] (Lab) [address] [place], [address], 11/27/2023 18:22:17 11/27/19 24 11/27/2023 CBC/C OMPLE TE BLD COUNT W/DIF F NRBC# 0.00 x10'3 /uL Not Available [facility] (Lab) [address] [place], [address], 11/27/2023 18:22:17 11/27/19 24 11/27/2023 COMPR EHENS LILLIAM METAB OLIC PANEL sodium 139 mmol/ L 137-14 5 Not Available [facility] (Lab) [address] [place], [address], 11/27/2023 18:23:00 11/27/19 24 11/27/2023 COMPR EHENS LILLIAM METAB OLIC PANEL potassium 4.0 mmol/ L 3.5-5. 1 Not Available [facility] (Lab) [address] [place], [address], 11/27/2023 18:23:00 11/27/19 24 11/27/2023 COMPR EHENS LILLIAM METAB OLIC PANEL chloride 108 mmol/ L 98-107 high Not Available [facility] (Lab) [address] [facility] [place], [address], 11/27/2023 18:23:00 11/27/19 24 11/27/2023 COMPR EHENS LILLIAM METAB OLIC PANEL carbon dioxide 28 mmol/ L 22-30 Not Available [facility] (Lab) [address] [place], [address], 11/27/2023 18:23:00 11/27/19 24 11/27/2023 COMPR EHENS LILLIAM METAB OLIC PANEL anion gap 7.0 mmol/ L 14-22 low Not Available [facility] (Lab) [address] [place], [address], 11/27/2023 18:23:00 11/27/19 24 11/27/2023 COMPR EHENS LILLIAM METAB OLIC PANEL glucose 101 mg/dL 70-99 high Not Available [facility] (Lab) [address] [place], [address], 11/27/2023 18:23:00 11/27/19 24 11/27/2023 COMPR EHENS LILLIAM METAB OLIC PANEL BUN 15 mg/dL 8-19 Not Available [facility] (Lab) [address] [place], [address], 11/27/2023 18:23:00 11/27/19 24 11/27/2023 COMPR EHENS LILLIAM METAB OLIC PANEL creatinine 1.22 mg/dL 0.66-1 .25 Not Available [facility] (Lab) [address] [place], [address], 11/27/2023 18:23:00 11/27/19 24 11/27/2023 COMPR EHENS LILLIAM METAB OLIC PANEL GFR >60 Refer ence Range : [place] GFR Healt hy Adult : >60 [...] or ethni c subgr oups, such as Hisnd nics. Outsi de the valid ated jess [...] calcu lator is avail able on the [facility] websi te: https ://colby dan.chico rg/pr ofess ional s/kdo qi/gf r_cal culat or Not Available [facility] (Lab) [address] [place], [address], 11/27/2023 18:23:00 11/27/19 24 11/27/2023 COMPR EHENS LILLIAM METAB OLIC PANEL alkaline phosphatase 124 U/L 38-126 Not Available [facility] (Lab) [address] [place], [address], 11/27/2023 18:23:00 11/27/19 24 11/27/2023 COMPR EHENS LILLIAM METAB OLIC PANEL alanine aminotransfe rase 36 U/L 0-50 Not Available [facility] (Lab) [address] [place], [address], 11/27/2023 18:23:00 11/27/19 24 11/27/2023 COMPR EHENS LILLIAM METAB OLIC PANEL aspartate aminotransfe rase 50 U/L 15-46 high Not Available [facility] (Lab) [address] [place], [address], 11/27/2023 18:23:00 11/27/19 24 11/27/2023 COMPR EHENS LILLIAM METAB OLIC PANEL bilirubin, total 0.70 mg/dL 0.20-1 .30 Not Available [facility] (Lab) [address] [place], [address], 11/27/2023 18:23:00 11/27/19 24 11/27/2023 COMPR EHENS LILLIAM METAB OLIC PANEL calcium 10.1 mg/dL 8.4-10 .2 Not Available [facility] (Lab) [address] [place], [address], 11/27/2023 18:23:00 11/27/19 24 11/27/2023 COMPR EHENS LILLIAM METAB OLIC PANEL total protein 7.1 g/dL 6.3-8. 2 Not Available [facility] (Lab) [address] [place], [address], 11/27/2023 18:23:00 11/27/19 24 11/27/2023 COMPR EHENS LILLIAM METAB OLIC PANEL albumin 4.2 g/dL 3.4-5. 0 Not Available [facility] (Lab) [address] [place], [address], 11/27/2023 18:23:00 11/27/19 24 11/27/2023 COMPR EHENS LILLIAM METAB OLIC PANEL globulin 2.9 g/dL 2.6-4. 2 Not Available [facility] (Lab) [address] [place], [address], 11/27/2023 18:23:00 11/27/19 24 11/27/2023 COMPR EHENS LILLIAM METAB OLIC PANEL A/G ratio 1.4 ratio 1.0-2. 0 Not Available [facility] (Lab) [address] [place], [address], 11/27/2023 18:23:00 11/27/19 24 11/27/2023 PHOSP HORUS phosphorus 3.7 mg/dL 2.5-4. 5 Not Available [facility] (Lab) [address] [place], [address], 11/27/2023 18:23:03 11/27/19 24 11/27/2023 LIPID PANEL cholesterol 114 mg/dL 140-19 9 low NIH NEVIN NSUS RECOM MENDA TION FOR ERNA STERO L: ADULT CHILD LOW RISK: <200 <170 BORDE RLINE : <200- 239 ----- HIGH RISK: >240 >200 Not Available [facility] (Lab) [address] [place], [address], 11/27/2023 18:23:05 11/27/19 24 11/27/2023 LIPID PANEL triglyceride s 123 mg/dL 0-150 NIH NEVIN NSUS REPOR T RECOM MENDA TION FOR TRIGL YCERI MAHSA: ADULT CHILD LOW RISK: <150 ----- BODER LINE: 150-1 99 ----- HIGH RISK: >200 ----- Not Available [facility] (Lab) [address] [place], [address], 11/27/2023 18:23:05 11/27/19 24 11/27/2023 LIPID PANEL HDL cholesterol 45 mg/dL 40- Not Available [facility] (Lab) [address] [place], [address], 11/27/2023 18:23:05 11/27/19 24 11/27/2023 LIPID PANEL LDL cholesterol, calculated 44 mg/dL 0-130 NIH NEVIN NSUS REPOR T RECOM MENDA TIONS FOR LDL: ADULT CHILD LOW RISK <130 <110 (OPTI MAL LDL) <100 ----- RIKA TRANINE : 130-1 59 ----- HIGH RISK: >160 >130 A TRIGL YCERI DE RESUL T >400 INVAL IDATE S THE CALCU LATIO N FOR LDL FRACT IONAT ION - THE LDL RESUL T WILL NOT BE REPOR JEFF. Not Available [facility] (Lab) [address] [place], [address], 11/27/2023 18:23:05 11/27/19 24 11/27/2023 GGT/G -GLUT AMYL TRANS FERAS E gamma-glutam yl transferase 61 U/L 12-58 high Not Available [facility] (Lab) [address] [place], [address], 11/27/2023 18:23:09 11/27/19 24 11/27/2023 HEPAT ITIS ACUTE PANEL hepatitis A IgM antibody NON-RE ACTIVE non-re active For sampl es repor jeff as Rika vegas React lilliam for HAV IgM, it is recom jm d a new speci men be obtai bolivar in 2 weeks and retes jeff. Not Available [facility] (Lab) [address] [place], [address], 11/27/2023 19:17:48 11/27/19 24 11/27/2023 HEPAT ITIS ACUTE PANEL hepatitis A virus signal/cutof 0.02 0.00-0 .79 Not Available [facility] (Lab) [address] [place], [address], 11/27/2023 19:17:48 11/27/19 24 11/27/2023 HEPAT ITIS ACUTE PANEL hepatitis B core IgM antibody NON-RE ACTIVE non-re active Not Available [facility] (Lab) [address] [place], [address], 11/27/2023 19:17:48 11/27/19 24 11/27/2023 HEPAT ITIS ACUTE PANEL HBV core IgM signal/cutof f 0.06 0.00-1 .10 Not Available [facility] (Lab) [address] [place], [address], 11/27/2023 19:17:48 11/27/19 24 11/27/2023 HEPAT ITIS ACUTE PANEL hepatitis B surface antigen NON-RE ACTIVE non-re active All speci mens react lilliam for Hepat itis B Surfa ce Antig en will refle x to refer ral lab confi rmato ry testi ng. Not Available [facility] (Lab) [address] [place], [address], 11/27/2023 19:17:48 11/27/19 24 11/27/2023 HEPAT ITIS ACUTE PANEL HBV surf.antigen signal/cutof f 0.12 0.00-0 .99 Not Available [facility] (Lab) [address] [place], [address], 11/27/2023 19:17:48 11/27/19 24 11/27/2023 HEPAT ITIS ACUTE PANEL hepatitis C antibody NON-RE ACTIVE non-re active All speci mens react lilliam for Hepat itis C Virus antib naima will refle x to PCR confi rmato ry testi ng. Pleas e allow 48-72 hours for resul ts. Not Available [facility] (Lab) [address] [place], [address], 11/27/2023 19:17:48 11/27/19 24 11/27/2023 HEPAT ITIS ACUTE PANEL hepatitis C virus signal/cutof 0.01 0.00-0 .99 Not Available [facility] (Lab) [address] [place], [address], 11/27/2023 19:17:48 11/27/19 24 11/27/2023 TSH W/REF ROMAN FT4 TSH with reflex free T4 2.520 uIU/m L 0.465- 4.680 Not Available [facility] (Lab) [address] [place], [address], 11/27/2023 18:50:59 11/27/19 24 11/27/2023 PSA SCREE N PSA medicare screen 0.82 NG/mL 0.00-4 .00 Not Available [facility] (Lab) [address] [place], [address], 11/27/2023 18:51:02 11/27/19 24 11/27/2023 HEMOG LOBIN A1C HA1C 5.9 % 4.0-6. 0 Diabe sal Scree maricruz Crite darren: <5.7% Consi stent with absen ce of diabe sal 5.7-6 .4% Consi stent with incre ased risk for diabe sal (pred iabet es) >OR=6 .5% Consi stent with diabe sal REFER ENCE: Diabe sal Care 2016, 39(Sharma ppl.1 ):s13 -s22 Not Available [facility] (Lab) [address] [place], [address], 11/27/2023 21:02:04 06/20/19 24 XR, knee No observ ation record ed. [email or web address] [place] [address], [place], [address], 06/20/2023 12:56:33 07/13/19 24 07/13/2023 MRI, knee, w/o contr ast No observ ation record ed. [email or web address] [place] [address], [address], 09/12/2023 15:51:05 07/13/19 24 07/13/2023 MRI, knee, w/o contr ast No observ ation record ed. [place] [id number] [facility] [address], [address], 07/23/2023 12:17:22 09/19/19 25 09/16/2024 imagi ng/di agnos tic resul t No observ ation record ed. [facility] [address], [place], [address], 09/18/2024 16:57:41 09/19/19 25 09/16/2024 imagi ng/di agnos tic resul t No observ ation record ed. [facility] [address], [place], [address], 09/18/2024 16:57:52 Result Notes None recorded. Problems Name Problem SNOMED Code Status Onset Date Resolution Date Notes Provider Name and Address Organization Details Recorded Time Serum iron below reference range 747063202 Active 2021 Not Available [facility] 4 06:42:32 Essential hypertensi on 23439362 Active 2022 Not Available [facility] 4 06:42:33 Obesity 887401973 Active 2022 Not Available [facility] 4 06:42:33 Proteinuri a 30996973 Active 2022 Not Available [facility] 4 06:42:33 Acute kidney injury 37574741 Active 2022 Not Available [facility] 4 06:42:32 Sleep apnea 73213983 Active 2022 Not Available [facility] 4 06:42:33 Iron deficiency anemia 64318197 Active 2022 Not Available [facility] 4 06:42:33 Prediabete s 617952891 Active 2022 Not Available [facility] 4 06:42:33 Liver enzymes level above reference range 806325208 Active 2022 Not Available [facility] 4 06:42:33 Gout 86568465 Active 2022 Not Available [facility] 4 06:42:33 Pain of joint of ankle and/or foot 471777717 Active 2022 Not Available [facility] 4 06:42:32 Steatotic liver disease 306749320 Active 2022 Not Available [facility] 4 06:42:32 Pain of left knee joint 2571478067265 07 Active 2022 Not Available [facility] 4 06:42:33 Pain of right knee joint 6460310313965 00 Active 2022 Not Available [facility] 4 06:42:33 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 Active 2022 Not Available [facility] 4 06:42:32 Contusion of right knee 2842848752506 9104 Active 2022 Not Available [facility] 4 06:42:32 Contusion of left knee 3449252538304 9109 Active 2022 Not Available [facility] 4 06:42:32 Vitamin D deficiency 08836319 Active 2022 Not Available [facility] 4 06:42:33 Mechanical complicati on of implant 296888903 Active 2022 Not Available [facility] 4 06:42:33 Anterior knee pain 218731711 Active 2022 Not Available [facility] 4 06:42:32 Pain of joint 98965514 Active 2022 Not Available [facility] 4 06:42:33 Pain in left foot 8815165616451 07 Active 2023 Not Available [facility] 4 06:42:33 Obstructiv e sleep apnea syndrome 87618995 Active 2023 Oscar johnson MD [address], [place], [address] , [facility] 4 18:52:01 Hyperlipid emia 46341503 Active 2023 Oscar johnson MD [address], [place], [address] , [facility] [employer] [facility] 4 18:54:45 Anemia 214887034 Active 2023 Oscar johnson MD [address] [facility], [place] [address], [place], [address] , [facility] [employer] [facility] 4 18:55:20 Hyperglyce ector 46899249 Active 2023 Oscar johnson MD [address] [facility], [facility] [address], [place], [address] , [facility] [employer] [facility] 4 18:56:34 Chronic kidney disease 308227334 Active 2023 Oscar johnson MD [address] [facility], [place] [address], [place], [address] , [facility] [employer] [facility] 4 18:58:01 Microcytos is 477521536 Active 2023 Shirley Hansen MA [facility], [facility] [employer] [facility] 4 11:53:59 Notes:Medical History: Obesi ty with [...] Recorded Time colonoscopy completed Norma Lakhani MA [facility] [employer] [facility] 10/30/2023 15:15:32 Imaging Results None recorded. Procedure [...] suspension for injection in office 06/14 completed [facility]: [id number] Not Available Not Available [...] Updated DateTime 5 180.34 cm 44.4 kg/m2 342482. 37 g 97.7 [degF] 90 /min 138 mm[Hg] 82 mm[Hg] RACHAEL García [facility] [employer] [facility] 5 16:54:44 Date Recorded Body height Provider Name an d Address Organization Details Last Updated DateTime 07/18/2023 180.34 cm Joy Morton CNA [facility] [employer] [facility] 07/18/2023 08:53:51 Date Recorded Body height Body mass index (BMI) Body weight Body temperature Heart rate Oxygen saturation Oxygen saturation in Arterial blood by Pulse oximetry Systolic blood pressure Diastolic blood pressure Provider Name and Address Organization Details Last Updated DateTime 4 180.34 cm 40.9 kg/m2 346806. 56 g 98.3 [degF] 88 /min 98 % 98 % 134 mm[Hg] 84 mm[Hg] Norma Lakhani MA [facility] [employer] [facility] 4 15:13:46 Date Recorded Body height Body mass index (BMI) Body weight Body temperature Heart rate Oxygen saturation Oxygen saturation in Arterial blood by Pulse oximetry Systolic blood pressure Diastolic blood pressure Provider Name and Address Organization Details Last Updated DateTime 5 180.34 cm 43.7 kg/m2 839631. 21 g 96.3 [degF] 82 /min 96 % 96 % 134 mm[Hg] 84 mm[Hg] Norma Lakhani MA [facility] [employer] [facility] 5 16:26:06 Date Recorded Body height Body mass index (BMI) Body weight Body temperature Heart rate Respiratory rate Oxygen saturation Oxygen saturation in Arterial blood by Pulse oximetry Systolic blood pressure Diastolic blood pressure Provider Name and Address Organization Details Last Updated DateTime 4 180.34 cm 42.5 kg/m2 893320. 67 g 98 [degF] 86 /min 18 /min 99 % 99 % 136 mm[Hg] 72 mm[Hg] Sebastián Mendenhall LPN [facility] [employer] [facility] 4 15:52:28 Social History Question Answer Notes LastModified by Organization Details LastModified Time Tobacco Smoking Status Never Smoker Not Available [facility] 08/09/2022 23:29:04 Do You Have An [...] Or The Highest Degree You Have Received? [id number] Information not available 08/09/2022 Have There Been Any Changes To Your Family Or Social Situation? No [id number].0301 [id number] Information not available 08/09/2022 What Is The Fluoride Status Of Your Home? Fluoridated MIGRATION.0301 [id number] Information not available 08/09/2022 Are There Any Guns Present In Your Home? No MIGRATION.0301 [id number] Information not available 08/09/2022 Do You Use Insect Repellent Routinely? No MIGRATION.0301 [id number] Information not available 08/09/2022 Where Do You Live? [place]House MIGRATION.0301 [id number] Information not available 08/09/2022 Do You Have A Medical Power Of Mobility Architect? No MIGRATION.0301 [id number] Information not available 08/09/2022 What Was The Date Of Your Most Recent Tobacco Screening? 11/18/2024 [email or web address] Information not available 11/18/2024 Have You Ever Been Counseled For Unhealthy Alcohol Use? No MIGRATION.0301 [id number] Information not available 08/09/2022 Do You Have Any Pets? No MIGRATION.0301 [id number] Information not available 08/09/2022 What Is Your Relationship Status? Single MIGRATION.0301 [id number] Information not available 08/09/2022 Do You Use Your Seat Belt Or Car Seat Routinely? Yes MIGRATION.0301 [id number] Information not available 08/09/2022 Do You Have Smoke And Carbon Monoxide Detectors In Your Home? Yes MIGRATION.0301 [id number] Information not available 08/09/2022 Are You Passively Exposed To Smoke? No MIGRATION.0301 [id number] Information not available 08/09/2022 Are There Any Smokers In Your House? No MIGRATION.0301 [id number] Information not available 08/09/2022 What Types Of Sporting Activities Do You Participate In? None MIGRATION.0301 [id number] Information not available 08/09/2022 Do You Use Sunscreen Routinely? No MIGRATION.0301 [id number] Information not available 08/09/2022 Has Tobacco Cessation Counseling Been Provided? No Not Needednever Smoked MIGRATION.0301 [id number] Information not available 08/09/2022 Have You Recently Traveled Abroad? No MIGRATION.0301 [id number] Information not available 08/09/2022 Do You Have Any Dietary Restrictions? No MIGRATION.0301 [id number] Information not available 08/09/2022 Sex: Male Functional Status Question Answer Note LastModified by Organizat ion Details LastModified Time Do you use any illicit or recreational drugs? No [id number] Information not available 08/09/2022 Do you or have you ever used any other forms of tobacco or nicotine? No [id number].[id number] Information not available 08/09/2022 What is your level of alcohol consumption? 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 Moderate cuts grass MIGRATION.[id number] 2577 Information not available 08/09/2022 Mental Status Question Answer Note LastModified by Organizat ion Details LastModified Time Do you feel stressed (tense, restless, nervous, or anxious, or unable to sleep at night)? [id number] Information not available 08/09/2022 Family History Relationship Description Onset Age of this Age Resolved Age Notes LastModified by Organization Details LastModified Time Mother Malignant neoplastic disease [id number] Not available 08/09/2022 23:29:15 Sister COVID-19 [id number].189 [id number] Not available 08/09/2022 23:29:15 Medical History Condition [...] ARTERY DISEASE (CAD) N ADDICTION CONCERNS N Impotence N ENDOMETRIOSIS N USE OF BLOOD THINNERS N SKIN [...] GLAUCOMA N FOOT PROBLEM N DIVERTICULITIS N SLEEP APNEA N CHICKENPOX N INFECTIOUS DISEASE N PROSTATE N HEART ARRHYTHMIA N INSOMNIA N HIGH CHOLESTEROL / HYPERLIPIDEMIA Y EYE PROBLEMS N HYPERTHYROIDISM N EDEMA N CHRONIC PAIN SYNDROME N HYPOTHYROIDISM N CONSTIPATION N CAROTID BLOCKAGE N BACK / NECK PROBLEMS N ATHEROSCLEROSIS N BREAST PROBLEMS N DIALYSIS N ECZEMA N OSTEOPOROSIS N ARTHRITIS N APPENDICITIS N DIABETES, TYPE N BAD TEETH N ENT N HEARTBURN / REFLUX Y AUTISM SPECTRUM DISORDER (ASD) N HEPATITIS / LIVER DISEASE N GOUT Y SLEEP DISORDER N ALZHEIMER'S DISEASE N Brain Problems N DEMENTIA N HERPES N SEIZURES/EPILEPSY N HEADACHES/MIGRAINES N VASCULAR DISEASE N PACEMAKER N Blood Disorder N DIZZINESS N HEART DISEASE/HEART PROBLEMS N KIDNEY DISEASE Y MULTIPLE SCLEROSIS N CANCER: SPECIFY N CARDIAC ARRHYTHMIA N ATRIAL FIBRILLATION N Gall Stones N PULMONARY EMBOLISM N AUTOIMMUNE DISEASE N Immunizations Vaccine Type Date Status Note Provider Nam e and Address Organization Details Recorded Time SARS-COV-2 (COVID-19) vaccine, UNSPECIFIED 1 completed Not Available [facility] 06/28/2023 06:42:33 SARS-COV-2 (COVID-19) vaccine, UNSPECIFIED 1 completed Not Available [facility] 06/28/2023 06:42:33 Influenza, split virus, quadrivalent, PF 2 completed Not Available [facility] 06/28/2023 06:42:33 Influenza, split virus, quadrivalent, PF 3 completed Nitza Rinaldi, SANITATION OFFICER-C [address] [facility], [facility] [address], [place], [address], [facility] [employer] [facility] 04/30/2023 16:34:20 Past Encounters Encounter ID Performer Location Encounter Start Date Encounter Closed Date Diagnosis/Indication Diagnosis SNOMED-CT Code Diagnosis ICD10 Code Diagnosis Note [id number] Oscar johnson MD [facility] Internal Med [place] [address] [facility], [facility] [address] [place] [address] 01/11/2021 00:00:00 01/11/2021 17:13:23 [id number] Oscar johnson MD Deann_[facility] Internal Med [place] [address] [facility] [address] [place] [address] 02/15/2021 00:00:00 02/15/2021 20:18:11 [id number] Oscar johnson MD S_[facility] Internal Med [facility] [address] [place] [address] Ave[address] [place] [address] 1 03/15/2021 00:00:00 03/15/2021 19:59:43 [id number] Oscar johnson MD S_G Internal Med [address] [place] [address] 1 06/28/2021 00:00:00 06/28/2021 17:28:10 [id number] MD DIA VelozS_[facility] Internal Med [address] [place] [address] 10/14/2021 00:00:00 10/14/2021 17:03:15 [id number] Oscar johnson MD S_[facility] Internal Med [address] [place] [address] 1 04/21/2022 00:00:00 04/21/2022 17:11:39 [id number] Oscar johnson MD [facility] Internal Med [address] [place] [address] 1 10/24/2022 15:55:35 10/24/2022 16:31:49 Essential hypertension 57099516 I10 on amlodipine , HCTZ, losartan Obesity 136685969 E66.9 recommend healthy, well balanced mealsfocus on lean meats, fresh vegetables , fresh fruits, whole grainsredu ce fast/proce ssed foods or eating out to no more than 1-2 times per weekaim to get 30 min of exercise most days of the week- walking is a great choicealso recommend resistance training 2-3 times per week Proteinuria 34887013 R80 .9 now following nephrology - Dr Coe History of acute kidney injury 5056460321 56459 Z87.448 2/2 to [facility] as above Sleep apnea 65555865 G47 .30 now on CPAP- he is not wearing it, he tells me he doesn't like [facility] had previously referred him over to [facility] for evaluation for inspire device, he tells me he still has referral but does not want to go just yet Offered him a pulmonolog y referral to troublesho ot CPAP-he declines today We discussed risks of untreated sleep apnea including heart problems, lung problems, and , strongly encouraged him to wear the CPAP Iron defic iency anemia 11723719 D50.9 Dr. Coe took him off the ironis s/p cscope but GI is recommendi ng EGD- he declines this History of polyp of colon 296544344 Z86.010 repeat colon 03/2026 Prediabetes 868432765 R7 3.03 diet/exerc ise encouraged Cholesterol screening 27 5647534 Z13.220 Screening for malignant neoplasm of prostate 939256290 Z12.5 [id number] Oscar johnson MD [facility] Internal Med [facility] 15 [address] [facility], [facility] [address] [place] [address] 04/30/2023 15:34:01 04/30/2023 16:04:22 Essential hypertension 68692678 I10 on amlodipine , HCTZ, losartan Obesity 232874740 E66.9 recommend healthy, well balanced mealsfocus on lean meats, fresh vegetables , fresh fruits, whole grainsredu ce fast/proce ssed foods or eating out to no more than 1-2 times per weekaim to get 30 min of exercise most days of the week- walking is a great choicealso recommend resistance training 2-3 times per week Proteinuria 58563250 R80 .9 now following nephrology - Dr Coe History of acute kidney injury 1915276588 95704 Z87.448 07/13 [facility] Sleep apnea 01064315 G47 .30 now on CPAP- he is not wearing it, he tells me he doesn't like [facility] had previously referred him over to [facility] for evaluation for inspire device, he tells me he still has referral but does not want to go just yet Offered him a pulmonolog y referral to troublesho ot CPAP-he declines today We discussed risks of untreated sleep apnea including heart problems, lung problems, and , strongly encouraged him to wear the CPAP Iron defic iency anemia 42565907 D50.9 Dr. Coe took him off the ironis s/p cscope but GI is recommendi ng EGD- he declines this History of polyp of colon 885684013 Z86.010 repeat colon 03/2026 Prediabetes 309516576 R7 3.03 diet/exerc ise encouraged nephrology started him on metformin Adult heal th examination 373815866 Z00.01 Steatotic liver disease 967656177 K76.0 working on diet/exerc ise/weight loss Gout 35405146 M10.9 Colchicine is contraindi cated with his current meds Will try to avoid NSAIDs due to his kidneys Will try a Medrol Dosepak and see if that helps Gout diet discussed Cholesterol screening 27 1693111 Z13.220 Administra tion of influenza vaccine 90996844 Z23 Depression screening 171 489482 Z13.31 [id number] KEYSHA Funez [place] [address] 05/22/2023 09:41:15 05/22/2023 10:51:21 Pain of left knee joint 4162613935 40011 M25.562 Pain of ri ght knee joint 2756778215 72900 M25.561 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 Patient has gout [...] face-to-fa ce care. Pain in left foot 671257 6208 86334 M79.451 [id number] Christophe Blankenship MD [facility] Ortho [place] [address] [place] [address] 06/20/2023 09:50:56 06/20/2023 13:04:00 Contusion of left knee 6357811119 9467923 S80.02XD Pain in left foot 409789 0396 73196 M79.711 [id number] Christophe Blankenship MD [facility] Ortho [place] [address] [place] [address] 07/18/2023 08:48:27 07/23/2023 10:45:15 Pain of left knee joint 0058555373 22894 M25.299 [id number] Oscar johnson MD [facility] Internal Med [facility] 15 [address]43 [facility], [facility] [address] [place] [address] 10/30/2023 14:53:41 10/30/2023 16:02:38 Screening - NAD 037639678 Z13.9 C-scope: Dr Willis 04/06/2021 , next in 5 years Get yearly flu shot, get Tdap if not doneCan do RSV vaccineGet shingrix vaccineCan do COVID 19 boosters RTC in 3 months, do labs, ER if worse Essential hypertension 42780894 I10 On chlorthali done 25mg dailyOn losartan 100mg dailyOn aldactone 100mg dailyOn torsemide 20mg dailyGet labs Obstructiv e sleep apnea syndrome 28186580 G47.33 Steatotic liver disease 162916215 K76.0 Get US liverHepat itis pane, and GGT Gout 05716895 M10.9 On allopurino l 300mg daily Hyperlipidemia 29958869 E78.5 On atorvastat in 20mg daily, increase to 40mg dailyGet labs Screening for malignant neoplasm of prostate 851664982 Z12.5 Anemia 537482841 D64.9 Microcytic Can get on ironGet a referral to Dr Riley Hyperglycemia 77627773 R 73.9 Get labsNeeds to see eye MD and podiatry Chronic ki dney disease 863322729 N18.9 Dr Coe 08/28/2023 Screening for cardiovascular system disease 121305425 Z13.6 [id number] Oscar johnson MD [facility] Internal Med [facility] [address] 1 01/29/2024 15:18:00 01/29/2024 16:26:53 Screening - NAD 161572400 Z13.9 C-scope: Dr Willis 04/06/2021 , next in 5 years Get yearly flu shot, get Tdap if not doneCan do RSV vaccineGet shingrix vaccineCan do COVID 19 boosters RTC in 3 months, do labs, ER if worse Essential hypertension 49244991 I10 On chlorthali done 25mg daily, given by Dr Mejia losartan 100mg dailyOn aldactone 100mg dailyOn torsemide 20mg dailyGet labs Obstructiv e sleep apnea syndrome 38961522 G47.[address] Naranjo Steatotic liver disease 595559693 K76.0 Get liverHepat itis Panel: NegativeGG T 61 Gout 18570844 M10.9 On allopurino l 300mg daily Hyperlipidemia 33688777 E78.5 On atorvastat in 20mg dailyGet labs Anemia 357633212 D64.9 Microcytic Can get on ironGet a referral to Dr Riley Hyperglycemia 82055128 R 73.9 On metformin ER 500mg bid Get labsNeeds to see eye MD and podiatry Chronic ki dney disease 020256349 N18.9 Dr Coe 08/28/2023 Screening for cardiovascular system disease 027987985 Z13.6 Does need to see cardiology , referred 01/29/2024 [id number] Oscar johnson MD [facility] Internal Med [facility] [address] [facility] [place] [address] 07/15/2024 16:04:46 07/15/2024 17:32:05 Screening - NAD 392233975 Z13.9 C-scope: Dr Willis 04/06/2021 , next in 5 years Get yearly flu shot, get Tdap if not doneCan do RSV vaccineUTD on shingrix vaccineCan do COVID 19 boosters RTC in 3 months, do labs, ER if worse Essential hypertension 61747739 I10 On chlorthali done 25mg daily, given by Dr Coe 06/17/2024 , f/u in 6 monthsOn nifedipine 60mg dailyOn losartan 100mg dailyOn aldactone 100mg dailyOn torsemide 20mg dailyGet labs Obstructiv e sleep apnea syndrome 74988453 G47.[address] Naranjo Steatotic liver disease 747220807 K76.0 Get US liverHepat itis Panel: NegativeGG T 61He does consume alcohol, advised to wean off Gout 14920905 M10.9 On allopurino l 300mg daily Hyperlipidemia 47629426 E78.5 On atorvastat in 20mg dailyGet labs Anemia 382027523 D64.9 Microcytic Can get on ironSees Dr Riley in 10/2024 Hyperglycemia 08230382 R 73.9 On metformin ER 500mg bid Get labsNeeds to see eye MD and podiatry Chronic ki dney disease 833497646 N18.9 Dr Coe 08/28/2023 Screening for cardiovascular system disease 321873681 Z13.6 Does need to see cardiology , referred 01/29/2024 Pain of le ft knee joint 8255026828 25477 M25.562 S/p MRI 07/13/[address] Blankenship ortho [id number] Oscar johnson MD [facility] Internal Med [facility] [address] [place] [address], [place] [address] [place] [address] 11/18/2024 16:14:26 11/18/2024 16:59:56 Screening - NAD 743092495 Z13.9 C-scope: Dr Willis 04/06/2021 , next in 5 years Get yearly flu shot, get Tdap if not doneCan do RSV vaccineUTD on shingrix vaccineCan do COVID 19 boosters RTC in 3 months, do labs, ER if worse Essential hypertension 77856773 I10 On chlorthali done 25mg daily, given by Dr Coe 06/17/2024 , f/u in 6 monthsOn nifedipine 60mg dailyOn losartan 100mg dailyOn aldactone 100mg dailyOn torsemide 20mg dailyGet labs Obstructiv e sleep apnea syndrome 51882984 G47.[address] Naranjo Steatotic liver disease 827582325 K76.0 Get US liverHepat itis Panel: NegativeGG T 61He does consume alcohol, advised to wean off !Get on MVI daily Refer to GI now Gout 51701691 M10.9 On allopurino l 300mg daily Hyperlipidemia 17083172 E78.5 On atorvastat in 20mg dailyGet labs Anemia 151962111 D64.9 Microcytic Can get on ironSees Dr Riley Hyperglycemia 65173167 R 73.9 On metformin ER 500mg bid Get labsNeeds to see eye MD and podiatry Chronic ki dney disease 867982750 N18.9 Dr Coe 08/28/2023 Screening for cardiovascular system disease 941556195 Z13.6 ECHO 09/16/2024 Pain of le ft knee joint 6445363702 06819 M25.562 S/p MRI 07/13/[address] Blankenship ortho Health Concerns Section Related Observation LastModified by Organization Detai ls LastModified Time None Recorded Concern Status LastModified by Organization Details LastModified Time None Recorded Advance Directives Directive N: Payers Insurance Date Sequence Insurance Name Policy Number Policy Brown Covered Member ID Brown Member ID Guarantor Name 07/11/2023 [facility] Armani Oconnell 01/29/2024 1 [facility] Armani Oconnell [id number] Armani Oconnell 11/15/2024 1 [facility] [id number] Armani Oconnell [id number] Armani Oconnell 07/15/2024 1 [employer] [facility] (EPO) Armani Oconnell [id number] Armani Oconnell Notes Date Note Type Note Provider Name and Address Organization Details Recorded Time 07/18/2023 text/html Patient returns. His MRI scan was completed on 07/13/2023. 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 I reviewed the MRI findings [...] Blankenship MD [address], [address], [place], [address], [facility] [employer] 07/22/2023 20:13:22 10/30/2023 text/html OV 10/30/2023:He re to establish care Present Hx:HTNOSAPrediabetesAn emiaSteatosis of liverGout Here to discuss above and get labs Oscar Joseph MD [address], [address], [place], [address], [facility] [employer] [facility] [employer] 10/31/2023 17:58:59 01/29/2024 text/html OV 10/30/2023:He re to establish care Present Hx:HTNOSAPrediabetesAn emiaSteatosis of liverGout Here to discuss above and get labs OV 01/29/2024: Here for his routine apt, he feels well now, he has seen Dr Coe and also Dr Riley, he did do the labs Oscar Joseph MD [address], [facility] [address], [place], [address], [employer] [facility] [employer] 01/29/2024 16:29:28 07/15/2024 text/html OV 10/30/2023:He [...] labs Oscar Joseph MD [address], [facility] [address], [place], [address], [employer] [facility] [employer] 07/15/2024 17:58:29 11/18/2024 text/html OV 10/30/2023:He [...] admits to drinking alcohol Oscar Joseph MD [address] [place] [address], [address], [place], [address], [facility] [employer] [facility] 11/18/2024 16:59:01
--- OUTSIDE RECORDS SUMMARY | 2024-12-10 16:00 | XMS_ITS | Clinical Summary ---
Author Organization [facility] Pablo Cowan Address [address] [place] [address] Care Team Providers Care Rack Loader Name Role Phone Oscar Joseph MD Primary [...] Abstract 10/28/2024 3:45 PM CDT Office Visit [facility] Oncology [facility] Hemat[facility] [address] [place] [address] Juan Riley MD Anemia, chronic disease (Primary Dx) 10/24/2024 Orders Only [facility] Hematology [facility] [address] [place] [address] Juan Riely MD from Last 3 Months Family History [...] Description 10/29/2025 3:45 PM CDT Office Visit [facility] Oncology and Hematology [facility] [address] [facility] [address] [place] [address] Juan Riley MD [address] [facility] [address] [place] [address] Health Maintenance Due Date Last [...] - Risk 60-74 years 1-dose series) 2022 DIABETES HBA1C Q 6 MONTHS 05/28/2024 11/27/2023 INFLUENZA VACCINE (#1) 2025 04/30/2023, 2021 Procedures Procedure Name Priority Date/Time Associated Diagnosis [...] Res ult from Last 3 Months Insurance [employer] [id number] Care Teams Rack Loader Relationship Specialty Start Date End Date Oscar Joseph MD PCP - General Internal Medicine 01/09/24
--- OUTSIDE RECORDS SUMMARY | 2024-12-10 16:00 | XMS_ITS | Encounter Summary ---
Author Organization [facility] [employer] [facility] [employer] [facility] Address [address] [facility] [place] [address] Phone Care Team Providers Care Hypoid Gear Generator Name Role Phone Nitza Rinaldi Primary Care Provider [phone] Encounter Details Date Type Department Care Team (Late Contact Info) Description 12/10/2024 Documentation Only [facility], [facility] [address] [facility] [address] [place] [address] Zeeshan Coe DO [address] [facility] 1 [place] [address] Social History Tobacco Use Types Packs/Day Years Used Date Smoking Tobacco: Never Smokeless Tobacco: Never Alcohol Use Standard Drinks/Week Comments Yes 0 (1 standard drink = 0.6 oz pur e alcohol) Sex and Gender Information Value Date Recorded Sex Assigned at Not on file Legal Sex Male 10:32 AM EDT Gender Identity Not on file Sexual Orientation Not on file documented as of this encounter Plan of Treatment Upcoming Encounters Date Type Department Care Team (Late Contact Info) Description 12/16/2024 3:15 PM CDT Office Visit [facility] [address] [facility] 15 [place] [address] Zeeshan Coe DO [address] [facility] 1 [place] [address] documented as of this encounter Visit Diagnoses Not on filedocumented in this encounter Care Teams Hypoid Gear Generator Relationship Specialty Start Date End Date Nitza Rinaldi FNP-C [address] [place] [address] PCP - General Nurse Practitioner 04/05/21 documented as of this encounter
--- OUTSIDE RECORDS SUMMARY | 2024-12-10 16:00 | XMS_ITS | Encounter Summary ---
Author Organization [facility] [employer] [facility] Address [address] [place], [place] [address] [place] [address] Phone Care Team Providers Care Experience Specialist Name Role Phone MasterselwynNitza Primary Care Provider [phone] Encounter Details Date Type Department Care Team (Late Contact Info) Description 12/10/2024 Documentation Only [facility] Emergency DepartmentShopnation [facility] [address] [facility] 1 [place] [address] Zeeshan Coe DO [address] [facility] 1 [place] [address] Social History Tobacco Use Types [...] Description 12/16/2024 3:15 PM CDT Office Visit [facility] Emergency DepartmentShopnation [facility] [address] [facility] [address] [place] [address] Zeeshan Coe DO [address] [facility] 1 [place] [address] documented as of this encounter Visit Diagnoses Not on filedocumented in this encounter Care Teams Experience Specialist Relationship Specialty Start Date End Date Nitza Rinaldi FNP-C [address] [place] [address] PCP - General Nurse Practitioner 04/05/21 documented as of this encounter
--- OUTSIDE RECORDS SUMMARY | 2024-12-10 16:00 | XMS_ITS | Encounter Summary ---
Author Organization [facility] [employer] [facility] [employer] [facility] Address [address] [facility] [place] [address] Phone Care Team Providers Care Ultimate Hoops Referee Name Role Phone Nitza Rinaldi Primary Care Provider [phone] Encounter Details Date Type Department Care Team (Late Contact Info) Description 12/10/2024 Documentation Only [employer] [facility], [facility] [address] [facility] 15 [place] [address] Zeeshan Coe DO [address] [facility] 1 [place] [address] Social History Tobacco Use Types [...] Description 12/16/2024 3:15 PM CDT Office Visit [facility] [address] [facility] 15 [place] [address] Zeeshan Coe DO [address] [facility] 1 [place] [address] documented as of this encounter Visit Diagnoses Not on filedocumented in this encounter Care Teams [employer] Referee Relationship Specialty Start Date End Date Nitza Rinaldi FNP-C [address] [place] [address] PCP - General Nurse Practitioner 04/05/21 documented as of this encounter
--- OUTSIDE RECORDS SUMMARY | 2024-12-10 16:00 | XMS_ITS | Data Portability ---
Author Organization Debora FAUST Address [address] [place] [address] Assessment No assessment recorded. Plan of Treatment Reminders Order Date Submit Date Provider Last Modified By Organization Details Last Modified Time Details Appointments None recorded. Lab HbA1c (hemoglobi n A1c), blood 2017 018 WILFREDO HUA, [address] [place], [place] [address]raymond Gus, [facility] [address], [place], [address], 8 10:36:21 hemoglobin , qualitativ e, stool by immunologi c method 2017 018 WILFREDO HUA, [address] [place] [address], [address], [place], [address], 8 09:52:00 BMP, serum or plasma 2017 018 WILFREDO HUA, [address] [place], [place] [address]raymnod Gus, [facility] [address], [place], [address], 8 10:36:19 lipid panel, serum 2017 018 WILFREDO SEQUEIRA, [address] [place], [place] [address]raymond Weber, [address], [place], [address], 8 10:36:19 microalbum in/creatin ine, mass ratio, urine 2017 018 WILFREDO HUA, [address] [place], [place] [address] Weber, [address], [place], [address], 8 10:36:20 BMP, serum or plasma 2016 017 [facility], [address] [facility] Gus, [address], [place], [address], 7 06:06:09 CBC w/ auto diff 2016 017 [facility], [address] [place] [address] Gus, [address], [place], [address], 7 08:26:20 C reactive protein, QN, serum or plasma 2016 017 [facility], [address] [facility] Gus, [address], [place], [address], 7 08:26:21 lipid panel, serum 2016 017 [facility], [address] [place] [address], [address], [place], [address], 7 08:26:20 HIV (1+2) Ab, rapid, unspecifie d specimen 2016 017 [email or web address] In-Office Order, Internal Use Only DO Not Attach Compendium DO Not Attach Compendium, Do Not Delete/merge, [id number] 7 16:12:03 Referral colonoscop y referral 2016 017 [email or web address] Not available 9 15:01:50 Procedures None recorded. Surgeries None recorded. Imaging None recorded. Medication Orders amlodipine 10 mg tablet 2017 018 [facility]23625, [address], [place], [id number], 8 09:56:35 hydrochlor othiazide 50 mg tablet 2016 017 [email or web address] [facility] #00459, [address], [place], [id number], 8 09:58:11 amlodipine 10 mg tablet 2016 017 [facility] #77968, [address], [place], [id number], 7 12:47:13 amlodipine 10 mg tablet 2016 017 [facility] #49489, [address], [place], [id number], 7 01:28:24 hydrochlor othiazide 25 mg tablet [address] [facility]75973, [address], [place], [id number], 7 12:40:08 meloxicam 7.5 mg tablet [address] [facility] #92005, [address], [place], [id number], 7 13:47:33 amlodipine 10 mg tablet [address] [facility] #16751, [address], [place], [id number], 7 12:46:39 hydrochlor othiazide 25 mg tablet [address] [facility] #77330, [address], [place], [id number], 7 12:40:08 sertraline 50 mg tablet [address] [facility] #77078, [address], [place], [id number], 7 13:47:29 meloxicam 7.5 mg tablet 2016 017 [email or web address] [facility] #06186, [address], [place], [id number], 7 13:47:33 amlodipine 10 mg tablet 2016 017 INTER[facility] #18143, [address], [place], [id number], 7 15:48:36 hydrochlor othiazide 12.5 mg capsule 2016 017 [email or web address] [facility] #40673, [address], [place], [id number], 7 12:46:44 sertraline 50 mg tablet 2016 017 [email or web address] #32888, [address], [place], [id number], 7 13:47:29 Patient TargetsNo targets recorded. Patient Instructions Encounter Date Encounter Id Patient Instructions Last Modified By Organization Details Last Modified Time 08/22/2016 [id number] C-reactive protein (CRP) test: about this test Not available 08/22/2016 15:48:38 learning about high blood pressure Not available 08/22/2016 16:11:58 09/22/2016 [id number] I was present an d available in the Family Medicine clinic to discuss this patient's care during the appointment. I agree with the resident's assessment and plan as documented. EDWARD Not available 10/02/2016 21:47:37 10/26/2016 [id number] I was present in the clinic to discuss this patient at the time of the visit. I agree with the documented assessment and plan. Rosi Monk MD [email or web address] Not available 11/13/2016 14:50:45 01/30/2017 [id number] I certify that I was present and available in the family medicine clinic for discussion of this patient. I have reviewed the residents note and agree with the stated assessment and treatment plan. SIVAN [email or web address] Not available 01/30/2017 16:11:16 04/24/2018 [id number] I was present an d available in the Family Medicine clinic to discuss this patient's care during the appointment. I agree with the resident's assessment and plan as documented. EDWARD Not available 04/26/2018 18:04:22 Reason for Referral Colonoscopy Referral for Scr eening for malignant neoplasm of colon Referring Physician: David Fernandes Leather Tooler, Encounter Date: 08/22/2016 Results Created Date Observation Date Name Description Value Unit Range Abnormal Flag Note LastModifiedBy Organization Detail LastModifiedTime 08/23/19 17 08/22/2016 HIV (1+2) Ab, rapid , unspe cifie d speci men Rapid HIV negati ve Not Available In-Office Order Internal Use Only DO Not Attach Compendium DO Not Attach Compendium, Do Not Delete/merge, [id number] 08/22/2016 15:47:47 08/23/19 17 08/23/2016 CBC w/ auto diff WBC 9.7 x10e3 /uL 3.4-10 .8 Not Available [facility] ([facility]) [address] [place], [address], 08/23/2016 08:26:20 08/23/19 17 08/23/2016 CBC w/ auto diff RBC 4.97 x10e6 /uL 4.14-5 .80 Not Available [facility] ([facility]) [address] [facility], [place], [address], 08/23/2016 08:26:20 08/23/19 17 08/23/2016 CBC w/ auto diff hemoglobin 11.3 g/dL 12.6-1 7.7 below low normal Not Available [facility] ([facility]) [address] [place], [address], 08/23/2016 08:26:20 08/23/19 17 08/23/2016 CBC w/ auto diff hematocrit 35.2 % 37.5-5 1.0 below low normal Not Available [facility] ([facility]) [address] [facility], [place], [address], 08/23/2016 08:26:20 08/23/19 17 08/23/2016 CBC w/ auto diff MCV 71 fL 79-97 below low normal Not Available [facility] ([facility]) [address] [facility], [place], [address], 08/23/2016 08:26:20 08/23/19 17 08/23/2016 CBC w/ auto diff MCH 22.7 pg 26.6-3 3.0 below low normal Not Available [facility] ([facility]) [address] [facility], [place], [address], 08/23/2016 08:26:20 08/23/19 17 08/23/2016 CBC w/ auto diff MCHC 32.1 g/dL 31.5-3 5.7 Not Available [facility] ([facility]) [address] [facility], [place], [address], 08/23/2016 08:26:20 08/23/19 17 08/23/2016 CBC w/ auto diff RDW 16.8 % 12.3-1 5.4 above high normal Not Available [facility] ([facility]) [address] [facility], [place], [address], 08/23/2016 08:26:20 08/23/19 17 08/23/2016 CBC w/ auto diff platelets 409 x10e3 /uL 150-37 9 above high normal Not Available [facility] ([facility]) [address] [facility], [place], [address], 08/23/2016 08:26:20 08/23/19 17 08/23/2016 CBC w/ auto diff neutrophils 73 % Not Available [facility] ([facility]) [address] [facility], [place], [address], 08/23/2016 08:26:20 08/23/19 17 08/23/2016 CBC w/ auto diff lymphs 17 % Not Available [facility] ([facility]) [address] [place], [address], 08/23/2016 08:26:20 08/23/19 17 08/23/2016 CBC w/ auto diff monocytes 9 % Not Available [facility] ([facility]) [address] [place], [address], 08/23/2016 08:26:20 08/23/19 17 08/23/2016 CBC w/ auto diff eos 1 % Not Available [facility] ([facility]) [address] [place], [address], 08/23/2016 08:26:20 08/23/19 17 08/23/2016 CBC w/ auto diff basos 0 % Not Available [facility] ([facility]) [address] [place], [address], 08/23/2016 08:26:20 08/23/19 17 08/23/2016 CBC w/ auto diff immature cells DISBURSING AGENT Not Available [facility] ([facility]) [address] [place], [address], 08/23/2016 08:26:20 08/23/19 17 08/23/2016 CBC w/ auto diff neutrophils (absolute) 7.0 x10e3 /uL 1.4-7. 0 Not Available [facility] ([facility]) [address] [place], [address], 08/23/2016 08:26:20 08/23/19 17 08/23/2016 CBC w/ auto diff lymphs (absolute) 1.7 x10e3 /uL 0.7-3. 1 Not Available [facility] ([facility]) [address] [place], [address], 08/23/2016 08:26:20 08/23/19 17 08/23/2016 CBC w/ auto diff monocytes(ab solute) 0.9 x10e3 /uL 0.1-0. 9 Not Available [facility] ([facility]) [address] [facility], [place], [address], 08/23/2016 08:26:20 08/23/19 17 08/23/2016 CBC w/ auto diff eos (absolute) 0.1 x10e3 /uL 0.0-0. 4 Not Available [facility] ([facility]) [address] [facility], [place], [address], 08/23/2016 08:26:20 08/23/19 17 08/23/2016 CBC w/ auto diff baso (absolute) 0.0 x10e3 /uL 0.0-0. 2 Not Available [facility] ([facility]) [address] [facility], [place], [address], 08/23/2016 08:26:20 08/23/19 17 08/23/2016 CBC w/ auto diff immature granulocytes 0 % Not Available [facility] ([facility]) [address] [facility], [place], [address], 08/23/2016 08:26:20 08/23/19 17 08/23/2016 CBC w/ auto diff immature grans (abs) 0.0 x10e3 /uL 0.0-0. 1 Not Available [facility] ([facility]) [address] [facility], [place], [address], 08/23/2016 08:26:20 08/23/1908/23/2016 CBC w/ auto diff NRBC DISBURSING AGENT Not Available [facility] ([facility]) [address] [facility], [place], [address], 08/23/2016 08:26:20 08/23/1908/23/2016 CBC w/ auto diff hematology comments: DISBURSING AGENT Not Available [facility] ([facility]) [address] [facility], [place], [address], 08/23/2016 08:26:20 08/23/1908/23/2016 lipid panel , serum cholesterol, total 181 mg/dL 100-19 9 Not Available [facility] ([facility]) [address] [place], [address], 08/23/2016 08:26:20 08/23/19 17 08/23/2016 lipid panel , serum triglyceride s 90 mg/dL 0-149 Not Available [facility] ([facility]) [address] [place], [address], 08/23/2016 08:26:20 08/23/19 17 08/23/2016 lipid panel , serum HDL cholesterol 34 mg/dL >39 below low normal Not Available [facility] ([facility]) [address] [place], [address], 08/23/2016 08:26:20 08/23/19 17 08/23/2016 lipid panel , serum VLDL cholesterol yoli 18 mg/dL 5-40 Not Available [facility] ([facility]) [address] [place], [address], 08/23/2016 08:26:20 08/23/19 17 08/23/2016 lipid panel , serum LDL cholesterol calc 129 mg/dL 0-99 above high normal Not Available [facility] ([facility]) [address] [place], [address], 08/23/2016 08:26:20 08/23/19 17 08/23/2016 lipid panel , serum comment: DISBURSING AGENT Not Available [facility] ([facility]) [address] [place], [address], 08/23/2016 08:26:20 08/23/19 17 08/23/2016 C react juju prote in, QN, serum or plasm a C-reactive protein, quant 59.9 mg/L 0.0-4. 9 above high normal Not Available [facility] ([facility]) [address] [place], [address], 08/23/2016 08:26:21 08/23/19 17 08/23/2016 cardi ovasc ular asses sment panel , serum interpretati on NOTE SUPPL EMVINITA PONCE T IS AVAIL ABLE. Not Available [facility] ([facility]) [address] [facility] [place], [address], 08/23/2016 08:26:22 08/23/19 17 08/23/2016 cardi ovasc ular asses sment panel , serum pdf image . Not Available [facility] ([facility]) [address] [facility] [place], [address], 08/23/2016 08:26:22 09/23/19 17 09/23/2016 BMP, serum or plasm a glucose, serum 95 mg/dL 65-99 Not Available [facility] ([facility]) [address] [facility] [place], [address], 09/23/2016 06:06:09 09/23/19 17 09/23/2016 BMP, serum or plasm a BUN 6 mg/dL 6-24 Not Available [facility] ([facility]) [address] [facility] [place], [address], 09/23/2016 06:06:09 09/23/19 17 09/23/2016 BMP, serum or plasm a creatinine, serum 1.02 mg/dL 0.76-1 .27 Not Available [facility] ([facility]) [address] [facility] [place], [address], 09/23/2016 06:06:09 09/23/1909/23/2016 BMP, serum or plasm a eGFR if nonafricn AM 83 mL/mi n/1.7 3 >59 Not Available [facility] ([facility]) [address] [facility] [place], [address], 09/23/2016 06:06:09 09/23/19 17 09/23/2016 BMP, serum or plasm a eGFR if africn AM 96 mL/mi n/1.7 3 >59 Not Available [facility] ([facility]) [address] [place], [address], 09/23/2016 06:06:09 09/23/19 17 09/23/2016 BMP, serum or plasm a BUN/creatini ne ratio 6 9-20 below low normal Not Available [facility] ([facility]) [address] [facility] [place], [address], 09/23/2016 06:06:09 09/23/19 17 09/23/2016 BMP, serum or plasm a sodium, serum 143 mmol/ L 134-14 4 Not Available [facility] ([facility]) [address] [place], [address], 09/23/2016 06:06:09 09/23/19 17 09/23/2016 BMP, serum or plasm a potassium, serum 4.1 mmol/ L 3.5-5. 2 Not Available [facility] ([facility]) [address] [place], [address], 09/23/2016 06:06:09 09/23/19 17 09/23/2016 BMP, serum or plasm a chloride, serum 101 mmol/ L 96-106 Not Available [facility] ([facility]) [address] [place], [address], 09/23/2016 06:06:09 09/23/19 17 09/23/2016 BMP, serum or plasm a carbon dioxide, total 22 mmol/ L 18-29 Not Available [facility] ([facility]) [address] [place], [address], 09/23/2016 06:06:09 09/23/1909/23/2016 BMP, serum or plasm a calcium, serum 9.6 mg/dL 8.7-10 .2 Not Available [facility] ([facility]) [address] [place], [address], 09/23/2016 06:06:09 04/24/20 18 04/25/2018 BMP, serum or plasm a glucose 125 mg/dL 65-99 above high normal Not Available [facility] ([facility]) [address] [place], [address], 04/25/2018 10:36:19 04/24/20 18 04/25/2018 BMP, serum or plasm a BUN 9 mg/dL 6-24 Not Available [facility] ([facility]) [address] [place], [address], 04/25/2018 10:36:19 04/24/20 18 04/25/2018 BMP, serum or plasm a creatinine 1.28 mg/dL 0.76-1 .27 above high normal Not Available [facility] ([facility]) [address] [place], [address], 04/25/2018 10:36:19 04/24/20 18 04/25/2018 BMP, serum or plasm a eGFR if nonafricn AM 62 mL/mi n/1.7 3 >59 Not Available [facility] ([facility]) [address] [place], [address], 04/25/2018 10:36:19 04/24/20 18 04/25/2018 BMP, serum or plasm a eGFR if africn AM 72 mL/mi n/1.7 3 >59 Not Available [facility] ([facility]) [address] [facility] [place], [address], 04/25/2018 10:36:19 04/24/20 18 04/25/2018 BMP, serum or plasm a BUN/creatini ne ratio 7 9-20 below low normal Not Available [facility] ([facility]) [address] [place], [address], 04/25/2018 10:36:19 04/24/20 18 04/25/2018 BMP, serum or plasm a sodium 142 mmol/ L 134-14 4 Not Available [facility] ([facility]) [address] [facility] [place], [address], 04/25/2018 10:36:19 04/24/20 18 04/25/2018 BMP, serum or plasm a potassium 4.2 mmol/ L 3.5-5. 2 Not Available [facility] ([facility]) [address] [place], [address], 04/25/2018 10:36:19 04/24/20 18 04/25/2018 BMP, serum or plasm a chloride 101 mmol/ L 96-106 Not Available [facility] ([facility]) [address] [facility] [place], [address], 04/25/2018 10:36:19 04/24/20 18 04/25/2018 BMP, serum or plasm a carbon dioxide, total 25 mmol/ L 20-29 Not Available [facility] ([facility]) [address] [facility] [place], [address], 04/25/2018 10:36:19 04/24/20 18 04/25/2018 BMP, serum or plasm a calcium 9.8 mg/dL 8.7-10 .2 Not Available [facility] ([facility]) [address] [facility] [place], [address], 04/25/2018 10:36:19 04/24/20 18 04/25/2018 lipid panel , serum cholesterol, total 158 mg/dL 100-19 9 Not Available [facility] ([facility]) [address] [facility] [place], [address], 04/25/2018 10:36:19 04/24/20 18 04/25/2018 lipid panel , serum triglyceride s 76 mg/dL 0-149 Not Available [facility] ([facility]) [address] [facility] [place], [address], 04/25/2018 10:36:19 04/24/20 18 04/25/2018 lipid panel , serum HDL cholesterol 38 mg/dL >39 below low normal Not Available [facility] ([facility]) [address] [facility] [place], [address], 04/25/2018 10:36:19 04/24/20 18 04/25/2018 lipid panel , serum VLDL cholesterol yoli 15 mg/dL 5-40 Not Available [facility] ([facility]) [address] [facility] [place], [address], 04/25/2018 10:36:19 04/24/20 18 04/25/2018 lipid panel , serum LDL cholesterol calc 105 mg/dL 0-99 above high normal Not Available [facility] ([facility]) [address] [facility] [place], [address], 04/25/2018 10:36:19 04/24/20 18 04/25/2018 lipid panel , serum comment: DISBURSING AGENT Not Available [facility] ([facility]) [address] [facility] [place], [address], 04/25/2018 10:36:19 04/24/20 18 04/25/2018 micro album in/cr eatin ine, mass ratio , urine creatinine, urine 145.0 mg/dL not estab. Not Available [facility] ([facility]) [address] [facility] [place], [address], 04/25/2018 10:36:20 04/24/20 18 04/25/2018 micro album in/cr eatin ine, mass ratio , urine albumin, urine 29.6 ug/mL not estab. Not Available [facility] ([facility]) [address] [facility], [place], [address], 04/25/2018 10:36:20 04/24/20 18 04/25/2018 micro album in/cr eatin ine, mass ratio , urine alb/creat ratio 20.4 mg/g_ creat 0.0-30 .0 Marlen l: 0.0 - 30.0 Album inuri a: 31.0 - 300.0 Clini yoli album inuri a: >300. 0 Not Available [facility] ([facility]) [address] [facility], [place], [address], 04/25/2018 10:36:20 04/24/20 18 04/24/2018 HbA1c (hemo globi n A1c), blood hemoglobin A1C 5.9 % 4.8-5. 6 above high normal Predi abete s: 5.7 - 6.4 Diabe sal: >6.4 Glyce leah contr ol for adult s with diabe sal: <7.0 Not Available [facility] ([facility]) [address] [facility], [place], [address], 04/25/2018 10:36:21 04/24/20 18 04/25/2018 cardi ovasc ular asses sment panel , serum interpretati on Note Suppl cruz umanzor is avail able. Not Available [facility] ([facility]) [address] [facility], [place], [address], 04/25/2018 10:36:21 04/24/20 18 04/25/2018 cardi ovasc ular asses sment panel , serum pdf image . Not Available [facility] ([facility]) [address] [facility], [place], [address], 04/25/2018 10:36:21 12/22/19 21 12/21/2020 CT, head + brain , w/o contr ast No observ ation record ed. [facility] [address] [place], [address], 12/28/2020 09:38:42 12/22/19 21 12/21/2020 CT, chest , w/o contr ast No observ ation record ed. [facility] [address] [place], [address], 12/23/2020 21:19:51 Result Notes None recorded. Problems Name Problem SNOMED Code Status Onset Date Resolution Date Notes Provider Name and Address Organization Details Recorded Time Depressive disorder 07776927 Completed 201604/24/2018 Manjula Giles MD Attn: Vaughn ayon,[address] [facility], [place], [address], [facility] 8 09:56:35 Essential hypertension 57178699 Active 2016 David Fernandes DO Attn: Vaughn ayon,[address], [place], [address], [facility] 7 12:31:41 Problem Notes [...] David Fernandes DO Attn: Accounting,[address], [place], [address], [place] [facility] [place] 08/22/2016 17:30:39 Date Recorded Body height Body weight Body mass index (BMI) Heart rate Body temperature Oxygen saturation Oxygen saturation in Arterial blood by Pulse oximetry Systolic blood pressure Diastolic blood pressure Provider Name and Address Organization Details Last Updated DateTime 180.34 cm 744260. 25 g 43 kg/m2 95 /min 98.7 [degF] 98 % 98 % 188 mm[Hg] 120 mm[Hg] Mally Ricks [facility] 7 14:41:45 Date Recorded Systolic blood pressure Diastolic blood pressure Provider Name and Address Organization Details Last Updated DateTime 09/22/2016 162 mm[Hg] 102 mm[Hg] [facility] Attn: Accounting,[address] [place], [address], [facility] 09/22/2016 12:27:18 Date Recorded Body height Body weight Body mass index (BMI) Body temperature Heart rate Oxygen saturation Oxygen saturation in Arterial blood by Pulse oximetry Systolic blood pressure Diastolic blood pressure Provider Name and Address Organization Details Last Updated DateTime 7 180.34 cm 324053. 52 g 41.7 kg/m2 98.5 [degF] 92 /min 98 % 98 % 170 mm[Hg] 108 mm[Hg] Caitlyn Ryan [facility] 7 12:13:30 Date Recorded Systolic blood pressure Diastolic blood pressure Provider Name and Address Organization Details Last Updated DateTime 10/26/2016 134 mm[Hg] 86 mm[Hg] [facility] Attn: Accounting,[address] [place], [address], [facility] 10/26/2016 12:49:48 Date Recorded Body height Body weight Body mass index (BMI) Body temperature Heart rate Oxygen saturation Oxygen saturation in Arterial blood by Pulse oximetry Systolic blood pressure Diastolic blood pressure Provider Name and Address Organization Details Last Updated DateTime 7 180.34 cm 565838. 12 g 41.7 kg/m2 98.1 [degF] 79 /min 98 % 98 % 134 mm[Hg] 96 mm[Hg] Quyen Ryan MA [facility] 7 12:24:52 Date Recorded Body height Body mass index (BMI) Body weight Body temperature Heart rate Oxygen saturation Oxygen saturation in Arterial blood by Pulse oximetry Systolic blood pressure Diastolic blood pressure Provider Name and Address Organization Details Last Updated DateTime 7 180.34 cm 43.4 kg/m2 864945. 03 g 98.1 [degF] 94 /min 98 % 98 % 152 mm[Hg] 98 mm[Hg] Robe Rivers [employer] [facility] [place] [facility] 7 12:15:59 Date Recorded Body weight Body mass index (BMI) Body height Heart rate Oxygen saturation Oxygen saturation in Arterial blood by Pulse oximetry Body temperature Systolic blood pressure Diastolic blood pressure Provider Name and Address Organization Details Last Updated DateTime 8 111271. 07 g 62.5 kg/m2 154.94 cm 72 /min 98 % 98 % 98.4 [degF] 150 mm[Hg] 100 mm[Hg] Phylicia Sweeney MA [facility] 8 09:20:04 Social History Question Answer Notes LastModified by Organizat ion Details LastModified Time Tobacco Smoking Status Never Smoker Mally LINDSAY Ricks null, [facility] 08/22/2016 14:39:52 What Was The Date [...] virus, quadrivalent, PF 01/30/2017 completed Not Available [facility] 0 02:35:18 Influenza, split virus, quadrivalent, PF 04/24/2018 completed Not Available [facility] 0 02:40:23 Past Encounters Encounter ID Performer Location Encounter Start Date Encounter Closed Date Diagnosis/Indication Diagnosis SNOMED-CT Code Diagnosis ICD10 Code Diagnosis Note [id number] MD Palmira Martinez FP ([address]) [address] [place] [address] 08/22/2016 14:01:55 08/23/2016 09:46:22 Essential hypertension 48144077 I10 HTN diagnosed in the ER but not started on any medication .182/108 in office today.Will start on Amlodipine 10 and HCTZ 12.5 today. Will plan to FU in 30 days. Pain in left knee [id number] 7171 00002 M25.562 Pain and erythema in L Knee, x 2 weeks, will get CBC CRP and start on Meloxicam, Will get Xray if not improving. Depressive disorder 3548 9007 F32.9 PHQ-9 score of 13/27Will start on Sertaline, pt notes that he has trouble falling asleep. HIV screening [id number] Z11.4 Will check for HIV Screening for malignant neoplasm of colon 279967892 Z12.11 Needs colonoscop y. [id number] MD Palmira Martinez FP ([address]) [address] [place] [address] 09/22/2016 12:08:18 09/27/2016 10:41:07 Depressive disorder 76143363 F32.9 PHQ-2 score of 0Continue sertraline for now if symptoms remain so well controlled consider future D/C Essential hypertension 68828477 I10 BP slightly improved today but still elevated, 162/102 WIll increase HCTZ and ensured that pt has refills on Amlodipine plan to see back in 1 mo Pain in left knee 080950 [id number] M25.562 Improved discussed continued meloxicam as needed but to d/c scheduled for now. Active or passive immunization [id number] Z23 [id number] MD Palmira Martinez FP ([address]) [address] [place] [address] 10/26/2016 11:59:21 10/27/2016 16:40:59 Essential hypertension 35389021 I10 BP greatly improved today but still elevated, 134/86 continue HCTZ and Amlodipine plan to see back in 3 mo [id number] MD Angelita Martineziris e FP ([address]) [address] [place] [address] 01/30/2017 12:07:27 01/30/2017 14:44:11 Essential hypertension 79389743 I10 BP elevated will increase HCTZ here and at home.Pt prefers not to add an additional med, Will increase HCTZ to 50, continue amlodipine 10 Adult heal th examination 285809510 Z00.00 Needs Flu shot today [id number] Inge Dugan MD [facility] [address] [facility] [address] [place] [address] 04/24/2018 09:02:48 04/25/2018 09:53:42 Obesity 086579009 E66.9 - Extensivel y counselled on a healthy diet and moderate intensity excercise 3-5x weekly for about ~45 minutes Essential hypertension 52387846 I10 - BP 150/100. Repeat 150/100. No red flag sx- Previously on Amlodipine 10mg and HCTZ 50mg daily- Will restart Amlodipine 10mg daily, will not start HCTZ at this time due to concern for dropping BP too low- Pt advised to check his BP at [facility] 2-3x weekly, write them down and call them in 2-3 weeks Screening for malignant neoplasm of colon 698087783 Z12.11 - No h/o colon cancer, FH of colon cancer or blood in stool noted- As pt is self pay, will order FOBT test. Will send for colonoscop y if abnormal Paresthesi a of upper limb 97382649 R20.2 - Tingling of back of L hand can be due to overuse and pt is lift boxes all day- Negative Tinel and Phalen test, less likely carpal tunnel- Will also check A1c to r/o diabetic neuropathy as cause of tingling Poor oral hygiene 945589 009 R46.89 - PE remarkable for 2 pits noted on posterior of roof of mouth (1 one each side).- No h/o smoking, poor dentition- Denies any tenderness or pain in mouth- Resources provided today for dentistry for further evaluation . Active or passive immunization [id number] Z23 Health Concerns Section Related Observation LastModified by Organization Detai ls LastModified Time None Recorded Concern Status LastModified by Organization Details LastModified Time None Recorded Advance Directives Directive None Recorded Payers Insurance Date Sequence Insurance Name Policy Number Policy Brown Covered Member ID Brown Member ID Guarantor Name 08/12/2018 SLIDING FEE SCHEDULE - DISCOUNT Armani Oconnell 12/15/2018 PAYMENT PLAN Armani Oconnell 04/24/2018 1 *SELF PAY* Ti nasrinchandan Oconnell 12/27/2020 1 [facility] - DOS PRIOR TO 2020 (MEDICAID REPLACEMENT - HMO) Armani Oconnell [id number] Armani Oconnell Notes Date Note Type Note [...] Vinh Acevedo DO Attn: Accounting,[address] [facility], [place], [address], [facility] - COUNT INCLUDES THE [facility] 08/23/2016 09:17:26 7 text/html 56 yo M here for BP Fu ran out of amlodipine 3 days ago.Pt denies any SE of medications, CP, SOB, vision changes, JOEL, Pain in knee is significantly improved with meloxicam Pt now reports no depression symptoms on sertraline 50. Inge Dugan MD Attn: Accounting,[address] [facility], [place], [address], [facility] - SI 10/02/2016 21:47:41 7 text/html [...] Monk MD Attn: Mey,[address], [place], [address], [facility] 11/13/2016 14:50:49 7 text/html 56 yo M here for FU on HTNReports home numbers running in upper 140s over 80s. Complaint with meds.Denies any CP, SOB, Vision changes, numbness, weakness or headaches. Due for a flu shot Patrick Leon DO Attn: Accounting,[address] [facility], [place], [address], [facility] 01/30/2017 16:14:17 8 text/html 58 y/o M presents for BP f/u. Pt reports he has been out of his Amlodipine 10mg and HCTZ 50mg for about 1 week.Pt is self-pay and prefers medication to be cost-effective. 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
--- OUTSIDE RECORDS SUMMARY | 2024-12-10 16:00 | XMS_ITS | Clinical Summary ---
Author Organization [facility] Facility Address [address] [place] [address] Care Team Providers Care Multimedia Engineer Name Role Phone MasterNitza samano DARRYL-Ruth Primary Care Provider [phone] Allergies No known active allergies Medications * [...] 1 06/25/19 25 Active ergocalciferol 1.25 MG (61411 UT) capsule TAKE 1 CAPSULE BY MOUTH [...] Encounters Date Type Department Care Team Description 12/10/2024 Documentation Only [facility], [facility] [address] [place] [address] Zeeshan Coe, 12/10/2024 Documentation Only [facility], [facility] [address] [place] [address] Zeeshan Coe DO 12/10/2024 Documentation Only [facility], [address] [phone] Zeeshan Coe, 12/09/2024 Documentation Only [facility], [facility] [address] [phone] Zeeshan Coe, 11/25/2024 Refill [facility], [facility] [address] [phone] Zeeshan Coe, 11/19/2024 Documentation Only [facility], [address] [phone] Zeeshan Coe, from Last 3 Months Social History Tobacco [...] Comments Blood Pressure 160/90 06/17/2024 3:13 PM ROOM SERVICE 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/WAITRESS Pulse 68 06/17/2024 3:13 PM ROOM SERVICE WAITER/WAITRESS Temperature 36.7 C (98 F) 06/17/2024 3:13 PM ROOM SERVICE WAITER/WAITRESS Respiratory Rate 18 06/17/2024 3:13 PM ROOM SERVICE WAITER/WAITRESS Oxygen Saturation 97% 06/17/2024 3:13 PM ROOM SERVICE WAITER/WAITRESS Inhaled Oxygen Concentration - - Weight 145 kg (320 lb) 06/17/2024 3:13 PM ROOM SERVICE WAITER/WAITRESS Height 180.3 cm (5' 11) 09/06/2021 1:40 PM CDT Body Mass Index 44.63 09/06/2021 1:40 PM CDT Plan of Treatment Upcoming Encounters Date Type Department Care Team (Late st Contact Info) Description 12/16/2024 3:15 PM CDT Office Visit [facility] [address] [facility] [address] [place] [address] Zeeshan Coe DO [address] [facility] 1 [place] [address] Health Maintenance Due Date Last [...] Diabetes: Visual Foot Exam 08/08/2024 Influenza Vaccine (#1) 2025 04/30/2023, 2021 Insurance [employer] Care Teams Multimedia Engineer Relationship Specialty Start Date End Date Nitza Rinaldi FNP-C [address] [place] [address] PCP - General Nurse Practitioner 04/05/21
--- OUTSIDE RECORDS SUMMARY | 2024-12-10 16:00 | XMS_ITS | Clinical Summary ---
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
--- OUTSIDE RECORDS SUMMARY | 2024-12-10 16:00 | XMS_ITS | Encounter Summary ---
Author Organization [facility] [employer] [facility] Address [address] [facility] [place] [address] Phone Care Team Providers Care Plant Associate Name Role Phone Nitza Rinaldi Primary Care Provider [phone] Encounter Details Date Type Department Care Team (Late Contact Info) Description 12/09/2024 Documentation Only [place], [facility] [address] [facility] [address] [place] [address] Zeeshan Coe DO [address] [facility] 1 [place] [address] Social History Tobacco Use Types [...] Description 12/16/2024 3:15 PM CDT [facility] [place] [facility] [address] [facility] [address] [place] [address] Zeeshan Coe DO [address] [facility] [address] [place] [address] documented as of this encounter Visit Diagnoses Not on filedocumented in this encounter Care Teams Plant Associate Relationship Specialty Start Date End Date Nitza Rinaldi FNP-C [address] [place] [address] PCP - General Nurse Practitioner 04/05/21 documented as of this encounter
[2024-12-10 16:52] LABS: Total Volume 24 Hour Urine 3100 ml
[2024-12-10 17:03] LABS: Creatinine Clearance Urine 83.8 ml/min (75-125); Serum Creat 1.28
== END 2024-12-10 15:58 | disposition home or self-care (01) ==
LOC: ANHLAB 15:58
PROVIDERS: PCP Internal Medicine; Visit Provider Internal Medicine Nephrology
DX: R80.1 Persistent proteinuria, unspecified (principal); M10.0 Idiopathic gout; D50.8 Other iron deficiency anemias; E21.1 Secondary hyperparathyroidism, not elsewhere classified; I12.9 Hypertensive chronic kidney disease with stage 1 through stage 4 chronic kidney disease, or unspecified chronic kidney disease; N18.1 Chronic kidney disease, stage 1
CPT/HCPCS: 82575

== ENCOUNTER 2025-03-13 15:36 | Outpatient (CLI) | payer OTHER, SELFPAY ==
--- OUTSIDE RECORDS SUMMARY | 2025-03-13 15:40 | XMS_ITS | Data Portability ---
Author Organization [place] [facility] [employer], Main Office Address [address] [place] [address] Care Team Providers Care Bus Company Manager Name Role Phone OPHELIA DOMINGUEZ Sales Development Consultant [phone] Assessment Encounter Date Assessment Date Assessment LastModified [...] Standing platform. he has not contacted his bulk pallet builder. The primary care physician Dr. Rinaldi has [...] seem most logical that he see his bulk pallet builder regarding initiation of strategies to treat his gout. If it is felt that his gout management proves to be particularly difficult, some patients are seen by a tool radial drill press set up operator manage her gout. 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 I will be happy to see him back as needed. 30 minutes were spent on this patient more than half the time spent in [id number] care. Not available 07/22/2023 20:12:59 10/30/2023 10/30/2023 [...] micro alb 21.3H ALT 55 CBC: [email or web address] Not available 07/15/2024 17:02:09 11/18/2024 11/18/2024 [...] 11/13/2024: Cr 1.40, GFR 50 AST/ALT 107/75 [email or web address] Not available 11/18/2024 16:43:53 Plan of Treatment Reminders Order Date Submit Date Provider Last Modified By Organization Details Last Modified Time Details Appointments Any 15 2024 03:00P Sandra toney MD Not available Not available Not available Lab glycohemo globin, total, blood [address] (Lab), [address] [place], [address], 11/18/2024 16:59:39 microalbu min, urine 2024 025 [facility] (Lab), [address] [place], [address], 12/10/2024 07:02:17 CMP, serum or plasma 2024 025 [facility] (Lab), [address] [place], [address], 12/09/2024 17:52:42 lipid panel, serum [email or web address] (Lab), [address] [place], [address], 11/18/2024 16:59:38 CBC w/ auto diff 2024 025 [facility] (Lab), [address] [place], [address], 12/09/2024 16:45:30 TSH, serum or plasma [address] (Lab), [address] [place], [address], 11/18/2024 16:59:39 glycohemo globin, total, blood [address] (Lab), [address] [place], [address], 01/12/2025 12:20:00 microalbu min, urine [address] (Lab), [address] [place], [address], 01/12/2025 12:20:00 CMP, serum or plasma 2024 025 [facility] (Lab), [address] [place], [address], 10/23/2024 08:51:15 lipid panel, serum [address] (Lab), [address] [place], [address], 01/12/2025 12:19:59 CBC w/ auto diff 2024 025 [facility] (Lab), [address] [place], [address], 10/22/2024 20:05:29 TSH, serum or plasma [address] (Lab), [address] [place], [address], 01/12/2025 12:20:00 glycohemo globin, total, blood [address] (Lab), [address] [place], [address], 07/31/2024 08:09:49 microalbu min, urine [address] (Lab), [address] [place], [address], 07/31/2024 08:09:49 CMP, serum or plasma [address] (Lab), [address] [place], [address], 07/31/2024 08:09:48 lipid panel, serum [address] (Lab), [address] [place], [address], 07/31/2024 08:09:48 CBC w/ auto diff [address] (Lab), [address] [place], [address], 07/31/2024 08:09:49 TSH, serum or plasma [address] (Lab), [address] [place], [address], 07/31/2024 08:09:49 gamma-glu tamyl transfera se (ggt), serum 2023 024 [facility] (Lab), [address] [place], [address], 11/27/2023 18:23:09 hepatitis panel (A+B+C), acute, serum 2023 024 [facility] (Lab), [address] [place], [address], 11/27/2023 18:50:28 glycohemo globin, total, blood 2023 024 [facility] (Lab), [address] [place], [address], 11/27/2023 21:02:04 microalbu min, urine [email or web address] (Lab), [address] [place], [address], 05/06/2024 17:10:16 PSA, total, serum or plasma 2023 024 [facility] (Lab), [address] [place], [address], 11/27/2023 18:51:02 CMP, serum or plasma 2023 024 [facility] (Lab), [address] [place], [address], 11/27/2023 18:23:00 lipid panel, serum 2023 024 [facility] (Lab), [address] [place], [address], 11/27/2023 18:23:05 CBC w/ auto diff 2023 024 [facility] (Lab), [address] [place], [address], 11/27/2023 18:22:17 TSH, serum or plasma 2023 024 [facility] (Lab), [address] [place], [address], 11/27/2023 18:50:59 Referral gastroent erologist referral - Please call patient to schedule an appointme nt. Thank you. 2024 025 [email or web address] Elva Villegas MD, [address], [place], [address], 02/17/2025 17:41:35 podiatris t referral - Please call patient to schedule an appointme nt. Thank you. 2024 025 [email or web address] Erik Higuera DPM, [address] [facility], [address], [place], [address], 02/17/2025 17:41:32 nephrolog ist referral - Please call patient to schedule an appointme nt. Thank you. 2024 025 [email or web address] [place], [address] [facility], [address], [place], [address], 02/17/2025 17:41:33 pulmonolo gist referral - Please call patient to schedule an appointme nt. Thank you. 2024 025 [email or web address] José Naranjo MD, [address] [facility] [place], [address], 02/17/2025 17:41:31 cardiolog ist referral - Please call patient to schedule an appointme nt. Thank you. 2024 025 [email or web address] Dayo Ham MD, [address] [facility], [address], [place], [address], 02/17/2025 17:41:34 podiatris t referral - Please call patient to schedule an appointme nt. Thank you. 2024 025 [email or web address] Erik Higuera DPM, [address], [address], [place], [address], 08/14/2024 18:19:09 nephrolog ist referral - Please call patient to schedule an appointme nt. Thank you. 2024 025 [place], [address], [address], [place], [address], 08/14/2024 12:17:17 pulmonolo gist referral - Please call patient to schedule an appointme nt. Thank you. 2024 025 [email or web address] José Naranjo MD, [address] [facility] [place], [address], 08/14/2024 18:18:20 cardiolog ist referral - Please call patient to schedule an appointme nt. Thank you. 2024 025 [email or web address] Dayo Ham MD, [address], [address], [place], [address], 08/14/2024 18:20:24 hematolog ist referral 2023 024 [email or web address] Juan Riley MD, [address], [place], [address], 02/28/2024 14:18:14 podiatris t referral 2023 024 [email or web address] Erik Higuera DPM, [address], [address], [place], [address], 10/02/2024 09:04:49 nephrolog ist referral 2023 024 [email or web address] [place], [address], [address], [place], [address], 03/31/2024 14:07:55 pulmonolo gist referral 2023 024 [email or web address] Naranjo MD, [address] [facility] [place], [address], 10/02/2024 09:04:49 cardiolog ist referral 2023 024 [email or web address] Mckeoneta MD, [address], [address], [place], [address], 10/02/2024 09:04:50 hematolog ist referral 2023 024 [email or web address] Juan Riley MD, [address], [place], [address], 07/28/2024 12:24:20 podiatris t referral 2023 024 [email or web address] Erik Higuera DPM, [address], [address], [place], [address], 07/28/2024 12:24:20 nephrolog ist referral 2023 024 [email or web address] [place], [address], [address], [place], [address], 11/27/2023 09:35:04 pulmonolo gist referral 2023 024 [email or web address] José Naranjo MD, [address], [place], [address], 07/28/2024 12:24:19 cardiolog ist referral 2023 024 [email or web address] Dayo Ham MD, [address], [address], [place], [address], 07/28/2024 12:24:21 Procedures None recorded. Surgeries None recorded. Imaging US, liver - Please call patient to schedule. [address], [address], [address], 12/22/2024 16:22:30 US, liver [address], [address], [place], [address], 07/16/2024 11:22:04 US, liver [address] [facility] ([facility]), [address] [place], [address], 02/26/2024 08:20:42 US, liver [email or web address] [facility] ([facility]), [address] [place], [address], 11/27/2023 08:13:59 Medication Orders None recorded. Patient TargetsNo targets recorded. Patient Instructions Encounter Date Encounter Id Patient Instructions Last Modified By Organization Details Last Modified Time 10/30/2023 [id number] diabetic eye exam* [email or web address] Not available 05/06/2024 17:10:23 01/29/2024 [id number] diabetic eye exam* Not available 07/28/2024 10:52:57 07/15/2024 [id number] diabetic eye exam* [email or web address] Not available 01/12/2025 08:15:50 11/18/2024 [id number] diabetic eye exam* [email or web address] Not available 11/18/2024 16:59:39 Reason for Referral Clinic Licensed Practical Nurse Referral for O bstructive sleep apnea syndrome Referring Physician: Oscar Joseph Internal [facility], Encounter Date: 10/30/2023 Referring Physician: Oscar Joseph Internal Medicine, Encounter Date: 10/30/2023 Hot Plate Plywood Press Feeder Referral for Hype rglycemia Referring Physician: Oscar Joseph Internal Medicine, Encounter Date: 10/30/2023 Pantograph Operator Referral for Ch ronic kidney disease Referring Physician: Oscar Joseph Internal Medicine, Encounter Date: 10/30/2023 Cyber Security Instructor Referral for Sc reening for cardiovascular system disease Referring Physician: Alecia Fermin Medicine, Encounter Date: 10/30/2023 Clinic Licensed Practical Nurse Referral for O bstructive sleep apnea syndrome Referring Physician: Oscar Joseph Internal Medicine, Encounter Date: 01/29/2024 Referring Physician: Oscra Joseph Internal Medicine, Encounter Date: 01/29/2024 Hot Plate Plywood Press Feeder Referral for Hype rglycemia Referring Physician: Oscar Joseph Internal Medicine, Encounter Date: 01/29/2024 Pantograph Operator Referral for Ch ronic kidney disease Referring Physician: Oscar Joseph Internal Medicine, Encounter Date: 01/29/2024 Cyber Security Instructor Referral for Sc reening for cardiovascular system disease Referring Physician: Alecia Fermin, Encounter Date: 01/29/2024 Clinic Licensed Practical Nurse Referral for O bstructive sleep apnea syndrome Please call patient to schedule an appointment. Thank you. Referring Physician: Alecia Fermin, Encounter Date: 07/15/2024 Hot Plate Plywood Press Feeder Referral for Hype rglycemia Please call patient to schedule an appointment. Thank you. Referring Physician: Alecia Fermin, Encounter Date: 07/15/2024 Pantograph Operator Referral for Ch ronic kidney disease Please call patient to schedule an appointment. Thank you. Referring Physician: Alecia Fermin, Encounter Date: 07/15/2024 Cyber Security Instructor Referral for Sc reening for cardiovascular system disease Please call patient to schedule an appointment. Thank you. Referring Physician: Alecia Fermin Medicine, Encounter Date: 07/15/2024 Clinic Licensed Practical Nurse Referral for O bstructive sleep apnea syndrome Please call patient to schedule an appointment. Thank you. Referring Physician: Alecia Fermin, Encounter Date: 11/18/2024 Hot Plate Plywood Press Feeder Referral for Hype rglycemia Please call patient to schedule an appointment. Thank you. Referring Physician: Alecia Fermin, Encounter Date: 11/18/2024 Pantograph Operator Referral for Ch ronic kidney disease Please call patient to schedule an appointment. Thank you. Referring Physician: Oscar Joseph, Internal Medicine, Encounter Date: 11/18/2024 Cyber Security Instructor Referral for Sc reening for cardiovascular system disease Please call patient to schedule an appointment. Thank you. Referring Physician: Oscar Joseph Internal Medicine, Encounter Date: 11/18/2024 Batchmaker Referral for Steatotic liver disease Please call patient to schedule an appointment. Thank you. Referring Physician: Oscar Joseph Internal Medicine, Encounter Date: 11/18/2024 Results Created Date Observation Date Name Description Value Unit Range Abnormal Flag Note LastModifiedBy Organization Detail LastModifiedTime 06/18/19 24 06/18/2023 SEDIM ENTAT ION RATE erythrocyte sedimentatio n rate 21 mm/HR 0-[address] [facility] (Lab) [address] [place], [address], 06/18/2023 16:21:21 06/18/19 24 06/18/2023 C REACT LILLIAM PROTE IN,UL TRA SENS C-reactive protein 3.14 mg/dL 0.0-0. 5 high Not Available [facility] (Lab) [address] [place], [address], 06/18/2023 17:10:20 06/18/19 24 06/18/2023 BASIC METAB OLIC PANEL sodium 135 mmol/ L 137-14 5 low Not Available [facility] (Lab) [address] [place], [address], 06/18/2023 17:10:46 06/18/19 24 06/18/2023 BASIC METAB OLIC PANEL potassium 3.5 mmol/ L 3.5-5. 1 Not Available [facility] (Lab) [address] [place], [address], 06/18/2023 17:10:46 06/18/19 24 06/18/2023 BASIC METAB OLIC PANEL chloride 94 mmol/ L 98-107 low Not Available [facility] (Lab) [address] [place], [address], 06/18/2023 17:10:46 06/18/19 24 06/18/2023 BASIC METAB OLIC PANEL carbon dioxide 31 mmol/ L 22-30 high Not Available [facility] (Lab) [address] [place], [address], 06/18/2023 17:10:46 06/18/19 24 06/18/2023 BASIC METAB OLIC PANEL anion gap 13.5 mmol/ L 14-22 low Not Available [facility] (Lab) [address] [place], [address], 06/18/2023 17:10:46 06/18/19 24 06/18/2023 BASIC METAB OLIC PANEL glucose 128 mg/dL 70-99 high Not Available [facility] (Lab) [address] [place], [address], 06/18/2023 17:10:46 06/18/19 24 06/18/2023 BASIC METAB OLIC PANEL BUN 27 mg/dL 8-19 high Not Available [facility] (Lab) [address] [place], [address], 06/18/2023 17:10:46 06/18/19 24 06/18/2023 BASIC METAB OLIC PANEL creatinine 1.70 mg/dL 0.66-1 .25 high Not Available [facility] (Lab) [address] [place], [address], 06/18/2023 17:10:46 06/18/19 24 06/18/2023 BASIC METAB OLIC PANEL GFR 50 Refer ence Range : [place] ge GFR Healt hy Adult : >60 [...] calcu lator is avail able on the [facility] websi te: https :[email or web address] w.rikki dan.o rg/pr ofess ional s/kdo qi/gf r_cal culat or Not Available [facility] (Lab) [address] [place], [address], 06/18/2023 17:10:46 06/18/19 24 06/18/2023 BASIC METAB OLIC PANEL calcium 10.8 mg/dL 8.4-10 .2 high Not Available [facility] (Lab) [address] [place], [address], 06/18/2023 17:10:46 10/24/19 24 10/24/2023 CBC/C OMPLE TE BLD COUNT W/DIF F white blood cells 8.4 x10'3 /uL 4.2-10 .8 Not Available [facility] (Lab) [address] [place], [address], 10/24/2023 16:03:09 10/24/19 24 10/24/2023 CBC/C OMPLE TE BLD COUNT W/DIF F red blood cells 4.52 x10'6 /uL 4.10-5 .80 Not Available [facility] (Lab) [address] [place], [address], 10/24/2023 16:03:09 10/24/19 24 10/24/2023 CBC/C OMPLE TE BLD COUNT W/DIF F hemoglobin 11.1 g/dL 13.2-1 7.0 low Not Available [facility] (Lab) [address] [place], [address], 10/24/2023 16:03:09 10/24/19 24 10/24/2023 CBC/C OMPLE TE BLD COUNT W/DIF F hematocrit 35.3 % 39.3-5 0.0 low Not Available [facility] (Lab) [address] [place], [address], 10/24/2023 16:03:09 10/24/19 24 10/24/2023 CBC/C OMPLE TE BLD COUNT W/DIF F mean red cell volume 78.1 fL 80.0-9 7.0 low Not Available [facility] (Lab) [address] [place], [address], 10/24/2023 16:03:09 10/24/19 24 10/24/2023 CBC/C OMPLE TE BLD COUNT W/DIF F mean red cell hemoglobin 24.6 pg 27.0-3 3.0 low Not Available [facility] (Lab) [address] [place], [address], 10/24/2023 16:03:09 10/24/19 24 10/24/2023 CBC/C OMPLE TE BLD COUNT W/DIF F mean RBC HGB concentratio n 31.4 g/dL 31.0-3 6.0 Not Available [facility] (Lab) [address] [place], [address], 10/24/2023 16:03:09 10/24/19 24 10/24/2023 CBC/C OMPLE TE BLD COUNT W/DIF F red cell distribution width 16.2 % 11.8-1 5.5 high Not Available [facility] (Lab) [address] [place], [address], 10/24/2023 16:03:09 10/24/19 24 10/24/2023 CBC/C OMPLE TE BLD COUNT W/DIF F platelets 332 x10'3 /uL 150-40 0 Not Available [facility] (Lab) [address] [place], [address], 10/24/2023 16:03:09 10/24/19 24 10/24/2023 CBC/C OMPLE TE BLD COUNT W/DIF F mean platelet volume 10.9 fL 9.0-12 .4 Not Available [facility] (Lab) [address] [place], [address], 10/24/2023 16:03:09 10/24/19 24 10/24/2023 CBC/C OMPLE TE BLD COUNT W/DIF F neutrophils 61.6 % 39.0-7 2.0 Not Available [facility] (Lab) [address] [place], [address], 10/24/2023 16:03:09 10/24/19 24 10/24/2023 CBC/C OMPLE TE BLD COUNT W/DIF F lymphocytes 25.0 % 16.0-4 7.0 Not Available [facility] (Lab) [address] [place], [address], 10/24/2023 16:03:09 10/24/19 24 10/24/2023 CBC/C OMPLE TE BLD COUNT W/DIF F monocytes 9.1 % 5.0-12 .0 Not Available [facility] (Lab) [address] [place], [address], 10/24/2023 16:03:09 10/24/19 24 10/24/2023 CBC/C OMPLE TE BLD COUNT W/DIF F eosinophils 3.2 % 1.0-7. 0 Not Available [facility] (Lab) [address] [place], [address], 10/24/2023 16:03:09 10/24/19 24 10/24/2023 CBC/C OMPLE TE BLD COUNT W/DIF F basophils 0.6 % 0.0-2. 0 Not Available [facility] (Lab) [address] [place], [address], 10/24/2023 16:03:09 10/24/19 24 10/24/2023 CBC/C OMPLE TE BLD COUNT W/DIF F immature granulocytes 0.5 % 0.00-0 .50 Not Available [facility] (Lab) [address] [place], [address], 10/24/2023 16:03:09 10/24/19 24 10/24/2023 CBC/C OMPLE TE BLD COUNT W/DIF F neutrophils, absolute count 5.14 x10'3 /uL 1.5-8. 0 Not Available [facility] (Lab) [address] [place], [address], 10/24/2023 16:03:09 10/24/19 24 10/24/2023 CBC/C OMPLE TE BLD COUNT W/DIF F lymphocytes, absolute count 2.09 x10'3 /uL 1.07-3 .43 Not Available [facility] (Lab) [address] [place], [address], 10/24/2023 16:03:09 10/24/19 24 10/24/2023 CBC/C OMPLE TE BLD COUNT W/DIF F monocytes, absolute count 0.76 x10'3 /uL 0.29-0 .99 Not Available [facility] (Lab) [address] [place], [address], 10/24/2023 16:03:09 10/24/19 24 10/24/2023 CBC/C OMPLE TE BLD COUNT W/DIF F eosinophils, absolute count 0.27 x10'3 /uL 0.02-0 .53 Not Available [facility] (Lab) [address] [place], [address], 10/24/2023 16:03:09 10/24/19 24 10/24/2023 CBC/C OMPLE TE BLD COUNT W/DIF F basophils, absolute count 0.05 x10'3 /uL 0.01-0 .08 Not Available [facility] (Lab) [address] [place], [address], 10/24/2023 16:03:09 10/24/19 24 10/24/2023 CBC/C OMPLE TE BLD COUNT W/DIF F immature granulocytes ,absolute 0.04 x10'3 /uL 0.00-0 .05 Not Available [facility] (Lab) [address] [place], [address], 10/24/2023 16:03:09 10/24/19 24 10/24/2023 CBC/C OMPLE TE BLD COUNT W/DIF F nucleated red blood cells 0.0 % -[address] [facility] (Lab) [address] [place], [address], 10/24/2023 16:03:09 10/24/19 24 10/24/2023 CBC/C OMPLE TE BLD COUNT W/DIF F NRBC# 0.00 x10'3 /uL Not Available [facility] (Lab) [address] [place], [address], 10/24/2023 16:03:09 10/24/19 24 10/24/2023 COMPR EHENS LILLIAM METAB OLIC PANEL sodium 134 mmol/ L 137-14 5 low Not Available [facility] (Lab) [address] [place], [address], 10/24/2023 16:33:46 10/24/19 24 10/24/2023 COMPR EHENS LILLIAM METAB OLIC PANEL potassium 3.8 mmol/ L 3.5-5. 1 Not Available [facility] (Lab) [address] [place], [address], 10/24/2023 16:33:46 10/24/19 24 10/24/2023 COMPR EHENS LILLIAM METAB OLIC PANEL chloride 101 mmol/ L 98-107 Not Available [facility] (Lab) [address] [place], [address], 10/24/2023 16:33:46 10/24/19 24 10/24/2023 COMPR EHENS LILLIAM METAB OLIC PANEL carbon dioxide 25 mmol/ L 22-30 Not Available [facility] (Lab) [address] [place], [address], 10/24/2023 16:33:46 10/24/19 24 10/24/2023 COMPR EHENS LILLIAM METAB OLIC PANEL anion gap 11.8 mmol/ L 14-22 low Not Available [facility] (Lab) [address] [place], [address], 10/24/2023 16:33:46 10/24/19 24 10/24/2023 COMPR EHENS LILLIAM METAB OLIC PANEL glucose 127 mg/dL 70-99 high Not Available [facility] (Lab) [address] [place], [address], 10/24/2023 16:33:46 10/24/19 24 10/24/2023 COMPR EHENS LILLIAM METAB OLIC PANEL BUN 14 mg/dL 8-19 Not Available [facility] (Lab) [address] [place], [address], 10/24/2023 16:33:46 10/24/19 24 10/24/2023 COMPR EHENS LILLIAM METAB OLIC PANEL creatinine 1.22 mg/dL 0.66-1 .25 Not Available [facility] (Lab) [address] [place], [address], 10/24/2023 16:33:46 10/24/19 24 10/24/2023 COMPR EHENS LILLIAM METAB OLIC PANEL GFR >60 Refer ence Range : [place] ge GFR Healt hy Adult : >60 [...] calcu lator is avail able on the [facility] websi te: https :[email or web address] dan.o rg/pr ofess ional s/kdo qi/gf r_cal culat or Not Available [facility] (Lab) [address] [place], [address], 10/24/2023 16:33:46 10/24/19 24 10/24/2023 COMPR EHENS LILLIAM METAB OLIC PANEL alkaline phosphatase 143 U/L 38-126 high Not Available [facility] (Lab) [address] [place], [address], 10/24/2023 16:33:46 05/15/20 24 10/24/2023 COMPR EHENS LILLIAM METAB OLIC PANEL alanine aminotransfe rase 34 U/L 0-[address] [facility] (Lab) [address] [place], [address], 10/24/2023 16:33:46 10/24/19 24 10/24/2023 COMPR EHENS LILLIAM METAB OLIC PANEL aspartate aminotransfe rase 42 U/L 15-[address] [facility] (Lab) [address] [place], [address], 10/24/2023 16:33:46 10/24/19 24 10/24/2023 COMPR EHENS LILLIAM METAB OLIC PANEL bilirubin, total 0.50 mg/dL 0.20-1 .30 Not Available [facility] (Lab) [address] [place], [address], 10/24/2023 16:33:46 10/24/19 24 10/24/2023 COMPR EHENS LILLIAM METAB OLIC PANEL calcium 9.9 mg/dL 8.4-10 .2 Not Available [facility] (Lab) [address] [place], [address], 10/24/2023 16:33:46 10/24/19 24 10/24/2023 COMPR EHENS LILLIAM METAB OLIC PANEL total protein 7.1 g/dL 6.3-8. 2 Not Available [facility] (Lab) [address] [place], [address], 10/24/2023 16:33:46 10/24/19 24 10/24/2023 COMPR EHENS LILLIAM METAB OLIC PANEL albumin 4.1 g/dL 3.4-5. 0 Not Available [facility] (Lab) [address] [place], [address], 10/24/2023 16:33:46 10/24/19 24 10/24/2023 COMPR EHENS LILLIAM METAB OLIC PANEL globulin 3.0 g/dL 2.6-4. 2 Not Available [facility] (Lab) [address] [place], [address], 10/24/2023 16:33:46 10/24/19 24 10/24/2023 COMPR EHENS LILLIAM METAB OLIC PANEL A/G ratio 1.4 ratio 1.0-2. 0 Not Available [facility] (Lab) [address] [place], [address], 10/24/2023 16:33:46 10/24/19 24 10/24/2023 URIC ACID SERUM uric acid 6.6 mg/dL 3.5-8. 5 Not Available [facility] (Lab) [address] [place], [address], 10/24/2023 16:33:51 10/24/19 24 10/24/2023 LIPID PANEL cholesterol 125 mg/dL 140-19 9 low NIH NEVIN NSUS RECOM MENDA TION FOR ERNA STERO L: ADULT CHILD LOW RISK: <200 <170 BORDE RLINE : <200- 239 ----- HIGH RISK: >240 >200 Not Available [facility] (Lab) [address] [place], [address], 10/24/2023 16:33:57 10/24/19 24 10/24/2023 LIPID PANEL triglyceride s 179 mg/dL 0-150 high NIH NEVIN NSUS REPOR T RECOM MENDA TION FOR TRIGL YCERI MAHSA: ADULT CHILD LOW RISK: <150 ----- BODER LINE: 150-1 99 ----- HIGH RISK: >200 ----- Not Available [facility] (Lab) [address] [place], [address], 10/24/2023 16:33:57 10/24/19 24 10/24/2023 LIPID PANEL HDL cholesterol 51 mg/dL 40- Not Available [facility] (Lab) [address] [place], [place], [address], 10/24/2023 16:33:57 10/24/19 24 10/24/2023 LIPID PANEL [...] WILL NOT BE REPOR JEFF. Not Available [facility] (Lab) [address] [place], [address], 10/24/2023 16:33:57 10/24/19 24 10/24/2023 HEMOG LOBIN A1C HA1C 6.3 % 4.0-6. 0 high Diabe sal Scree maricruz Crite darren: <5.7% Consi stent with absen ce of diabe sal 5.7-6 .4% Consi stent with incre ased risk for diabe sal (pred iabet es) >OR=6 .5% Consi stent with diabe sal REFER ENCE: Diabe sal Care 2016, 39(Sharma ppl.1 ):s13 -s22 Not Available [facility] (Lab) [address] [place], [address], 10/24/2023 20:46:33 11/27/19 24 11/27/2023 CBC/C OMPLE TE BLD COUNT W/DIF F white blood cells 7.4 x10'3 /uL 4.2-10 .8 Not Available [facility] (Lab) [address] [place], [address], 11/27/2023 18:22:17 11/27/19 24 11/27/2023 CBC/C OMPLE TE BLD COUNT W/DIF F red blood cells 4.51 x10'6 /uL 4.10-5 .80 Not Available [facility] (Lab) [address] [facility] [place], [address], 11/27/2023 18:22:17 11/27/19 24 11/27/2023 CBC/C OMPLE TE BLD COUNT W/DIF F hemoglobin 11.4 g/dL 13.2-1 7.0 low Not Available [facility] (Lab) [address] [place], [address], 11/27/2023 18:22:17 11/27/19 24 11/27/2023 CBC/C OMPLE TE BLD COUNT W/DIF F hematocrit 35.6 % 39.3-5 0.0 low Not Available [facility] (Lab) [address] [place], [address], 11/27/2023 18:22:17 11/27/19 24 11/27/2023 CBC/C OMPLE TE BLD COUNT W/DIF F mean red cell volume 78.9 fL 80.0-9 7.0 low Not Available [facility] (Lab) [address] [place], [address], 11/27/2023 18:22:17 11/27/19 24 11/27/2023 CBC/C OMPLE TE BLD COUNT W/DIF F mean red cell hemoglobin 25.3 pg 27.0-3 3.0 low Not Available [facility] (Lab) [address] [place], [address], 11/27/2023 18:22:17 11/27/19 24 11/27/2023 CBC/C OMPLE TE BLD COUNT W/DIF F mean RBC HGB concentratio n 32.0 g/dL 31.0-3 6.0 Not Available [facility] (Lab) [address] [place], [address], 11/27/2023 18:22:17 11/27/19 24 11/27/2023 CBC/C OMPLE TE BLD COUNT W/DIF F red cell distribution width 18.9 % 11.8-1 5.5 high Not Available [facility] (Lab) [address] [place], [address], 11/27/2023 18:22:17 11/27/19 24 11/27/2023 CBC/C OMPLE TE BLD COUNT W/DIF F platelets 302 x10'3 /uL 150-40 0 Not Available [facility] (Lab) [address] [place], [address], 11/27/2023 18:22:17 11/27/19 24 11/27/2023 CBC/C OMPLE TE BLD COUNT W/DIF F mean platelet volume 11.1 fL 9.0-12 .4 Not Available [facility] (Lab) [address] [place], [address], 11/27/2023 18:22:17 11/27/19 24 11/27/2023 CBC/C OMPLE TE BLD COUNT W/DIF F neutrophils 59.5 % 39.0-7 2.0 Not Available [facility] (Lab) [address] [place], [address], 11/27/2023 18:22:17 11/27/19 24 11/27/2023 CBC/C OMPLE TE BLD COUNT W/DIF F lymphocytes 22.6 % 16.0-4 7.0 Not Available [facility] (Lab) [address] [place], [address], 11/27/2023 18:22:17 11/27/19 24 11/27/2023 CBC/C OMPLE TE BLD COUNT W/DIF F monocytes 13.6 % 5.0-12 .0 high Not Available [facility] (Lab) [address] [place], [address], 11/27/2023 18:22:17 11/27/19 24 11/27/2023 CBC/C OMPLE TE BLD COUNT W/DIF F eosinophils 3.2 % 1.0-7. 0 Not Available [facility] (Lab) [address] [place], [address], 11/27/2023 18:22:17 11/27/19 24 11/27/2023 CBC/C OMPLE TE BLD COUNT W/DIF F basophils 0.7 % 0.0-2. 0 Not Available [facility] (Lab) [address] [place], [address], 11/27/2023 18:22:17 11/27/19 24 11/27/2023 CBC/C OMPLE TE BLD COUNT W/DIF F immature granulocytes 0.4 % 0.00-0 .50 Not Available [facility] (Lab) [address] [place], [address], 11/27/2023 18:22:17 11/27/19 24 11/27/2023 CBC/C OMPLE TE BLD COUNT W/DIF F neutrophils, absolute count 4.40 x10'3 /uL 1.5-8. 0 Not Available [facility] (Lab) [address] [place], [address], 11/27/2023 18:22:17 11/27/19 24 11/27/2023 CBC/C OMPLE TE BLD COUNT W/DIF F lymphocytes, absolute count 1.67 x10'3 /uL 1.07-3 .43 Not Available [facility] (Lab) [address] [place], [address], 11/27/2023 18:22:17 11/27/19 24 11/27/2023 CBC/C OMPLE TE BLD COUNT W/DIF F monocytes, absolute count 1.01 x10'3 /uL 0.29-0 .99 high Not Available [facility] (Lab) [address] [place], [address], 11/27/2023 18:22:17 11/27/19 24 11/27/2023 CBC/C OMPLE TE BLD COUNT W/DIF F eosinophils, absolute count 0.24 x10'3 /uL 0.02-0 .53 Not Available [facility] (Lab) [address] [place], [address], 11/27/2023 18:22:17 11/27/19 24 11/27/2023 CBC/C OMPLE TE BLD COUNT W/DIF F basophils, absolute count 0.05 x10'3 /uL 0.01-0 .08 Not Available [facility] (Lab) [address] [place], [address], 11/27/2023 18:22:17 11/27/19 24 11/27/2023 CBC/C OMPLE TE BLD COUNT W/DIF F immature granulocytes ,absolute 0.03 x10'3 /uL 0.00-0 .05 Not Available [facility] (Lab) [address] [place], [address], 11/27/2023 18:22:17 11/27/19 24 11/27/2023 CBC/C OMPLE TE BLD COUNT W/DIF F nucleated red blood cells 0.0 % -[address] [facility] (Lab) [address] [place], [address], 11/27/2023 18:22:17 11/27/19 24 11/27/2023 CBC/C OMPLE TE BLD COUNT W/DIF F NRBC# 0.00 x10'3 /uL Not Available [facility] (Lab) [address] [place], [address], 11/27/2023 18:22:17 11/27/19 24 11/27/2023 COMPR EHENS LILLIAM METAB OLIC PANEL sodium 139 mmol/ L 137-14 5 Not Available [facility] (Lab) [address] [place], [address], 11/27/2023 18:23:00 11/27/19 24 11/27/2023 COMPR EHENS LILLIAM METAB OLIC PANEL potassium 4.0 mmol/ L 3.5-5. 1 Not Available [facility] (Lab) [address] [place], [address], 11/27/2023 18:23:00 11/27/19 24 11/27/2023 COMPR EHENS LILLIAM METAB OLIC PANEL chloride 108 mmol/ L 98-107 high Not Available [facility] (Lab) [address] [place], [address], 11/27/2023 18:23:00 11/27/19 24 11/27/2023 COMPR EHENS LILLIAM METAB OLIC PANEL carbon dioxide 28 mmol/ L 22-30 Not Available [facility] (Lab) [address] [facility] [place], [address], 11/27/2023 18:23:00 11/27/19 24 11/27/2023 COMPR EHENS LILLIAM METAB OLIC PANEL anion gap 7.0 mmol/ L 14-22 low Not Available [facility] (Lab) [address] [place], [address], 11/27/2023 18:23:00 11/27/19 24 11/27/2023 COMPR EHENS LILLIAM METAB OLIC PANEL glucose 101 mg/dL 70-99 high Not Available [facility] (Lab) [address] [place], [address], 11/27/2023 18:23:00 11/27/19 24 11/27/2023 COMPR EHENS LILLIAM METAB OLIC PANEL BUN 15 mg/dL 8-19 Not Available [facility] (Lab) [address] [place], [address], 11/27/2023 18:23:00 11/27/19 24 11/27/2023 COMPR EHENS LILLIAM METAB OLIC PANEL creatinine 1.22 mg/dL 0.66-1 .25 Not Available [facility] (Lab) [address] [place], [address], 11/27/2023 18:23:00 11/27/19 24 11/27/2023 COMPR EHENS LILLIAM METAB OLIC PANEL GFR >60 Refer ence Range : [place] ge GFR Healt hy Adult : >60 [...] or ethni c subgr oups, such as Tita nics. Outsi de the valid ated jess [...] calcu lator is avail able on the [facility] websi te: https ://colby dan.chico rg/pr ofess ional s/kdo qi/gf r_cal culat or Not Available [facility] (Lab) [address] [place], [address], 11/27/2023 18:23:00 11/27/19 24 11/27/2023 COMPR EHENS LILLIAM METAB OLIC PANEL alkaline phosphatase 124 U/L 38-126 Not Available [facility] (Lab) [address] [place], [address], 11/27/2023 18:23:00 11/27/19 24 11/27/2023 COMPR EHENS LILLIAM METAB OLIC PANEL alanine aminotransfe rase 36 U/L 0-[address] [facility] (Lab) [address] [place], [address], 11/27/2023 18:23:00 11/27/19 24 11/27/2023 COMPR EHENS LILLIAM METAB OLIC PANEL aspartate aminotransfe rase 50 U/L 15-[address] [facility] (Lab) [address] [place], [address], 11/27/2023 18:23:00 11/27/19 24 11/27/2023 COMPR EHENS LILLIAM METAB OLIC PANEL bilirubin, total 0.70 mg/dL 0.20-1 .30 Not Available [facility] (Lab) [address] [place], [address], 11/27/2023 18:23:00 11/27/19 24 11/27/2023 COMPR EHENS LILLIAM METAB OLIC PANEL calcium 10.1 mg/dL 8.4-10 .2 Not Available [facility] (Lab) [address] [place], [address], 11/27/2023 18:23:00 11/27/19 24 11/27/2023 COMPR EHENS LILLIAM METAB OLIC PANEL total protein 7.1 g/dL 6.3-8. 2 Not Available [facility] (Lab) [address] [place], [address], 11/27/2023 18:23:00 11/27/19 24 11/27/2023 COMPR EHENS LILLIAM METAB OLIC PANEL albumin 4.2 g/dL 3.4-5. 0 Not Available [facility] (Lab) [address] [place], [address], 11/27/2023 18:23:00 11/27/19 24 11/27/2023 COMPR EHENS LILLIAM METAB OLIC PANEL globulin 2.9 g/dL 2.6-4. 2 Not Available [facility] (Lab) [address] [place], [address], 11/27/2023 18:23:00 11/27/19 24 11/27/2023 COMPR EHENS LILLIAM METAB OLIC PANEL A/G ratio 1.4 ratio 1.0-2. 0 Not Available [facility] (Lab) [address] [place], [address], 11/27/2023 18:23:00 11/27/19 24 11/27/2023 PHOSP HORUS phosphorus 3.7 mg/dL 2.5-4. 5 Not Available [facility] (Lab) [address] [place], [address], 11/27/2023 18:23:03 11/27/19 24 11/27/2023 LIPID PANEL cholesterol 114 mg/dL 140-19 9 low NIH NEVIN NSUS RECOM MENDA TION FOR ERNA STERO L: ADULT CHILD LOW RISK: <200 <170 BORDE RLINE : <200- 239 ----- HIGH RISK: >240 >200 Not Available [facility] (Lab) [address] [place], [address], 11/27/2023 18:23:05 11/27/19 24 11/27/2023 LIPID PANEL triglyceride s 123 mg/dL 0-150 NIH NEVIN NSUS REPOR T RECOM MENDA TION FOR TRIGL YCERI MAHSA: ADULT CHILD LOW RISK: <150 ----- BODER LINE: 150-1 99 ----- HIGH RISK: >200 ----- Not Available [facility] (Lab) [address] [place], [address], 11/27/2023 18:23:05 11/27/19 24 11/27/2023 LIPID PANEL HDL cholesterol 45 mg/dL 40- Not Available [facility] (Lab) [address] [place], [address], 11/27/2023 18:23:05 11/27/19 24 11/27/2023 LIPID PANEL [...] WILL NOT BE REPOR JEFF. Not Available [facility] (Lab) [address] [place], [address], 11/27/2023 18:23:05 11/27/19 24 11/27/2023 GGT/G -GLUT AMYL TRANS FERAS E gamma-glutam yl transferase 61 U/L 12-58 high Not Available [facility] (Lab) [address] [place], [address], 11/27/2023 18:23:09 11/27/19 24 11/27/2023 HEPAT ITIS ACUTE PANEL hepatitis A IgM antibody NON-RE ACTIVE non-re active For sampl es repor jeff as Rika vegas React lilliam for HAV IgM, it is recom jm d a new speci men be obtai bolivar in 2 weeks and retes jeff. Not Available [facility] (Lab) [address] [place], [address], 11/27/2023 19:17:48 11/27/19 24 11/27/2023 HEPAT ITIS ACUTE PANEL hepatitis A virus signal/cutof 0.02 0.00-0 .79 Not Available [facility] (Lab) [address] [place], [address], 11/27/2023 19:17:48 11/27/19 24 11/27/2023 HEPAT ITIS ACUTE PANEL hepatitis B core IgM antibody NON-RE ACTIVE non-re active Not Available [facility] (Lab) [address] [place], [address], 11/27/2023 19:17:48 11/27/19 24 11/27/2023 HEPAT ITIS ACUTE PANEL HBV core IgM signal/cutof f 0.06 0.00-1 .10 Not Available [facility] (Lab) [address] [place], [address], 11/27/2023 19:17:48 11/27/19 24 11/27/2023 HEPAT ITIS ACUTE PANEL hepatitis B surface antigen NON-RE ACTIVE non-re active All speci mens react lilliam for Hepat itis B Surfa ce Antig en will refle x to refer ral lab confi rmato ry testi ng. Not Available [facility] (Lab) [address] [place], [address], 11/27/2023 19:17:48 11/27/19 24 11/27/2023 HEPAT ITIS ACUTE PANEL HBV surf.antigen signal/cutof f 0.12 0.00-0 .99 Not Available [facility] (Lab) [address] [place], [address], 11/27/2023 19:17:48 11/27/19 24 11/27/2023 HEPAT ITIS ACUTE PANEL hepatitis C antibody NON-RE ACTIVE non-re active All speci mens react lilliam for Hepat itis C Virus antib naima will refle x to PCR confi rmato ry testi ng. Pleas e allow 48-72 hours for resul ts. Not Available [facility] (Lab) [address] [place], [address], 11/27/2023 19:17:48 11/27/19 24 11/27/2023 HEPAT ITIS ACUTE PANEL hepatitis C virus signal/cutof 0.01 0.00-0 .99 Not Available [facility] (Lab) [address] [place], [address], 11/27/2023 19:17:48 11/27/19 24 11/27/2023 TSH W/REF ROMAN FT4 TSH with reflex free T4 2.520 uIU/m L 0.465- 4.680 Not Available [facility] (Lab) [address] [place], [address], 11/27/2023 18:50:59 11/27/19 24 11/27/2023 PSA SCREE N PSA medicare screen 0.82 NG/mL 0.00-4 .00 Not Available [facility] (Lab) [address] [place], [address], 11/27/2023 18:51:02 11/27/19 24 11/27/2023 HEMOG LOBIN A1C HA1C 5.9 % 4.0-6. 0 Diabe sal Scree maricruz Crite darren: <5.7% Consi stent with absen ce of diabe sal 5.7-6 .4% Consi stent with incre ased risk for diabe sal (pred iabet es) >OR=6 .5% Consi stent with diabe sal REFER ENCE: Diabe sal Care 2016, 39(Sharma ppl.1 ):s13 -s22 Not Available [facility] (Lab) [address] [place], [address], 11/27/2023 21:02:04 06/20/19 24 XR, knee No observ ation record ed. [email or web address] [address] [facility] [address], [place], [address], 06/20/2023 12:56:33 07/13/19 24 07/13/2023 MRI, knee, w/o contr ast No observ ation record ed. [email or web address] [address], [address], 09/12/2023 15:51:05 07/13/19 24 07/13/2023 MRI, knee, w/o contr ast No observ ation record ed. [email or web address] [place] [id number] [facility] [address], [address], 07/23/2023 12:17:22 09/19/19 25 09/16/2024 imagi ng/di agnos tic resul t No observ ation record ed. [facility] [address], [place], [address], 09/18/2024 16:57:41 09/19/19 25 09/16/2024 imagi ng/di agnos tic resul t No observ ation record ed. [facility] [address], [place], [address], 09/18/2024 16:57:52 Result Notes None recorded. Problems Name Problem SNOMED Code Status Onset Date Resolution Date Notes Provider Name and Address Organization Details Recorded Time Serum iron below reference range 830214517 Active 2021 Not Available [facility] 4 06:42:32 Essential hypertensi on 42698873 Active 2022 Not Available [facility] 4 06:42:33 Obesity 131421199 Active 2022 Not Available [facility] 4 06:42:33 Proteinuri a 47107604 Active 2022 Not Available [facility] 4 06:42:33 Acute kidney injury 22717103 Active 2022 Not Available [facility] 4 06:42:32 Sleep apnea 67724697 Active 2022 Not Available [facility] 4 06:42:33 Iron deficiency anemia 50018404 Active 2022 Not Available [facility] 4 06:42:33 Prediabete s 790516089 Active 2022 Not Available [facility] 4 06:42:33 Liver enzymes level above reference range 791414924 Active 2022 Not Available [facility] 4 06:42:33 Gout 40765060 Active 2022 Not Available [facility] 4 06:42:33 Pain of joint of ankle and/or foot 157911229 Active 2022 Not Available [facility] 4 06:42:32 Steatotic liver disease 196073179 Active 2022 Not Available [facility] 4 06:42:32 Pain of left knee joint 3973500048084 07 Active 2022 Not Available [facility] 4 06:42:33 Pain of right knee joint 6739819407331 00 Active 2022 Not Available [facility] 4 06:42:33 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 5582583943450 9100 Active 2022 Not Available [facility] 4 06:42:32 Contusion of right knee 6412936491065 9104 Active 2022 Not Available [facility] 4 06:42:32 Contusion of left knee 2873409999103 9109 Active 2022 Not Available [facility] 4 06:42:32 Vitamin D deficiency 00557943 Active 2022 Not Available [facility] 4 06:42:33 Mechanical complicati on of implant 549417912 Active 2022 Not Available [facility] 4 06:42:33 Anterior knee pain 673029229 Active 2022 Not Available [facility] 4 06:42:32 Pain of joint 36702308 Active 2022 Not Available [facility] 4 06:42:33 Pain in left foot 8993246712939 07 Active 2023 Not Available [facility] 4 06:42:33 Obstructiv e sleep apnea syndrome 29428316 Active 2023 Oscar johnson MD [address], [place], [address] , [facility] 4 18:52:01 Hyperlipid emia 19324996 Active 2023 Oscar johnson MD [address], [address], [place], [address] , [facility] [employer] [facility] 4 18:54:45 Anemia 978797173 Active 2023 Oscar johnson MD [address] [facility] [place] [address], [place], [address] , [facility] [employer] [facility] 4 18:55:20 Hyperglyce ector 92999606 Active 2023 Oscar johnson MD [address] [facility] [address] [facility] [address], [place], [address] , [facility] [employer] [facility] 4 18:56:34 Chronic kidney disease 324924291 Active 2023 Oscar johnson MD [address] [facility] [facility] [address], [place], [address] , [facility] [employer] [facility] 4 18:58:01 Microcytos is 770753599 Active 2023 Shirley Hansen MA null, [facility] [employer] [facility] 4 11:53:59 Notes:Medical History: Obesi [...] Recorded Time colonoscopy completed Norma Lakhani MA [facility] [employer] [facility] 10/30/2023 15:15:32 Imaging Results None [...] iron) tablet TAKE 1 TABLET BY MOUTH EVERY DAY active Not Available Not Available No t Available ropivacaine (PF) 5 mg/mL (0.5 %) injection solution in office 07/18 completed Not Available Not Available Not Available Vitals Date Recorded Body height Body mass index (BMI) Body weight Body temperature Heart rate Systolic And Diastolic Provider Name and Address Organization Details Last Updated DateTime 5 180.34 cm 44.4 kg/m2 650887. 37 g 97.7 [degF] 90 /min 138/82 mm[Hg] RACHAEL García ME [employer] [facility] [employer] 5 16:54:44 Date Recorded Body height Provider Name an d Address Organization Details Last Updated DateTime 07/18/2023 180.34 cm Joy Morton CNA ME [employer] [facility] [employer] 07/18/2023 08:53:51 Date Recorded Body height Body mass index (BMI) Body weight Body temperature Heart rate Oxygen saturation Oxygen saturation in Arterial blood by Pulse oximetry Systolic And Diastolic Provider Name and Address Organization Details Last Updated DateTime 4 180.34 cm 40.9 kg/m2 163252. 56 g 98.3 [degF] 88 /min 98 % 98 % 134/84 mm[Hg] Norma Lakhani MA [facility] [employer] 4 15:13:46 Date Recorded Body height Body mass index (BMI) Body weight Body temperature Heart rate Oxygen saturation Oxygen saturation in Arterial blood by Pulse oximetry Pain severity - 0-10 verbal numeric rating [Score] - Reported Systolic And Diastolic Provider Name and Address Organization Details Last Updated DateTime 5 180.34 cm 43.7 kg/m2 910034. 21 g 96.3 [degF] 82 /min 96 % 96 % 0 134/84 mm[Hg] Norma Lakhani MA ME [employer] [facility] [employer] 5 16:26:06 Date Recorded Body height Body mass index (BMI) Body weight Body temperature Heart rate Respiratory rate Oxygen saturation Oxygen saturation in Arterial blood by Pulse oximetry Pain severity - 0-10 verbal numeric rating [Score] - Reported Systolic And Diastolic Provider Name and Address Organization Details Last Updated DateTime 4 180.34 cm 42.5 kg/m2 875448. 67 g 98 [degF] 86 /min 18 /min 99 % 99 % 0 136/72 mm[Hg] Sebastián Mendenhall LPN ME [employer] [facility] [employer] 4 15:52:28 Social History Question Answer Notes LastModified by Organization Details LastModified Time Tobacco Smoking Status Never Smoker Not Available [facility] 08/09/2022 23:29:04 Do You Have [...] Or The Highest Degree You Have Received? [id number] Information not available 08/09/2022 Have There Been Any Changes To Your Family Or Social Situation? No [id number].[id number] [id number] Information not available 08/09/2022 What Is The Fluoride Status Of Your Home? Fluoridated MIGRATION.0301 [id number] Information not available 08/09/2022 Are There Any Guns Present In Your Home? No MIGRATION.0301 [id number] Information not available 08/09/2022 Do You Use Insect Repellent Routinely? No MIGRATION.0301 [id number] Information not available 08/09/2022 Where Do You Live? [place] MIGRATION.0301 [id number] Information not available 08/09/2022 Do You Have A Medical Power Of Cytologist? No MIGRATION.0301 [id number] Information not available 08/09/2022 What Was The Date Of Your Most Recent Tobacco Screening? 11/18/2024 [email or web address] Information not available 11/18/2024 Have You Ever Been Counseled For Unhealthy Alcohol Use? No MIGRATION.0301 [id number] Information not available 08/09/2022 Do You Have Any Pets? No MIGRATION.0301 [id number] Information not available 08/09/2022 What Is Your Relationship Status? Single MIGRATION.0301 [id number] Information not available 08/09/2022 Do You Use Your Seat Belt Or Car Seat Routinely? Yes MIGRATION.0301 [id number] Information not available 08/09/2022 Do You Have Smoke And Carbon Monoxide Detectors In Your Home? Yes MIGRATION.0301 [id number] Information not available 08/09/2022 Are You Passively Exposed To Smoke? No MIGRATION.0301 [id number] Information not available 08/09/2022 Are There Any Smokers In Your House? No MIGRATION.0301 [id number] Information not available 08/09/2022 What Types Of Sporting Activities Do You Participate In? None MIGRATION.0301 [id number] Information not available 08/09/2022 Do You Use Sunscreen Routinely? No MIGRATION.0301 [id number] Information not available 08/09/2022 Has Tobacco Cessation Counseling Been Provided? No Not Needednever Smoked MIGRATION.0301 [id number] Information not available 08/09/2022 Have You Recently Traveled Abroad? No MIGRATION.0301 [id number] Information not available 08/09/2022 Do You Have Any Dietary Restrictions? No MIGRATION.0301 [id number] Information not available 08/09/2022 Sex: Male Functional Status Question Answer Note LastModified by Organizat ion Details LastModified Time Do you use any illicit or recreational drugs? No [id number] Information not available 08/09/2022 Do you or have you ever used any other forms of tobacco or nicotine? No [id number].[id number] Information not available 08/09/2022 What is your level of alcohol consumption? 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 Moderate cuts grass MIGRATION.430009 [id number] Information not available 08/09/2022 Mental Status Question Answer Note LastModified by Organizat ion Details LastModified Time Do you feel stressed (tense, restless, nervous, or anxious, or unable to sleep at night)? [id number] Information not available 08/09/2022 Family History Relationship Description Onset Age of this Age Resolved Age Notes LastModified by Organization Details LastModified Time Mother Malignant neoplastic disease [id number] Not available 08/09/2022 23:29:15 Sister COVID-19 [id number].465 [id number] Not available 08/09/2022 23:29:15 Medical History Condition [...] (COVID-19) vaccine, UNSPECIFIED 1 completed Not Available [facility] 06/28/2023 06:42:33 SARS-COV-2 (COVID-19) vaccine, UNSPECIFIED 1 completed Not Available [facility] 06/28/2023 06:42:33 Influenza, split virus, quadrivalent, PF 2 completed Not Available [facility] 06/28/2023 06:42:33 Influenza, split virus, quadrivalent, PF 3 completed LUIS SandovalP-C [address] [facility], [facility] [address], [place], [address], [facility] 04/30/2023 16:34:20 Past Encounters Encounter ID Performer Location Encounter Start Date Encounter Closed Date Diagnosis/Indication Diagnosis SNOMED-CT Code Diagnosis ICD10 Code Diagnosis IMO Codes Diagnosis Note [id number] MD GENA Veloz_[facility] Internal Med [place] [address] [facility] [address] [place] [address] 01/11/2021 00:00:00 01/11/2021 17:13:23 [id number] MD GENA Veloz_[facility] Internal Med [place] [address] [facility] [address] [place] [address] 02/15/2021 00:00:00 02/15/2021 20:18:11 [id number] Oscar johnson MD S_[facility] Internal Med [facility] [address] [place] [address] [address] [place] [address] 1 03/15/2021 00:00:00 03/15/2021 19:59:43 [id number] Oscar johnson MD S_[facility] Internal Med [address] [place] [address] 1 06/28/2021 00:00:00 06/28/2021 17:28:10 [id number] Oscar johnson MD S_[facility] Internal Med [address] [place] [address] 1 10/14/2021 00:00:00 10/14/2021 17:03:15 [id number] Oscar johnson MD [facility] Internal Med [facility] [address] [place] [address] [address] [place] [address] 1 04/21/2022 00:00:00 04/21/2022 17:11:39 [id number] Oscar johnson MD [facility] Internal Med [facility] [address] [place] [address] [address] [place] [address] 1 10/24/2022 15:55:35 10/24/2022 16:31:49 Essential hypertension 10702627 I10 on amlodipine , HCTZ, losartan Obesity 020051664 E66.9 recommend healthy, well balanced mealsfocus on lean meats, fresh vegetables , fresh fruits, whole grainsredu ce fast/proce ssed foods or eating out to no more than 1-2 times per weekaim to get 30 min of exercise most days of the week- walking is a great choicealso recommend resistance training 2-3 times per week Proteinuria 42488568 R80 .9 now following nephrology - Dr Coe History of acute kidney injury 1097553235 65828 Z87.448 2/2 to COVID while [facility] gy appt as above Sleep apnea 92815440 G47 .30 now on CPAP- he is [...] wear the CPAP Iron defic iency anemia 38678488 D50.9 Dr. Coe took him off the ironis s/p cscope but GI is recommendi ng EGD- he declines this History of polyp of colon 402556941 Z86.010 repeat colon 03/2026 Prediabetes 001005471 R7 3.03 diet/exerc ise encouraged Cholesterol screening 27 4723422 Z13.220 Screening for malignant neoplasm of prostate 563578044 Z12.5 [id number] Oscar johnson MD [facility] Internal Med [facility] [address] [facility], [place] [address] [place] [address] 04/30/2023 15:34:01 04/30/2023 16:04:22 Essential hypertension 21303408 I10 on amlodipine , HCTZ, losartan Obesity 639440701 E66.9 recommend healthy, well balanced mealsfocus on lean meats, fresh vegetables , fresh fruits, whole grainsredu ce fast/proce ssed foods or eating out to no more than 1-2 times per weekaim to get 30 min of exercise most days of the week- walking is a great choicealso recommend resistance training 2-3 times per week Proteinuria 14383257 R80 .9 now following nephrology - Dr Coe History of acute kidney injury 0798958110 46513 Z87.448 2 to COVID while [facility] appt as above Sleep apnea 25571047 G47 .30 now on CPAP- he is [...] wear the CPAP Iron defic iency anemia 75337263 D50.9 Dr. Coe took him off the ironis s/p cscope but GI is recommendi ng EGD- he declines this History of polyp of colon 215870341 Z86.010 repeat colon 03/2026 Prediabetes 873565701 R7 3.03 diet/exerc ise encouraged nephrology started him on metformin Adult heal th examination 344325327 Z00.01 Steatotic liver disease 190257640 K76.0 working on diet/exerc ise/weight loss Gout 75216489 M10.9 Colchicine is contraindi cated with his current meds Will try to avoid NSAIDs due to his kidneys Will try a Medrol Dosepak and see if that helps Gout diet discussed Cholesterol screening 27 1201709 Z13.220 Administra tion of influenza vaccine 37847116 Z23 Depression screening 171 218323 Z13.31 [id number] KEYSHA Funez [place] [address] 05/22/2023 09:41:15 05/22/2023 10:51:21 Pain of left knee joint 9763901307 10772 M25.562 Pain of ri ght knee joint 0601537168 62825 M25.561 Bilateral [place]-Schlatter disease 0361703337 4149037 M92.523 Contusion of left knee 3273535336 8329227 S80.02XA [id number] Christophe Blankenship MD [place] [address] 06/07/2023 09:56:30 06/13/2023 09:33:45 Contusion of left knee 0449929622 1525010 S80.02XD Pain of le ft knee joint 4228841890 16115 M25.562 Pain of joint 33495059 M 25.593 [id number] Christophe Blankenship MD [address], [address] [address] 06/14/2023 09:57:07 06/14/2023 14:05:35 Contusion of left knee 6425211184 3767877 S80.02XD Impression : 1. Patient has gout [...] also recommend he be evaluated by Rheumatolo gy because was unusually high inflammato ry markers. Autoimmune disease is not entirely ruled out. I am going to recommend repeating a sedimentat ion rate and a C-reactive protein and obtain a BMP to assess his creatinine currently. 40 minutes were spent total care this patient more than half the time spent in face-to-fa ce care. Pain in left foot 858672 1638 20740 M79.250 [id number] Christophe Blankenship MD [facility] [place] [address] [place] [address] 06/20/2023 09:50:56 06/20/2023 13:04:00 Contusion of left knee 6043152439 8138783 S80.02XD Pain in left foot 089942 6965 78478 M79.835 [id number] Christophe Blankenship MD [facility] [place] [address] [place] [address] 07/18/2023 08:48:27 07/23/2023 10:45:15 Pain of left knee joint 1769418803 03330 M25.285 [id number] Oscar johnson MD [facility] Internal Med [place] [address] [facility], [place] [address] [place] [address] 10/30/2023 14:53:41 10/30/2023 16:02:38 Screening - NAD 892521811 Z13.9 C-scope: Dr Willis 04/06/2021 , next in 5 years Get yearly flu shot, get Tdap if not doneCan do RSV vaccineGet shingrix vaccineCan do COVID 19 boosters RTC in 3 months, do labs, ER if worse Essential hypertension 82955429 I10 On chlorthali done 25mg dailyOn losartan 100mg dailyOn aldactone 100mg dailyOn torsemide 20mg dailyGet labs Obstructiv e sleep apnea syndrome 31593586 G47.33 Steatotic liver disease 985277532 K76.0 Get US liverHepat itis pane, and GGT Gout 13420134 M10.9 On allopurino l 300mg daily Hyperlipidemia 43456562 E78.5 On atorvastat in 20mg daily, increase to 40mg dailyGet labs Screening for malignant neoplasm of prostate 407671480 Z12.5 Anemia 813671462 D64.9 Microcytic Can get on ironGet a referral to Dr Riley Hyperglycemia 66329654 R 73.9 Get labsNeeds to see eye MD and podiatry Chronic ki dney disease 454767571 N18.9 Dr Coe 08/28/2023 Screening for cardiovascular system disease 636228993 Z13.6 [id number] Oscar johnson MD [facility] Internal Med [facility] [address] [facility] [place] [address] 01/29/2024 15:18:00 01/29/2024 16:26:53 Screening - NAD 986663271 Z13.9 C-scope: Dr Willis 04/06/2021 , next in 5 years Get yearly flu shot, get Tdap if not doneCan do RSV vaccineGet shingrix vaccineCan do COVID 19 boosters RTC in 3 months, do labs, ER if worse Essential hypertension 24411306 I10 On chlorthali done 25mg daily, given by Dr Mejia losartan 100mg dailyOn aldactone 100mg dailyOn torsemide 20mg dailyGet labs Obstructiv e sleep apnea syndrome 90586341 G47.[address] Naranjo Steatotic liver disease 424180989 K76.0 Get liverHepat itis Panel: NegativeGG T 61 Gout 05567413 M10.9 On allopurino l 300mg daily Hyperlipidemia 56909532 E78.5 On atorvastat in 20mg dailyGet labs Anemia 655817891 D64.9 Microcytic Can get on ironGet a referral to Dr Riley Hyperglycemia 25461252 R 73.9 On metformin ER 500mg bid Get labsNeeds to see eye MD and podiatry Chronic ki dney disease 887079346 N18.9 Dr Coe 08/28/2023 Screening for cardiovascular system disease 635589986 Z13.6 Does need to see cardiology , referred 01/29/2024 [id number] Oscar johnson MD [facility] Internal Med [facility] [address] [place] [address] 07/15/2024 16:04:46 07/15/2024 17:32:05 Screening - NAD 936171287 Z13.9 C-scope: Dr Willis 04/06/2021 , next in 5 years Get yearly flu shot, get Tdap if not doneCan do RSV vaccineUTD on shingrix vaccineCan do COVID 19 boosters RTC in 3 months, do labs, ER if worse Essential hypertension 15532820 I10 On chlorthali done 25mg daily, given by Dr Coe 06/17/2024 , f/u in 6 monthsOn nifedipine 60mg dailyOn losartan 100mg dailyOn aldactone 100mg dailyOn torsemide 20mg dailyGet labs Obstructiv e sleep apnea syndrome 78886833 G47.[address] Naranjo Steatotic liver disease 290336105 K76.0 Get US liverHepat itis Panel: NegativeGG T 61He does consume alcohol, advised to wean off Gout 35655148 M10.9 On allopurino l 300mg daily Hyperlipidemia 09358868 E78.5 On atorvastat in 20mg dailyGet labs Anemia 694118425 D64.9 Microcytic Can get on ironSees Dr Riley in 10/2024 Hyperglycemia 68103015 R 73.9 On metformin ER 500mg bid Get labsNeeds to see eye MD and podiatry Chronic ki dney disease 096636481 N18.9 Dr Coe 08/28/2023 Screening for cardiovascular system disease 550258175 Z13.6 Does need to see cardiology , referred 01/29/2024 Pain of le ft knee joint 7888087790 72492 M25.562 S/p MRI 07/13/[address] Blankenship ortho [id number] Oscar johnson MD [facility] Internal Med [facility] 15 2043 [facility], [facility] [address] [place] [address] 11/18/2024 16:14:26 11/18/2024 16:59:56 Screening - NAD 558647736 Z13.9 C-scope: Dr Willis 04/06/2021 , next in 5 years Get yearly flu shot, get Tdap if not doneCan do RSV vaccineUTD on shingrix vaccineCan do COVID 19 boosters RTC in 3 months, do labs, ER if worse Essential hypertension 32218650 I10 On chlorthali done 25mg daily, given by Dr Coe 06/17/2024 , f/u in 6 monthsOn nifedipine 60mg dailyOn losartan 100mg dailyOn aldactone 100mg dailyOn torsemide 20mg dailyGet labs Obstructiv e sleep apnea syndrome 62183588 G47.[address] Naranjo Steatotic liver disease 358871444 K76.0 Get US liverHepat itis Panel: NegativeGG T 61He does consume alcohol, advised to wean off !Get on MVI daily Refer to GI now Gout 00414643 M10.9 On allopurino l 300mg daily Hyperlipidemia 82621441 E78.5 On atorvastat in 20mg dailyGet labs Anemia 344777148 D64.9 Microcytic Can get on ironSees Dr Riley Hyperglycemia 76416460 R 73.9 On metformin ER 500mg bid Get labsNeeds to see eye MD and podiatry Chronic ki dney disease 578134565 N18.9 Dr Coe 08/28/2023 Screening for cardiovascular system disease 640484236 Z13.6 ECHO 09/16/2024 Pain of le ft knee joint 2317397252 58191 M25.562 S/p MRI 07/13/[address] Blankenship ortho Health Concerns Section Related Observation LastModified by Organization Detai ls LastModified Time None Recorded Concern Status LastModified by Organization Details LastModified Time None Recorded Advance Directives Directive N: Payers Insurance Date Sequence Insurance Name Policy Number Policy Brown Covered Member ID Brown Member ID Guarantor Name 07/11/2023 [facility] Armani Oconnell 01/29/2024 1 [facility] Armani Oconnell [id number] Armani Oconnell 02/14/2025 1 [facility] [id number] Armani Oconnell [id number] Armani Oconnell 07/15/2024 1 [employer] [facility] (EPO) Armani Oconnell [id number] Armani Oconnell Notes Date Note Type Note Provider Name and Address Organization Details Recorded Time 07/18/2023 text/html Patient returns. His MRI scan was completed on 07/13/2023. 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 I reviewed the MRI findings with the [...] a chair now. Christophe Blankenship MD [address] [facility], [facility] [address], [place], [address], [facility] 07/22/2023 20:13:22 10/30/2023 text/html OV 10/30/2023:Here to establish care Present Hx:HTNOSAPrediabetesAn emiaSteatosis of liverGout Here to discuss above and get labs Oscar Joseph MD [address], [place] [address], [place], [address], [facility] 10/31/2023 17:58:59 01/29/2024 text/html OV 10/30/2023:Here to establish care Present Hx:HTNOSAPrediabetesAn emiaSteatosis of liverGout Here to discuss above and get labs OV 01/29/2024: Here for his routine apt, he feels well now, he has seen Dr Coe and also Dr Riley, he did do the labs Oscar Joseph MD [address], [address], [place], [address], [facility] 01/29/2024 16:29:28 07/15/2024 text/html OV 10/30/2023:Here to establish care Present Hx:HTNOSAPrediabetesAn [...] Joseph MD [address], [address], [place], [address], [email or web address] [facility] 07/15/2024 17:58:29 11/18/2024 text/html OV 10/30/2023:Here to establish care Present Hx:HTNOSAPrediabetesAn [...] admits to drinking alcohol Oscar Joseph MD [address] [place] [address], [facility] [address], [place], [address], [facility] 11/18/2024 16:59:01
--- OUTSIDE RECORDS SUMMARY | 2025-03-13 15:40 | XMS_ITS | Clinical Summary ---
Author Organization [facility] Facility Address [address] [place] [address] Care Team Providers Care Core Placer Name Role Phone MasterNitza samano DARRYL-Ruth Primary Care Provider Allergies No known active [...] OR SPLIT 90 tablet 1 3 Active metFORMIN XR (GLUCOPHAGE-XR) 500 MG 24 hr tablet Take 1 tablet (500 mg total) by mouth in the morning and 1 tablet (500 mg total) in the evening. 180 tablet 1 4 Active spironolactone (ALDACTONE) 100 MG tablet Take 1 tablet (100 mg total) by mouth 1 (one) time each day in the morning 90 tablet 1 4 Active colchicine 0.6 MG tablet Take 1 tablet (0.6 mg total) by mouth 1 (one) time each day in the morning 90 tablet 1 5 Active allopurinol (ZYLOPRIM) 300 MG tablet Take 1 tablet (300 mg total) by mouth 1 (one) time each day 90 tablet 1 5 Active ergocalciferol 1.25 MG (19434 UT) capsule TAKE 1 CAPSULE BY MOUTH 1 TIME EVERY WEEK 12 capsule 1 5 Active chlorthalidone 25 MG tablet TAKE 1 TABLET BY MOUTH EVERY MORNING 90 tablet 1 5 Active atorvastatin (LIPITOR) 20 MG tablet TAKE 1 TABLET(20 MG) BY MOUTH EVERY NIGHT 90 tablet 1 5 Active Encounters Date Type Department Care Team Description 12/16/2024 3:15 PM CDT Office Visit [facility] [address] [place] [address] [address] [place] [address] Zeeshan Coe DO Stage 1 chronic kidney disease (Primary Dx); Persistent proteinuria; Idiopathic gout, unspecified shoulder; Obstructive sleep apnea syndrome; Hypertensive chronic kidney disease; Secondary hyperparathyroidism (HCC); Other iron deficiency anemia 12/11/2024 Documentation Only [address] [address] Zeeshan Coe DO 12/11/2024 Documentation Only [address] [address] Zeeshan Coe DO from Last 3 [...] Sign Reading Time Taken Comments Blood Pressure 120/80 12/16/2024 3:29 PM CDT Pulse 78 12/16/2024 3:29 PM CDT Temperature 36.7 C (98 F) 12/16/2024 3:29 PM CDT Respiratory Rate 18 12/16/2024 3:29 PM CDT Oxygen Saturation 99% 12/16/2024 3:29 PM CDT Inhaled Oxygen Concentration - - Weight 143 kg (315 lb) 12/16/2024 3:29 PM CDT Height 180.3 cm (5' 11) 09/06/2021 1:40 PM CDT Body Mass Index 43.93 09/06/2021 1:40 PM CDT Plan of Treatment Upcoming Encounters Date Type Department Care Team (Late st Contact Info) Description 12/22/2025 3:15 PM CDT Office Visit [facility], [facility] [address] [facility] [address] [place] [address] Zeeshan Coe DO [address] [facility] [place] [address] [place] [address] Health Maintenance Due Date Last [...] Influenza Vaccine (#1) 2025 04/30/2023, 2021 Insurance [facility] Care Teams Core Placer Relationship Specialty Start Date End Date Nitza Rinaldi FNP-C [address] [place] [address] PCP - General Nurse Practitioner 04/05/21
--- OUTSIDE RECORDS SUMMARY | 2025-03-13 15:40 | XMS_ITS | Data Portability ---
Author Organization Debora FAUST Address [address] [place] [address] Assessment No assessment recorded. Plan of Treatment Reminders Order Date Submit Date Provider Last Modified By Organization Details Last Modified Time Details Appointments None recorded. Lab HbA1c (hemoglobi n A1c), blood 2017 018 WILFREDO HUA, [address] [place], [place] [address]raymond Gus, [facility] [address], [place], [address], 8 10:36:21 hemoglobin , qualitativ e, stool by immunologi c method 2017 018 WILFREDO HUA, [address] [place] [address], [address], [place], [address], 8 09:52:00 BMP, serum or plasma 2017 018 WILFREDO HUA, [address] [place], [place] [address]raymond Gus, [facility] [address], [place], [address], 8 10:36:19 lipid panel, serum 2017 018 WILFREDO SEQUEIRA, [address] [place] [address] Gus, [address], [place], [address], 8 10:36:19 microalbum in/creatin ine, mass ratio, urine 2017 018 WILFREDO HUA, [address] [place], [place] [address]raymond Weber, [address], [place], [address], 8 10:36:20 BMP, serum or plasma 2016 017 [facility], [address] [facility] [address], [address], [place], [address], 7 06:06:09 CBC w/ auto diff 2016 017 [facility], [address] [place] [address] Gus, [address], [place], [address], 7 08:26:20 C reactive protein, QN, serum or plasma 2016 017 [facility], [address] [facility] [address], [address], [place], [address], 7 08:26:21 lipid panel, serum 2016 017 [facility], [address] [place] [address], [address], [place], [address], 7 08:26:20 HIV (1+2) Ab, rapid, unspecifie d specimen 2016 017 [email or web address] In-Office Order, Internal Use Only DO Not Attach Compendium DO Not Attach Compendium, Do Not Delete/merge, [id number] 7 16:12:03 Referral colonoscop y referral 2016 017 [email or web address] Not available 9 15:01:50 Procedures None recorded. Surgeries None recorded. Imaging None recorded. Medication Orders amlodipine 10 mg tablet 2017 018 [facility] #[id number], [address], [place], [id number], 8 09:56:35 hydrochlor othiazide 50 mg tablet 2016 017 [email or web address] #26834, [address], [place], [id number], 8 09:58:11 amlodipine 10 mg tablet 2016 017 [facility] #17663, [address], [place], [id number], 7 12:47:13 amlodipine 10 mg tablet 2016 017 [facility] #92942, [address], [place], [id number], 7 01:28:24 hydrochlor othiazide 25 mg tablet [address] [facility]20078, [address], [place], [id number], 7 12:40:08 meloxicam 7.5 mg tablet [address] [facility] #77660, [address], [place], [id number], 7 13:47:33 amlodipine 10 mg tablet [address] [facility] #52692, [address] [place], [place], [id number], 7 12:46:39 hydrochlor othiazide 25 mg tablet [address] [facility] #05729, [address], [place], [id number], 7 12:40:08 sertraline 50 mg tablet [address] [facility] #91052, [address], [place], [id number], 7 13:47:29 meloxicam 7.5 mg tablet 2016 017 [email or web address] [facility] #81448, [address], [place], [id number], 7 13:47:33 amlodipine 10 mg tablet 2016 017 [facility] #27112, [address], [place], [id number], 7 15:48:36 hydrochlor othiazide 12.5 mg capsule 2016 017 [email or web address] [facility] #79355, [address], [place], [id number], 7 12:46:44 sertraline 50 mg tablet 2016 017 [email or web address] #66636, [address], [place], [id number], 7 13:47:29 Patient TargetsNo targets recorded. Patient Instructions Encounter Date Encounter Id Patient Instructions Last Modified By Organization Details Last Modified Time 08/22/2016 [id number] C-reactive protein (CRP) test: about this test Not available 08/22/2016 15:48:38 learning about high blood pressure Not available 08/22/2016 16:11:58 09/22/2016 [id number] I was present an d available in the Family Medicine clinic to discuss this patient's care during the appointment. I agree with the resident's assessment and plan as documented. EDWARD Not available 10/02/2016 21:47:37 10/26/2016 [id number] I was present in the clinic to discuss this patient at the time of the visit. I agree with the documented assessment and plan. Rosi Monk MD [email or web address] Not available 11/13/2016 14:50:45 01/30/2017 [id number] I certify that I was present and available in the family medicine clinic for discussion of this patient. I have reviewed the residents note and agree with the stated assessment and treatment plan. SIVAN [email or web address] Not available 01/30/2017 16:11:16 04/24/2018 [id number] I was present an d available in the Family Medicine clinic to discuss this patient's care during the appointment. I agree with the resident's assessment and plan as documented. EDWARD Not available 04/26/2018 18:04:22 Reason for Referral Colonoscopy Referral for Scr eening for malignant neoplasm of colon Referring Physician: David Fernandes Entry Level Paralegal, Encounter Date: 08/22/2016 Results Created Date Observation Date Name Description Value Unit Range Abnormal Flag Note LastModifiedBy Organization Detail LastModifiedTime 08/23/19 17 08/22/2016 HIV (1+2) Ab, rapid , unspe cifie d speci men Rapid HIV negati ve Not Available In-Office Order Internal Use Only DO Not Attach Compendium DO Not Attach Compendium, Do Not Delete/merge, [id number] 08/22/2016 15:47:47 08/23/19 17 08/23/2016 CBC w/ auto diff WBC 9.7 x10e3 /uL 3.4-10 .8 Not Available [facility] ([facility]) [address] [place], [address], 08/23/2016 08:26:20 08/23/19 17 08/23/2016 CBC w/ auto diff RBC 4.97 x10e6 /uL 4.14-5 .80 Not Available [facility] ([facility]) [address] [facility], [place], [address], 08/23/2016 08:26:20 08/23/19 17 08/23/2016 CBC w/ auto diff hemoglobin 11.3 g/dL 12.6-1 7.7 below low normal Not Available [facility] ([facility]) [address] [place], [address], 08/23/2016 08:26:20 08/23/19 17 08/23/2016 CBC w/ auto diff hematocrit 35.2 % 37.5-5 1.0 below low normal Not Available [facility] ([facility]) [address] [facility], [place], [address], 08/23/2016 08:26:20 08/23/19 17 08/23/2016 CBC w/ auto diff MCV 71 fL 79-97 below low normal Not Available [facility] ([facility]) [address] [facility], [place], [address], 08/23/2016 08:26:20 08/23/19 17 08/23/2016 CBC w/ auto diff MCH 22.7 pg 26.6-3 3.0 below low normal Not Available [facility] ([facility]) [address] [facility], [place], [address], 08/23/2016 08:26:20 08/23/19 17 08/23/2016 CBC w/ auto diff MCHC 32.1 g/dL 31.5-3 5.7 Not Available [facility] ([facility]) [address] [facility], [place], [address], 08/23/2016 08:26:20 08/23/19 17 08/23/2016 CBC w/ auto diff RDW 16.8 % 12.3-1 5.4 above high normal Not Available [facility] ([facility]) [address] [facility], [place], [address], 08/23/2016 08:26:20 08/23/19 17 08/23/2016 CBC w/ auto diff platelets 409 x10e3 /uL 150-37 9 above high normal Not Available [facility] ([facility]) [address] [facility], [place], [address], 08/23/2016 08:26:20 08/23/19 17 08/23/2016 CBC w/ auto diff neutrophils 73 % Not Available [facility] ([facility]) [address] [facility], [place], [address], 08/23/2016 08:26:20 08/23/19 17 08/23/2016 CBC w/ auto diff lymphs 17 % Not Available [facility] ([facility]) [address] [place], [address], 08/23/2016 08:26:20 08/23/19 17 08/23/2016 CBC w/ auto diff monocytes 9 % Not Available [facility] ([facility]) [address] [place], [address], 08/23/2016 08:26:20 08/23/19 17 08/23/2016 CBC w/ auto diff eos 1 % Not Available [facility] ([facility]) [address] [place], [address], 08/23/2016 08:26:20 08/23/19 17 08/23/2016 CBC w/ auto diff basos 0 % Not Available [facility] ([facility]) [address] [place], [address], 08/23/2016 08:26:20 08/23/19 17 08/23/2016 CBC w/ auto diff immature cells BOILER TENDER Not Available [facility] ([facility]) [address] [place], [address], 08/23/2016 08:26:20 08/23/19 17 08/23/2016 CBC w/ auto diff neutrophils (absolute) 7.0 x10e3 /uL 1.4-7. 0 Not Available [facility] ([facility]) [address] [place], [address], 08/23/2016 08:26:20 08/23/19 17 08/23/2016 CBC w/ auto diff lymphs (absolute) 1.7 x10e3 /uL 0.7-3. 1 Not Available [facility] ([facility]) [address] [place], [address], 08/23/2016 08:26:20 08/23/19 17 08/23/2016 CBC w/ auto diff monocytes(ab solute) 0.9 x10e3 /uL 0.1-0. 9 Not Available [facility] ([facility]) [address] [facility], [place], [address], 08/23/2016 08:26:20 08/23/19 17 08/23/2016 CBC w/ auto diff eos (absolute) 0.1 x10e3 /uL 0.0-0. 4 Not Available [facility] ([facility]) [address] [facility], [place], [address], 08/23/2016 08:26:20 08/23/19 17 08/23/2016 CBC w/ auto diff baso (absolute) 0.0 x10e3 /uL 0.0-0. 2 Not Available [facility] ([facility]) [address] [facility], [place], [address], 08/23/2016 08:26:20 08/23/19 17 08/23/2016 CBC w/ auto diff immature granulocytes 0 % Not Available [facility] ([facility]) [address] [facility], [place], [address], 08/23/2016 08:26:20 08/23/19 17 08/23/2016 CBC w/ auto diff immature grans (abs) 0.0 x10e3 /uL 0.0-0. 1 Not Available [facility] ([facility]) [address] [facility], [place], [address], 08/23/2016 08:26:20 08/23/1908/23/2016 CBC w/ auto diff NRBC BOILER TENDER Not Available [facility] ([facility]) [address] [facility], [place], [address], 08/23/2016 08:26:20 08/23/1908/23/2016 CBC w/ auto diff hematology comments: BOILER TENDER Not Available [facility] ([facility]) [address] [facility], [place], [address], 08/23/2016 08:26:20 08/23/1908/23/2016 lipid panel , serum cholesterol, total 181 mg/dL 100-19 9 Not Available [facility] ([facility]) [address] [place], [address], 08/23/2016 08:26:20 08/23/19 17 08/23/2016 lipid panel , serum triglyceride s 90 mg/dL 0-149 Not Available [facility] ([facility]) [address] [place], [address], 08/23/2016 08:26:20 08/23/19 17 08/23/2016 lipid panel , serum HDL cholesterol 34 mg/dL >39 below low normal Not Available [facility] ([facility]) [address] [place], [address], 08/23/2016 08:26:20 08/23/19 17 08/23/2016 lipid panel , serum VLDL cholesterol yoli 18 mg/dL 5-40 Not Available [facility] ([facility]) [address] [place], [address], 08/23/2016 08:26:20 08/23/19 17 08/23/2016 lipid panel , serum LDL cholesterol calc 129 mg/dL 0-99 above high normal Not Available [facility] ([facility]) [address] [place], [address], 08/23/2016 08:26:20 08/23/19 17 08/23/2016 lipid panel , serum comment: BOILER TENDER Not Available [facility] ([facility]) [address] [place], [address], 08/23/2016 08:26:20 08/23/19 17 08/23/2016 C react juju prote in, QN, serum or plasm a C-reactive protein, quant 59.9 mg/L 0.0-4. 9 above high normal Not Available [facility] ([facility]) [address] [place], [address], 08/23/2016 08:26:21 08/23/19 17 08/23/2016 cardi ovasc ular asses sment panel , serum interpretati on NOTE SUPPL EMVINITA PONCE T IS AVAIL ABLE. Not Available [facility] ([facility]) [address] [place], [address], 08/23/2016 08:26:22 08/23/19 17 08/23/2016 cardi ovasc ular asses sment panel , serum pdf image . Not Available [facility] ([facility]) [address] [place], [address], 08/23/2016 08:26:22 09/23/19 17 09/23/2016 BMP, serum or plasm a glucose, serum 95 mg/dL 65-99 Not Available [facility] ([facility]) [address] [place], [address], 09/23/2016 06:06:09 09/23/19 17 09/23/2016 BMP, serum or plasm a BUN 6 mg/dL 6-24 Not Available [facility] ([facility]) [address] [place], [address], 09/23/2016 06:06:09 09/23/19 17 09/23/2016 BMP, serum or plasm a creatinine, serum 1.02 mg/dL 0.76-1 .27 Not Available [facility] ([facility]) [address] [place], [address], 09/23/2016 06:06:09 09/23/1909/23/2016 BMP, serum or plasm a eGFR if nonafricn AM 83 mL/mi n/1.7 3 >59 Not Available [facility] ([facility]) [address] [place], [address], 09/23/2016 06:06:09 09/23/19 17 09/23/2016 BMP, serum or plasm a eGFR if africn AM 96 mL/mi n/1.7 3 >59 Not Available [facility] ([facility]) [address] [place], [address], 09/23/2016 06:06:09 09/23/19 17 09/23/2016 BMP, serum or plasm a BUN/creatini ne ratio 6 9-20 below low normal Not Available [facility] ([facility]) [address] [place], [address], 09/23/2016 06:06:09 09/23/19 17 09/23/2016 BMP, serum or plasm a sodium, serum 143 mmol/ L 134-14 4 Not Available [facility] ([facility]) [address] [place], [address], 09/23/2016 06:06:09 09/23/19 17 09/23/2016 BMP, serum or plasm a potassium, serum 4.1 mmol/ L 3.5-5. 2 Not Available [facility] ([facility]) [address] [place], [address], 09/23/2016 06:06:09 09/23/19 17 09/23/2016 BMP, serum or plasm a chloride, serum 101 mmol/ L 96-106 Not Available [facility] ([facility]) [address] [place], [address], 09/23/2016 06:06:09 09/23/19 17 09/23/2016 BMP, serum or plasm a carbon dioxide, total 22 mmol/ L 18-29 Not Available [facility] ([facility]) [address] [place], [address], 09/23/2016 06:06:09 09/23/1909/23/2016 BMP, serum or plasm a calcium, serum 9.6 mg/dL 8.7-10 .2 Not Available [facility] ([facility]) [address] [place], [address], 09/23/2016 06:06:09 04/24/20 18 04/25/2018 BMP, serum or plasm a glucose 125 mg/dL 65-99 above high normal Not Available [facility] ([facility]) [address] [place], [address], 04/25/2018 10:36:19 04/24/20 18 04/25/2018 BMP, serum or plasm a BUN 9 mg/dL 6-24 Not Available [facility] ([facility]) [address] [place], [address], 04/25/2018 10:36:19 04/24/20 18 04/25/2018 BMP, serum or plasm a creatinine 1.28 mg/dL 0.76-1 .27 above high normal Not Available [facility] ([facility]) [address] [place], [address], 04/25/2018 10:36:19 04/24/20 18 04/25/2018 BMP, serum or plasm a eGFR if nonafricn AM 62 mL/mi n/1.7 3 >59 Not Available [facility] ([facility]) [address] [place], [address], 04/25/2018 10:36:19 04/24/20 18 04/25/2018 BMP, serum or plasm a eGFR if africn AM 72 mL/mi n/1.7 3 >59 Not Available [facility] ([facility]) [address] [place], [address], 04/25/2018 10:36:19 04/24/20 18 04/25/2018 BMP, serum or plasm a BUN/creatini ne ratio 7 9-20 below low normal Not Available [facility] ([facility]) [address] [facility] [place], [address], 04/25/2018 10:36:19 04/24/20 18 04/25/2018 BMP, serum or plasm a sodium 142 mmol/ L 134-14 4 Not Available [facility] ([facility]) [address] [place], [address], 04/25/2018 10:36:19 04/24/20 18 04/25/2018 BMP, serum or plasm a potassium 4.2 mmol/ L 3.5-5. 2 Not Available [facility] ([facility]) [address] [place], [address], 04/25/2018 10:36:19 04/24/20 18 04/25/2018 BMP, serum or plasm a chloride 101 mmol/ L 96-106 Not Available [facility] ([facility]) [address] [place], [address], 04/25/2018 10:36:19 04/24/20 18 04/25/2018 BMP, serum or plasm a carbon dioxide, total 25 mmol/ L 20-29 Not Available [facility] ([facility]) [address] [place], [address], 04/25/2018 10:36:19 04/24/20 18 04/25/2018 BMP, serum or plasm a calcium 9.8 mg/dL 8.7-10 .2 Not Available [facility] ([facility]) [address] [place], [address], 04/25/2018 10:36:19 04/24/20 18 04/25/2018 lipid panel , serum cholesterol, total 158 mg/dL 100-19 9 Not Available [facility] ([facility]) [address] [place], [address], 04/25/2018 10:36:19 04/24/20 18 04/25/2018 lipid panel , serum triglyceride s 76 mg/dL 0-149 Not Available [facility] ([facility]) [address] [place], [address], 04/25/2018 10:36:19 04/24/20 18 04/25/2018 lipid panel , serum HDL cholesterol 38 mg/dL >39 below low normal Not Available [facility] ([facility]) [address] [place], [address], 04/25/2018 10:36:19 04/24/20 18 04/25/2018 lipid panel , serum VLDL cholesterol yoli 15 mg/dL 5-40 Not Available [facility] ([facility]) [address] [place], [address], 04/25/2018 10:36:19 04/24/20 18 04/25/2018 lipid panel , serum LDL cholesterol calc 105 mg/dL 0-99 above high normal Not Available [facility] ([facility]) [address] [place], [address], 04/25/2018 10:36:19 04/24/20 18 04/25/2018 lipid panel , serum comment: BOILER TENDER Not Available [facility] ([facility]) [address] [place], [address], 04/25/2018 10:36:19 04/24/20 18 04/25/2018 micro album in/cr eatin ine, mass ratio , urine creatinine, urine 145.0 mg/dL not estab. Not Available [facility] ([facility]) [address] [place], [address], 04/25/2018 10:36:20 04/24/20 18 04/25/2018 micro album in/cr eatin ine, mass ratio , urine albumin, urine 29.6 ug/mL not estab. Not Available [facility] ([facility]) [address] [facility], [place], [address], 04/25/2018 10:36:20 04/24/20 18 04/25/2018 micro album in/cr eatin ine, mass ratio , urine alb/creat ratio 20.4 mg/g_ creat 0.0-30 .0 Marlen l: 0.0 - 30.0 Album inuri a: 31.0 - 300.0 Clini yoli album inuri a: >300. 0 Not Available [facility] ([facility]) [address] [facility], [place], [address], 04/25/2018 10:36:20 04/24/20 18 04/24/2018 HbA1c (hemo globi n A1c), blood hemoglobin A1C 5.9 % 4.8-5. 6 above high normal Predi abete s: 5.7 - 6.4 Diabe sal: >6.4 Glyce leah contr ol for adult s with diabe sal: <7.0 Not Available [facility] ([facility]) [address] [facility], [place], [address], 04/25/2018 10:36:21 04/24/20 18 04/25/2018 cardi ovasc ular asses sment panel , serum interpretati on Note Suppl cruz umanzor is avail able. Not Available [facility] ([facility]) [address] [facility], [place], [address], 04/25/2018 10:36:21 04/24/20 18 04/25/2018 cardi ovasc ular asses sment panel , serum pdf image . Not Available [facility] ([facility]) [address] [facility], [place], [address], 04/25/2018 10:36:21 12/22/19 21 12/21/2020 CT, head + brain , w/o contr ast No observ ation record ed[facility] [address] [place], [address], 12/28/2020 09:38:42 12/22/19 21 12/21/2020 CT, chest , w/o contr ast No observ ation record ed. [facility] [address] [place], [address], 12/23/2020 21:19:51 Result Notes None recorded. Problems Name Problem SNOMED Code Status Onset Date Resolution Date Notes Provider Name and Address Organization Details Recorded Time Depressive disorder 57225823 Completed 201604/24/2018 Manjula Giles MD Attn: Vaughn ayon,[address] [facility], [place], [address], [facility] 8 09:56:35 Essential hypertension 61785626 Active 2016 David Fernandes DO Attn: Vaughn g,[address] [facility], [place], [address], [facility] 7 12:31:41 Problem Notes None [...] No t Available Vitals Date Recorded Systolic And Diastolic Provider Name and Address Organization Details Last Updated DateTime 08/22/2016 182/108 mm[Hg] David Fernandes DO Attn: Accounting,[address] [facility], [place], [address], [place] [facility] 08/22/2016 17:30:39 Date Recorded Body height Body weight Body mass index (BMI) Heart rate Body temperature Oxygen saturation Oxygen saturation in Arterial blood by Pulse oximetry Systolic And Diastolic Provider Name and Address Organization Details Last Updated DateTime 7 180.34 cm 838586. 25 g 43 kg/m2 95 /min 98.7 [degF] 98 % 98 % 188/120 mm[Hg] Mally Rambo [facility] 7 14:41:45 Date Recorded Systolic And Diastolic Provider Name and Address Organization Details Last Updated DateTime 09/22/2016 162/102 mm[Hg] [facility] Attn: Accounting,[address] [place], [address], [facility] 09/22/2016 12:27:18 Date Recorded Body height Body weight Body mass index (BMI) Body temperature Heart rate Oxygen saturation Oxygen saturation in Arterial blood by Pulse oximetry Systolic And Diastolic Provider Name and Address Organization Details Last Updated DateTime 7 180.34 cm 127650. 52 g 41.7 kg/m2 98.5 [degF] 92 /min 98 % 98 % 170/108 mm[Hg] Caitlyn Ryan [facility] 7 12:13:30 Date Recorded Systolic And Diastolic Provider Name and Address Organization Details Last Updated DateTime 10/26/2016 134/86 mm[Hg] [facility]ing,[address] [place], [address], [facility] 10/26/2016 12:49:48 Date Recorded Body height Body weight Body mass index (BMI) Body temperature Heart rate Oxygen saturation Oxygen saturation in Arterial blood by Pulse oximetry Systolic And Diastolic Provider Name and Address Organization Details Last Updated DateTime 7 180.34 cm 209869. 12 g 41.7 kg/m2 98.1 [degF] 79 /min 98 % 98 % 134/96 mm[Hg] Quyen Ryan [place] [facility] 7 12:24:52 Date Recorded Body height Body mass index (BMI) Body weight Body temperature Heart rate Oxygen saturation Oxygen saturation in Arterial blood by Pulse oximetry Systolic And Diastolic Provider Name and Address Organization Details Last Updated DateTime 7 180.34 cm 43.4 kg/m2 026948. 03 g 98.1 [degF] 94 /min 98 % 98 % 152/98 mm[Hg] Robe Rivers CMA [facility] 7 12:15:59 Date Recorded Body weight Body mass index (BMI) Body height Heart rate Oxygen saturation Oxygen saturation in Arterial blood by Pulse oximetry Body temperature Systolic And Diastolic Provider Name and Address Organization Details Last Updated DateTime 8 922375. 07 g 62.5 kg/m2 154.94 cm 72 /min 98 % 98 % 98.4 [degF] 150/100 mm[Hg] Phylicia Sweeney MA [facility] 8 09:20:04 Social History Question Answer Notes LastModified by Organizat ion Details LastModified Time Tobacco Smoking Status Never Smoker Mally Ricks CMA null, [place] [facility] 08/22/2016 14:39:52 What Was The Date Of Your Most Recent Tobacco Screening? 01/30/2017 Information n ot available 01/02/2019 Sex: Unknown Functional Status None recorded. Mental Status None recorded. Family History Relationship Description Onset Age of this Age Resolved Age Notes LastModified by Organization Details LastModified Time Mother Neoplasm of ovary [email or web address] Not available 2016 15:14:12 Brother Malignant neoplasm of thyroid gland [email or web address] Not available 2016 15:14:25 Sister Malignant neoplasm of breast [email or web address] Not available 2016 15:14:33 Medical History Condition Response Coronary Artery Disease N Other N High Blood Pressure N Atrial Fibrillation N Kidney or Bladder Problems N Thyroid Problems N GI Problems N Depression N COPD N Blood Clots N Skin Problems N Anemia N Heart Attack (NE) N Anxiety Disorder N Diabetes N Muscle, Joint, or Bone Problems N Seizures/Epilepsy N Acid Reflux (GERD) N Cancer N Stroke N Asthma N Allergies N High Cholesterol N Hepatitis N Liver Disease N Headaches N Heart Failure N Osteoporosis N Immunizations Vaccine Type Date Status Note Provider Nam e and Address Organization Details Recorded Time Tdap 09/25/2016 completed Not Available [facility] 06/28/2019 02:33:29 Influenza, split virus, quadrivalent, PF 01/30/2017 completed Not Available [facility] 0 02:35:18 Influenza, split virus, quadrivalent, PF 04/24/2018 completed Not Available [facility] 0 02:40:23 Past Encounters Encounter ID Performer Location Encounter Start Date Encounter Closed Date Diagnosis/Indication Diagnosis SNOMED-CT Code Diagnosis ICD10 Code Diagnosis IMO Codes Diagnosis Note [id number] MD [facility] ([facility]) [address] [place] [address] 08/22/2016 14:01:55 08/23/2016 09:46:22 Essential hypertension 60237920 I10 HTN diagnosed in the ER but not started on any medication .182/108 in office today.Will start on Amlodipine 10 and HCTZ 12.5 today. Will plan to FU in 30 days. Pain in left knee [id number] 5685 36336 M25.562 Pain and erythema in L Knee, x 2 weeks, will get CBC CRP and start on Meloxicam, Will get Xray if not improving. Depressive disorder 3548 9007 F32.9 PHQ-9 score of 13/27Will start on Sertaline, pt notes that he has trouble falling asleep. HIV screening 328550622 Z11.4 Will check for HIV Screening for malignant neoplasm of colon 740867347 Z12.11 Needs colonoscop y. [id number] MD [facility] ([facility]) [address] [place] [address] 09/22/2016 12:08:18 09/27/2016 10:41:07 Depressive disorder 42493568 F32.9 PHQ-2 score of 0Continue sertraline for now if symptoms remain so well controlled consider future D/C Essential hypertension 24604948 I10 BP slightly improved today but still elevated, 162/102 WIll increase HCTZ and ensured that pt has refills on Amlodipine plan to see back in 1 mo Pain in left knee 512174 4113 05233 M25.562 Improved discussed continued meloxicam as needed but to d/c scheduled for now. Active or passive immunization 580102768 Z23 [id number] MD [facility] ([facility]) [address] [place] [address] 10/26/2016 11:59:21 10/27/2016 16:40:59 Essential hypertension 58358037 I10 BP greatly improved today but still elevated, 134/86 continue HCTZ and Amlodipine plan to see back in 3 mo [id number] Inge Dugan MD [facility] ([facility]) [address] [place] [place] [address] 01/30/2017 12:07:27 01/30/2017 14:44:11 Essential hypertension 14662437 I10 BP elevated will increase HCTZ here and at home.Pt prefers not to add an additional med, Will increase HCTZ to 50, continue amlodipine 10 Adult heal th examination 673748056 Z00.00 Needs Flu shot today [id number] Inge Dugan MD [facility] [address] [facility] [address] [place] [address] 04/24/2018 09:02:48 04/25/2018 09:53:42 Obesity 987619949 E66.9 - Extensivel y counselled on a healthy diet and moderate intensity excercise 3-5x weekly for about ~45 minutes Essential hypertension 49186594 I10 - BP 150/100. Repeat 150/100. No red flag sx- Previously on Amlodipine 10mg and HCTZ 50mg daily- Will restart Amlodipine 10mg daily, will not start HCTZ at this time due to concern for dropping BP too low- Pt [facility], write them down and call them in 2-3 weeks Screening for malignant neoplasm of colon 349802591 Z12.11 - No h/o colon cancer, FH of colon cancer or blood in stool noted- As pt is self pay, will order FOBT test. Will send for colonoscop y if abnormal Paresthesi a of upper limb 95149260 R20.2 - Tingling of back of L hand can be due to overuse and pt is lift boxes all day- Negative Tinel and Phalen test, less likely carpal tunnel- Will also check A1c to r/o diabetic neuropathy as cause of tingling Poor oral hygiene 968290 009 R46.89 - PE remarkable for 2 pits noted on posterior of roof of mouth (1 one each side).- No h/o smoking, poor dentition- Denies any tenderness or pain in mouth- Resources provided today for dentistry for further evaluation . Active or passive immunization 121078382 Z23 Health Concerns Section Related Observation LastModified [...] Armani Oconnell 04/24/2018 1 *SELF PAY* Ti sahil Oconnell 12/27/2020 1 [facility] - DOS PRIOR TO 2020 (MEDICAID REPLACEMENT - HMO) Armani Oconnell [id number] Armani Oconnell Notes Date Note Type Note [...] Vinh Acevedo DO Attn: Accounting,[address] [facility], [place], [address], [facility] 08/23/2016 09:17:26 7 text/html 56 yo M here for BP Fu ran out of amlodipine 3 days ago.Pt denies any SE of medications, CP, SOB, vision changes, JOEL, Pain in knee is significantly improved with meloxicam Pt now reports no depression symptoms on sertraline 50. Inge Dugan MD Attn: Accounting,[address] [facility], [place], [address], [facility] 10/02/2016 21:47:41 7 [...] concern. Rosi Monk MD Attn: Accounting,[address], [place], [address], [facility] 11/13/2016 14:50:49 7 text/html 56 yo M here for FU on HTNReports home numbers running in upper 140s over 80s. Complaint with meds.Denies any CP, SOB, Vision changes, numbness, weakness or headaches. Due for a flu shot Patrick Leon DO Attn: Accounting,[address], [place], [address], [facility] 01/30/2017 16:14:17 8 text/html ROS as noted in the HPI 58 y/o M presents for BP f/u. [...] for a long period of time.No h/o NE or stroke.No FH of NE, stroke or colon cancer.Denies any blood in stool or uninteded weight loss. No c/o headache, CP, SOB, NVCD, numbness or tingling. Inge Dugan MD Attn: Accounting,[address], [place], [address], [facility] 04/26/2018 18:04:27
--- OUTSIDE RECORDS SUMMARY | 2025-03-13 15:40 | XMS_ITS | Clinical Summary ---
Author Organization [facility] Pablo Cowan Address [address] [place] [address] Care Team Providers Care Lead Generator Name Role Phone Oscar Joseph MD Primary [...] Encounters Date Type Department Care Team Description 01/27/2025 External Device Data STL ABSTRACTION Provider, Abstract 12/24/2024 External Device Data STL ABSTRACTION Provider, Abstract [...] Description 10/29/2025 3:45 PM CDT Office Visit [facility] Oncology and Hematology - [place] [address] [facility] [address] [place] [address] Juan Riley MD [address] [facility] [address] [place] [address] Health Maintenance Due Date Last [...] 11/27/2023 INFLUENZA VACCINE (#1) 2025 04/30/2023, 2021 Insurance Member Subscriber Plan / Payer (Ef fective 2024-Present) Name:Armani Oconnell Relation to Subscriber:Self Name:Armani Oconnell Payer ID:[id number] (NAIC) Group ID:Not on file Type:HMO Address: [facility] [facility] [id number] [place] [id number] Care Teams Lead Generator Relationship Specialty Start Date End Date Oscar Josehp MD PCP - General Internal Medicine 01/09/24
--- OUTSIDE RECORDS SUMMARY | 2025-03-13 15:40 | XMS_ITS | Clinical Summary ---
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 Gender Identity Not on file Sexual Orientation Not on file Plan of Treatment Health Maintenance Due Date Last Done Comments Colorectal Cancer Screening Colonoscopy (10 Years) 1962 Annual Physical 1965 Hepatitis C 1980 DTaP, Tdap and Td Vaccines ( 1 - Tdap) 1981 Pneumococcal Vaccine: 50+ Ye ars (1 of 1 - PCV) 2012 Zoster Vaccines (1 of 2) 2012 COVID-19 Vaccine (1 - 2023-2 5 season) 2025 RSV Immunization or 60+ Years (1 - [...] topic Insurance [facility] Care Teams Postal Inspector Relationship Specialty Start Date End Date Oscar Joseph MD [address] [place] [address] PCP - General INTERNAL MEDICINE 11/26/23
[2025-03-13 16:51] LABS: Anion Gap 9 mmol/L (4-12); Blood Urea Nitrogen 17 mg/dL (9-20); Calcium 10.0 mg/dL (8.4-10.2); Carbon Dioxide 24 mmol/L (22-30); Chloride 104 mmol/L (98-107); Estimated Glomerular Filt Rate 58; Glucose 91 mg/dL (65-110); Potassium 4.2 mmol/L (3.4-5.0); Sodium 137 mmol/L (137-145)
== END 2025-03-13 15:37 | disposition home or self-care (01) ==
PROVIDERS: PCP Internal Medicine; Visit Provider Internal Medicine
DX: I12.9 Hypertensive chronic kidney disease with stage 1 through stage 4 chronic kidney disease, or unspecified chronic kidney disease (principal); N18.9 Chronic kidney disease, unspecified
CPT/HCPCS: 36415; 80048

== ENCOUNTER 2025-05-01 13:51 | Outpatient (CLI) | payer OTHER, SELFPAY ==
--- OUTSIDE RECORDS SUMMARY | 2025-05-01 13:57 | XMS_ITS | Clinical Summary ---
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 Gender Identity Not on file Sexual Orientation [...] of 2) 2012 COVID-19 Vaccine ( - 2024-2 6 season) 2025 Influenza Adult (#1) 2025 RSV Immunization or 60+ Years (1 - 1-dose 75+ series) 2037 Hepatitis A Vaccines Aged Out No long er eligible based on patient's age to complete this topic Meningococcal B Vaccine Aged Out No l onger eligible based on patient's age to complete this topic Meningococcal Vaccine Aged Out No january tru eligible based on patient's age to complete this topic RSV Immunizations Under 20 Months Aged Out No longer eligible based on patient's age to complete this topic Insurance [employer] Care Teams Dynamics Ax Solution Architect Relationship Specialty Start Date End Date Oscar Joseph MD [address] [address] PCP - General INTERNAL MEDICINE 11/26/23
--- OUTSIDE RECORDS SUMMARY | 2025-05-01 13:57 | XMS_ITS | Clinical Summary ---
Author Organization [facility] Address [address] [place] [address] Care Team Providers Care Project Development Leader Name Role Phone MasterNitza samano DARRYL-Ruth Primary [...] tablet 1 5 Active ergocalciferol 1.25 MG (13001 UT) capsule TAKE 1 CAPSULE BY MOUTH 1 TIME EVERY WEEK 12 capsule 1 5 Active chlorthalidone 25 MG tablet TAKE 1 TABLET BY MOUTH EVERY MORNING 90 tablet 1 5 Active atorvastatin (LIPITOR) 20 MG tablet TAKE 1 TABLET(20 MG) BY MOUTH EVERY NIGHT 90 tablet 1 5 Active Social History Tobacco Use Types Packs/Day Years [...] Description 12/22/2025 3:15 PM CDT Office Visit [facility], [facility] [address] [facility] [address] [place] [phone] Zeeshan Coe DO [address] [facility] [facility] [address] [place] [address] Health Maintenance Due Date Last [...] Influenza Vaccine (#1) 2025 04/30/2023, 2021 Insurance [facility] Care Teams Project Development Leader Relationship Specialty Start Date End Date Nitza Rinaldi FNP-C [address] [place] [address] PCP - General Nurse Practitioner 04/05/21
--- OUTSIDE RECORDS SUMMARY | 2025-05-01 13:57 | XMS_ITS | Clinical Summary ---
Author Organization [facility] Pablo Cowan Address [address] [place] [address] Care Team Providers Care Cable Driller Name Role Phone Oscar Joseph MD Primary [...] Encounters Date Type Department Care Team Description 03/24/2025 External Device Data STL ABSTRACTION Provider, Abstract [...] Description 10/29/2025 3:45 PM CDT Office Visit [facility] Oncology and Hematology - [place] [address] [facility] [address] [place] [address] Juan Riley MD [address] [facility] [address] [place] [address] Health Maintenance Due Date Last Done Comments DIABETES ANNUAL FOOT EXAM 1980 DIABETES ANNUAL RETINAL EXAM 1980 DIABETES MICROALBUMIN ANNUAL SCREEN 1980 LDL CHOLESTEROL ANNUAL 1980 DTAP/TDAP/TD VACCINES (1 - Tdap) 1981 COLORECTAL SCREENING 2007 Colorectal Cancer Screening 2007 FIT-DNA Q 3 years 2007 FIT/FOBT Q 1 year 2007 Flex Sig/CT Colonography Q 5 years 2007 RSV VACCINE (60+ or ) (1 - Risk 50-74 years 1-dose series) 2012 ZOSTER VACCINE (1 of 2) 2012 DIABETES HBA1C Q 6 MONTHS 05/28/2024 11/27/2023 INFLUENZA VACCINE (#1) 2025 04/30/2023, 2021 Insurance [facility] [id number] Care Teams Cable Driller Relationship Specialty Start Date End Date Oscar Joseph MD PCP - General Internal Medicine 01/09/24
[2025-05-01 14:17] LABS: Hematocrit 38.2 % (42.0-52.0); Hemoglobin 13.0 g/dL (14.0-18.0); Immature Granulocyte Percent A 0.2 % (0-0.5); Lymphocytes Absolute Auto 1.44 K/mm3 (0.9-3.2); Mean Corpuscular HGB Conc 34.0 g/dl (32-36); Mean Corpuscular Hemoglobin 32.3 pg (26-34); Mean Corpuscular Volume 95.0 fl (80-100); Nucleated Red Blood Cells Absolute Auto 0.000 K/mm3 (0.0-0.012); Nucleated Red Blood Cells Perc 0.0 % (0.0-0.2); Platelet Count Result 230 k/mm3 (150-375); Red Blood Count 4.02 M/mm3 (4.6-6.20); White Blood Count 9.0 K/mm3 (4.5-10.0)
[2025-05-01 14:26] LABS: Hemoglobin A1C 5.7 % (<5.7)
[2025-05-01 14:29] LABS: Alanine Aminotransferase 69 U/L (6-50); Albumin Level 4.5 g/dL (3.5-5.1); Alkaline Phosphatase 108 U/L (38-126); Anion Gap 8 mmol/L (4-12); Aspartate Amino Transferase 69 U/L (17-59); Bilirubin,Total 0.7 mg/dL (0.2-1.3); Blood Urea Nitrogen 20 mg/dL (9-20); Calcium 9.7 mg/dL (8.4-10.2); Carbon Dioxide 28 mmol/L (22-30); Chloride 99 mmol/L (98-107); Cholesterol 114 mg/dL (0-200); Estimated Glomerular Filt Rate 48; Glucose 106 mg/dL (65-110); HDL Direct 42 mg/dL; Potassium 4.5 mmol/L (3.4-5.0); Sodium 135 mmol/L (137-145); Total Protein 7.8 g/dL (6.3-8.2); Triglycerides 55 mg/dL (<150)
[2025-05-01 15:06] LABS: MALB Creatinine Ratio < 4.8 mg/g (0-30)
[2025-05-01 15:43] LABS: Thyroid Stimulating Hormone Reflex 1.560 uIU/mL (0.465-4.68)
== END 2025-05-01 13:52 | disposition home or self-care (01) ==
LOC: ANHLAB 13:54
PROVIDERS: PCP Internal Medicine; Visit Provider Internal Medicine
DX: R73.9 Hyperglycemia, unspecified (principal); I10 Essential (primary) hypertension
CPT/HCPCS: 36415; 80053; 80061; 82043; 83036; 84443; 85025